=== PATIENT | male | born 1955 | race Two or more races ===

== ENCOUNTER 2018-02-07 09:18 | Inpatient (IN) | payer OTHER ==
[~2018-02-07] VITALS: Ht 175.3 cm; Wt 117.5 kg
[2018-02-07] VITALS (22 sets, daily range): BP systolic 120–183; BP diastolic 85–150
[2018-02-07] MEDS ORDERED: Racemic EPINEPHrine 2.25% 0.5ml HHN ONE (09:30)
[2018-02-07] MEDS ORDERED: Solu-MEDROL 125mg Inj IVP ONE (09:30)
[2018-02-07] MEDS ORDERED: DiphenhydrAMINE 50mg/ml Inj IVP ONE (09:30)
--- NOTE | 2018-02-07 09:30 | Emergency Room Report ---
History of Present Illness General Chief Complaint: General Complaint Source: Patient, Medical Record, EMS, Caregiver Present Illness HPI Patient presents with 40 minutes of swelling of his eyes and neck. He's never had this before. Paramedics transported the patient on oxygen. Pulse ox was low. He was able to speak with hoarseness. A 4X4 gauze was placed over the trach site. Paramedics report that the trach had been removed earlier, however , it was not clear when. They were told this was probably an allergic reaction. Trach was apparently placed during treatment of pneumonia and prior stroke. He is on medication at this time. He has a history of COPD and is on 2 L of action usually. The patient denies any pain. No prior h/o allergies or allergic reactions. Further history unavailable. Later after the CXR further history was available: Apparently there was some problem with the trach (#8 Portex). They do have bag valve masks at the [facility]. It is unclear whether positive pressure was given after the trach was manipulated (but this is suspected by me). The patient started having neck and eye swelling. They took the trach out and called paramedics. Allergies: Coded Allergies: No Known Allergies (Unverified , 02/07/18) Patient History Limited by: medical condition Past Medical History: see triage record, old chart reviewed, COPD, CVA/TIA Past Surgical History: other - trach, G tube Social History: Denies: smoking, alcohol use Social History Narrative [facility] . Reviewed Nursing Documentation: PMH: Agreed; PSxH: Agreed Nursing Documentation-PMH Hx Cardiac Problems: Yes - Afib, Hyperlipidemia Hx Hypertension: Yes Hx COPD: Yes - Hx Trache, Dysphagia Hx Gastrointestinal Problems: Yes - GERD, Left Upper Gtube Hx Cerebrovascular Accident: Yes - Intracranial Hemorrhage, Left Hemiplegia, Hemiparesis Review of Systems All Other Systems: limited Physical Exam Vital Signs Date Time Temp Pulse Resp B/P (MAP) Pulse Ox O2 Delivery O2 Flow Rate FiO2 02/07/18 09:12 98.1 104 20 209/155 96 Nasal Cannula 2.0 98.1 Sp02 EP Interpretation: reviewed, abnormal - interpreted as low by me General Appearance: alert, mild distress, Chronically Ill Eyes: bilateral eye PERRL, bilateral eye other - periorbital edema ENT: dry mucus membranes Neck: supple, other - massive swelling of neck and face Respiratory: decreased breath sounds, wheezing, expiration Cardiovascular #1: normal peripheral pulses, regular rate, rhythm, edema Cardiovascular #2: 2+ radial (R) Gastrointestinal: non tender, soft, no mass, other - G tube, decreased bowel sounds, overweight Musculoskeletal: digits/nails normal, normal range of motion Neurologic: alert, sensory intact, motor weakness - L sided Psychiatric: depressed affect Skin: normal color, no rash Procedures Critical Care Time Critical Care Time Total Critical Care Time: 120 min bedside evaluation and treatment excludes procedures (EKG, trach replacement). Reason for critical care: mediastinal emphysema, hypoxia, upper airway compromise Possible complications: hypotension, hypertension, CT, shock, arrhythmias, metabolic acidosis, end organ damage, respiratory failure. Interventions: trach replacement, calls for higher level of care and for consultants, repeat patient evaluation Course: Patient with neck, upper airway and facial swelling. Emergent treatment for possible allergic reaction. CXR with mediastinal emphysema. Airway deterioration and trach placed. Airway stabilized. Multiple calls for attempt transfer to higher level of care - presented and "accepted" for consultation [facility] Multiple calls to PMD and thoracic surgeon. CT chest reviewed. Planned admission to ICU. Discussion with SNF for preceding events. Consultations: nursing staff, EMS, RT, Justino, critical care seat pack inspector, thoracic surgeons (Martha Badillo), SNF for further history Performed by: Dr. Vasquez Tolerated well condition = critical Additional Procedure Procedure Narrative # 4 shiley passed through tracheostomy site. Initially, no air flow. Repositioned and air flow when trach close to neck. Secured by ERMD and RT. Minimal blood after replacement. Tolerated well. Medical Decision Making Diagnostic Impression: Primary Impression: Pneumomediastinum Additional Impressions: COPD (chronic obstructive pulmonary disease) Qualified Codes: J44.9 - Chronic obstructive pulmonary disease, unspecified Status post CVA ER Course The patient presents with severe swelling of his neck and face. Differential includes allergic reaction, angioedema from ERNST inhibitor's, other causes of facial angioedema, mediastinal air. He is afebrile and therefore infectious causes less likely. He's in no respiratory distress at this time however the swelling is quite pronounced. He states that the swelling is somewhat stabilized at the moment. We will have advanced airway materials at the bedside. He'll receive Solu-Medrol, Benadryl and Pepcid IV. There was some stridor and consideration of intubation or replacement of trach was emergent. CXR with pneumomediastinum and large amount of subcutaneous air. Crepitus noted now in neck and facial area. Trach replaced. Initially in false lumen. Incumbent not to give positive pressure. Works with close positioning on neck. Fenestrated trach used. EKG without injury. Labs with normal WBC, CMP (mild elevated glucose). Patient attempting to remove IV. Non-behavioral restraints placed. Calls to [facility] as patient will most likely need thorasic or ENT surgery. Case presented. They requested that Dr. Pierre be contacted to instruct transfer and admission. Calls to Dr. Pierre as this is his patient. He requested the patient be admitted to the student service at [facility]. Patient presented to Dr. Lainez at [facility] who stated she agreed that the patient needed thoracic surgical following. As the patient would be admitted to the student service, she would provide consultation. She felt surgery was not emergent at this time. She agreed that thoracic surgery might be necessary. Patient improved and resting. 100% NR mask placed to decrease SC air. Calls to [facility]. They now stated because the patient did not need emergent surgery, that this was not a transfer for higher level of care. They stated the patient would not be accepted because of insurance. They apparently had spoken to Dr. Pierre who was told of this and accepted their assessment. I again stated that the patient needed higher level of care that was not available at our hospital. [facility] wanted us to call the insurance and arrange for other transfer. This was done. [facility] refused to work to transfer the patient. Dr. Pierre was recontacted. He suggested we contact Dr. Haque. Calls to Dr. Haque. No answer. Calls to [facility]. They stated that because the surgery was not emergent (12-24 hours) that the transfer was not higher level of care. Dr. Pierre stated he discussed the patient with Dr. Haque and to admit to [facility]. Dr. Haque discussed the patient and requested CT to r/o pneumothorax amongst other recommendations. He stated that if the patient had an esophageal lesion, that thoracic surgery would be necessary. He request an esophagram (and was told this was not possible until the morning). CT without pneumothorax. Antibiotics begun. Patient signed out to Dr. Allen. Patient moving air better and able to speak without stridor (after 100% O2). CT without pneumothorax. Admit ICU Dr. Pierre. Calls to [facility] for further history. Suspect tracheal trauma sustained at [facility]. Then positive pressure ventilation caused pneumomediastinum and upper airway swelling. Consideration that if further trach dysfunction for placement of ET tube further beyond suspected injury. Alternatively, if upper airway swelling improved, may tolerate removal of trach. Laboratory Tests Test 02/07/18 09:30 White Blood Count 8.6 K/UL (4.8-10.8) Red Blood Count 4.57 M/UL (4.70-6.10) L Hemoglobin 13.5 G/DL (14.2-18.0) L Hematocrit 40.3 % (42.0-52.0) L Mean Corpuscular Volume 88 FL (80-99) Mean Corpuscular Hemoglobin 29.6 PG (27.0-31.0) Mean Corpuscular Hemoglobin Concent 33.6 G/DL (32.0-36.0) Red Cell Distribution Width 12.0 % (11.6-14.8) Platelet Count 271 K/UL (150-450) Mean Platelet Volume 7.0 FL (6.5-10.1) Neutrophils (%) (Auto) 79.1 % (45.0-75.0) H Lymphocytes (%) (Auto) 13.2 % (20.0-45.0) L Monocytes (%) (Auto) 5.5 % (1.0-10.0) Eosinophils (%) (Auto) 1.7 % (0.0-3.0) Basophils (%) (Auto) 0.6 % (0.0-2.0) Prothrombin Time 10.7 SEC (9.30-11.50) Prothrombin Time INR 1.0 (0.9-1.1) PTT 26 SEC (23-33) Sodium Level 138 MMOL/L (136-145) Potassium Level 3.6 MMOL/L (3.5-5.1) Chloride Level 99 MMOL/L (98-107) Carbon Dioxide Level 31 MMOL/L (21-32) Anion Gap 8 mmol/L (5-15) Blood Urea Nitrogen 17 mg/dL (7-18) Creatinine 1.1 MG/DL (0.55-1.30) Estimate Glomerular Filtration Rate > 60 mL/min (>60) Glucose Level 138 MG/DL (74-106) H Calcium Level 9.0 MG/DL (8.5-10.1) Total Bilirubin 0.9 MG/DL (0.2-1.0) Aspartate Amino Transferase (AST) 29 U/L (15-37) Alanine Aminotransferase (ALT) 31 U/L (12-78) Alkaline Phosphatase 174 U/L (46-116) H Total Creatine Kinase 69 U/L (26-308) Troponin I 0.005 ng/mL (0.000-0.056) Pro-B-Type Natriuretic Peptide 144 pg/mL (0-125) H Total Protein 8.4 G/DL (6.4-8.2) H Albumin 3.2 G/DL (3.4-5.0) L Globulin 5.2 g/dL Albumin/Globulin Ratio 0.6 (1.0-2.7) L EKG Diagnostic Results Rate: normal Rhythm: NSR ST Segments: no acute changes - LAD Rhythm Strip Diag. Results EP Interpretation: yes Rhythm: NSR, no PVC's, no ectopy Chest X-Ray Diagnostic Results Chest X-Ray Diagnostic Results : Chest X-Ray Ordered: Yes # of Views/Limited/Complete: 1 View Indication: Other EP Interpretation: Yes Interpretation: no consolidation, no effusion, other - pneumomediastinum and SQ air Impression: Other Electronically Signed by: Lul Vasquez MD Last Vital Signs Date Time Temp Pulse Resp B/P (MAP) Pulse Ox O2 Delivery O2 Flow Rate FiO2 02/07/18 16:00 98.6 89 20 153/111 100 Non-Rebreather 15.0 28 98.6 Status: improved Disposition: ADMITTED INPATIENT Condition: Critical Lul Vasquez M.D. Feb 07, 2018 09:30
[2018-02-07] MEDS ORDERED: METOCLOPRA10 MG/10 M GT (09:46)
[2018-02-07] MEDS ORDERED: ACETAMINOPHEN325 M1 GT (09:46)
[2018-02-07] MEDS ORDERED: PANTOPRAZOLE SO40 MG GT (09:46)
[2018-02-07] MEDS ORDERED: VITAMIN C500 M1 GT (09:46)
[2018-02-07] MEDS ORDERED: ATORVASTATIN CA40 MG GT (09:46)
[2018-02-07] MEDS ORDERED: FERROUS SULFAT325 MG GT (09:46)
[2018-02-07] MEDS ORDERED: MULTIVITAMINS1 EAC8 GT (09:46)
[2018-02-07] MEDS ORDERED: FERROUS SULFAT325 MG ORAL (09:46)
[2018-02-07] MEDS ORDERED: ADALAT20 MG GT (09:46)
[2018-02-07] MEDS ORDERED: ZINC SULFATE220 M1 ORAL (09:46)
[2018-02-07] MEDS ORDERED: AMIODARONE HCL400 M1 GT (09:46)
[2018-02-07] MEDS ORDERED: COLACE100 MG GT (09:46)
[2018-02-07] MEDS ORDERED: HYDRALAZINE HCL10 MG ORAL (09:46)
[2018-02-07] MEDS ORDERED: ALBUTEROL2.5 MG/3 M INH (09:48)
[2018-02-07 09:56] LABS: BASOPHILS % (AUTO) 0.6 % (0.0-2.0); EOSINOPHILS % (AUTO) 1.7 % (0.0-3.0); HEMATOCRIT 40.3 % (42.0-52.0); HEMOGLOBIN 13.5 G/DL (14.2-18.0); LYMPHOCYTES % (AUTO) 13.2 % (20.0-45.0); MEAN CORPUSCULAR VOLUME 88 FL (80-99); MONOCYTES % (AUTO) 5.5 % (1.0-10.0); NEUTROPHILS % (AUTO) 79.1 % (45.0-75.0); PLATELET COUNT 271 K/UL (150-450); RED BLOOD COUNT 4.57 M/UL (4.70-6.10); WHITE BLOOD COUNT 8.6 K/UL (4.8-10.8)
[2018-02-07 10:12] LABS: ANION GAP 8 mmol/L (5-15); BLOOD UREA NITROGEN 17 mg/dL (7-18); CARBON DIOXIDE 31 MMOL/L (21-32); CHLORIDE 99 MMOL/L (98-107); CREATININE 1.1 MG/DL (0.55-1.30); POTASSIUM 3.6 MMOL/L (3.5-5.1); SODIUM 138 MMOL/L (136-145)
--- NOTE | 2018-02-07 10:22 | Diagnostic Imaging Report ---
Indication: Dyspnea Comparison: None A single view chest radiograph was obtained. Findings: There is extensive subcutaneous emphysema involving the base of the neck, chest wall bilaterally. There is evidence of pneumomediastinum. There is no obvious pneumothorax. The heart is enlarged. Lung volumes are low. Evaluation of the lungs is limited given the extensive soft tissue air. Aorta is ectatic. There are no obvious rib fractures. IMPRESSION: Pneumomediastinum and extensive subcutaneous emphysema Cardiomegaly and atherosclerotic disease of aorta.
[2018-02-07 10:26] LABS: ALANINE AMINOTRANSFERASE 31 U/L (12-78); ALBUMIN 3.2 G/DL (3.4-5.0); ALBUMIN/GLOBULIN RATIO 0.6 (1.0-2.7); ALKALINE PHOSPHATASE 174 U/L (46-116); ASPARTATE AMINO TRANSFERASE 29 U/L (15-37); BILIRUBIN,TOTAL 0.9 MG/DL (0.2-1.0); CREATINE KINASE 69 U/L (26-308)
[2018-02-07] MEDS ORDERED: Piperacillin/Tazobactam 3.375 GM in NS 110 ML IVPB ONE (16:30)
--- NOTE | 2018-02-07 22:16 | Emergency Room Report ---
History of Present Illness General Chief Complaint: General Complaint Source: Patient, Medical Record, EMS, Caregiver Present Illness Allergies: Coded Allergies: No Known Allergies (Unverified , 02/07/18) Nursing Documentation-PMH Hx Cardiac Problems: Yes - Afib, Hyperlipidemia Hx Hypertension: Yes Hx COPD: Yes - Hx Trache, Dysphagia Hx Gastrointestinal Problems: Yes - GERD, Left Upper Gtube Hx Cerebrovascular Accident: Yes - Intracranial Hemorrhage, Left Hemiplegia, Hemiparesis Physical Exam Vital Signs Date Time Temp Pulse Resp B/P (MAP) Pulse Ox O2 Delivery O2 Flow Rate FiO2 02/07/18 09:12 98.1 104 20 209/155 96 Nasal Cannula 2.0 98.1 02/07/18 09:29 28 Medical Decision Making Diagnostic Impression: Primary Impression: Pneumomediastinum Additional Impressions: Status post CVA COPD (chronic obstructive pulmonary disease) Qualified Codes: J44.9 - Chronic obstructive pulmonary disease, unspecified ER Course Patient pending admission to ICU CT of chest shows no pneumothorax however does demonstrate that trach is not in place. it is just anterior and to the left. Using bougie I attempted to replace the trach Repeat chest x-ray does not show definitive evidence of trach is in place however there is good airflow and patient does not appear to be in distress. I consulted Dr. Ford. He replace trach at bedside using bougie. Chest x-ray shows trach does appear to be in place however is short. Does require longer trach He will order longer trach and will replace tomorrow Case discussed with Dr. Pierre Last Vital Signs Date Time Temp Pulse Resp B/P (MAP) Pulse Ox O2 Delivery O2 Flow Rate FiO2 02/07/18 21:54 98.7 98 24 120/85 98 Room Air 28 98.7 02/07/18 19:44 15.0 Status: improved Disposition: ADMITTED INPATIENT Condition: Critical Referrals: ARJUN PIERRE (PCP) Parth Allen MD Feb 07, 2018 22:16
[2018-02-07] MEDS ORDERED: Milk of Magnesia 30ml Ud GT PRN (23:00)
[2018-02-07] MEDS ORDERED: Acetaminophen 650mg/20.3ml GT PRN (23:00)
[2018-02-07] MEDS ORDERED: HydrALAZINE 10mg Tab GT PRN (23:30)
[2018-02-08] VITALS (24 sets, daily range): BP systolic 107–154; BP diastolic 78–107
[2018-02-08] MEDS: Piperacillin/Tazobactam 3.375 GM in NS 110 ML IVPB SCH ×4 (01:19→23:42)
[2018-02-08] MEDS: Metoclopramide 10mg/10ml Liq GT SCH ×3 (05:38→21:52)
[2018-02-08 06:39] LABS: HEMATOCRIT 35.9 % (42.0-52.0); HEMOGLOBIN 12.2 G/DL (14.2-18.0); MEAN CORPUSCULAR VOLUME 88 FL (80-99); PLATELET COUNT 180 K/UL (150-450); RED BLOOD COUNT 4.07 M/UL (4.70-6.10); RED CELL DISTRIBUTION WIDTH 11.9 % (11.6-14.8); WHITE BLOOD COUNT 10.1 K/UL (4.8-10.8)
[2018-02-08 06:44] LABS: ANION GAP 9 mmol/L (5-15); BLOOD UREA NITROGEN 21 mg/dL (7-18); CARBON DIOXIDE 29 MMOL/L (21-32); CHLORIDE 103 MMOL/L (98-107); CREATININE 1.1 MG/DL (0.55-1.30); POTASSIUM 3.9 MMOL/L (3.5-5.1); SODIUM 141 MMOL/L (136-145)
[2018-02-08] MEDS: Multivitamin w/Minerals tab ORAL SCH (09:00)
[2018-02-08] MEDS: Modafinil 100mg tab GT SCH (09:00)
[2018-02-08] MEDS: NIFEdipine 10mg cap ORAL SCH (09:00)
[2018-02-08] MEDS: Amantadine 100mg cap GT SCH ×2 (09:00→18:49)
[2018-02-08] MEDS: Pantoprazole Inj IVP SCH (09:48)
--- NOTE | 2018-02-08 10:08 | Diagnostic Imaging Report ---
Indication: Pneumomediastinum. Chest pain. Technique: Continuous helical transaxial imaging of the chest was obtained from the thoracic inlet to the upper abdomen after intravenous nonionic contrast administration. Coronal 2-D reformats were also obtained. Automatic Exposure Control was utilized. Total Dose length Product (DLP): 1102.[address] Dose Index Volume (CTDIvol): 28.94 mGy Comparison: none Findings: Tracheostomy catheter is not within the trachea. The catheter is just left of the trachea within soft tissues. This requires repositioning. There is extensive subcutaneous air within the chest wall and base of the neck. Pneumomediastinum is present. No pneumothorax seen. Basilar atelectasis demonstrated. The aorta is tortuous and mildly ectatic. There is a subcutaneous catheter in the anterior part of the chest wall extending down into the peritoneal cavity. 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 Gastrostomy tube is present. IMPRESSION: Malpositioned tracheostomy. This requires repositioning. Extensive pneumomediastinum and subcutaneous emphysema. Basilar atelectasis Atherosclerotic disease Gastrostomy Ventriculoperitoneal shunt Critical value communication. Findings in this report were conveyed via telephone with Dr. Allen by [facility] physician Dr. Willoughby at 17:54 02/07/[address] scanner at [facility] is accredited by the [employer] and the scans are performed using dose optimization techniques as appropriate to a performed exam including Automatic Exposure control.
--- NOTE | 2018-02-08 12:53 | Diagnostic Imaging Report ---
Indication: Tracheostomy placement Comparison: None A single view chest radiograph was obtained. Findings: Tracheostomy is noted. Recent CT done show the tracheostomy was not within the trachea and required repositioning. Not certain that this was done subsequent to the CT. Extensive subcutaneous emphysema newly centimeters again noted. Lung volumes are low. Cardiac mediastinal silhouette is stable. IMPRESSION: Tracheostomy now noted. Positioning is not confirmed on this study. See above. No change otherwise
--- NOTE | 2018-02-08 13:15 | Diagnostic Imaging Report ---
Indication: Dyspnea Comparison: 02/07/2019 A single view chest radiograph was obtained. Findings: Tracheostomy noted and projected over the area of the trachea. Subcutaneous emphysema again noted. Cardiac mediastinal silhouette is prominent but stable. IMPRESSION: No significant change. Tracheostomy tip projected over the trachea.
--- NOTE | 2018-02-08 13:17 | Diagnostic Imaging Report ---
Indication: Posttracheostomy Comparison: None Findings: Single lateral view of the neck performed. Single lateral nondiagnostic image noted. There is a tracheostomy tube at the tip location is not confirmed. IMPRESSION: Nondiagnostic exam. Note: On earlier CT the tracheostomy was not within the trachea.
--- NOTE | 2018-02-08 13:18 | Diagnostic Imaging Report ---
Indication: Tracheostomy revision Comparison: None A single view chest radiograph was obtained. Findings: The tip of the tracheostomy does project over the trachea. There is no change otherwise. Prominent cardiac mediastinal silhouette, pneumomediastinum and subcutaneous emphysema again noted. IMPRESSION: Tracheostomy tip projects over the trachea.
--- NOTE | 2018-02-08 14:50 | Critical Care Progress Note ---
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 PLAN care as is surgical follow up esophagram hope to start feeds if cleared Critical Care - Subjective Interval Events: stable subq emphysema better appreciate thoracic and general surgery I&O: Intake and Output 02/07/18 02/08/18 19:00 07:00 Intake Total 0 ml 910.0 ml Output Total 450 ml Balance 0 ml 460.0 ml Intake Oral 0 ml IV Total 910.0 ml Output Urine Total 450 ml # Voids 1 Critical Care - Objective Last 24 Hour Vital Signs Date Time Temp Pulse Resp B/P (MAP) Pulse Ox O2 Delivery O2 Flow Rate FiO2 02/08/18 12:57 T-piece 10.0 35 02/08/18 12:57 97 T-piece 10.0 35 02/08/18 12:00 98.2 83 16 129/89 96 Trach Collar 8.0 35 98.2 02/08/18 11:00 84 16 130/86 96 Trach Collar 8.0 35 02/08/18 10:00 90 16 137/95 95 Trach Collar 8.0 35 02/08/18 09:00 95 16 127/85 95 Trach Collar 8.0 35 02/08/18 09:00 90 129/93 02/08/18 08:00 90 02/08/18 08:00 98.3 87 17 129/93 95 Trach Collar 8.0 35 98.3 02/08/18 08:00 8.0 35 02/08/18 07:00 86 18 115/80 95 Trach Collar 8.0 35 02/08/18 06:55 97 T-piece 10.0 35 02/08/18 06:55 T-piece 10.0 35 02/08/18 06:00 86 16 114/78 97 Trach Collar 8.0 35 02/08/18 05:00 91 20 125/92 97 Trach Collar 8.0 35 02/08/18 04:00 8.0 35 02/08/18 04:00 98.0 91 19 126/87 97 Trach Collar 8.0 35 98.0 02/08/18 04:00 89 02/08/18 03:00 95 19 126/93 98 Trach Collar 8.0 35 02/08/18 02:00 98 18 125/84 97 Trach Collar 8.0 35 02/08/18 01:30 95 T-piece 8.0 35 02/08/18 01:30 T-piece 8.0 35 02/08/18 01:00 98 19 107/82 94 Trach Collar 8.0 35 02/08/18 00:00 103 02/08/18 00:00 97.9 102 24 124/107 93 Trach Collar 8.0 35 97.9 02/08/18 00:00 8.0 35 02/07/18 23:00 102 25 151/107 94 Trach Collar 8.0 35 02/07/18 22:00 98.5 94 21 144/96 96 Trach Collar 8.0 35 98.5 02/07/18 22:00 93 02/07/18 21:54 98.7 98 24 120/85 98 Room Air 28 98.7 02/07/18 21:16 98.7 104 24 120/85 98 Trach Collar 98.7 02/07/18 20:45 98.7 107 24 133/99 98 Trach Collar 98.7 02/07/18 19:44 98.7 103 24 127/100 98 Non-Rebreather 15.0 28 98.7 02/07/18 18:30 96 T-piece 8.0 30 02/07/18 18:30 98.7 98 27 135/116 98 Non-Rebreather 15.0 28 98.7 02/07/18 18:30 T-piece 8.0 30 02/07/18 18:00 98.0 86 20 142/95 100 Non-Rebreather 15.0 28 98.0 02/07/18 17:30 85 21 134/101 100 Non-Rebreather 15.0 28 02/07/18 17:00 98.2 89 20 133/104 100 Non-Rebreather 15.0 28 98.2 02/07/18 16:30 92 21 183/150 100 Non-Rebreather 15.0 28 02/07/18 16:00 98.6 89 20 153/111 100 Non-Rebreather 15.0 28 98.6 02/07/18 15:30 89 20 144/101 100 Non-Rebreather 15.0 28 02/07/18 15:00 98.1 89 22 140/112 100 Non-Rebreather 15.0 28 98.1 Labs: Labs Test 02/07/18 09:30 02/08/18 05:40 4/12/18 09:30 White Blood Count 8.6 K/UL (4.8-10.8) 10.1 K/UL (4.8-10.8) Red Blood Count 4.57 M/UL (4.70-6.10) 4.07 M/UL (4.70-6.10) Hemoglobin 13.5 G/DL (14.2-18.0) 12.2 G/DL (14.2-18.0) Hematocrit 40.3 % (42.0-52.0) 35.9 % (42.0-52.0) Mean Corpuscular Volume 88 FL (80-99) 88 FL (80-99) Mean Corpuscular Hemoglobin 29.6 PG (27.0-31.0) 29.9 PG (27.0-31.0) Mean Corpuscular Hemoglobin Concent 33.6 G/DL (32.0-36.0) 33.9 G/DL (32.0-36.0) Red Cell Distribution Width 12.0 % (11.6-14.8) 11.9 % (11.6-14.8) Platelet Count 271 K/UL (150-450) 180 K/UL (150-450) Mean Platelet Volume 7.0 FL (6.5-10.1) 6.2 FL (6.5-10.1) Neutrophils (%) (Auto) 79.1 % (45.0-75.0) % (45.0-75.0) Lymphocytes (%) (Auto) 13.2 % (20.0-45.0) % (20.0-45.0) Monocytes (%) (Auto) 5.5 % (1.0-10.0) % (1.0-10.0) Eosinophils (%) (Auto) 1.7 % (0.0-3.0) % (0.0-3.0) Basophils (%) (Auto) 0.6 % (0.0-2.0) % (0.0-2.0) Prothrombin Time 10.7 SEC (9.30-11.50) Prothromb Time International Ratio 1.0 (0.9-1.1) Activated Partial Thromboplast Time 26 SEC (23-33) Sodium Level 138 MMOL/L (136-145) 141 MMOL/L (136-145) Potassium Level 3.6 MMOL/L (3.5-5.1) 3.9 MMOL/L (3.5-5.1) Chloride Level 99 MMOL/L (98-107) 103 MMOL/L (98-107) Carbon Dioxide Level 31 MMOL/L (21-32) 29 MMOL/L (21-32) Anion Gap 8 mmol/L (5-15) 9 mmol/L (5-15) Blood Urea Nitrogen 17 mg/dL (7-18) 21 mg/dL (7-18) Creatinine 1.1 MG/DL (0.55-1.30) 1.1 MG/DL (0.55-1.30) Estimat Glomerular Filtration Rate > 60 mL/min (>60) > 60 mL/min (>60) Glucose Level 138 MG/DL (74-106) 112 MG/DL (74-106) Calcium Level 9.0 MG/DL (8.5-10.1) 9.0 MG/DL (8.5-10.1) Total Bilirubin 0.9 MG/DL (0.2-1.0) Aspartate Amino Transf (AST/SGOT) 29 U/L (15-37) Alanine Aminotransferase (ALT/SGPT) 31 U/L (12-78) Alkaline Phosphatase 174 U/L (46-116) Total Creatine Kinase 69 U/L (26-308) Troponin I 0.005 ng/mL (0.000-0.056) Pro-B-Type Natriuretic Peptide 144 pg/mL (0-125) Total Protein 8.4 G/DL (6.4-8.2) Albumin 3.2 G/DL (3.4-5.0) Globulin 5.2 g/dL Albumin/Globulin Ratio 0.6 (1.0-2.7) Differential Total Cells Counted 100 Neutrophils % (Manual) 88 % (45-75) Lymphocytes % (Manual) 7 % (20-45) Monocytes % (Manual) 5 % (1-10) Eosinophils % (Manual) 0 % (0-3) Basophils % (Manual) 0 % (0-2) Band Neutrophils 0 % (0-8) Platelet Estimate Adequate Platelet Morphology Normal HIV (1&2) Antibody Rapid Negative (NEGATIVE) Arterial Blood pH 7.466 (7.350-7.450) Arterial Blood Partial Pressure CO2 41.6 mmHg (35.0-45.0) Arterial Blood Partial Pressure O2 65.6 mmHg (75.0-100.0) Arterial Blood HCO3 29.3 mmol/L (22.0-26.0) Arterial Blood Oxygen Saturation 92.8 % (92.0-98.0) Arterial Blood Base Excess 5.1 Zaheer Test Positive Objective: WDWN NAD clear breath sounds bilaterally without rhonchi or wheeze [id number] without MRG NABS nontender no HSM no CC edema subq crepitus nonfocal Accucheck: 129 ARJUN HO Feb 08, 2018 14:50
--- NOTE | 2018-02-08 18:21 | Operative Note - PDOC ---
Operative Note Operative Note Date of Operation/Procedure: Feb 07, 2018 Pre-op Diagnosis: dislodged tracheostomy tube; subcutaneous emphysema. Procedure: replacement of tracheostomy tube using bougie Post-op Diagnosis: same as pre-op Surgeon: faiza Specimen: none Complications: none Condition: stable Estimated Blood Loss: none Drains: none Implant(s) used?: Yes - 4f shiley trach fen with cuff Indications for Procedure 63M dislodged tracheostomy tube with noted subcutaneous emphysema. initial trial replacement by ED physician unsuccessful as noted on CT. Surgery called to evaluate and assist with trach insertion urgently Description of Procedure patient made comfortable at bedside. trach site evaluated not lots of subcutaneous emphysema noted. crepitus all around anterior chest and neck. trach tract clean and good visualization to trachea noted. thickened tract and thick neck noted. patient had 4f trach prior. using boogie I was able to sucessfully insert new 4f trach. position identified with good airflow and seen on CXR with tip of trach in trachea. unfortunately thick neck in large male and will need longer XLT trach which will be ordered. leave trach in place for not to keep tract open until new trach arrives. patient tolerated well. suctioned post procedure. Johnathan Ford Feb 08, 2018 18:21
--- NOTE | 2018-02-08 19:45 | Consultation ---
DATE OF CONSULTATION: 02/08/2018 SURGEON: Collins Haque M.D., specialty in Thoracic Surgery. REFERRING PHYSICIAN: Jameel Pierre M.D. HISTORY OF PRESENT ILLNESS: This is a 62-year-old male who presented to the emergency room of [facility] with extensive subcutaneous emphysema. Per history, the patient's tracheostomy was removed and then reinserted with some difficulty. The patient was then noted to have immediate onset of subcutaneous emphysema. The patient is hemodynamically stable and Thoracic Surgery was consulted for further evaluation. PAST MEDICAL HISTORY: Notable for: 1. CVA. 2. COPD. PAST SURGICAL HISTORY: Notable for: 1. Tracheostomy. 2. G-tube placement. MEDICATIONS: Reviewed. ALLERGIES: The patient has no known drug allergies. FAMILY HISTORY: Noncontributory. SOCIAL HISTORY: Noncontributory. PHYSICAL EXAMINATION: VITAL SIGNS: He was noted to be afebrile. His vitals are within normal limits. CARDIAC: Regular rate and rhythm. No gallops or murmur. RESPIRATORY: Bilateral crackles are noted. The tracheostomy tube was repositioned. There was extensive subcutaneous emphysema extending to the neck and the face as well as down to the abdomen. ABDOMEN: Soft, nondistended, and nontender with normoactive bowel sounds. EXTREMITIES: No cyanosis, clubbing, or edema. LABORATORY AND DIAGNOSTIC DATA: Laboratory study performed on 02/08/2018, showed WBC of 10, hemoglobin 12.2, hematocrit 36, and platelet count of 180,000. Chemistries, 141, potassium 3.9, chloride 103, bicarbonate was 29, BUN is 21, creatinine is 1.1, and glucose is 60. Chest CT scan was performed on 02/07/2018 demonstrating no evidence of pneumothorax. There is extensive pneumomediastinum. In addition, there is radiographic evidence of malposition of tracheostomy tube outside the tracheal lumen. ASSESSMENT AND PLAN: This is a 62-year-old male who presented to the emergency room of [facility] with a malpositioned tracheostomy tube outside the tracheal lumen. The tracheostomy tube was then subsequently repositioned and placed into the tracheal lumen. The patient was evaluated at bedside. At the present time, there is no indication for any surgical intervention. The subcutaneous emphysema will subside over the course of next few days. I want to thank you for referring this patient to my attention. If there are any questions in regard to this patient's critical care, please do not hesitate to contact me. [place] M.D. DR: YUDITH JOB#: [id number] CC: MARYSE
[2018-02-08] MEDS ORDERED: Atorvastatin 80mg tab GT SCH (21:00)
[2018-02-09] VITALS (15 sets, daily range): BP systolic 118–160; BP diastolic 66–113
[2018-02-09] MEDS: Metoclopramide 10mg/10ml Liq GT SCH ×3 (05:37→22:05)
[2018-02-09] MEDS: Piperacillin/Tazobactam 3.375 GM in NS 110 ML IVPB SCH ×2 (08:22→16:25)
[2018-02-09] MEDS: Pantoprazole Inj IVP SCH (08:22)
[2018-02-09] MEDS: NIFEdipine 10mg cap ORAL SCH (08:23)
[2018-02-09] MEDS: Amantadine 100mg cap GT SCH ×2 (08:23→19:17)
[2018-02-09] MEDS: Multivitamin w/Minerals tab ORAL SCH (08:23)
[2018-02-09] MEDS: Modafinil 100mg tab GT SCH (08:23)
[2018-02-09 09:28] LABS: BASOPHILS % (AUTO) 0.6 % (0.0-2.0); EOSINOPHILS % (AUTO) 4.6 % (0.0-3.0); HEMATOCRIT 37.2 % (42.0-52.0); HEMOGLOBIN 12.4 G/DL (14.2-18.0); LYMPHOCYTES % (AUTO) 12.7 % (20.0-45.0); MEAN CORPUSCULAR VOLUME 88 FL (80-99); MONOCYTES % (AUTO) 7.5 % (1.0-10.0); NEUTROPHILS % (AUTO) 74.6 % (45.0-75.0); PLATELET COUNT 211 K/UL (150-450); RED BLOOD COUNT 4.21 M/UL (4.70-6.10); RED CELL DISTRIBUTION WIDTH 12.1 % (11.6-14.8); WHITE BLOOD COUNT 8.5 K/UL (4.8-10.8)
[2018-02-09 09:47] LABS: ANION GAP 10 mmol/L (5-15); BLOOD UREA NITROGEN 14 mg/dL (7-18); CALCIUM 8.5 MG/DL (8.5-10.1); CARBON DIOXIDE 27 MMOL/L (21-32); CHLORIDE 106 MMOL/L (98-107); CREATININE 0.8 MG/DL (0.55-1.30); POTASSIUM 3.2 MMOL/L (3.5-5.1); SODIUM 142 MMOL/L (136-145)
[2018-02-09] MEDS ORDERED: NIFEdipine 10mg cap ORAL SCH ×2 (14:15→22:00)
--- NOTE | 2018-02-09 14:21 | Critical Care Progress Note ---
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 shunt PLAN care as is surgical follow up feeds change trach dc planning soon Critical Care - Subjective Interval Events: care noted overall improved I&O: Intake and Output 02/08/18 02/09/18 19:00 07:00 Intake Total 940 ml 1230.0 ml Output Total 25 ml 860 ml Balance 915 ml 370.0 ml IV Total 700 ml 1110.0 ml Other 240 ml 120 ml Output Urine Total 25 ml 860 ml Critical Care - Objective Last 24 Hour Vital Signs Date Time Temp Pulse Resp B/P (MAP) Pulse Ox O2 Delivery O2 Flow Rate FiO2 02/09/18 13:59 T-piece 12.0 50 02/09/18 13:58 98 T-piece 12.0 50 02/09/18 12:00 98.5 91 20 131/92 96 T-piece 8.0 35 98.5 02/09/18 12:00 8.0 35 02/09/18 12:00 90 02/09/18 11:00 93 20 129/85 95 T-piece 8.0 35 02/09/18 10:00 92 20 134/76 94 T-piece 8.0 35 02/09/18 09:00 94 20 118/66 94 T-piece 8.0 35 02/09/18 08:23 73 158/113 02/09/18 08:00 79 02/09/18 08:00 98.3 88 16 158/113 97 T-piece 8.0 35 98.3 02/09/18 08:00 8.0 35 02/09/18 07:37 98 T-piece 10.0 35 02/09/18 07:37 T-piece 10.0 35 02/09/18 07:00 77 16 159/92 97 T-piece 8.0 35 02/09/18 06:00 78 16 160/101 97 T-piece 8.0 35 02/09/18 05:00 75 17 149/96 96 T-piece 8.0 35 02/09/18 04:00 98.9 83 22 154/102 97 T-piece 8.0 35 98.9 02/09/18 04:00 8.0 35 02/09/18 04:00 77 02/09/18 03:00 78 19 154/102 97 T-piece 8.0 35 02/09/18 02:00 78 19 151/96 96 T-piece 8.0 35 02/09/18 01:30 T-piece 10.0 35 02/09/18 01:30 95 T-piece 10.0 35 02/09/18 01:00 78 15 152/103 97 T-piece 8.0 35 02/09/18 00:00 85 02/09/18 00:00 8.0 35 02/09/18 00:00 98.7 81 17 152/98 98 T-piece 8.0 35 98.7 02/08/18 23:00 77 14 151/97 97 T-piece 8.0 35 02/08/18 22:00 82 19 152/100 96 T-piece 8.0 35 02/08/18 21:00 84 21 154/98 96 T-piece 8.0 35 02/08/18 20:00 8.0 35 02/08/18 20:00 83 02/08/18 20:00 89 20 115/97 99 T-piece 8.0 35 02/08/18 19:30 T-piece 10.0 35 02/08/18 19:30 94 T-piece 10.0 35 02/08/18 19:00 89 17 115/97 98 Trach Collar 8.0 35 02/08/18 18:00 95 15 153/92 98 Trach Collar 8.0 35 02/08/18 17:00 78 16 144/95 98 Trach Collar 8.0 35 02/08/18 16:00 8.0 35 02/08/18 16:00 98.5 79 16 144/95 97 Trach Collar 8.0 35 98.5 02/08/18 15:55 83 02/08/18 15:00 80 15 129/84 96 Trach Collar 8.0 35 Objective: WDWN NAD clear breath sounds bilaterally without rhonchi or wheeze [id number] without MRG NABS nontender no HSM no CC edema subq crepitus improved nonfocal Accucheck: 129 ARJUN HO Feb 09, 2018 14:21
--- NOTE | 2018-02-09 14:22 | History & Physical ---
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 PLAN care as is surgical follow up esophagram hope to start feeds if cleared Critical Care - Subjective Critical Care - Subjective Interval Events: stable subq emphysema better appreciate thoracic and general surgery I&O: Intake and Output 02/07/18 02/08/18 19:00 07:00 Intake Total 0 ml 910.0 ml Output Total 450 ml Balance 0 ml 460.0 ml Intake Oral 0 ml IV Total 910.0 ml Output Urine Total 450 ml # Voids 1 Critical Care - Objective Critical Care - Objective Last 24 Hour Vital Signs Date Time Temp Pulse Resp B/P (MAP) Pulse Ox O2 Delivery O2 Flow Rate FiO2 02/08/18 12:57 T-piece 10.0 35 02/08/18 12:57 97 T-piece 10.0 35 02/08/18 12:00 98.2 83 16 129/89 96 Trach Collar 8.0 35 98.2 02/08/18 11:00 84 16 130/86 96 Trach Collar 8.0 35 02/08/18 10:00 90 16 137/95 95 Trach Collar 8.0 35 02/08/18 09:00 95 16 127/85 95 Trach Collar 8.0 35 02/08/18 09:00 90 129/93 02/08/18 08:00 90 02/08/18 08:00 98.3 87 17 129/93 95 Trach Collar 8.0 35 98.3 02/08/18 08:00 8.0 35 02/08/18 07:00 86 18 115/80 95 Trach Collar 8.0 35 02/08/18 06:55 97 T-piece 10.0 35 02/08/18 06:55 T-piece 10.0 35 02/08/18 06:00 86 16 114/78 97 Trach Collar 8.0 35 02/08/18 05:00 91 20 125/92 97 Trach Collar 8.0 35 02/08/18 04:00 8.0 35 02/08/18 04:00 98.0 91 19 126/87 97 Trach Collar 8.0 35 98.0 02/08/18 04:00 89 02/08/18 03:00 95 19 126/93 98 Trach Collar 8.0 35 02/08/18 02:00 98 18 125/84 97 Trach Collar 8.0 35 02/08/18 01:30 95 T-piece 8.0 35 02/08/18 01:30 T-piece 8.0 35 02/08/18 01:00 98 19 107/82 94 Trach Collar 8.0 35 02/08/18 00:00 103 02/08/18 00:00 97.9 102 24 124/107 93 Trach Collar 8.0 35 97.9 02/08/18 00:00 8.0 35 02/07/18 23:00 102 25 151/107 94 Trach Collar 8.0 35 02/07/18 22:00 98.5 94 21 144/96 96 Trach Collar 8.0 35 98.5 02/07/18 22:00 93 02/07/18 21:54 98.7 98 24 120/85 98 Room Air 28 98.7 02/07/18 21:16 98.7 104 24 120/85 98 Trach Collar 98.7 02/07/18 20:45 98.7 107 24 133/99 98 Trach Collar 98.7 02/07/18 19:44 98.7 103 24 127/100 98 Non-Rebreather 15.0 28 98.7 02/07/18 18:30 96 T-piece 8.0 30 02/07/18 18:30 98.7 98 27 135/116 98 Non-Rebreather 15.0 28 98.7 02/07/18 18:30 T-piece 8.0 30 02/07/18 18:00 98.0 86 20 142/95 100 Non-Rebreather 15.0 28 98.0 02/07/18 17:30 85 21 134/101 100 Non-Rebreather 15.0 28 02/07/18 17:00 98.2 89 20 133/104 100 Non-Rebreather 15.0 28 98.2 02/07/18 16:30 92 21 183/150 100 Non-Rebreather 15.0 28 02/07/18 16:00 98.6 89 20 153/111 100 Non-Rebreather 15.0 28 98.6 02/07/18 15:30 89 20 144/101 100 Non-Rebreather 15.0 28 02/07/18 15:00 98.1 89 22 140/112 100 Non-Rebreather 15.0 28 98.1 Labs: Labs Test 02/07/18 09:30 02/08/18 05:40 02/08/18 09:30 White Blood Count 8.6 K/UL (4.8-10.8) 10.1 K/UL (4.8-10.8) Red Blood Count 4.57 M/UL (4.70-6.10) 4.07 M/UL (4.70-6.10) Hemoglobin 13.5 G/DL (14.2-18.0) 12.2 G/DL (14.2-18.0) Hematocrit 40.3 % (42.0-52.0) 35.9 % (42.0-52.0) Mean Corpuscular Volume 88 FL (80-99) 88 FL (80-99) Mean Corpuscular Hemoglobin 29.6 PG (27.0-31.0) 29.9 PG (27.0-31.0) Mean Corpuscular Hemoglobin Concent 33.6 G/DL (32.0-36.0) 33.9 G/DL (32.0-36.0) Red Cell Distribution Width 12.0 % (11.6-14.8) 11.9 % (11.6-14.8) Platelet Count 271 K/UL (150-450) 180 K/UL (150-450) Mean Platelet Volume 7.0 FL (6.5-10.1) 6.2 FL (6.5-10.1) Neutrophils (%) (Auto) 79.1 % (45.0-75.0) % (45.0-75.0) Lymphocytes (%) (Auto) 13.2 % (20.0-45.0) % (20.0-45.0) Monocytes (%) (Auto) 5.5 % (1.0-10.0) % (1.0-10.0) Eosinophils (%) (Auto) 1.7 % (0.0-3.0) % (0.0-3.0) Basophils (%) (Auto) 0.6 % (0.0-2.0) % (0.0-2.0) Prothrombin Time 10.7 SEC (9.30-11.50) Prothromb Time International Ratio 1.0 (0.9-1.1) Activated Partial Thromboplast Time 26 SEC (23-33) Sodium Level 138 MMOL/L (136-145) 141 MMOL/L (136-145) Potassium Level 3.6 MMOL/L (3.5-5.1) 3.9 MMOL/L (3.5-5.1) Chloride Level 99 MMOL/L (98-107) 103 MMOL/L (98-107) Carbon Dioxide Level 31 MMOL/L (21-32) 29 MMOL/L (21-32) Anion Gap 8 mmol/L (5-15) 9 mmol/L (5-15) Blood Urea Nitrogen 17 mg/dL (7-18) 21 mg/dL (7-18) Creatinine 1.1 MG/DL (0.55-1.30) 1.1 MG/DL (0.55-1.30) Estimat Glomerular Filtration Rate > 60 mL/min (>60) > 60 mL/min (>60) Glucose Level 138 MG/DL (74-106) 112 MG/DL (74-106) Calcium Level 9.0 MG/DL (8.5-10.1) 9.0 MG/DL (8.5-10.1) Total Bilirubin 0.9 MG/DL (0.2-1.0) Aspartate Amino Transf (AST/SGOT) 29 U/L (15-37) Alanine Aminotransferase (ALT/SGPT) 31 U/L (12-78) Alkaline Phosphatase 174 U/L (46-116) Total Creatine Kinase 69 U/L (26-308) Troponin I 0.005 ng/mL (0.000-0.056) Pro-B-Type Natriuretic Peptide 144 pg/mL (0-125) Total Protein 8.4 G/DL (6.4-8.2) Albumin 3.2 G/DL (3.4-5.0) Globulin 5.2 g/dL Albumin/Globulin Ratio 0.6 (1.0-2.7) Differential Total Cells Counted 100 Neutrophils % (Manual) 88 % (45-75) Lymphocytes % (Manual) 7 % (20-45) Monocytes % (Manual) 5 % (1-10) Eosinophils % (Manual) 0 % (0-3) Basophils % (Manual) 0 % (0-2) Band Neutrophils 0 % (0-8) Platelet Estimate Adequate Platelet Morphology Normal HIV (1&2) Antibody Rapid Negative (NEGATIVE) Arterial Blood pH 7.466 (7.350-7.450) Arterial Blood Partial Pressure CO2 41.6 mmHg (35.0-45.0) Arterial Blood Partial Pressure O2 65.6 mmHg (75.0-100.0) Arterial Blood HCO3 29.3 mmol/L (22.0-26.0) Arterial Blood Oxygen Saturation 92.8 % (92.0-98.0) Arterial Blood Base Excess 5.1 Zaheer Test Positive Objective: WDWN NAD clear breath sounds bilaterally without rhonchi or wheeze [id number] without MRG NABS nontender no HSM no CC edema subq crepitus nonfocal Accucheck: 129 ARJUN PIERRE Feb 08, 2018 14:50 ARJUN PIERRE Feb 09, 2018 14:22
[2018-02-09] MEDS ORDERED: Acetaminophen 650mg/20.3ml GT PRN (15:00)
[2018-02-09] MEDS ORDERED: HydrALAZINE 10mg Tab GT PRN (18:00)
--- NOTE | 2018-02-09 20:29 | Wound Care Consultation ---
Wound Assessment Wound Assessment #1: Wound Number: 1 Wound Present on Admission: Yes New Wound: No Status Change of Wound: No Wound Location Body Site: perineal area Wound Type: erosion Mark Test: Does not Mark Rashes: Aixa w/erosion Wound Thickness: Partial Thickness Percent of Wound [place]/Red: 100 Wound Drainage Amount: None Wound Drainage Odor: None/Absent Tissue Surrounding Wound: Erythemic Wound General Appearance: Reddened Wound Assessment #2: Wound Number: 2 Wound Present on Admission: Yes New Wound: No Status Change of Wound: No Wound Location Body Site Modif: mid Wound Location Body Site: other - Sacrococcygeal Wound Type: pressure ulcer Mark Test: Does not Mark Pressure Ulcer Stage: II Wound Thickness: Partial Thickness Wound Length: 3.5 Wound Width: 3.0 Wound Depth: less than 0.1 Percent of Wound [place]/Red: 100 Wound Drainage Description: Serosanguineous Wound Drainage Amount: Scant Wound Drainage Odor: None/Absent Tissue Surrounding Wound: Erythemic Wound General Appearance: Reddened Wound Comment #1 Aixa rash with erosion on perineal area #2 Sacrococcygeal stage II pressure ulcer Recommendation -Local wound care per protocol -Keep clean and dry -Turn and reposition -Offload both heels -Heel protector on both heels -Optimize nutrition -Low air loss mattress -Assess and f/u accordingly for any changes TYLER CALVO RN Feb 09, 2018 20:29
[2018-02-09] MEDS: Atorvastatin 80mg tab GT SCH (22:05)
[2018-02-10] VITALS: BP 142/91
[2018-02-10] MEDS: Piperacillin/Tazobactam 3.375 GM in NS 110 ML IVPB SCH ×3 (01:20→16:15)
[2018-02-10 04:00] VITALS: BP 158/87
[2018-02-10] MEDS: Metoclopramide 10mg/10ml Liq GT SCH ×3 (05:59→22:03)
[2018-02-10] MEDS: NIFEdipine 10mg cap ORAL SCH ×3 (06:00→22:03)
[2018-02-10] MEDS ORDERED: NIFEdipine 10mg cap ORAL SCH (06:00)
[2018-02-10 08:00] VITALS: BP 126/86
[2018-02-10] MEDS ORDERED: Milk of Magnesia 30ml Ud GT PRN (09:00)
[2018-02-10] MEDS: Amantadine 100mg cap GT SCH ×2 (09:28→18:14)
[2018-02-10] MEDS: Pantoprazole Inj IVP SCH (09:28)
[2018-02-10] MEDS: Modafinil 100mg tab GT SCH (09:28)
[2018-02-10] MEDS: Multivitamin w/Minerals tab ORAL SCH (09:28)
--- NOTE | 2018-02-10 11:05 | Critical Care Progress Note ---
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 PLAN care as is surgical follow up feeds change trach after dc check cxr if pneumomediastinum improved, will dc dc planning soon Critical Care - Subjective Interval Events: stable d/w surgery will need trach change when arrives I&O: Intake and Output 02/09/18 02/10/18 19:00 07:00 Intake Total 1440.0 ml 1790.0 ml Output Total 2000 ml 1850 ml Balance -560.0 ml -60.0 ml Free Water 500 ml IV Total 665.0 ml 1310.0 ml Tube Feeding 175 ml 420 ml Other 100 ml 60 ml Output Urine Total 2000 ml 1850 ml # Bowel Movements 2 Critical Care - Objective Last 24 Hour Vital Signs Date Time Temp Pulse Resp B/P (MAP) Pulse Ox O2 Delivery O2 Flow Rate FiO2 02/10/18 08:10 T-piece 10.0 40 02/10/18 08:10 96 T-piece 10.0 40 02/10/18 08:00 10.0 40 02/10/18 08:00 89 02/10/18 08:00 98.7 91 23 126/86 96 T-piece 10.0 40 98.7 02/10/18 06:00 80 158/87 02/10/18 04:00 8.0 35 02/10/18 04:00 98.4 80 22 158/87 95 T-piece 8.0 35 98.4 02/10/18 03:48 79 02/10/18 00:57 96 T-piece 10.0 35 02/10/18 00:57 T-piece 10.0 35 02/10/18 00:00 8.0 35 02/10/18 00:00 98.3 79 20 142/91 96 T-piece 8.0 35 98.3 02/09/18 23:37 79 02/09/18 21:04 98 T-piece 10.0 35 02/09/18 21:04 T-piece 10.0 35 02/09/18 20:00 98.4 85 20 142/96 98 T-piece 8.0 35 98.4 02/09/18 20:00 8.0 35 02/09/18 19:24 84 02/09/18 16:00 8.0 35 02/09/18 16:00 92 02/09/18 16:00 98.4 96 20 129/87 97 T-piece 8.0 35 98.4 02/09/18 14:28 96 02/09/18 13:59 T-piece 12.0 50 02/09/18 13:58 98 T-piece 12.0 50 02/09/18 12:00 98.5 91 20 131/92 96 T-piece 8.0 35 98.5 02/09/18 12:00 8.0 35 02/09/18 12:00 90 Objective: WDWN NAD clear breath sounds bilaterally without rhonchi or wheeze [id number] without MRG NABS nontender no HSM no CC edema subq crepitus improved nonfocal Micro: Microbiology Date/Time Source Procedure Growth Status 02/07/18 21:00 Nasal Nares MRSA Culture - Final Staphylococcus Aureus - Mrsa Complete 02/07/18 21:00 Rectum VRE Culture - Final Enterococcus Faecium - Vre Complete Accucheck: 129 ARJUN HO Feb 10, 2018 11:05
[2018-02-10 12:00] VITALS: BP 144/88
--- NOTE | 2018-02-10 12:08 | Diagnostic Imaging Report ---
Indication: Dyspnea Technique: XRAY Chest 1v Comparison: 02/08/2018 Findings: Tracheostomy tube unchanged. Heart size and mediastinal contours are stable. Subcutaneous emphysema persists although decreased in the regions of the bilateral chest james. Low lung volumes with questionable mild pulmonary congestion congestion. Impression: Decreasing but persistent subcutaneous emphysema. Question mild pulmonary vascular congestion/fluid overload, possibly exaggerated due to low lung volumes.
[2018-02-10 16:00] VITALS: BP 133/93
[2018-02-10] MEDS ORDERED: Tubing IV Secondary IV ONE ×2 (16:29→22:51)
[2018-02-10] MEDS ORDERED: NS 275ml ONE ×2 (16:29→22:51)
[2018-02-10 20:00] VITALS: BP 147/95
[2018-02-10] MEDS: Atorvastatin 80mg tab GT SCH (20:26)
[2018-02-11] VITALS: BP 128/86
[2018-02-11] MEDS: Piperacillin/Tazobactam 3.375 GM in NS 110 ML IVPB SCH (00:01)
[2018-02-11 04:00] VITALS: BP 132/93
[2018-02-11] MEDS: NIFEdipine 10mg cap ORAL SCH ×3 (06:21→21:25)
[2018-02-11] MEDS: Metoclopramide 10mg/10ml Liq GT SCH ×3 (06:21→21:24)
--- NOTE | 2018-02-11 06:38 | Critical Care Progress Note ---
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 PLAN care as is surgical follow up noted feeds change trach after dc once made available improved cxr dc to snf Critical Care - Subjective Interval Events: remains comfortable NAD emphysema improving I&O: Intake and Output 02/10/18 02/11/18 19:00 07:00 Intake Total 1956.458 ml 1646.667 ml Output Total 900 ml 1400 ml Balance 1056.458 ml 246.667 ml IV Total 1366.458 ml 1106.667 ml Tube Feeding 490 ml 450 ml Other 100 ml 90 ml Output Urine Total 900 ml 1400 ml # Voids 1 # Bowel Movements 1 2 Critical Care - Objective Last 24 Hour Vital Signs Date Time Temp Pulse Resp B/P (MAP) Pulse Ox O2 Delivery O2 Flow Rate FiO2 02/11/18 06:21 85 132/93 02/11/18 04:00 10.0 40 02/11/18 04:00 97.1 85 24 132/93 96 T-piece 10.0 40 97.1 02/11/18 03:36 87 02/11/18 01:52 95 T-piece 10.0 40 02/11/18 01:52 T-piece 10.0 40 02/11/18 00:00 98.5 89 20 128/86 95 T-piece 10.0 40 98.5 02/10/18 23:43 85 02/10/18 22:03 81 147/95 02/10/18 20:46 T-piece 10.0 40 02/10/18 20:46 95 T-piece 10.0 40 02/10/18 20:05 82 02/10/18 20:00 10.0 40 02/10/18 20:00 98.2 81 20 147/95 95 T-piece 10.0 40 98.2 02/10/18 16:00 81 02/10/18 16:00 98.3 83 23 133/93 95 T-piece 10.0 40 98.3 02/10/18 16:00 10.0 40 02/10/18 14:05 T-piece 10.0 40 02/10/18 14:05 96 T-piece 10.0 40 02/10/18 13:47 82 144/88 02/10/18 12:00 10.0 40 02/10/18 12:00 82 02/10/18 12:00 98.2 78 22 144/88 96 T-piece 10.0 40 98.2 02/10/18 08:10 T-piece 10.0 40 02/10/18 08:10 96 T-piece 10.0 40 02/10/18 08:00 10.0 40 02/10/18 08:00 89 02/10/18 08:00 98.7 91 23 126/86 96 T-piece 10.0 40 98.7 Labs: Labs Test 02/08/18 09:30 02/09/18 08:40 02/09/18 09:53 Arterial Blood pH 7.466 (7.350-7.450) 7.470 (7.350-7.450) Arterial Blood Partial Pressure CO2 41.6 mmHg (35.0-45.0) 38.8 mmHg (35.0-45.0) Arterial Blood Partial Pressure O2 65.6 mmHg (75.0-100.0) 60.2 mmHg (75.0-100.0) Arterial Blood HCO3 29.3 mmol/L (22.0-26.0) 27.7 mmol/L (22.0-26.0) Arterial Blood Oxygen Saturation 92.8 % (92.0-98.0) 91.7 % (92.0-98.0) Arterial Blood Base Excess 5.1 3.9 Zaheer Test Positive Positive White Blood Count 8.5 K/UL (4.8-10.8) Red Blood Count 4.21 M/UL (4.70-6.10) Hemoglobin 12.4 G/DL (14.2-18.0) Hematocrit 37.2 % (42.0-52.0) Mean Corpuscular Volume 88 FL (80-99) Mean Corpuscular Hemoglobin 29.5 PG (27.0-31.0) Mean Corpuscular Hemoglobin Concent 33.4 G/DL (32.0-36.0) Red Cell Distribution Width 12.1 % (11.6-14.8) Platelet Count 211 K/UL (150-450) Mean Platelet Volume 6.8 FL (6.5-10.1) Neutrophils (%) (Auto) 74.6 % (45.0-75.0) Lymphocytes (%) (Auto) 12.7 % (20.0-45.0) Monocytes (%) (Auto) 7.5 % (1.0-10.0) Eosinophils (%) (Auto) 4.6 % (0.0-3.0) Basophils (%) (Auto) 0.6 % (0.0-2.0) Sodium Level 142 MMOL/L (136-145) Potassium Level 3.2 MMOL/L (3.5-5.1) Chloride Level 106 MMOL/L (98-107) Carbon Dioxide Level 27 MMOL/L (21-32) Anion Gap 10 mmol/L (5-15) Blood Urea Nitrogen 14 mg/dL (7-18) Creatinine 0.8 MG/DL (0.55-1.30) Estimat Glomerular Filtration Rate > 60 mL/min (>60) Glucose Level 89 MG/DL (74-106) Calcium Level 8.5 MG/DL (8.5-10.1) Objective: WDWN NAD clear breath sounds bilaterally without rhonchi or wheeze [id number] without MRG NABS nontender no HSM no CC edema subq crepitus minimal nonfocal trach and gt in place Accucheck: 129 ARJUN HO Feb 11, 2018 06:38
[2018-02-11 08:00] VITALS: BP 128/84
[2018-02-11] MEDS: Pantoprazole Inj IVP SCH (09:18)
[2018-02-11] MEDS: Amantadine 100mg cap GT SCH ×2 (09:19→17:31)
[2018-02-11] MEDS: Modafinil 100mg tab GT SCH (09:19)
[2018-02-11] MEDS: Multivitamin w/Minerals tab ORAL SCH (09:19)
[2018-02-11 12:00] VITALS: BP 125/95
--- NOTE | 2018-02-11 12:44 | General Progress Note ---
Progress Note Progress Note Surgery: doing well. no acute events. awaiting delivery of xlt tracheostomy tube. can d/c and change tube as outpatient Johnathan Ford Feb 11, 2018 12:44
[2018-02-11 16:00] VITALS: BP 135/82
[2018-02-11 20:00] VITALS: BP 140/95
[2018-02-11] MEDS: Atorvastatin 80mg tab GT SCH (21:24)
[2018-02-12] VITALS: BP 125/92
--- NOTE | 2018-02-12 12:14 | Discharge Summary ---
Discharge Summary Hospital Course Date of Admission Feb 07, 2018 at 16:14 Date of Discharge Feb 12, 2018 at 00:25 Admitting Diagnosis r/o angioedema HPI Hernan Hannah is a 62 year old male who was admitted on Feb 07, 2018 at 16:14 for Angioedema that presented with 40 minutes of swelling of his eyes and neck. Paramedics report that the trach had been removed earlier, however, it was not clear when. They were told this was probably an allergic reaction. Trach was apparently placed during treatment of pneumonia and prior stroke. He is on medication at this time. He has a history of COPD and is on 2 L of action usually. No prior h/o allergies or allergic reactions. Further history unavailable. Later after the CXR further history was available: Apparently there was some problem with the trach (#8 Portex). They do have bag valve masks at the [facility]. It is unclear whether positive pressure was given after the trach was manipulated (but this is suspected by me). The patient started having neck and eye swelling. They took the trach out and called paramedics. Patient History Limited by: medical condition Past Medical History: see triage record, old chart reviewed, COPD, CVA/TIA Past Surgical History: other - trach, G tube Social History: Denies: smoking, alcohol use Social History Narrative [facility] . Reviewed Nursing Documentation: PMH: Agreed; PSxH: Agreed Nursing Documentation-PMH Hx Cardiac Problems: Yes - Afib, Hyperlipidemia Hx Hypertension: Yes Hx COPD: Yes - Hx Trache, Dysphagia Hx Gastrointestinal Problems: Yes - GERD, Left Upper Gtube Hx Cerebrovascular Accident: Yes - Intracranial Hemorrhage, Left Hemiplegia, Hemiparesis Consultations Thoracic Surgery >> Collins Haque MD Patient with a malpositioned tracheostomy tube outside the tracheal lumen. The tracheostomy tube was then subsequently repositioned and placed into the tracheal lumen. The patient was evaluated at bedside. At the present time, there is no indication for any surgical intervention. The subcutaneous emphysema will subside over the course of next few days. Procedures Procedure: CT Chest w Contrast Indication: Pneumomediastinum. Chest pain. Findings: Tracheostomy catheter is not within the trachea. The catheter is just left of the trachea within soft tissues. This requires repositioning. There is extensive subcutaneous air within the chest wall and base of the neck. Pneumomediastinum is present. No pneumothorax seen. Basilar atelectasis demonstrated. The aorta is tortuous and mildly ectatic. There is a subcutaneous catheter in the anterior part of the chest wall extending down into the peritoneal cavity. This may be a EXERCISE SPECIALIST shunt. Gastrostomy tube is present. IMPRESSION: Malpositioned tracheostomy. This requires repositioning. Extensive pneumomediastinum and subcutaneous emphysema. Basilar atelectasis Atherosclerotic disease Gastrostomy Ventriculoperitoneal shunt Hospital Course Discharge Course Patient admitted for angioedema around his eye and neck admitted found to have malpositioned tracheostomy as verified by chest CT. Thoracic surgery consulted and the tracheostomy tube was then subsequently repositioned and placed into the tracheal lumen. There was no indication for any surgical intervention. The subcutaneous emphysema to be observed and anticipated to subside over the course of next few days. The patient was observed, all imaging studies reviewed to show Decreasing but persistent subcutaneous emphysema.. G tube feedings started and tolerated. Plan to change tracheostomy as outpatient once made available. At this time, the patient was stable for discharge back to the SNF. Discharge Condition Upon Discharge: stable Discharge Disposition Patient was discharged to Acute Care Facility(02) Please refer to the nursing medical reconciliation medication list for home medications. Discharge Diagnoses: (1) Angio-edema (2) Tracheostomy complication (3) Gastrostomy tube dependent (4) Emphysema lung (5) Morbid obesity (6) S/P EXERCISE SPECIALIST shunt Discharge Instructions Discharge Instructions Special Instructions Note - I have been assigned to do the discharge summary for this patient and did not partake in any care. Norma Mohamud N.P. Feb 12, 2018 12:14
== END 2018-02-12 00:25 | DRG 143 ==
LOC: EDBD 09:18 → EDBEDREQ 09:27 → EMR 09:47 → ICU 16:14 → EDBEDREQ 16:15 → 2W 02-09 13:24
PROC: 0B21XFZ Change Tracheostomy Device in Trachea, External Approach (ICD-10-PCS; principal; 2018-02-07)
DX: J95.03 Malfunction of tracheostomy stoma (principal); Z43.1 Encounter for attention to gastrostomy; E66.01 Morbid (severe) obesity due to excess calories; R13.10 Dysphagia, unspecified; I48.91 Unspecified atrial fibrillation; T81.82XA Emphysema (subcutaneous) resulting from a procedure, initial encounter; Y83.3 Surgical operation with formation of external stoma as the cause of abnormal reaction of the patient, or of later complication, without mention of misadventure at the time of the procedure; T78.3XXA Angioneurotic edema, initial encounter; Z98.2 Presence of cerebrospinal fluid drainage device; J44.9 Chronic obstructive pulmonary disease, unspecified; E78.5 Hyperlipidemia, unspecified; Z86.73 Personal history of transient ischemic attack (TIA), and cerebral infarction without residual deficits
CPT/HCPCS: 36415; 36600; 70360; 71045; 71260; 80048; 80053; 82550; 82803; 82962; 83880; 84484; 85007; 85025; 85610; 85730; 86703; 86803; 87081; 87340; 87517; 93005; 94640; 94664; 94760; 99285; J8499

== ENCOUNTER 2019-11-21 07:07 | Inpatient (IN) | payer MEDICARE, OTHER ==
[2019-11-21] VITALS (39 sets, daily range): BP systolic 88–152; BP diastolic 46–105
[~2019-11-21] VITALS: Ht 188 cm; Wt 101.6 kg
[~2019-11-21 07:07] MED LIST: ACETAMINOPHEN325 M1 GT; ADALAT20 MG GT; ALBUTEROL2.5 MG/3 M INH; AMIODARONE HCL400 M1 GT; ATORVASTATIN CA40 MG GT; COLACE100 MG GT; FERROUS SULFAT325 MG GT; FERROUS SULFAT325 MG ORAL; HYDRALAZINE HCL10 MG GT; METOCLOPRA10 MG/10 M GT; MULTIVITAMINS1 EAC8 GT; PANTOPRAZOLE SO40 MG GT; VITAMIN C500 M1 GT; ZINC SULFATE220 M1 ORAL
--- NOTE | 2019-11-21 07:07 | NUR ---
Pt came from SNF due to vomiting. Received pt via BVM. Placed pt on same settings as SNF AC 14 600 50% +5. Will continue to monitor and titrate FiO2 as tolerated. Addendum: 11/21/19 at 0741 by SANTOS GREGORIO RT Amended: Links added.
--- NOTE | 2019-11-21 07:10 | NUR ---
HAND-OFF: Report given to RACHANA MCINTYRE.
--- NOTE | 2019-11-21 08:00 | NUR ---
ED Nurse Note:pt. waS biba FROM snf WITH C/O BROWNISH EMESIS this morning, pt. is A/Ox0, non verbal with GT feeding ,on ventilator with trach, blood urine and cultures were sent to labs, pt. placed on cardiac cath technologist for observation
[2019-11-21] MEDS ORDERED: METOPROLOL TART50 M1 GT (08:10)
[2019-11-21] MEDS ORDERED: FAMOTIDINE20 MG GT (08:10)
[2019-11-21] MEDS ORDERED: LEVETIRACE100 MG/1 M GT (08:10)
[2019-11-21] MEDS ORDERED: K LOR GT (08:10)
[2019-11-21] MEDS ORDERED: NORVASC10 MG GT (08:10)
[2019-11-21 08:13] LABS: HEMATOCRIT 36.6 % (42.0-52.0); HEMOGLOBIN 13.1 G/DL (14.2-18.0); MEAN CORPUSCULAR VOLUME 91 FL (80-99); PLATELET COUNT 242 K/UL (150-450); RED BLOOD COUNT 4.02 M/UL (4.70-6.10); RED CELL DISTRIBUTION WIDTH 10.7 % (11.6-14.8); WHITE BLOOD COUNT 19.5 K/UL (4.8-10.8)
[2019-11-21 08:41] LABS: ALANINE AMINOTRANSFERASE 21 U/L (12-78); ALBUMIN 3.1 G/DL (3.4-5.0); ALBUMIN/GLOBULIN RATIO 0.5 (1.0-2.7); ALKALINE PHOSPHATASE 111 U/L (46-116); ANION GAP 12 mmol/L (5-15); ASPARTATE AMINO TRANSFERASE 24 U/L (15-37); BILIRUBIN,TOTAL 1.7 MG/DL (0.2-1.0); BLOOD UREA NITROGEN 58 mg/dL (7-18); CALCIUM 10.5 MG/DL (8.5-10.1); CARBON DIOXIDE 22 MMOL/L (21-32); CHLORIDE 97 MMOL/L (98-107); CKMB < 0.5 NG/ML (0.0-3.6); CREATINE KINASE 32 U/L (26-308); CREATININE 2.8 MG/DL (0.55-1.30); SODIUM 131 MMOL/L (136-145)
[2019-11-21] MEDS ORDERED: Sodium Chloride 3,400 ML IVLG ONE (08:45)
[2019-11-21] MEDS ORDERED: Piperacillin/Tazobactam 3.375 GM in NS 110 ML IVPB ONE (08:45)
[2019-11-21 08:47] LABS: POTASSIUM 6.9 MMOL/L (3.5-5.1)
[2019-11-21 08:48] LABS: BILIRUBIN,DIRECT 0.4 MG/DL (0.0-0.3)
--- NOTE | 2019-11-21 08:59 | Emergency Room Report ---
History of Present Illness General Chief Complaint: Vomiting Source: EMS Present Illness HPI Patient presents to the ER with reports of vomiting Questionable fever Patient himself is nonverbal has tracheostomy and significant underlying medical conditions this does limit the history of present illness Unknown regarding diarrhea Patient has feeding tube in place We do not have any obvious temperature documented prior to arrival There was no reports of any new rash or change in medications Allergies: Coded Allergies: No Known Allergies (Unverified , 02/07/18) Patient History Limited by: medical condition Past Medical History: see triage record Reviewed Nursing Documentation: PMH: Agreed; PSxH: Agreed Nursing Documentation-PMH Hx Cardiac Problems: Yes - HDL JITENDRA LIPID Hx Hypertension: Yes Hx Asthma: No Hx COPD: Yes Hx Gastrointestinal Problems: Yes Hx Cerebrovascular Accident: Yes Hx Seizures: Yes Review of Systems All Other Systems: limited - Other than the ones mentioned in the history of present illness all others are reviewed however they do stay limited due to the patient's mental status Physical Exam Vital Signs Date Time Temp Pulse Resp B/P (MAP) Pulse Ox O2 Delivery O2 Flow Rate FiO2 11/21/19 07:05 115 20 115/79 (91) 98 Trach Collar 5.0 11/21/19 07:06 50 Sp02 EP Interpretation: reviewed, normal General Appearance: no apparent distress Head: normocephalic, atraumatic Eyes: bilateral eye PERRL ENT: dry mucus membranes Neck: supple, other - Tracheostomy in place no obvious crepitus Respiratory: no retraction, no accessory muscle use, crackles - Bilaterally Cardiovascular #1: regular rate, rhythm Gastrointestinal: other - Feeding tube in place patient's abdomen is soft,, some decreased bowel sounds are noted Musculoskeletal: other - Patient debilitated not moving extremities in the lower extremities patient is able to move the right arm Neurologic: responsive - To physical stimuli otherwise significantly decreased GCS Skin: no rash Lymphatic: no adenopathy Procedures Critical Care Time Critical Care Time 50 minutes for multiple re-evaluations findings that are concerning for possible life-threatening process not including any procedural time Medical Decision Making Diagnostic Impression: Primary Impression: Vomiting Additional Impressions: Bowel perforation Small bowel obstruction ER Course With the history exam and presentation, multiple differentials considered, including but not limited to appendicitis, gastritis, cholecystitis, diverticulitis Other differential such as bowel obstruction perforation entertained Patient CT imaging reports concerning findings also including small bowel obstruction And discussed possible perforation Surgery is contacted emergently patient's G-tube has been previously Opened and is to gravity and low suction Patient admitted for inpatient care in critical condition Labs Test 11/21/19 07:30 11/21/19 10:00 11/21/19 10:40 11/21/19 15:00 White Blood Count 19.5 K/UL (4.8-10.8) Red Blood Count 4.02 M/UL (4.70-6.10) Hemoglobin 13.1 G/DL (14.2-18.0) Hematocrit 36.6 % (42.0-52.0) Mean Corpuscular Volume 91 FL (80-99) Mean Corpuscular Hemoglobin 32.5 PG (27.0-31.0) Mean Corpuscular Hemoglobin Concent 35.7 G/DL (32.0-36.0) Red Cell Distribution Width 10.7 % (11.6-14.8) Platelet Count 242 K/UL (150-450) Mean Platelet Volume 6.7 FL (6.5-10.1) Neutrophils (%) (Auto) % (45.0-75.0) Lymphocytes (%) (Auto) % (20.0-45.0) Monocytes (%) (Auto) % (1.0-10.0) Eosinophils (%) (Auto) % (0.0-3.0) Basophils (%) (Auto) % (0.0-2.0) Differential Total Cells Counted 100 Neutrophils % (Manual) 82 % (45-75) Lymphocytes % (Manual) 6 % (20-45) Monocytes % (Manual) 10 % (1-10) Eosinophils % (Manual) 2 % (0-3) Basophils % (Manual) 0 % (0-2) Band Neutrophils 0 % (0-8) Platelet Estimate Adequate Platelet Morphology Normal Red Blood Cell Morphology Normal Urine Color Brown Urine Appearance Slightly cloudy Urine pH 5 (4.5-8.0) Urine Specific [place] 1.015 (1.005-1.035) Urine Protein 2+ (NEGATIVE) Urine Glucose (UA) 1+ (NEGATIVE) Urine Ketones 1+ (NEGATIVE) Urine Blood 1+ (NEGATIVE) Urine Nitrite Negative (NEGATIVE) Urine Bilirubin Negative (NEGATIVE) Urine Urobilinogen 1 MG/DL (0.0-1.0) Urine Leukocyte Esterase 1+ (NEGATIVE) Urine RBC 2-4 /HPF (0 - 0) Urine WBC 5-10 /HPF (0 - 0) Urine Squamous Epithelial Cells Occasional /LPF Urine Amorphous Sediment Moderate /LPF (NONE) Urine Bacteria Few /HPF (NONE) Sodium Level 131 MMOL/L (136-145) Potassium Level 5.1 MMOL/L (3.5-5.1) Chloride Level 97 MMOL/L (98-107) Carbon Dioxide Level 22 MMOL/L (21-32) Anion Gap 12 mmol/L (5-15) Blood Urea Nitrogen 58 mg/dL (7-18) Creatinine 2.8 MG/DL (0.55-1.30) Estimat Glomerular Filtration Rate 22.9 mL/min (>60) Glucose Level 122 MG/DL (74-106) Lactic Acid Level 3.40 mmol/L (0.4-2.0) 3.20 mmol/L (0.66-2.22) Calcium Level 10.5 MG/DL (8.5-10.1) Total Bilirubin 1.7 MG/DL (0.2-1.0) Direct Bilirubin 0.4 MG/DL (0.0-0.3) Aspartate Amino Transf (AST/SGOT) 24 U/L (15-37) Alanine Aminotransferase (ALT/SGPT) 21 U/L (12-78) Alkaline Phosphatase 111 U/L (46-116) Total Creatine Kinase 32 U/L (26-308) Creatine Kinase MB < 0.5 NG/ML (0.0-3.6) Creatine Kinase MB Relative Index 1.5 Troponin I 0.000 ng/mL (0.000-0.056) Pro-B-Type Natriuretic Peptide 100 pg/mL (0-125) Total Protein 8.9 G/DL (6.4-8.2) Albumin 3.1 G/DL (3.4-5.0) Globulin 5.8 g/dL Albumin/Globulin Ratio 0.5 (1.0-2.7) Lipase 104 U/L (73-393) Prothrombin Time 12.2 SEC (9.30-11.50) Prothromb Time International Ratio 1.2 (0.9-1.1) Activated Partial Thromboplast Time 28 SEC (23-33) Urine Random Sodium < 20 mmol/L (20-110) Urine Creatinine 215.6 MG/DL (30.0-125.0) Test 11/21/19 20:20 11/21/19 23:25 11/22/19 05:25 Lactic Acid Level 3.10 mmol/L (0.4-2.0) 1.90 mmol/L (0.66-2.22) White Blood Count 15.1 K/UL (4.8-10.8) Red Blood Count 3.04 M/UL (4.70-6.10) Hemoglobin 9.8 G/DL (14.2-18.0) Hematocrit 27.7 % (42.0-52.0) Mean Corpuscular Volume 91 FL (80-99) Mean Corpuscular Hemoglobin 32.3 PG (27.0-31.0) Mean Corpuscular Hemoglobin Concent 35.5 G/DL (32.0-36.0) Red Cell Distribution Width 10.9 % (11.6-14.8) Platelet Count 160 K/UL (150-450) Mean Platelet Volume 6.9 FL (6.5-10.1) Neutrophils (%) (Auto) % (45.0-75.0) Lymphocytes (%) (Auto) % (20.0-45.0) Monocytes (%) (Auto) % (1.0-10.0) Eosinophils (%) (Auto) % (0.0-3.0) Basophils (%) (Auto) % (0.0-2.0) Sodium Level 138 MMOL/L (136-145) Potassium Level 4.4 MMOL/L (3.5-5.1) Chloride Level 103 MMOL/L (98-107) Carbon Dioxide Level 24 MMOL/L (21-32) Anion Gap 11 mmol/L (5-15) Blood Urea Nitrogen 65 mg/dL (7-18) Creatinine 2.2 MG/DL (0.55-1.30) Estimat Glomerular Filtration Rate 30.2 mL/min (>60) Glucose Level 102 MG/DL (74-106) Calcium Level 9.0 MG/DL (8.5-10.1) Total Bilirubin 1.1 MG/DL (0.2-1.0) Direct Bilirubin 0.2 MG/DL (0.0-0.3) Aspartate Amino Transf (AST/SGOT) 19 U/L (15-37) Alanine Aminotransferase (ALT/SGPT) 17 U/L (12-78) Alkaline Phosphatase 74 U/L (46-116) Total Creatine Kinase 23 U/L (26-308) Total Protein 6.6 G/DL (6.4-8.2) Albumin 2.2 G/DL (3.4-5.0) Globulin 4.4 g/dL Albumin/Globulin Ratio 0.5 (1.0-2.7) Rhythm Strip Diag. Results EP Interpretation: yes Rate: 90 Rhythm: NSR, no PVC's, no ectopy Chest X-Ray Diagnostic Results Chest X-Ray Diagnostic Results : Chest X-Ray Ordered: Yes # of Views/Limited/Complete: 1 View Indication: Chest Pain EP Interpretation: Yes Interpretation: no effusion, no pneumothorax, other - Lateral atelectasis Impression: Other - Bilateral atelectasis Electronically Signed by: Paul Peterson DO CT/MRI/US Diagnostic Results CT/MRI/US Diagnostic Results : Impression CT abdomen pelvisImpression: Dilated stomach and small bowel, nondilated distal ileum, suspicious for distal small bowel obstruction. Gas anterior to the stomach. While possibly within an enteric structure, no enteric structures are seen in this area on prior chest CT of 02/07/2018, so this is concerning for free intraperitoneal gas an therefore for perforation of a hollow viscus. Evidence of rectal fecal impaction Nonobstructive bilateral intrarenal calculi Considerable bilateral pulmonary lower lobe parenchymal consolidation Trace left pleural fluid Possible bladder calculi Ventriculoperitoneal shunt Gastrostomy Other findings as noted, including degenerative spondylosis, renal cysts Last Vital Signs Date Time Temp Pulse Resp B/P (MAP) Pulse Ox O2 Delivery O2 Flow Rate FiO2 11/21/19 08:02 114 21 Mechanical Ventilator 5.0 50 11/21/19 08:02 98/74 98 Status: improved Disposition: ADMITTED INPATIENT Condition: Critical Referrals: Jameel Pierre MD (PCP) Paul Peterson DO Nov 21, 2019 08:59
[2019-11-21 09:06] LABS: APPEARANCE,URINE SLIGHTLY CLOUDY; BILIRUBIN, URINE NEGATIVE (NEGATIVE); COLOR,URINE BROWN; GLUCOSE, URINE (UA) 1+ (NEGATIVE); KETONES,URINE 1+ (NEGATIVE); LEUKOCYTE ESTERASE ,URINE 1+ (NEGATIVE); NITRITE,URINE NEGATIVE (NEGATIVE); PH,URINE 5 (4.5-8.0); PROTEIN,URINE 2+ (NEGATIVE); UROBILINOGEN,URINE 1 MG/DL (0.0-1.0)
[2019-11-21] MEDS ORDERED: Sodium Polystyrene Sulfonate 15gm Powder ORAL ONE (09:15)
--- NOTE | 2019-11-21 10:00 | NUR ---
ED Nurse Note:lactic reflax and potassium was sent to labs
[2019-11-21 11:35] LABS: INR 1.2 (0.9-1.1)
--- NOTE | 2019-11-21 12:32 | Diagnostic Imaging Report ---
Indication: Chest pain Technique: One view of the chest Comparison: For 2017 Findings: Suboptimal inspiration with crowding of bronchovascular markings bilaterally. There may be some atelectasis and/or consolidation in the bilateral infrahilar regions. There is tracheostomy. The heart size is normal. Previously demonstrated subcutaneous emphysema is no longer evident Impression: Hypoventilatory exam with possible basilar atelectasis. Minimal bilateral infrahilar consolidation also possible. Correlate with clinical findings. Other findings as noted
--- NOTE | 2019-11-21 12:32 | Diagnostic Imaging Report ---
Indication: Vomiting Technique: Spiral acquisitions obtained through the abdomen and pelvis. No oral contrast utilized, per emergency room physician request No IV contrast utilized, per referring physician request.. Multiplanar reconstructions were generated. Total dose length product 1556 mGycm. CTDIvol(s) 24 mGy. Dose reduction achieved using automated exposure control Comparison: None Findings: Lack of enteric contrast limits assessment of the GI tract. There is a gastrostomy in good position. The stomach is distended with fluid. The proximal small bowel is dilated and fluid-filled. Most of the small bowel is distended with fluid and/or gas, although the most distal ileum is normal in caliber. The transition point is difficult to determine but may be in the right lower quadrant at the level of the distal ileum. The most severe small bowel distention is proximal. The rectum is distended by feces, measures 9 cm in diameter. No significant rectal wall thickening or perirectal inflammation demonstrated. No evidence of colonic diverticulosis or diverticulitis. There is gas anterior to the stomach which is probably intraluminal within bowel, but cannot be definitively connected to any bowel structures so extra peritoneal gas cannot be completely excluded. There is a ventriculoperitoneal shunt catheter, tip of which terminates in the left paracolic gutter. No free intraperitoneal fluid is demonstrated. The appendix is normal. There is no evidence of diverticulosis or diverticulitis. Lack of IV contrast limits assessment of the solid organs. The liver, gallbladder, bile ducts, pancreas, spleen are all unremarkable. The kidneys demonstrate bilateral cysts as well as bilateral subcentimeter low-attenuation lesions which are too small to characterize. There are bilateral nonobstructive calyceal calculi, largest in the right lower pole measuring approximately 8 mm long axis dimension. No ureteral calculi, or hydronephrosis or hydroureter. The bladder is empty. High attenuation material within the bladder lumen may reflect small bladder calculi. There is considerable consolidation within both of the visualized pulmonary lower lobes. There may be trace pleural fluid on the left. The bones are unremarkable except for degenerative spondylosis changes Impression: Dilated stomach and small bowel, nondilated distal ileum, suspicious for distal small bowel obstruction. Gas anterior to the stomach. While possibly within an enteric structure, no enteric structures are seen in this area on prior chest CT of 02/07/2018, so this is concerning for free intraperitoneal gas an therefore for perforation of a hollow viscus. Evidence of rectal fecal impaction Nonobstructive bilateral intrarenal calculi Considerable bilateral pulmonary lower lobe parenchymal consolidation Trace left pleural fluid Possible bladder calculi Ventriculoperitoneal shunt Gastrostomy Other findings as noted, including degenerative spondylosis, renal cysts Critical value findings phoned to Dr. Peterson in the emergency room at the time of interpretation The CT scanner at [facility] is accredited by the [employer] and the scans are performed using protocols designed to limit radiation exposure to as low as reasonably achievable to attain images of sufficient resolution adequate for diagnostic evaluation.
--- NOTE | 2019-11-21 13:05 | NUR ---
ED Nurse Note:called report to ICU- given to austin Parker. will go up when bed is available
--- NOTE | 2019-11-21 14:00 | NUR ---
NURSE NOTES: Received new admission from ER, transferred via [facility]. Report was received from [place]. Pt has no belongings. Pt has trach to vent Shiley XLT 6.0 with AC14, Peep 5.0, VT600, FIO2 50% at 99% O2sat and bilateral diminished lung sounds with rhonchi. ST on rod drawer, HR at 114 with bounding peripheral pulses. Temp 98.1F axillary. Pt has left wrist #20G peripheral IV access, patent/intact, saline locked. GT in place and clamped. Abdomen is round, soft, tender to touch with hypoactive bowel sounds. Pt is incontinent of urine/BM. Skin is intact and has sacral erythema. Bed is locked, in lowest position, HOB at 30degrees, three side rails up. Will contact MD for admission orders.
--- NOTE | 2019-11-21 15:00 | NUR ---
NURSE NOTES: Pt was seen by Dr Nieves. Silva catheter 16F has been inserted per MD order. Pt had BM x1, formed, small, brown. Pt was cleaned. Sacral photo has been taken and photo uploaded, area covered with optifoam dressing. Per Dr Nieves's order, pt will be administered Digoxin 0.25 x3 total dose, Q15 min. Lasix 80mg IVP x1 was also given per MD order. NS is now infusing at 200ml/hour.
--- NOTE | 2019-11-21 15:24 | Nephrology Progress Note ---
Assessment/Plan Plan needs picc urgently, poor iv access, critical, unable to sign Objective Objective Last 24 Hour Vital Signs Date Time Temp Pulse Resp B/P (MAP) Pulse Ox O2 Delivery O2 Flow Rate FiO2 11/21/19 13:00 94 18 104/77 100 Mechanical Ventilator 5.0 50 11/21/19 12:36 103 18 50 11/21/19 11:58 94 17 104/77 100 Mechanical Ventilator 5.0 50 11/21/19 11:25 101 20 50 11/21/19 10:00 101 21 99/82 100 Mechanical Ventilator 5.0 50 11/21/19 08:36 120 23 50 11/21/19 08:02 114 21 Mechanical Ventilator 5.0 50 11/21/19 08:02 114 21 98/74 98 Mechanical Ventilator 5.0 50 11/21/19 07:06 96 21 50 11/21/19 07:05 115 20 115/79 (91) 98 Trach Collar 5.0 Laboratory Tests 11/21/19 07:30: White Blood Count 19.5H, Red Blood Count 4.02L, Hemoglobin 13.1L, Hematocrit 36.6L, Mean Corpuscular Volume 91, Mean Corpuscular Hemoglobin 32.5H, Mean Corpuscular Hemoglobin Concent 35.7, Red Cell Distribution Width 10.7L, Platelet Count 242, Mean Platelet Volume 6.7, Neutrophils (%) (Auto) , Lymphocytes (%) (Auto) , Monocytes (%) (Auto) , Eosinophils (%) (Auto) , Basophils (%) (Auto) , Differential Total Cells Counted 100, Neutrophils % ( Manual) 82H, Lymphocytes % (Manual) 6L, Monocytes % (Manual) 10, Eosinophils % ( Manual) 2, Basophils % (Manual) 0, Band Neutrophils 0, Platelet Estimate Adequate, Platelet Morphology Normal, Red Blood Cell Morphology Normal, Urine Color Brown, Urine Appearance Slightly cloudy, Urine pH 5, Urine Specific [place] 1.015, Urine Protein 2+H, Urine Glucose (UA) 1+H, Urine Ketones 1+H, Urine Blood 1+H, Urine Nitrite Negative, Urine Bilirubin Negative, Urine Urobilinogen 1H, Urine Leukocyte Esterase 1+H, Urine RBC 2-4H, Urine WBC 5-10H, Urine Squamous Epithelial Cells Occasional, Urine Amorphous Sediment ModerateH, Urine Bacteria Few, Sodium Level 131L, Potassium Level 5.1, Chloride Level 97L, Carbon Dioxide Level 22, Anion Gap 12, Blood Urea Nitrogen 58H, Creatinine 2.8H , Estimat Glomerular Filtration Rate 22.9, Glucose Level 122H, Lactic Acid Level 3.40H, Calcium Level 10.5H, Total Bilirubin 1.7H, Direct Bilirubin 0.4H, Aspartate Amino Transf (AST/SGOT) 24, Alanine Aminotransferase (ALT/SGPT) 21, Alkaline Phosphatase 111, Total Creatine Kinase 32, Creatine Kinase MB < 0.5, Creatine Kinase MB Relative Index 1.5, Troponin I 0.000, Pro-B-Type Natriuretic Peptide [Pending], Total Protein 8.9H, Albumin 3.1L, Globulin 5.8, Albumin/ Globulin Ratio 0.5L, Lipase 104 11/21/19 10:00: Lactic Acid Level 3.20H 11/21/19 10:40: Prothrombin Time 12.2H, Prothromb Time International Ratio 1.2H, Activated Partial Thromboplast Time 28 Height (Feet): 6 Height (Inches): 2.00 Weight (Pounds): 250 Taj Nieves MD Nov 21, 2019 15:24
[2019-11-21] MEDS: Digoxin 0.5mg/2ml Inj IVP SCH ×3 (15:27→17:17)
[2019-11-21] MEDS ORDERED: Amiodarone 900 MG in D5W 500ml 482 ML IV SCH (16:00)
--- NOTE | 2019-11-21 16:00 | NUR ---
NURSE NOTES: [facility] has been contacted for consent for PICC line placement. Per Dr Pierre, pt is to be placed on Amiodarone drip. Order also received for Levophed, and PICC placement. Currently awaiting for next of kin consent for line placement.
--- NOTE | 2019-11-21 16:04 | Consultation ---
History of Present Illness General Date patient seen: Nov 21, 2019 Chief Complaint: Vomiting Present Illness Allergies: Coded Allergies: No Known Allergies (Unverified , 02/07/18) Medication History Scheduled Amlodipine Besylate (Norvasc), 10 MG GT DAILY, (Reported) Atorvastatin Calcium* (Atorvastatin Calcium*), 40 MG GT BEDTIME, (Reported) Famotidine* (Pepcid 20mg tablet*), 20 MG GT TWICE A DAY, (Reported) Hydralazine Hcl* (Hydralazine Hcl*), 10 MG GT EVERY 6 HOURS, (Reported) Levetiracetam* (Levetiracetam*), 500 MG GT BID, (Reported) Metoprolol Tartrate* (Metoprolol Tartrate*), 50 MG GT EVERY 12 HOURS, (Reported) Potassium Chloride (Klor-Con), 30 MEQ GT DAILY, (Reported) Scheduled PRN Acetaminophen* (Acetaminophen 325MG Tablet*), 650 MG GT Q4H PRN for Fever/ Headache/Mild Pain, (Reported) Discontinued Medications Albuterol Sulfate* (Albuterol Sulfate Hhn*), 3 ML INH Q4H PRN for Shortness of Breath, (Reported) Discontinued Reason: Pt stopped taking med Amiodarone Hcl* (Amiodarone Hcl*), 400 MG GT EVERY 12 HOURS, (Reported) Discontinued Reason: Pt stopped taking med Ascorbic Acid* (Vitamin C*), 500 MG GT DAILY, (Reported) Discontinued Reason: Pt stopped taking med Docusate Sodium* (Colace*), 100 MG GT DAILY, (Reported) Discontinued Reason: Pt stopped taking med Ferrous Sulfate* (Ferrous Sulfate*), 325 MG ORAL DAILY, (Reported) Discontinued Reason: Pt stopped taking med Ferrous Sulfate* (Ferrous Sulfate*), 325 MG GT DAILY, (Reported) Discontinued Reason: Pt stopped taking med Metoclopramide Hcl* (Metoclopramide Hcl*), 10 MG GT EVERY 8 HOURS, (Reported) Discontinued Reason: Pt stopped taking med Multivitamin With Minerals (Multivitamins With Minerals*), 1 TAB GT DAILY, ( Reported) Discontinued Reason: Pt stopped taking med Nifedipine (Nifedipine*), 30 MG GT DAILY, (Reported) Discontinued Reason: Pt stopped taking med Pantoprazole* (Pantoprazole*), 40 MG GT DAILY, (Reported) Discontinued Reason: Pt stopped taking med Zinc Sulfate (Zinc Sulfate*), 220 MG ORAL DAILY, (Reported) Discontinued Reason: Pt stopped taking med Patient History Limited by: medical condition History Provided By: Medical Record, PMD Healthcare decision maker Resuscitation status Advanced Directive on File Past Medical/Surgical History Past Medical/Surgical History: (1) Sepsis (2) Angio-edema (3) Tracheostomy complication (4) Morbid obesity (5) Emphysema lung (6) Gastrostomy tube dependent (7) Vomiting Review of Systems ROS Narrative cannot obtain given medical condition Physical Exam General Appearance: mild distress Lines, tubes and drains: peripheral HEENT: normocephalic, atraumatic Neck: trach Respiratory/Chest: decreased breath sounds, on vent Abdomen: soft, no organomegaly, no mass, decreased bowel sounds, feeding tube Extremities: inflammation, slow capillary refill, other Skin Exam: warm/dry Neurologic: unresponsiveness, aphasia Last 24 Hour Vital Signs Date Time Temp Pulse Resp B/P (MAP) Pulse Ox O2 Delivery O2 Flow Rate FiO2 11/21/19 15:27 162 11/21/19 13:00 94 18 104/77 100 Mechanical Ventilator 5.0 50 11/21/19 12:36 103 18 50 11/21/19 11:58 94 17 104/77 100 Mechanical Ventilator 5.0 50 11/21/19 11:25 101 20 50 11/21/19 10:00 101 21 99/82 100 Mechanical Ventilator 5.0 50 11/21/19 08:36 120 23 50 11/21/19 08:02 114 21 Mechanical Ventilator 5.0 50 11/21/19 08:02 114 21 98/74 98 Mechanical Ventilator 5.0 50 11/21/19 07:06 96 21 50 11/21/19 07:05 115 20 115/79 (91) 98 Trach Collar 5.0 Laboratory Tests Test 11/21/19 07:30 11/21/19 10:00 11/21/19 10:40 White Blood Count 19.5 K/UL (4.8-10.8) H Red Blood Count 4.02 M/UL (4.70-6.10) L Hemoglobin 13.1 G/DL (14.2-18.0) L Hematocrit 36.6 % (42.0-52.0) L Mean Corpuscular Volume 91 FL (80-99) Mean Corpuscular Hemoglobin 32.5 PG (27.0-31.0) H Mean Corpuscular Hemoglobin Concent 35.7 G/DL (32.0-36.0) Red Cell Distribution Width 10.7 % (11.6-14.8) L Platelet Count 242 K/UL (150-450) Mean Platelet Volume 6.7 FL (6.5-10.1) Neutrophils (%) (Auto) % (45.0-75.0) Lymphocytes (%) (Auto) % (20.0-45.0) Monocytes (%) (Auto) % (1.0-10.0) Eosinophils (%) (Auto) % (0.0-3.0) Basophils (%) (Auto) % (0.0-2.0) Differential Total Cells Counted 100 Neutrophils % (Manual) 82 % (45-75) H Lymphocytes % (Manual) 6 % (20-45) L Monocytes % (Manual) 10 % (1-10) Eosinophils % (Manual) 2 % (0-3) Basophils % (Manual) 0 % (0-2) Band Neutrophils 0 % (0-8) Platelet Estimate Adequate Platelet Morphology Normal Red Blood Cell Morphology Normal Urine Color Brown Urine Appearance Slightly cloudy Urine pH 5 (4.5-8.0) Urine Specific [place] 1.015 (1.005-1.035) Urine Protein 2+ (NEGATIVE) H Urine Glucose (UA) 1+ (NEGATIVE) H Urine Ketones 1+ (NEGATIVE) H Urine Blood 1+ (NEGATIVE) H Urine Nitrite Negative (NEGATIVE) Urine Bilirubin Negative (NEGATIVE) Urine Urobilinogen 1 MG/DL (0.0-1.0) H Urine Leukocyte Esterase 1+ (NEGATIVE) H Urine RBC 2-4 /HPF (0 - 0) H Urine WBC 5-10 /HPF (0 - 0) H Urine Squamous Epithelial Cells Occasional /LPF Urine Amorphous Sediment Moderate /LPF (NONE) H Urine Bacteria Few /HPF (NONE) Sodium Level 131 MMOL/L (136-145) L Potassium Level 5.1 MMOL/L (3.5-5.1) Chloride Level 97 MMOL/L (98-107) L Carbon Dioxide Level 22 MMOL/L (21-32) Anion Gap 12 mmol/L (5-15) Blood Urea Nitrogen 58 mg/dL (7-18) H Creatinine 2.8 MG/DL (0.55-1.30) H Estimat Glomerular Filtration Rate 22.9 mL/min (>60) Glucose Level 122 MG/DL (74-106) H Lactic Acid Level 3.40 mmol/L (0.4-2.0) H 3.20 mmol/L (0.66-2.22) H Calcium Level 10.5 MG/DL (8.5-10.1) H Total Bilirubin 1.7 MG/DL (0.2-1.0) H Direct Bilirubin 0.4 MG/DL (0.0-0.3) H Aspartate Amino Transf (AST/SGOT) 24 U/L (15-37) Alanine Aminotransferase (ALT/SGPT) 21 U/L (12-78) Alkaline Phosphatase 111 U/L (46-116) Total Creatine Kinase 32 U/L (26-308) Creatine Kinase MB < 0.5 NG/ML (0.0-3.6) Creatine Kinase MB Relative Index 1.5 Troponin I 0.000 ng/mL (0.000-0.056) Pro-B-Type Natriuretic Peptide 100 pg/mL (0-125) Total Protein 8.9 G/DL (6.4-8.2) H Albumin 3.1 G/DL (3.4-5.0) L Globulin 5.8 g/dL Albumin/Globulin Ratio 0.5 (1.0-2.7) L Lipase 104 U/L (73-393) Prothrombin Time 12.2 SEC (9.30-11.50) H Prothromb Time International Ratio 1.2 (0.9-1.1) H Activated Partial Thromboplast Time 28 SEC (23-33) Height (Feet): 6 Height (Inches): 2.00 Weight (Pounds): 250 Medications Current Medications Medications (Trade) Dose Ordered Sig/Cande Route PRN Reason Start Time Stop Time Status Last Admin Dose Admin Acetaminophen (Tylenol) 650 mg Q4H PRN ORAL Mild Pain/Temp > 100.5 11/21/19 15:45 12/21/19 15:44 Al Hydroxide/Mg Hydroxide (Mylanta) 30 ml QIDPRN PRN ORAL HEARTBURN 11/21/19 15:45 12/21/19 15:44 Amiodarone HCl 900 mg/Dextrose 500 ml @ 0 mls/hr Q24H IV 11/21/19 16:00 11/22/19 15:59 Levetiracetam 100 ml @ 400 mls/hr Q12HR IVPB 11/21/19 21:00 12/21/19 20:59 Pantoprazole (Protonix) 40 mg DAILY ORAL 11/22/19 09:00 12/22/19 08:59 Piperacillin Sod/ Tazobactam Sod 3.375 gm/Sodium Chloride 110 ml @ 27.5 mls/hr Q8H IVPB 11/21/19 17:00 11/28/19 16:59 Sodium Chloride 1,000 ml @ 200 mls/hr Q5H IV 11/21/19 14:30 12/21/19 14:29 11/21/19 14:30 Vancomycin HCl (Vanco rx to dose) 1 ea DAILY PRN MISC Per rx protocol 11/21/19 15:45 12/21/19 15:44 Vancomycin HCl 1.75 gm/Dextrose 550 ml @ 275 mls/hr ONCE ONCE IVPB 11/21/19 21:00 11/21/19 22:59 Assessment/Plan Problem List: (1) Sepsis Assessment & Plan: 64M with multiple comorbidities identified to have leukocytosis, lactic acidosis, CT as below. Patient is trach on vent support with PEG on tube feeds debilitated unresponsive Abdominal examination does not show significant distention and do not elicit pain upon palpation. G-tube in place and looks okay CT examination identifies free air around the left upper quadrant around the G- tube site as well as what seems to be a MATERIAL HAULER shunt but contained within this area. No free air seen in the pelvis lower quadrants right upper quadrant underneath the liver And evaluate the patient's overall condition status is likely the G-tube and replaced potentially with some resistance prior causing injury around the G- tube insertion site with potential leakage possible infectious or inflammatory reaction would recommend medical management at this time given patient's current condition comorbidities MATERIAL HAULER shunt location G-tube location and location of free air and potential infectious inflammatory process identified if rushing to surgical intervention there is Strong concerns for potentially infecting MATERIAL HAULER shunt and having to remove or interrupt G-tube. If potentially localized infectious or inflammatory process may improve with medical management and inpatient who is debilitated sick and elderly would benefit from medical intervention versus aggressive surgical intervention if declines and does not respond to medical conservative management will discuss with f medical team and family considerations for surgical intervention npo iv fluids iv abx g tube to intermittent low wall suction AM KUB serial abd exams trend labs will follow with recs thank you Findings: Lack of enteric contrast limits assessment of the GI tract. There is a gastrostomy in good position. The stomach is distended with fluid. The proximal small bowel is dilated and fluid-filled. Most of the small bowel is distended with fluid and/or gas, although the most distal ileum is normal in caliber. The transition point is difficult to determine but may be in the right lower quadrant at the level of the distal ileum. The most severe small bowel distention is proximal. The rectum is distended by feces, measures 9 cm in diameter. No significant rectal wall thickening or perirectal inflammation demonstrated. No evidence of colonic diverticulosis or diverticulitis. There is gas anterior to the stomach which is probably intraluminal within bowel, but cannot be definitively connected to any bowel structures so extra peritoneal gas cannot be completely excluded. There is a ventriculoperitoneal shunt catheter, tip of which terminates in the left paracolic gutter. No free intraperitoneal fluid is demonstrated. The appendix is normal. There is no evidence of diverticulosis or diverticulitis. Lack of IV contrast limits assessment of the solid organs. The liver, gallbladder, bile ducts, pancreas, spleen are all unremarkable. The kidneys demonstrate bilateral cysts as well as bilateral subcentimeter low-attenuation lesions which are too small to characterize. There are bilateral nonobstructive calyceal calculi, largest in the right lower pole measuring approximately 8 mm long axis dimension. No ureteral calculi, or hydronephrosis or hydroureter. The bladder is empty. High attenuation material within the bladder lumen may reflect small bladder calculi. There is considerable consolidation within both of the visualized pulmonary lower lobes. There may be trace pleural fluid on the left. The bones are unremarkable except for degenerative spondylosis changes Impression: Dilated stomach and small bowel, nondilated distal ileum, suspicious for distal small bowel obstruction. Gas anterior to the stomach. While possibly within an enteric structure, no enteric structures are seen in this area on prior chest CT of 02/07/2018, so this is concerning for free intraperitoneal gas an therefore for perforation of a hollow viscus. Evidence of rectal fecal impaction Nonobstructive bilateral intrarenal calculi Considerable bilateral pulmonary lower lobe parenchymal consolidation Trace left pleural fluid Possible bladder calculi Ventriculoperitoneal shunt Gastrostomy Other findings as noted, including degenerative spondylosis, renal cysts ICD Codes: A41.9 - Sepsis, unspecified organism SNOMED: [id number] Johnathan Ford Nov 21, 2019 16:04
[2019-11-21] MEDS: Piperacillin/Tazobactam 3.375 GM in NS 110 ML IVPB SCH (16:44)
[2019-11-21] MEDS ORDERED: Digoxin 0.5mg/2ml Inj IVP SCH (18:00)
--- NOTE | 2019-11-21 18:00 | Consultation ---
DATE OF CONSULTATION: 11/21/2019 NEPHROLOGY CONSULTATION CONSULTING PHYSICIAN: Taj Nieves M.D. REFERRING PHYSICIAN: Jameel Pierre M.D. REASON FOR CONSULTATION: Hyperkalemia and azotemia. HISTORY OF PRESENT ILLNESS: The patient is a resident of an [facility], ventilator dependent with a tracheostomy. Unable to give a history. He presents with a potassium of 6.9, BUN 58, creatinine 2.8, and possible intestinal perforation. He is unable to give a history. Records are brief shows that he has hypertensive heart disease, epilepsy, obstructive hydrocephalus, gastroesophageal reflux, respiratory failure, hyperlipidemia, chronic kidney disease, protein-calorie malnutrition, nontraumatic intracerebral hemorrhage, contractures, communication deficit, Parkinson disease, left-sided hemiparesis, CVA, anemia, atrial fibrillation. MEDICATIONS: From the [facility] are reviewed on the transfer list include the following: Amlodipine, atorvastatin, famotidine, hydralazine, potassium, Keppra, metoprolol, and Tylenol. PAST HISTORY: Other than the above non obtainable. REVIEW OF SYSTEMS: Other than the above non obtainable. PHYSICAL EXAMINATION: GENERAL: The patient is seen in the ICU. VITAL SIGNS: Blood pressure 104/77, pulse ox 100% on the ventilator, heart rate 94. HEAD, EARS, EYES, NOSE, AND THROAT: Oral mucosa is dry. He has a blank stare. He does not follow with his eyes. NECK: Tracheostomy. LUNGS: I do not hear any rales or rhonchi. HEART: Rhythm is tachycardiac. I am unable to hear a murmur. ABDOMEN: Soft, mildly distended. Gastrostomy is in place. EXTREMITIES: Show trace edema. NEUROLOGIC: The patient is unresponsive and has a blank stare. IMPRESSION: 1. Elevated BUN and creatinine, likely acute kidney injury secondary to dehydration, possible sepsis, and bowel perforation. 2. Hyperkalemia. 3. Respiratory failure, ventilator dependent. 4. Possible bowel perforation. 5. Moderate malnutrition. PLAN: The patient will be given vigorous hydration and will be given treatment for hyperkalemia. His condition is guarded and critical. Detailed orders for the above are in the computer. Taj Nieves M.D. DR: SUSAN JOB#: [id number] CC:
--- NOTE | 2019-11-21 18:00 | NUR ---
NURSE NOTES: Pt was cleaned and repositioned. Amiodarone drip is currently on hold due to hypotension, SBP below 95. NS is infusing at 200ml/hour per Dr Nieves's order.
--- NOTE | 2019-11-21 19:30 | NUR ---
NURSE NOTES: Received report from Elena MCINTYRE. patient in bed obtunded, no moaning no facial grimaces. HOB elevated no n/v. trach to vent fi02 50% satting 100%. GT intact connected to low intermittent suction, abdomen soft and non-distended. Silva draining. patient IV line intact infusing NS at 200cc/hr. obtained Telephone consent for PICC insertion from Yannick Mauricio witnessed by Elena. Optifoam dressing intact for Sacral redness. ST on cardiac technologist HR 139. BP 103/65. Seizure and contact isolation maintained and observed. will continue to monitor patient.
--- NOTE | 2019-11-21 19:30 | NUR ---
HAND-OFF: Report given to Bhumi MCINTYRE. Endorsed plan of care.
[2019-11-21] MEDS ORDERED: Heparin1,000 units/500ml Premix(Conc:2 units/ml) IV PRN (19:45)
[2019-11-21] MEDS ORDERED: Lidocaine 1% Plain 30 ml INJ PRN (19:45)
[2019-11-21] MEDS: Dyna-Hex 2% Top Sol 2oz TOPIC SCH (20:00)
[2019-11-21] MEDS ORDERED: Vancomycin 1750mg/D5W 550ml IVPB ONE ×2 (21:00)
--- NOTE | 2019-11-21 21:00 | NUR ---
NURSE NOTES: Resumed Amiodarone drip at 1mg/min BP 107/50. patient in bed no s/s of acute distress noted. Silva draining. padded side rail, seizure precaution maintained and observed.
[2019-11-21] MEDS: levETIRAcetam 500mg/NS100ml 100 ML IVPB SCH (22:16)
--- NOTE | 2019-11-21 22:52 | General Progress Note ---
Assessment/Plan Assessment/Plan: Assessment - Sepsis - possible SBO/PSBO - ? free air around GT - GT appears appropriate - Resp failure / trach - Renal failure - lactic acidosis - rectal fecal loading Recommendations - NPO - GT decompression - IVF - Abx - follow lab / exam / imaging - PPI Subjective Allergies: Coded Allergies: No Known Allergies (Unverified , 02/07/18) Objective Last 24 Hour Vital Signs Date Time Temp Pulse Resp B/P (MAP) Pulse Ox O2 Delivery O2 Flow Rate FiO2 11/21/19 22:32 94 24 40 11/21/19 21:01 109 22 40 11/21/19 20:00 50 11/21/19 20:00 Mechanical Ventilator 11/21/19 19:01 143 11/21/19 19:01 139 25 45 11/21/19 18:00 143 38 91/62 100 Mechanical Ventilator 11/21/19 17:17 150 11/21/19 17:00 153 38 88/54 100 Mechanical Ventilator 11/21/19 16:36 156 21 50 11/21/19 16:30 156 39 97/76 99 Mechanical Ventilator 11/21/19 16:00 98.1 159 39 96/76 100 Mechanical Ventilator 11/21/19 16:00 162 11/21/19 15:40 163 21 50 11/21/19 15:30 161 35 89/69 100 Mechanical Ventilator 11/21/19 15:27 162 11/21/19 15:00 165 34 88/55 100 Mechanical Ventilator 11/21/19 14:30 165 28 113/78 100 Mechanical Ventilator 11/21/19 14:00 50 11/21/19 14:00 98.0 114 30 113/86 99 Mechanical Ventilator 11/21/19 14:00 114 11/21/19 14:00 Mechanical Ventilator 11/21/19 14:00 Mechanical Ventilator 11/21/19 13:00 94 18 104/77 100 Mechanical Ventilator 5.0 50 11/21/19 12:36 103 18 50 11/21/19 11:58 94 17 104/77 100 Mechanical Ventilator 5.0 50 11/21/19 11:25 101 20 50 11/21/19 10:00 101 21 99/82 100 Mechanical Ventilator 5.0 50 11/21/19 08:36 120 23 50 11/21/19 08:02 114 21 Mechanical Ventilator 5.0 50 11/21/19 08:02 114 21 98/74 98 Mechanical Ventilator 5.0 50 11/21/19 07:06 96 21 50 11/21/19 07:05 115 20 115/79 (91) 98 Trach Collar 5.0 Laboratory Tests 11/21/19 07:30: White Blood Count 19.5H, Red Blood Count 4.02L, Hemoglobin 13.1L, Hematocrit 36.6L, Mean Corpuscular Volume 91, Mean Corpuscular Hemoglobin 32.5H, Mean Corpuscular Hemoglobin Concent 35.7, Red Cell Distribution Width 10.7L, Platelet Count 242, Mean Platelet Volume 6.7, Neutrophils (%) (Auto) , Lymphocytes (%) (Auto) , Monocytes (%) (Auto) , Eosinophils (%) (Auto) , Basophils (%) (Auto) , Differential Total Cells Counted 100, Neutrophils % ( Manual) 82H, Lymphocytes % (Manual) 6L, Monocytes % (Manual) 10, Eosinophils % ( Manual) 2, Basophils % (Manual) 0, Band Neutrophils 0, Platelet Estimate Adequate, Platelet Morphology Normal, Red Blood Cell Morphology Normal, Urine Color Brown, Urine Appearance Slightly cloudy, Urine pH 5, Urine Specific [place] 1.015, Urine Protein 2+H, Urine Glucose (UA) 1+H, Urine Ketones 1+H, Urine Blood 1+H, Urine Nitrite Negative, Urine Bilirubin Negative, Urine Urobilinogen 1H, Urine Leukocyte Esterase 1+H, Urine RBC 2-4H, Urine WBC 5-10H, Urine Squamous Epithelial Cells Occasional, Urine Amorphous Sediment ModerateH, Urine Bacteria Few, Sodium Level 131L, Potassium Level 5.1, Chloride Level 97L, Carbon Dioxide Level 22, Anion Gap 12, Blood Urea Nitrogen 58H, Creatinine 2.8H , Estimat Glomerular Filtration Rate 22.9, Glucose Level 122H, Lactic Acid Level 3.40H, Calcium Level 10.5H, Total Bilirubin 1.7H, Direct Bilirubin 0.4H, Aspartate Amino Transf (AST/SGOT) 24, Alanine Aminotransferase (ALT/SGPT) 21, Alkaline Phosphatase 111, Total Creatine Kinase 32, Creatine Kinase MB < 0.5, Creatine Kinase MB Relative Index 1.5, Troponin I 0.000, Pro-B-Type Natriuretic Peptide 100, Total Protein 8.9H, Albumin 3.1L, Globulin 5.8, Albumin/Globulin Ratio 0.5L, Lipase 104 11/21/19 10:00: Lactic Acid Level 3.20H 11/21/19 10:40: Prothrombin Time 12.2H, Prothromb Time International Ratio 1.2H, Activated Partial Thromboplast Time 28 11/21/19 15:00: Urine Random Sodium < 20L, Urine Creatinine 215.6H 11/21/19 20:20: Lactic Acid Level 3.10H Height (Feet): 6 Height (Inches): 2.00 Weight (Pounds): 250 Mercedes Tsai MD Nov 21, 2019 22:52
--- NOTE | 2019-11-21 23:00 | NUR ---
NURSE NOTES: Repositioned patient in bed. oral care provided. GT intact no residual. comfort measure provided. frequent visual checks continued. Bed alarm on. call light within easy reach. will continue plan of care.
[2019-11-22] VITALS (94 sets, daily range): BP systolic 86–177; BP diastolic 46–87
[2019-11-22] MEDS: Piperacillin/Tazobactam 3.375 GM in NS 110 ML IVPB SCH ×3 (01:21→18:27)
--- NOTE | 2019-11-22 01:26 | NUR ---
NURSE NOTES: patient with Temp of 101.6 axillary cooling measure not effective. Tylenol via GT given. no residual. will continue to monitor patient.
--- NOTE | 2019-11-22 01:52 | NUR ---
NURSE NOTES: Rechecked Temp 100 axillary. HR sr on panel monitor HR 98
--- NOTE | 2019-11-22 04:00 | NUR ---
NURSE NOTES: Bed bath given tolerated well. with x1 small soft form brownish yellow BM kept clean and dry. no fever. Temp98.2 axillary. oral care provided. no n/v. GT intact no residual connected to low intermittent suction. HOB elevated. On Amiodarone drip at 0.5mg/min BP 122/64 HR 98 SR on engine monitor. frequent visual checks continued. will continue plan of care.
--- NOTE | 2019-11-22 06:00 | NUR ---
On Amiodarone drip at 0.5mg/min BP 114/55 HR 98 SR on campus monitor. frequent visual checks continued. will continue plan of care.
[2019-11-22 06:19] LABS: HEMATOCRIT 27.7 % (42.0-52.0); HEMOGLOBIN 9.8 G/DL (14.2-18.0); MEAN CORPUSCULAR VOLUME 91 FL (80-99); PLATELET COUNT 160 K/UL (150-450); RED BLOOD COUNT 3.04 M/UL (4.70-6.10); RED CELL DISTRIBUTION WIDTH 10.9 % (11.6-14.8); WHITE BLOOD COUNT 15.1 K/UL (4.8-10.8)
[2019-11-22] MEDS ORDERED: Lidocaine 1% Plain 30 ml INJ ONE (07:00)
[2019-11-22] MEDS ORDERED: Heparin1,000 units/500ml Premix(Conc:2 units/ml) ONE (07:00)
--- NOTE | 2019-11-22 07:15 | NUR ---
RESPIRATORY NOTE: Received pt on ordered vent settings. Pt airway is patent and secured. Suctioned pt prn. Vent alarms are on and audible. Vent is plugged into red outlet. Will monitor pt progress.
[2019-11-22 07:26] LABS: ALANINE AMINOTRANSFERASE 17 U/L (12-78); ALBUMIN 2.2 G/DL (3.4-5.0); ALBUMIN/GLOBULIN RATIO 0.5 (1.0-2.7); ALKALINE PHOSPHATASE 74 U/L (46-116); ANION GAP 11 mmol/L (5-15); ASPARTATE AMINO TRANSFERASE 19 U/L (15-37); BILIRUBIN,TOTAL 1.1 MG/DL (0.2-1.0); BLOOD UREA NITROGEN 65 mg/dL (7-18); CARBON DIOXIDE 24 MMOL/L (21-32); CHLORIDE 103 MMOL/L (98-107); CREATINE KINASE 23 U/L (26-308); CREATININE 2.2 MG/DL (0.55-1.30); POTASSIUM 4.4 MMOL/L (3.5-5.1); SODIUM 138 MMOL/L (136-145)
--- NOTE | 2019-11-22 07:30 | NUR ---
HAND-OFF: Report given to Louisa MCINTYRE.
--- NOTE | 2019-11-22 07:45 | NUR ---
NURSE NOTES: REPORT RECEIVED FROM FRANCISCO JAVIER HERNANDEZ
--- NOTE | 2019-11-22 08:00 | NUR ---
NURSE NOTES: Pt obtunded when received. Responsive to verbal and tactile stimuli.On trach/vent Wilma 6, AC 14 VT 600 FIO2 50 PEEP 5 and saturate at 100%. Abdomen round and distended, noted with low grade fever and cooling measure applied.Silva catheter in place draining yellowish urine with no apparent sediment.NPO at this time and on low intermittent GI suction, residual greenish.GT placement checked and intact, residual 20cc greenish in color. HOB elevated at 35 degree to prevent aspiration .Call light within easy reach, mouth care done and suctioned as tolerated. Turned and repositioned for comfort and skin management.Seen by wound nurse and dressing changed, DTI sacral area, awaiting P200 mattress. Will continue same care plan.
[2019-11-22 08:25] LABS: BILIRUBIN,DIRECT 0.2 MG/DL (0.0-0.3)
[2019-11-22] MEDS: levETIRAcetam 500mg/NS100ml 100 ML IVPB SCH ×2 (09:14→20:53)
--- NOTE | 2019-11-22 09:54 | Diagnostic Imaging Report ---
Indication: Abdominal pain Technique: Supine view of the abdomen Comparison: Fur Scraper image from CT scan dated 11/21/2019 Findings: Gas-filled distended small bowel loops are again noted, degree of distention appearing decreased from previous exam. Gas-filled upper limits of normal caliber: Again demonstrated. Again demonstrated is evidence of rectal fecal impaction. Again demonstrated are ventriculoperitoneal shunt tubing and into gastrostomy Impression: Decreased but persistent distention of small bowel with gas, may indicate some improvement in previously described small bowel obstruction Otherwise stable findings as described
--- NOTE | 2019-11-22 10:02 | NUR ---
NURSE NOTES: Patient remains obtunded with no acute distress.No significant change in condition at this time. Turned and repositioned for skin management and comfort.Mouth lubricant and glycerin swab applied.Kept clean dry and comfortable.Call light within easy reach. Will continue same care plan
--- NOTE | 2019-11-22 10:28 | NUR ---
RADIOLOGY DEPT., ABDOMEN X-RAY DONE.-P.DYE
--- NOTE | 2019-11-22 10:46 | Surgery Progress Note ---
Surgery Progress Note Subjective Additional Comments wbc improved lactic acid resolved exam unchanged picc today Objective Last 24 Hour Vital Signs Date Time Temp Pulse Resp B/P (MAP) Pulse Ox O2 Delivery O2 Flow Rate FiO2 11/22/19 09:28 92 16 40 11/22/19 07:15 93 16 119/63 (81) 100 11/22/19 07:15 96 21 40 11/22/19 07:00 94 19 117/64 (81) 100 11/22/19 06:45 93 21 114/65 (81) 100 11/22/19 06:30 92 19 11/22/19 06:30 92 25 122/62 (82) 88 11/22/19 06:15 93 22 114/55 (74) 99 11/22/19 06:00 92 20 115/63 (80) 99 11/22/19 05:45 92 21 112/59 (76) 98 11/22/19 05:30 88 15 111/54 (73) 99 11/22/19 05:15 89 16 104/56 (72) 99 11/22/19 05:00 88 17 103/53 (70) 100 11/22/19 04:45 92 15 101/57 (72) 100 11/22/19 04:37 98 18 40 11/22/19 04:30 94 23 111/57 (75) 92 11/22/19 04:15 99 21 122/64 (83) 100 11/22/19 04:00 50 11/22/19 04:00 98.2 92 14 98/56 (70) 100 11/22/19 04:00 Mechanical Ventilator 11/22/19 04:00 87 11/22/19 03:45 87 15 110/57 (74) 100 11/22/19 03:30 89 16 97/57 (70) 100 11/22/19 03:15 93 16 97/52 (67) 100 11/22/19 03:00 93 16 100/46 (64) 100 11/22/19 02:40 94 16 40 11/22/19 02:30 91 16 102/55 (71) 100 11/22/19 02:15 93 17 94/48 (63) 100 11/22/19 02:00 99 18 92/52 (65) 100 11/22/19 01:52 100.0 11/22/19 01:52 100.0 11/22/19 01:45 104 17 110/56 (74) 100 11/22/19 01:28 101.6 11/22/19 01:15 140 19 93/53 (66) 100 11/22/19 01:08 146 24 86/47 (60) 100 11/22/19 00:49 151 26 93/48 (63) 100 11/22/19 00:47 168 11/22/19 00:45 148 25 89/56 (67) 11/22/19 00:32 147 21 40 11/22/19 00:30 145 23 102/47 (65) 11/22/19 00:15 150 25 11/22/19 00:00 Mechanical Ventilator 11/22/19 00:00 147 11/22/19 00:00 99.5 150 29 177/74 (108) 86 11/21/19 23:45 157 31 152/105 (121) 91 11/21/19 23:30 134 20 128/74 (92) 99 11/21/19 23:19 130 21 114/76 (89) 100 11/21/19 22:32 94 24 40 11/21/19 22:15 95 21 101/59 (73) 100 11/21/19 22:00 99 17 102/58 (73) 100 11/21/19 21:45 101 19 97/50 (66) 100 11/21/19 21:30 105 16 95/46 (62) 100 11/21/19 21:15 108 18 100/66 (77) 99 11/21/19 21:01 109 22 40 11/21/19 21:00 109 18 107/50 (69) 100 11/21/19 20:45 110 18 93/47 (62) 100 11/21/19 20:30 115 17 91/51 (64) 100 11/21/19 20:25 119 21 93/57 (69) 100 11/21/19 20:20 120 30 97/59 (72) 100 11/21/19 20:15 119 25 99/71 (80) 100 11/21/19 20:10 139 21 105/66 (79) 100 11/21/19 20:05 139 22 106/53 (70) 99 11/21/19 20:00 139 11/21/19 20:00 50 11/21/19 20:00 98.0 140 23 113/66 (82) 100 11/21/19 20:00 Mechanical Ventilator 11/21/19 19:55 140 24 116/64 (81) 100 11/21/19 19:50 140 24 105/70 (82) 100 11/21/19 19:45 128/74 11/21/19 19:40 139 37 104/58 (73) 100 11/21/19 19:35 139 39 103/65 (78) 100 11/21/19 19:30 139 38 101/55 (70) 100 11/21/19 19:25 140 38 105/64 (78) 100 11/21/19 19:20 141 38 100/65 (77) 100 11/21/19 19:15 142 37 99/65 (76) 100 11/21/19 19:10 141 40 100/64 (76) 100 11/21/19 19:05 142 35 106/71 (83) 100 11/21/19 19:01 143 11/21/19 19:01 139 25 45 11/21/19 19:00 144 38 88/60 (69) 100 11/21/19 18:00 143 38 91/62 100 Mechanical Ventilator 11/21/19 17:17 150 11/21/19 17:00 153 38 88/54 100 Mechanical Ventilator 11/21/19 16:36 156 21 50 11/21/19 16:30 156 39 97/76 99 Mechanical Ventilator 11/21/19 16:00 98.1 159 39 96/76 100 Mechanical Ventilator 11/21/19 16:00 162 11/21/19 15:40 163 21 50 11/21/19 15:30 161 35 89/69 100 Mechanical Ventilator 11/21/19 15:27 162 11/21/19 15:00 165 34 88/55 100 Mechanical Ventilator 11/21/19 14:30 165 28 113/78 100 Mechanical Ventilator 11/21/19 14:00 50 11/21/19 14:00 98.0 114 30 113/86 99 Mechanical Ventilator 11/21/19 14:00 114 11/21/19 14:00 Mechanical Ventilator 11/21/19 14:00 Mechanical Ventilator 11/21/19 13:00 94 18 104/77 100 Mechanical Ventilator 5.0 50 11/21/19 12:36 103 18 50 11/21/19 11:58 94 17 104/77 100 Mechanical Ventilator 5.0 50 11/21/19 11:25 101 20 50 I&O Intake and Output 11/21/19 11/22/19 19:00 07:00 Intake Total 1090.83 ml 3530.78 ml Output Total 55 ml 1070 ml Balance 1035.83 ml 2460.78 ml Intake IV Total 1090.83 ml 3470.78 ml Other 60 ml Output Urine Total 55 ml 1070 ml # Voids 1 # Bowel Movements 2 2 Dressing: other Wound: other Drains: other Cardiovascular: RSR Respiratory: decreased breath sounds Abdomen: soft, non-tender, non-distended, decreased bowel sounds Extremities: no edema, no cyanosis Laboratory Tests Test 11/21/19 15:00 11/21/19 20:20 11/21/19 23:25 11/22/19 05:25 Urine Random Sodium < 20 mmol/L (20-110) L Urine Creatinine 215.6 MG/DL (30.0-125.0) H Lactic Acid Level 3.10 mmol/L (0.4-2.0) H 1.90 mmol/L (0.66-2.22) White Blood Count 15.1 K/UL (4.8-10.8) H Red Blood Count 3.04 M/UL (4.70-6.10) L Hemoglobin 9.8 G/DL (14.2-18.0) L Hematocrit 27.7 % (42.0-52.0) L Mean Corpuscular Volume 91 FL (80-99) Mean Corpuscular Hemoglobin 32.3 PG (27.0-31.0) H Mean Corpuscular Hemoglobin Concent 35.5 G/DL (32.0-36.0) Red Cell Distribution Width 10.9 % (11.6-14.8) L Platelet Count 160 K/UL (150-450) Mean Platelet Volume 6.9 FL (6.5-10.1) Neutrophils (%) (Auto) % (45.0-75.0) Lymphocytes (%) (Auto) % (20.0-45.0) Monocytes (%) (Auto) % (1.0-10.0) Eosinophils (%) (Auto) % (0.0-3.0) Basophils (%) (Auto) % (0.0-2.0) Differential Total Cells Counted 100 Neutrophils % (Manual) 78 % (45-75) H Lymphocytes % (Manual) 9 % (20-45) L Monocytes % (Manual) 4 % (1-10) Eosinophils % (Manual) 0 % (0-3) Basophils % (Manual) 0 % (0-2) Band Neutrophils 9 % (0-8) H Platelet Estimate Adequate Platelet Morphology Normal Red Blood Cell Morphology Normal Sodium Level 138 MMOL/L (136-145) Potassium Level 4.4 MMOL/L (3.5-5.1) Chloride Level 103 MMOL/L (98-107) Carbon Dioxide Level 24 MMOL/L (21-32) Anion Gap 11 mmol/L (5-15) Blood Urea Nitrogen 65 mg/dL (7-18) H Creatinine 2.2 MG/DL (0.55-1.30) H Estimat Glomerular Filtration Rate 30.2 mL/min (>60) Glucose Level 102 MG/DL (74-106) Calcium Level 9.0 MG/DL (8.5-10.1) Total Bilirubin 1.1 MG/DL (0.2-1.0) H Direct Bilirubin 0.2 MG/DL (0.0-0.3) Aspartate Amino Transf (AST/SGOT) 19 U/L (15-37) Alanine Aminotransferase (ALT/SGPT) 17 U/L (12-78) Alkaline Phosphatase 74 U/L (46-116) Total Creatine Kinase 23 U/L (26-308) L Total Protein 6.6 G/DL (6.4-8.2) Albumin 2.2 G/DL (3.4-5.0) L Globulin 4.4 g/dL Albumin/Globulin Ratio 0.5 (1.0-2.7) L Test 11/22/19 09:07 Arterial Blood pH 7.504 (7.350-7.450) Arterial Blood Partial Pressure CO2 29.9 mmHg (35.0-45.0) L Arterial Blood Partial Pressure O2 302.7 mmHg (75.0-100.0) H Arterial Blood HCO3 23.0 mmol/L (22.0-26.0) Arterial Blood Oxygen Saturation 99.1 % (95-100) Arterial Blood Base Excess 0.5 (-2-2) Zaheer Test Positive Plan Problems: (1) Sepsis Assessment & Plan: 64M with multiple comorbidities identified to have leukocytosis, lactic acidosis, CT as below. Patient is trach on vent support with PEG on tube feeds debilitated unresponsive Abdominal examination does not show significant distention and do not elicit pain upon palpation. G-tube in place and looks okay CT examination identifies free air around the left upper quadrant around the G- tube site as well as what seems to be a SHELL SORTER shunt but contained within this area. No free air seen in the pelvis lower quadrants right upper quadrant underneath the liver And evaluate the patient's overall condition status is likely the G-tube and replaced potentially with some resistance prior causing injury around the G- tube insertion site with potential leakage possible infectious or inflammatory reaction would recommend medical management at this time given patient's current condition comorbidities SHELL SORTER shunt location G-tube location and location of free air and potential infectious inflammatory process identified if rushing to surgical intervention there is Strong concerns for potentially infecting SHELL SORTER shunt and having to remove or interrupt G-tube. If potentially localized infectious or inflammatory process may improve with medical management and inpatient who is debilitated sick and elderly would benefit from medical intervention versus aggressive surgical intervention if declines and does not respond to medical conservative management will discuss with f medical team and family considerations for surgical intervention npo iv fluids iv abx g tube to intermittent low wall suction AM KUB serial abd exams trend labs will follow with recs thank you Findings: Lack of enteric contrast limits assessment of the GI tract. There is a gastrostomy in good position. The stomach is distended with fluid. The proximal small bowel is dilated and fluid-filled. Most of the small bowel is distended with fluid and/or gas, although the most distal ileum is normal in caliber. The transition point is difficult to determine but may be in the right lower quadrant at the level of the distal ileum. The most severe small bowel distention is proximal. The rectum is distended by feces, measures 9 cm in diameter. No significant rectal wall thickening or perirectal inflammation demonstrated. No evidence of colonic diverticulosis or diverticulitis. There is gas anterior to the stomach which is probably intraluminal within bowel, but cannot be definitively connected to any bowel structures so extra peritoneal gas cannot be completely excluded. There is a ventriculoperitoneal shunt catheter, tip of which terminates in the left paracolic gutter. No free intraperitoneal fluid is demonstrated. The appendix is normal. There is no evidence of diverticulosis or diverticulitis. Lack of IV contrast limits assessment of the solid organs. The liver, gallbladder, bile ducts, pancreas, spleen are all unremarkable. The kidneys demonstrate bilateral cysts as well as bilateral subcentimeter low-attenuation lesions which are too small to characterize. There are bilateral nonobstructive calyceal calculi, largest in the right lower pole measuring approximately 8 mm long axis dimension. No ureteral calculi, or hydronephrosis or hydroureter. The bladder is empty. High attenuation material within the bladder lumen may reflect small bladder calculi. There is considerable consolidation within both of the visualized pulmonary lower lobes. There may be trace pleural fluid on the left. The bones are unremarkable except for degenerative spondylosis changes Impression: Dilated stomach and small bowel, nondilated distal ileum, suspicious for distal small bowel obstruction. Gas anterior to the stomach. While possibly within an enteric structure, no enteric structures are seen in this area on prior chest CT of 02/07/2018, so this is concerning for free intraperitoneal gas an therefore for perforation of a hollow viscus. Evidence of rectal fecal impaction Nonobstructive bilateral intrarenal calculi Considerable bilateral pulmonary lower lobe parenchymal consolidation Trace left pleural fluid Possible bladder calculi Ventriculoperitoneal shunt Gastrostomy Other findings as noted, including degenerative spondylosis, renal cysts Johnathan Ford Nov 22, 2019 10:46
--- NOTE | 2019-11-22 10:51 | Diagnostic Imaging Report ---
Indications: Needs long-term IV access Technique: Procedure performed at bedside. Procedural timeout performed. Ultrasound confirms patent compressible right basilic vein. Total sterile technique, including sterile probe cover and sterile gel, sterile gloves, hand hygiene, hat, mask,, sterile gown, large sterile drape, and preparation with 2% chlorhexidine utilized. Local anesthesia with 1% lidocaine. Under real-time ultrasound guidance, puncture basilic vein using 21-gauge needle, passage 0.018 guidewire, exchange for 4 Bel[place]ian peel-away sheath. 4 Bel[place]ian Bard dual-lumen power PICC cut to 36 cm. It was inserted through the peel-away sheath. Peel-away sheath and guidewire removed. Catheter fixed to the skin. Both catheter ports aspirated and flushed. Patient tolerated procedure well, without immediate complication. Followup chest x-ray obtained, documents catheter tip position at the probable innominate venous confluence Impression: Successful bedside placement of right arm PICC under sonographic guidance, as described above.
--- NOTE | 2019-11-22 10:59 | CDS Physician Query ---
Clarification is required for compliance, coding accuracy, and to reflect severity of illness for this patient. Dear Dr. Nieves Date: 11.22.18 CDS: Miranda Valencia Malnutrition has been documented in this medical record. Albumin 2.2 In order to accurately code this and to reflect the appropriate severity of ilness, please clarify diagnosis. [ ] Mild Malnutrition [ ] Moderate Malnutrition [ ] Severe Malnutrition [ ] Unknown degree [ ] Other: [ ] Clinically Undetermined Present on Admission: [ ] Yes [ ] No [ ] Clinically Undetermined Physician signature Date Please also document in your Progress Notes and/or Discharge Summary and indicate if the condition was present on admission. defer to attending md SERRA
--- NOTE | 2019-11-22 11:57 | NUR ---
Social Work This SW met with patient who is currently in the ICU, unresponsive. This SW spoke with Friend, Yannick ([phone]) who explains he is the primary emergency contact for patient, patient has not been in contact with family for quite some time. Patient has had two strokes and unable to verbalize his own decision making. POL on file, requesting full code, full treatment. Patient is from [facility] and planning to return there upon discharge. SW to follow for further support as needed.
--- NOTE | 2019-11-22 12:24 | NUR ---
NURSE NOTES: Patient remains obtunded , responsive to tactile stimuli. Relayed to Dr Pierre gram positive cocci with clusters x 2 bottles and no ID at this time.Also request SCD orders for the patient.Awaiting call back.Turned and repositioned for comfort and skin management.HOB elevated to prevent aspiration.Remains on amiodarone drip and in and out Afib.No significant change in condition at this time.Call light within easy reach. Will continue same care plan
--- NOTE | 2019-11-22 14:11 | NUR ---
NURSE NOTES: Patient turned and repositioned for comfort and skin management .Mouth care done.HOB elevated to prevent aspiration.Call light within easy reach. No significant change in condition.Will continue same care plan.HOB elevated to prevent aspiration
--- NOTE | 2019-11-22 14:19 | NUR ---
ENVIRONMENTAL SUSTAINABILITY MANAGERCONFIGURATION MANAGEMENT ANALYST 64 YO MALE BIBA FROM [facility] CONV TO ER CC VOMITING SI: RESP FAILURE TRACH/VENT DEPENDENT,BOWEL PERFORATION T. 98.0 HR 115 RR 20 B/P 115/79 AC 16 TV 600 FIO2 50% PEEP 5 WBC 19.5 K 6.9 NA 131 BUN 58 CR 2.8 LACTID ACID 3.40 ABD/PELV CT= PENDING IS: IV BOLUS NS X 3 LITERS ZOSYN IV ZOFRAN IV KAYEXALATE GT ADMITTED TO ICU@ 1331 ICU STATUS DCP RETURN TO [facility]
--- NOTE | 2019-11-22 15:09 | Nephrology Progress Note ---
Assessment/Plan Assessment/Plan: A/P 1. Elevated BUN and creatinine acute kidney injury secondary to dehydration, sepsis Cr improved to 2.2 IVFs 2. Hyperkalemia - resolved 3. Respiratory failure, ventilator dependent. 4. Possible bowel perforation.- per Gen surgery - g tube to intermittent low wall suction AM KUB serial abd exams per surgery trend labs Subjective Date patient seen: Nov 22, 2019 Time patient seen: 15:05 ROS Limited/Unobtainable: Yes Allergies: Coded Allergies: No Known Allergies (Unverified , 02/07/18) Subjective Patient trached on the vent Objective Last 24 Hour Vital Signs Date Time Temp Pulse Resp B/P (MAP) Pulse Ox O2 Delivery O2 Flow Rate FiO2 11/22/19 14:45 113 15 108/63 (78) 100 11/22/19 14:30 117 15 93/69 (77) 100 11/22/19 14:15 117 15 94/59 (71) 100 11/22/19 14:00 116 16 93/71 (78) 100 11/22/19 13:45 122 19 131/69 (89) 100 11/22/19 13:30 124 21 134/87 (103) 100 11/22/19 13:15 120 23 110/72 (85) 100 11/22/19 13:00 124 24 117/76 (90) 100 11/22/19 12:45 117 17 91/68 (76) 100 11/22/19 12:30 121 15 111/70 (84) 100 11/22/19 12:15 99.8 122 21 112/77 (89) 100 11/22/19 12:00 122 11/22/19 12:00 50 11/22/19 12:00 Mechanical Ventilator 11/22/19 12:00 121 16 128/62 (84) 100 11/22/19 11:45 122 20 128/74 (92) 100 11/22/19 11:30 127 22 121/62 (81) 11/22/19 11:15 122 19 106/55 (72) 100 11/22/19 11:02 98 16 40 11/22/19 11:00 122 16 101/61 (74) 100 11/22/19 10:45 124 16 88/48 (61) 100 11/22/19 10:30 127 15 90/54 (66) 100 11/22/19 10:15 131 15 120/57 (78) 100 11/22/19 10:00 127 20 125/60 (81) 100 11/22/19 09:46 99.6 11/22/19 09:45 127 21 112/65 (81) 100 11/22/19 09:30 129 24 105/67 (80) 100 11/22/19 09:28 92 16 40 11/22/19 09:15 129 22 103/67 (79) 100 11/22/19 09:00 125 22 121/73 (89) 100 11/22/19 08:45 124 21 119/74 (89) 100 11/22/19 08:44 126 22 134/69 (90) 100 11/22/19 08:30 123 23 134/69 (90) 97 11/22/19 08:15 91 16 119/74 (89) 100 11/22/19 08:00 Mechanical Ventilator 11/22/19 08:00 103 11/22/19 08:00 50 11/22/19 08:00 93 24 121/73 (89) 98 11/22/19 07:45 94 18 117/64 (81) 100 11/22/19 07:30 99.1 92 18 119/63 (81) 100 11/22/19 07:15 93 16 119/63 (81) 100 11/22/19 07:15 96 21 40 11/22/19 07:00 94 19 117/64 (81) 100 11/22/19 06:45 93 21 114/65 (81) 100 11/22/19 06:30 92 19 11/22/19 06:30 92 25 122/62 (82) 88 11/22/19 06:15 93 22 114/55 (74) 99 11/22/19 06:00 92 20 115/63 (80) 99 11/22/19 05:45 92 21 112/59 (76) 98 11/22/19 05:30 88 15 111/54 (73) 99 11/22/19 05:15 89 16 104/56 (72) 99 11/22/19 05:00 88 17 103/53 (70) 100 11/22/19 04:45 92 15 101/57 (72) 100 11/22/19 04:37 98 18 40 11/22/19 04:30 94 23 111/57 (75) 92 11/22/19 04:15 99 21 122/64 (83) 100 11/22/19 04:00 50 11/22/19 04:00 98.2 92 14 98/56 (70) 100 11/22/19 04:00 Mechanical Ventilator 11/22/19 04:00 87 11/22/19 03:45 87 15 110/57 (74) 100 11/22/19 03:30 89 16 97/57 (70) 100 11/22/19 03:15 93 16 97/52 (67) 100 11/22/19 03:00 93 16 100/46 (64) 100 11/22/19 02:40 94 16 40 11/22/19 02:30 91 16 102/55 (71) 100 11/22/19 02:15 93 17 94/48 (63) 100 11/22/19 02:00 99 18 92/52 (65) 100 11/22/19 01:52 100.0 11/22/19 01:45 104 17 110/56 (74) 100 11/22/19 01:28 101.6 11/22/19 01:15 140 19 93/53 (66) 100 11/22/19 01:08 146 24 86/47 (60) 100 11/22/19 00:49 151 26 93/48 (63) 100 11/22/19 00:47 168 11/22/19 00:45 148 25 89/56 (67) 11/22/19 00:32 147 21 40 11/22/19 00:30 145 23 102/47 (65) 11/22/19 00:15 150 25 11/22/19 00:00 Mechanical Ventilator 11/22/19 00:00 147 11/22/19 00:00 99.5 150 29 177/74 (108) 86 11/21/19 23:45 157 31 152/105 (121) 91 11/21/19 23:30 134 20 128/74 (92) 99 11/21/19 23:19 130 21 114/76 (89) 100 11/21/19 22:32 94 24 40 11/21/19 22:15 95 21 101/59 (73) 100 11/21/19 22:00 99 17 102/58 (73) 100 11/21/19 21:45 101 19 97/50 (66) 100 11/21/19 21:30 105 16 95/46 (62) 100 11/21/19 21:15 108 18 100/66 (77) 99 11/21/19 21:01 109 22 40 11/21/19 21:00 109 18 107/50 (69) 100 11/21/19 20:45 110 18 93/47 (62) 100 11/21/19 20:30 115 17 91/51 (64) 100 11/21/19 20:25 119 21 93/57 (69) 100 11/21/19 20:20 120 30 97/59 (72) 100 11/21/19 20:15 119 25 99/71 (80) 100 11/21/19 20:10 139 21 105/66 (79) 100 11/21/19 20:05 139 22 106/53 (70) 99 11/21/19 20:00 139 11/21/19 20:00 50 11/21/19 20:00 98.0 140 23 113/66 (82) 100 11/21/19 20:00 Mechanical Ventilator 11/21/19 19:55 140 24 116/64 (81) 100 11/21/19 19:50 140 24 105/70 (82) 100 11/21/19 19:45 128/74 11/21/19 19:40 139 37 104/58 (73) 100 11/21/19 19:35 139 39 103/65 (78) 100 11/21/19 19:30 139 38 101/55 (70) 100 11/21/19 19:25 140 38 105/64 (78) 100 11/21/19 19:20 141 38 100/65 (77) 100 11/21/19 19:15 142 37 99/65 (76) 100 11/21/19 19:10 141 40 100/64 (76) 100 11/21/19 19:05 142 35 106/71 (83) 100 11/21/19 19:01 143 11/21/19 19:01 139 25 45 11/21/19 19:00 144 38 88/60 (69) 100 11/21/19 18:00 143 38 91/62 100 Mechanical Ventilator 11/21/19 17:17 150 11/21/19 17:00 153 38 88/54 100 Mechanical Ventilator 11/21/19 16:36 156 21 50 1/23/20 16:30 156 39 97/76 99 Mechanical Ventilator 11/21/19 16:00 98.1 159 39 96/76 100 Mechanical Ventilator 11/21/19 16:00 162 11/21/19 15:40 163 21 50 11/21/19 15:30 161 35 89/69 100 Mechanical Ventilator 11/21/19 15:27 162 Intake and Output 11/21/19 11/22/19 19:00 07:00 Intake Total 1090.83 ml 3530.78 ml Output Total 55 ml 1070 ml Balance 1035.83 ml 2460.78 ml Intake IV Total 1090.83 ml 3470.78 ml Other 60 ml Output Urine Total 55 ml 1070 ml # Voids 1 # Bowel Movements 2 2 Laboratory Tests 11/21/19 20:20: Lactic Acid Level 3.10H 11/21/19 23:25: Lactic Acid Level 1.90 11/22/19 05:25: White Blood Count 15.1H, Red Blood Count 3.04L, Hemoglobin 9.8L, Hematocrit 27.7L, Mean Corpuscular Volume 91, Mean Corpuscular Hemoglobin 32.3H, Mean Corpuscular Hemoglobin Concent 35.5, Red Cell Distribution Width 10.9L, Platelet Count 160, Mean Platelet Volume 6.9, Neutrophils (%) (Auto) , Lymphocytes (%) (Auto) , Monocytes (%) (Auto) , Eosinophils (%) (Auto) , Basophils (%) (Auto) , Differential Total Cells Counted 100, Neutrophils % ( Manual) 78H, Lymphocytes % (Manual) 9L, Monocytes % (Manual) 4, Eosinophils % ( Manual) 0, Basophils % (Manual) 0, Band Neutrophils 9H, Platelet Estimate Adequate, Platelet Morphology Normal, Red Blood Cell Morphology Normal, Sodium Level 138, Potassium Level 4.4, Chloride Level 103, Carbon Dioxide Level 24, Anion Gap 11, Blood Urea Nitrogen 65H, Creatinine 2.2H, Estimat Glomerular Filtration Rate 30.2, Glucose Level 102, Calcium Level 9.0, Total Bilirubin 1.1H , Direct Bilirubin 0.2, Aspartate Amino Transf (AST/SGOT) 19, Alanine Aminotransferase (ALT/SGPT) 17, Alkaline Phosphatase 74, Total Creatine Kinase 23L, Total Protein 6.6, Albumin 2.2L, Globulin 4.4, Albumin/Globulin Ratio 0.5L 11/22/19 09:07: Arterial Blood pH 7.504H, Arterial Blood Partial Pressure CO2 29.9L, Arterial Blood Partial Pressure O2 302.7H, Arterial Blood HCO3 23.0, Arterial Blood Oxygen Saturation 99.1, Arterial Blood Base Excess 0.5, Zaheer Test Positive Height (Feet): 6 Height (Inches): 2.00 Weight (Pounds): 199 General Appearance: lethargic EENT: normal ENT inspection Neck: normal alignment Cardiovascular: normal rate Respiratory/Chest: rhonchi - bilaterally Abdomen: non tender, soft Edema: no edema noted Arm (L), no edema noted Arm (R), no edema noted Leg (L), no edema noted Leg (R), no edema noted Pedal (L), no edema noted Pedal (R), no edema noted Generalized Narendra Chavez MD Nov 22, 2019 15:09
--- NOTE | 2019-11-22 16:00 | Consultation ---
DATE OF CONSULTATION: 11/22/2019 INFECTIOUS DISEASES CONSULTATION CONSULTING PHYSICIAN: Ilene Archuleta M.D. REFERRING PHYSICIAN: Jameel Pierre M.D. REASON FOR CONSULTATION: Pneumonia. HISTORY OF PRESENTING ILLNESS: This is a 64-year-old gentleman with history of respiratory failure, status post tracheostomy, who came in with renal failure, elevated potassium, and possible intestinal perforation. He has been seen by Surgery. An Infectious Diseases consultation has been obtained for possible peritonitis. PAST MEDICAL HISTORY: History of respiratory failure, status post tracheostomy. Rest of the history is unknown. SOCIAL HISTORY: Unknown. FAMILY HISTORY: Unknown. REVIEW OF SYSTEMS: Unable to obtain currently. CURRENT MEDICATIONS: As an inpatient, he is on Protonix, levetiracetam, chlorhexidine gluconate, lidocaine, norepinephrine, Zosyn, amiodarone, vancomycin, Tylenol, and Mylanta. ALLERGIES: No known drug allergies. PHYSICAL EXAMINATION: VITAL SIGNS: Temperature of 99.1, T-max of 100, pulse of 124, respiratory rate of 16, blood pressure 88/48, and O2 saturation of 100%. HEENT: Pupils equally reactive to light and accommodation. Mouth appears clean without thrush. NECK: Supple. No adenopathy. No JVD. Tracheostomy site is clean. CARDIOVASCULAR: Regular rate and rhythm. No murmurs. LUNGS: Clear to auscultation bilaterally. No crackles. No wheezes. ABDOMEN: Soft and nontender. G-tube site appears clean. EXTREMITIES: No cyanosis, no clubbing. Edema noted bilaterally. LABORATORY AND DIAGNOSTIC DATA: White count of 19.5 on 11/21/2019; 15.1 on 11/22/2019, hemoglobin 9.8, hematocrit 27.7, MCV 91, platelet count of 160 with neutrophils of 78%. Sodium 138, potassium 4.4, chloride 103, bicarb 24, BUN 65, creatinine 2.2, glucose of 102, calcium 9, total bilirubin 1.1. AST 19, ALT 17, alkaline phosphatase 74. Total protein 6.6. Albumin 2.2. Lipase of 104. UA showing wbc of 5 to 10 white cells. Chest x-ray showing bibasilar atelectasis. Minimal infrahilar consolidation noted. CT abdomen and pelvis showing distal small bowel obstruction, possible perforation as there is concern for free intraperitoneal gas. Nonobstructive bilateral intrarenal calculi. Considerable bilateral pulmonary lower lobe consolidation. Trace left-sided pleural effusion. Bladder calculi. COMPLIANCE ANALYST shunt. ASSESSMENT: This is a 64-year-old gentleman with history of respiratory failure, status post tracheostomy, who comes in and was found to have: 1. Possible pneumonia. 2. Small bowel obstruction. 3. Leukocytosis is improving. 4. Renal failure is improving. PLAN: 1. Continue IV vancomycin and Zosyn. 2. We will order urine cultures. 3. We will order sputum cultures. 4. Plan as per Surgery. I would like to thank Dr. Pierre for this consultation. Ilene Archuleta M.D. DR: FRANCO JOB#: [id number] CC: Jameel Pierre M.D.; Fax#: [phone]
--- NOTE | 2019-11-22 16:02 | NUR ---
NURSE NOTES: Patient remains on low intermittent suction.Obtunded and GT placement intact. HOB elevated to prevent aspiration.Call light within easy reach.Remains on P200, turned and repositioned for comfort and skin management. No significant change of condition, will continue same care plan
--- NOTE | 2019-11-22 16:47 | NUR ---
NURSE NOTES:WOUND CARE NOTES:Pt presented on admission with DTPI sacrum, Non-blanching erythema both heels. Pressure injury Sacrum has irregular borders and is maroon with an area that is purple at sacrococcygeal area.Marginal erythema noted along borders.Periwound is clean and pink(L)8ccm x (W)9cm. R heel is boggy with non-blanching erythema. Non-blanching erythema without induration ,fluctuance L heel. No other skin concerns noted. Tx.Plan:Apply Moisture Barrier Paste to Sacrum. Cover with Optifoam drsg. Change every 3 days and prn. Apply Cavilon Skin BArrier to both heels. Cover each heel with Optifoam drsg. Change every 7 days and prn APM/TOOTIE Mattress overlay. Reposition at least every 2hours or as tolerated. Off-load heels with pillow.
--- NOTE | 2019-11-22 17:52 | Critical Care Progress Note ---
Assessment/Plan Assessment/Plan abdominal distention free air ? due to recent GT change sepsis ARF COPD anoxia trach GT leukocytosis anemia PLAN gi and gs follow up NPO hydrate antibiotics monitor for change ICU care for now medications/laboratory data/nursing notes/ICU care reviewed in detail note reviewed and edited care discussed with RN and RT ICU time spent 36 minutes Critical Care - Subjective Interval Events: remains ill d/w consultants positive bcx ROS Limited/Unobtainable: Yes Condition: critical I&O: Intake and Output 11/21/19 11/22/19 19:00 07:00 Intake Total 1090.83 ml 3530.78 ml Output Total 55 ml 1070 ml Balance 1035.83 ml 2460.78 ml Intake IV Total 1090.83 ml 3470.78 ml Other 60 ml Output Urine Total 55 ml 1070 ml # Voids 1 # Bowel Movements 2 2 Critical Care - Objective Last 24 Hour Vital Signs Date Time Temp Pulse Resp B/P (MAP) Pulse Ox O2 Delivery O2 Flow Rate FiO2 11/22/19 17:19 94 16 40 11/22/19 15:22 92 16 40 11/22/19 15:15 117 19 119/69 (86) 100 11/22/19 15:00 112 107/66 (80) 11/22/19 14:45 113 15 108/63 (78) 100 11/22/19 14:30 117 15 93/69 (77) 100 11/22/19 14:15 117 15 94/59 (71) 100 11/22/19 14:00 116 16 93/71 (78) 100 11/22/19 13:45 122 19 131/69 (89) 100 11/22/19 13:30 124 21 134/87 (103) 100 11/22/19 13:20 92 16 40 11/22/19 13:15 120 23 110/72 (85) 100 11/22/19 13:00 124 24 117/76 (90) 100 11/22/19 12:45 117 17 91/68 (76) 100 11/22/19 12:30 121 15 111/70 (84) 100 11/22/19 12:15 99.8 122 21 112/77 (89) 100 11/22/19 12:00 122 11/22/19 12:00 50 11/22/19 12:00 Mechanical Ventilator 11/22/19 12:00 121 16 128/62 (84) 100 11/22/19 11:45 122 20 128/74 (92) 100 11/22/19 11:30 127 22 121/62 (81) 11/22/19 11:15 122 19 106/55 (72) 100 11/22/19 11:02 98 16 40 11/22/19 11:00 122 16 101/61 (74) 100 11/22/19 10:45 124 16 88/48 (61) 100 11/22/19 10:30 127 15 90/54 (66) 100 11/22/19 10:15 131 15 120/57 (78) 100 11/22/19 10:00 127 20 125/60 (81) 100 11/22/19 09:46 99.6 11/22/19 09:45 127 21 112/65 (81) 100 11/22/19 09:30 129 24 105/67 (80) 100 11/22/19 09:28 92 16 40 11/22/19 09:15 129 22 103/67 (79) 100 11/22/19 09:00 125 22 121/73 (89) 100 11/22/19 08:45 124 21 119/74 (89) 100 11/22/19 08:44 126 22 134/69 (90) 100 11/22/19 08:30 123 23 134/69 (90) 97 11/22/19 08:15 91 16 119/74 (89) 100 11/22/19 08:00 Mechanical Ventilator 11/22/19 08:00 103 11/22/19 08:00 50 11/22/19 08:00 93 24 121/73 (89) 98 11/22/19 07:45 94 18 117/64 (81) 100 11/22/19 07:30 99.1 92 18 119/63 (81) 100 11/22/19 07:15 93 16 119/63 (81) 100 11/22/19 07:15 96 21 40 11/22/19 07:00 94 19 117/64 (81) 100 11/22/19 06:45 93 21 114/65 (81) 100 11/22/19 06:30 92 19 11/22/19 06:30 92 25 122/62 (82) 88 11/22/19 06:15 93 22 114/55 (74) 99 11/22/19 06:00 92 20 115/63 (80) 99 11/22/19 05:45 92 21 112/59 (76) 98 11/22/19 05:30 88 15 111/54 (73) 99 11/22/19 05:15 89 16 104/56 (72) 99 11/22/19 05:00 88 17 103/53 (70) 100 11/22/19 04:45 92 15 101/57 (72) 100 11/22/19 04:37 98 18 40 11/22/19 04:30 94 23 111/57 (75) 92 11/22/19 04:15 99 21 122/64 (83) 100 11/22/19 04:00 50 11/22/19 04:00 98.2 92 14 98/56 (70) 100 11/22/19 04:00 Mechanical Ventilator 11/22/19 04:00 87 11/22/19 03:45 87 15 110/57 (74) 100 11/22/19 03:30 89 16 97/57 (70) 100 11/22/19 03:15 93 16 97/52 (67) 100 11/22/19 03:00 93 16 100/46 (64) 100 11/22/19 02:40 94 16 40 11/22/19 02:30 91 16 102/55 (71) 100 11/22/19 02:15 93 17 94/48 (63) 100 11/22/19 02:00 99 18 92/52 (65) 100 11/22/19 01:52 100.0 11/22/19 01:45 104 17 110/56 (74) 100 11/22/19 01:28 101.6 11/22/19 01:15 140 19 93/53 (66) 100 11/22/19 01:08 146 24 86/47 (60) 100 11/22/19 00:49 151 26 93/48 (63) 100 11/22/19 00:47 168 11/22/19 00:45 148 25 89/56 (67) 11/22/19 00:32 147 21 40 11/22/19 00:30 145 23 102/47 (65) 11/22/19 00:15 150 25 11/22/19 00:00 Mechanical Ventilator 1/24/20 00:00 147 11/22/19 00:00 99.5 150 29 177/74 (108) 86 11/21/19 23:45 157 31 152/105 (121) 91 11/21/19 23:30 134 20 128/74 (92) 99 11/21/19 23:19 130 21 114/76 (89) 100 11/21/19 22:32 94 24 40 11/21/19 22:15 95 21 101/59 (73) 100 11/21/19 22:00 99 17 102/58 (73) 100 11/21/19 21:45 101 19 97/50 (66) 100 11/21/19 21:30 105 16 95/46 (62) 100 11/21/19 21:15 108 18 100/66 (77) 99 11/21/19 21:01 109 22 40 11/21/19 21:00 109 18 107/50 (69) 100 11/21/19 20:45 110 18 93/47 (62) 100 11/21/19 20:30 115 17 91/51 (64) 100 11/21/19 20:25 119 21 93/57 (69) 100 11/21/19 20:20 120 30 97/59 (72) 100 11/21/19 20:15 119 25 99/71 (80) 100 11/21/19 20:10 139 21 105/66 (79) 100 11/21/19 20:05 139 22 106/53 (70) 99 11/21/19 20:00 139 11/21/19 20:00 50 11/21/19 20:00 98.0 140 23 113/66 (82) 100 11/21/19 20:00 Mechanical Ventilator 11/21/19 19:55 140 24 116/64 (81) 100 11/21/19 19:50 140 24 105/70 (82) 100 11/21/19 19:45 128/74 11/21/19 19:40 139 37 104/58 (73) 100 11/21/19 19:35 139 39 103/65 (78) 100 11/21/19 19:30 139 38 101/55 (70) 100 11/21/19 19:25 140 38 105/64 (78) 100 11/21/19 19:20 141 38 100/65 (77) 100 11/21/19 19:15 142 37 99/65 (76) 100 11/21/19 19:10 141 40 100/64 (76) 100 11/21/19 19:05 142 35 106/71 (83) 100 11/21/19 19:01 143 11/21/19 19:01 139 25 45 11/21/19 19:00 144 38 88/60 (69) 100 11/21/19 18:00 143 38 91/62 100 Mechanical Ventilator Labs: Labs Test 11/21/19 07:30 11/21/19 10:00 11/21/19 10:40 11/21/19 15:00 White Blood Count 19.5 K/UL (4.8-10.8) Red Blood Count 4.02 M/UL (4.70-6.10) Hemoglobin 13.1 G/DL (14.2-18.0) Hematocrit 36.6 % (42.0-52.0) Mean Corpuscular Volume 91 FL (80-99) Mean Corpuscular Hemoglobin 32.5 PG (27.0-31.0) Mean Corpuscular Hemoglobin Concent 35.7 G/DL (32.0-36.0) Red Cell Distribution Width 10.7 % (11.6-14.8) Platelet Count 242 K/UL (150-450) Mean Platelet Volume 6.7 FL (6.5-10.1) Neutrophils (%) (Auto) % (45.0-75.0) Lymphocytes (%) (Auto) % (20.0-45.0) Monocytes (%) (Auto) % (1.0-10.0) Eosinophils (%) (Auto) % (0.0-3.0) Basophils (%) (Auto) % (0.0-2.0) Differential Total Cells Counted 100 Neutrophils % (Manual) 82 % (45-75) Lymphocytes % (Manual) 6 % (20-45) Monocytes % (Manual) 10 % (1-10) Eosinophils % (Manual) 2 % (0-3) Basophils % (Manual) 0 % (0-2) Band Neutrophils 0 % (0-8) Platelet Estimate Adequate Platelet Morphology Normal Red Blood Cell Morphology Normal Urine Color Brown Urine Appearance Slightly cloudy Urine pH 5 (4.5-8.0) Urine Specific [place] 1.015 (1.005-1.035) Urine Protein 2+ (NEGATIVE) Urine Glucose (UA) 1+ (NEGATIVE) Urine Ketones 1+ (NEGATIVE) Urine Blood 1+ (NEGATIVE) Urine Nitrite Negative (NEGATIVE) Urine Bilirubin Negative (NEGATIVE) Urine Urobilinogen 1 MG/DL (0.0-1.0) Urine Leukocyte Esterase 1+ (NEGATIVE) Urine RBC 2-4 /HPF (0 - 0) Urine WBC 5-10 /HPF (0 - 0) Urine Squamous Epithelial Cells Occasional /LPF Urine Amorphous Sediment Moderate /LPF (NONE) Urine Bacteria Few /HPF (NONE) Sodium Level 131 MMOL/L (136-145) Potassium Level 5.1 MMOL/L (3.5-5.1) Chloride Level 97 MMOL/L (98-107) Carbon Dioxide Level 22 MMOL/L (21-32) Anion Gap 12 mmol/L (5-15) Blood Urea Nitrogen 58 mg/dL (7-18) Creatinine 2.8 MG/DL (0.55-1.30) Estimat Glomerular Filtration Rate 22.9 mL/min (>60) Glucose Level 122 MG/DL (74-106) Lactic Acid Level 3.40 mmol/L (0.4-2.0) 3.20 mmol/L (0.66-2.22) Calcium Level 10.5 MG/DL (8.5-10.1) Total Bilirubin 1.7 MG/DL (0.2-1.0) Direct Bilirubin 0.4 MG/DL (0.0-0.3) Aspartate Amino Transf (AST/SGOT) 24 U/L (15-37) Alanine Aminotransferase (ALT/SGPT) 21 U/L (12-78) Alkaline Phosphatase 111 U/L (46-116) Total Creatine Kinase 32 U/L (26-308) Creatine Kinase MB < 0.5 NG/ML (0.0-3.6) Creatine Kinase MB Relative Index 1.5 Troponin I 0.000 ng/mL (0.000-0.056) Pro-B-Type Natriuretic Peptide 100 pg/mL (0-125) Total Protein 8.9 G/DL (6.4-8.2) Albumin 3.1 G/DL (3.4-5.0) Globulin 5.8 g/dL Albumin/Globulin Ratio 0.5 (1.0-2.7) Lipase 104 U/L (73-393) Prothrombin Time 12.2 SEC (9.30-11.50) Prothromb Time International Ratio 1.2 (0.9-1.1) Activated Partial Thromboplast Time 28 SEC (23-33) Urine Random Sodium < 20 mmol/L (20-110) Urine Creatinine 215.6 MG/DL (30.0-125.0) Test 11/21/19 20:20 11/21/19 23:25 11/22/19 05:25 11/22/19 09:07 Lactic Acid Level 3.10 mmol/L (0.4-2.0) 1.90 mmol/L (0.66-2.22) White Blood Count 15.1 K/UL (4.8-10.8) Red Blood Count 3.04 M/UL (4.70-6.10) Hemoglobin 9.8 G/DL (14.2-18.0) Hematocrit 27.7 % (42.0-52.0) Mean Corpuscular Volume 91 FL (80-99) Mean Corpuscular Hemoglobin 32.3 PG (27.0-31.0) Mean Corpuscular Hemoglobin Concent 35.5 G/DL (32.0-36.0) Red Cell Distribution Width 10.9 % (11.6-14.8) Platelet Count 160 K/UL (150-450) Mean Platelet Volume 6.9 FL (6.5-10.1) Neutrophils (%) (Auto) % (45.0-75.0) Lymphocytes (%) (Auto) % (20.0-45.0) Monocytes (%) (Auto) % (1.0-10.0) Eosinophils (%) (Auto) % (0.0-3.0) Basophils (%) (Auto) % (0.0-2.0) Differential Total Cells Counted 100 Neutrophils % (Manual) 78 % (45-75) Lymphocytes % (Manual) 9 % (20-45) Monocytes % (Manual) 4 % (1-10) Eosinophils % (Manual) 0 % (0-3) Basophils % (Manual) 0 % (0-2) Band Neutrophils 9 % (0-8) Platelet Estimate Adequate Platelet Morphology Normal Red Blood Cell Morphology Normal Sodium Level 138 MMOL/L (136-145) Potassium Level 4.4 MMOL/L (3.5-5.1) Chloride Level 103 MMOL/L (98-107) Carbon Dioxide Level 24 MMOL/L (21-32) Anion Gap 11 mmol/L (5-15) Blood Urea Nitrogen 65 mg/dL (7-18) Creatinine 2.2 MG/DL (0.55-1.30) Estimat Glomerular Filtration Rate 30.2 mL/min (>60) Glucose Level 102 MG/DL (74-106) Calcium Level 9.0 MG/DL (8.5-10.1) Total Bilirubin 1.1 MG/DL (0.2-1.0) Direct Bilirubin 0.2 MG/DL (0.0-0.3) Aspartate Amino Transf (AST/SGOT) 19 U/L (15-37) Alanine Aminotransferase (ALT/SGPT) 17 U/L (12-78) Alkaline Phosphatase 74 U/L (46-116) Total Creatine Kinase 23 U/L (26-308) Total Protein 6.6 G/DL (6.4-8.2) Albumin 2.2 G/DL (3.4-5.0) Globulin 4.4 g/dL Albumin/Globulin Ratio 0.5 (1.0-2.7) Arterial Blood pH 7.504 (7.350-7.450) Arterial Blood Partial Pressure CO2 29.9 mmHg (35.0-45.0) Arterial Blood Partial Pressure O2 302.7 mmHg (75.0-100.0) Arterial Blood HCO3 23.0 mmol/L (22.0-26.0) Arterial Blood Oxygen Saturation 99.1 % (95-100) Arterial Blood Base Excess 0.5 (-2-2) Zaheer Test Positive Objective: WDWN NAD trach reduced breath sounds bilaterally without rhonchi or wheeze [id number] without MRG reduced BS nontender no HSM; Gt no CC some edema obtunded nonfocal Micro: Microbiology Date/Time Source Procedure Growth Status 11/21/19 07:40 Blood Blood Culture - Preliminary Resulted 11/21/19 07:30 Blood Blood Culture - Preliminary Resulted Jameel Pierre MD Nov 22, 2019 17:52
--- NOTE | 2019-11-22 18:25 | NUR ---
NURSE NOTES: Venous duplex done and negative.call central for SCD machine.ADls done, mouth care done and pt turned and repositioned for comfort and skin management.HOB elevated to prevent aspiration.Call light within easy reach.No significant change in condition.Will continue same care plan
--- NOTE | 2019-11-22 19:21 | NUR ---
HAND-OFF: Report given to FRANCISCO JAVIER Tripathi.
--- NOTE | 2019-11-22 19:30 | NUR ---
NURSE NOTES: Received report from Louisa MCINTYRE. patient in bed obtunded, no moaning no facial grimaces. HOB elevated no n/v. trach to vent fi02 50% satting 100%. GT intact connected to low intermittent suction, abdomen soft and non-distended. Silva draining. patient Right upper arm PICC line and IV line intact infusing NS at 200cc/hr. Temp 99.3 axillary. P200 mattress. Optifoam dressing intact for Sacral redness. Afib on equipment monitor phototypesetting HR 91. BP 134/76. Seizure and contact isolation maintained and observed. will continue to monitor patient.
--- NOTE | 2019-11-22 19:37 | General Progress Note ---
Assessment/Plan Assessment/Plan: Assessment - Sepsis - possible SBO/PSBO - ? free air around GT - GT appears appropriate - Resp failure / trach - Renal failure - lactic acidosis - rectal fecal loading Recommendations - NPO - GT decompression - green drainage - IVF - Abx - follow lab / exam / imaging - PPI - surgical f/u Subjective Allergies: Coded Allergies: No Known Allergies (Unverified , 02/07/18) Subjective Above noted seen in ICU non communicative Objective Last 24 Hour Vital Signs Date Time Temp Pulse Resp B/P (MAP) Pulse Ox O2 Delivery O2 Flow Rate FiO2 11/22/19 19:13 96 24 40 11/22/19 19:00 114 16 116/79 (91) 100 11/22/19 18:45 110 0 110/67 (81) 100 11/22/19 18:30 118 18 117/60 (79) 100 11/22/19 18:15 107 0 125/72 (89) 100 11/22/19 18:00 119 22 127/69 (88) 100 11/22/19 17:45 115 23 125/72 (89) 100 11/22/19 17:30 120 23 131/64 (86) 100 11/22/19 17:19 94 16 40 11/22/19 17:15 112 3 132/68 (89) 11/22/19 17:00 117 18 102/60 (74) 100 11/22/19 16:45 114 22 110/58 (75) 100 11/22/19 16:30 121/78 (92) 100 11/22/19 16:15 112 22 115/68 (84) 11/22/19 16:00 Mechanical Ventilator 11/22/19 16:00 115 11/22/19 16:00 97.6 112 17 102/58 (73) 88 11/22/19 16:00 50 11/22/19 15:45 110 22 100/70 (80) 91 11/22/19 15:30 112 15 120/46 (70) 11/22/19 15:22 92 16 40 11/22/19 15:15 117 19 119/69 (86) 100 11/22/19 15:00 112 107/66 (80) 11/22/19 14:45 113 15 108/63 (78) 100 11/22/19 14:30 117 15 93/69 (77) 100 11/22/19 14:15 117 15 94/59 (71) 100 11/22/19 14:00 116 16 93/71 (78) 100 11/22/19 13:45 122 19 131/69 (89) 100 11/22/19 13:30 124 21 134/87 (103) 100 11/22/19 13:20 92 16 40 11/22/19 13:15 120 23 110/72 (85) 100 11/22/19 13:00 124 24 117/76 (90) 100 11/22/19 12:45 117 17 91/68 (76) 100 11/22/19 12:30 121 15 111/70 (84) 100 11/22/19 12:15 99.8 122 21 112/77 (89) 100 11/22/19 12:00 122 11/22/19 12:00 50 11/22/19 12:00 Mechanical Ventilator 11/22/19 12:00 121 16 128/62 (84) 100 11/22/19 11:45 122 20 128/74 (92) 100 11/22/19 11:30 127 22 121/62 (81) 11/22/19 11:15 122 19 106/55 (72) 100 11/22/19 11:02 98 16 40 11/22/19 11:00 122 16 101/61 (74) 100 11/22/19 10:45 124 16 88/48 (61) 100 11/22/19 10:30 127 15 90/54 (66) 100 11/22/19 10:15 131 15 120/57 (78) 100 11/22/19 10:00 127 20 125/60 (81) 100 11/22/19 09:46 99.6 11/22/19 09:45 127 21 112/65 (81) 100 11/22/19 09:30 129 24 105/67 (80) 100 11/22/19 09:28 92 16 40 11/22/19 09:15 129 22 103/67 (79) 100 11/22/19 09:00 125 22 121/73 (89) 100 11/22/19 08:45 124 21 119/74 (89) 100 11/22/19 08:44 126 22 134/69 (90) 100 11/22/19 08:30 123 23 134/69 (90) 97 11/22/19 08:15 91 16 119/74 (89) 100 11/22/19 08:00 Mechanical Ventilator 11/22/19 08:00 103 11/22/19 08:00 50 11/22/19 08:00 93 24 121/73 (89) 98 11/22/19 07:45 94 18 117/64 (81) 100 11/22/19 07:30 99.1 92 18 119/63 (81) 100 11/22/19 07:15 93 16 119/63 (81) 100 11/22/19 07:15 96 21 40 11/22/19 07:00 94 19 117/64 (81) 100 11/22/19 06:45 93 21 114/65 (81) 100 11/22/19 06:30 92 19 11/22/19 06:30 92 25 122/62 (82) 88 11/22/19 06:15 93 22 114/55 (74) 99 11/22/19 06:00 92 20 115/63 (80) 99 11/22/19 05:45 92 21 112/59 (76) 98 11/22/19 05:30 88 15 111/54 (73) 99 11/22/19 05:15 89 16 104/56 (72) 99 11/22/19 05:00 88 17 103/53 (70) 100 11/22/19 04:45 92 15 101/57 (72) 100 11/22/19 04:37 98 18 40 11/22/19 04:30 94 23 111/57 (75) 92 11/22/19 04:15 99 21 122/64 (83) 100 11/22/19 04:00 50 11/22/19 04:00 98.2 92 14 98/56 (70) 100 11/22/19 04:00 Mechanical Ventilator 11/22/19 04:00 87 11/22/19 03:45 87 15 110/57 (74) 100 11/22/19 03:30 89 16 97/57 (70) 100 11/22/19 03:15 93 16 97/52 (67) 100 11/22/19 03:00 93 16 100/46 (64) 100 11/22/19 02:40 94 16 40 11/22/19 02:30 91 16 102/55 (71) 100 11/22/19 02:15 93 17 94/48 (63) 100 11/22/19 02:00 99 18 92/52 (65) 100 11/22/19 01:52 100.0 11/22/19 01:45 104 17 110/56 (74) 100 11/22/19 01:28 101.6 11/22/19 01:15 140 19 93/53 (66) 100 11/22/19 01:08 146 24 86/47 (60) 100 11/22/19 00:49 151 26 93/48 (63) 100 11/22/19 00:47 168 11/22/19 00:45 148 25 89/56 (67) 11/22/19 00:32 147 21 40 11/22/19 00:30 145 23 102/47 (65) 11/22/19 00:15 150 25 11/22/19 00:00 Mechanical Ventilator 11/22/19 00:00 147 11/22/19 00:00 99.5 150 29 177/74 (108) 86 11/21/19 23:45 157 31 152/105 (121) 91 11/21/19 23:30 134 20 128/74 (92) 99 11/21/19 23:19 130 21 114/76 (89) 100 11/21/19 22:32 94 24 40 11/21/19 22:15 95 21 101/59 (73) 100 11/21/19 22:00 99 17 102/58 (73) 100 11/21/19 21:45 101 19 97/50 (66) 100 11/21/19 21:30 105 16 95/46 (62) 100 11/21/19 21:15 108 18 100/66 (77) 99 11/21/19 21:01 109 22 40 11/21/19 21:00 109 18 107/50 (69) 100 11/21/19 20:45 110 18 93/47 (62) 100 11/21/19 20:30 115 17 91/51 (64) 100 11/21/19 20:25 119 21 93/57 (69) 100 11/21/19 20:20 120 30 97/59 (72) 100 11/21/19 20:15 119 25 99/71 (80) 100 11/21/19 20:10 139 21 105/66 (79) 100 11/21/19 20:05 139 22 106/53 (70) 99 11/21/19 20:00 139 11/21/19 20:00 50 11/21/19 20:00 98.0 140 23 113/66 (82) 100 11/21/19 20:00 Mechanical Ventilator 11/21/19 19:55 140 24 116/64 (81) 100 11/21/19 19:50 140 24 105/70 (82) 100 11/21/19 19:45 128/74 11/21/19 19:40 139 37 104/58 (73) 100 Intake and Output 11/21/19 11/22/19 19:00 07:00 Intake Total 1090.83 ml 3530.78 ml Output Total 55 ml 1070 ml Balance 1035.83 ml 2460.78 ml IV Total 1090.83 ml 3470.78 ml Other 60 ml Output Urine Total 55 ml 1070 ml # Voids 1 # Bowel Movements 2 2 Laboratory Tests 11/21/19 20:20: Lactic Acid Level 3.10H 11/21/19 23:25: Lactic Acid Level 1.90 11/22/19 05:25: White Blood Count 15.1H, Red Blood Count 3.04L, Hemoglobin 9.8L, Hematocrit 27.7L, Mean Corpuscular Volume 91, Mean Corpuscular Hemoglobin 32.3H, Mean Corpuscular Hemoglobin Concent 35.5, Red Cell Distribution Width 10.9L, Platelet Count 160, Mean Platelet Volume 6.9, Neutrophils (%) (Auto) , Lymphocytes (%) (Auto) , Monocytes (%) (Auto) , Eosinophils (%) (Auto) , Basophils (%) (Auto) , Differential Total Cells Counted 100, Neutrophils % ( Manual) 78H, Lymphocytes % (Manual) 9L, Monocytes % (Manual) 4, Eosinophils % ( Manual) 0, Basophils % (Manual) 0, Band Neutrophils 9H, Platelet Estimate Adequate, Platelet Morphology Normal, Red Blood Cell Morphology Normal, Sodium Level 138, Potassium Level 4.4, Chloride Level 103, Carbon Dioxide Level 24, Anion Gap 11, Blood Urea Nitrogen 65H, Creatinine 2.2H, Estimat Glomerular Filtration Rate 30.2, Glucose Level 102, Calcium Level 9.0, Total Bilirubin 1.1H , Direct Bilirubin 0.2, Aspartate Amino Transf (AST/SGOT) 19, Alanine Aminotransferase (ALT/SGPT) 17, Alkaline Phosphatase 74, Total Creatine Kinase 23L, Total Protein 6.6, Albumin 2.2L, Globulin 4.4, Albumin/Globulin Ratio 0.5L 11/22/19 09:07: Arterial Blood pH 7.504H, Arterial Blood Partial Pressure CO2 29.9L, Arterial Blood Partial Pressure O2 302.7H, Arterial Blood HCO3 23.0, Arterial Blood Oxygen Saturation 99.1, Arterial Blood Base Excess 0.5, Zaheer Test Positive Height (Feet): 6 Height (Inches): 2.00 Weight (Pounds): 199 Objective Chronically ill appearing NCAT (+) trach coarse BS RR abd soft flat (+) GT no edema Mercedes Tsai MD Nov 22, 2019 19:37
--- NOTE | 2019-11-22 20:43 | NUR ---
RESPIRATORY NOTE: Received pt. on current AC vent settings. Et tube secure and patent. Ambu bag at beside, vent plugged into red outlet. Will continue to monitor
[2019-11-22] MEDS: Dyna-Hex 2% Top Sol 2oz TOPIC SCH (20:44)
--- NOTE | 2019-11-22 21:30 | NUR ---
NURSE NOTES: patient in bed no s/s of acute distress noted. Silva draining. Repositioned patient in bed. padded side rail, seizure precaution maintained and observed.
--- NOTE | 2019-11-22 23:30 | NUR ---
NURSE NOTES: patient with episode of large BM, kept clean and dry. no s/s of acute distress noted. Silva draining. padded side rail, seizure precaution maintained and observed.
[2019-11-23] VITALS (41 sets, daily range): BP systolic 109–155; BP diastolic 59–80
--- NOTE | 2019-11-23 01:30 | NUR ---
NURSE NOTES: Patient in bed obtunded, no s/s of acute distress. No significant change in condition at this time. Turned and repositioned for skin management and comfort. Kept clean dry and comfortable.Call light within easy reach. Will continue plan of care.
[2019-11-23] MEDS: Piperacillin/Tazobactam 3.375 GM in NS 110 ML IVPB SCH ×3 (01:43→16:30)
--- NOTE | 2019-11-23 03:30 | NUR ---
NURSE NOTES: Bed bath given patient with episode of large soft Brownish BM, kept clean and dry. Repositioned in patient in bed, with pillow support. GT connected to low intermittent suction. seizure and contact isolation maintained and observed. no s/s of cardiac and acute distress noted. will continue plan of care.
--- NOTE | 2019-11-23 05:30 | NUR ---
NURSE NOTES: Patient in bed resting, no moaning no facial grimaces noted. no fever. no n/v. no fever. oral care and suctioned patient.will continue plan of care.
[2019-11-23 06:46] LABS: BASOPHILS % (AUTO) 1.2 % (0.0-2.0); EOSINOPHILS % (AUTO) 4.2 % (0.0-3.0); HEMOGLOBIN 8.1 G/DL (14.2-18.0); LYMPHOCYTES % (AUTO) 9.2 % (20.0-45.0); MEAN CORPUSCULAR VOLUME 92 FL (80-99); MONOCYTES % (AUTO) 5.3 % (1.0-10.0); NEUTROPHILS % (AUTO) 80.1 % (45.0-75.0); PLATELET COUNT 131 K/UL (150-450); RED BLOOD COUNT 2.49 M/UL (4.70-6.10); RED CELL DISTRIBUTION WIDTH 10.7 % (11.6-14.8); WHITE BLOOD COUNT 9.2 K/UL (4.8-10.8)
[2019-11-23 06:51] LABS: INR 1.1 (0.9-1.1)
[2019-11-23 06:58] LABS: ALANINE AMINOTRANSFERASE 18 U/L (12-78); ALBUMIN 1.8 G/DL (3.4-5.0); ALBUMIN/GLOBULIN RATIO 0.5 (1.0-2.7); ALKALINE PHOSPHATASE 61 U/L (46-116); ANION GAP 7 mmol/L (5-15); ASPARTATE AMINO TRANSFERASE 19 U/L (15-37); BILIRUBIN,TOTAL 0.8 MG/DL (0.2-1.0); BLOOD UREA NITROGEN 45 mg/dL (7-18); CALCIUM 8.2 MG/DL (8.5-10.1); CARBON DIOXIDE 25 MMOL/L (21-32); CHLORIDE 111 MMOL/L (98-107); CREATININE 1.2 MG/DL (0.55-1.30); POTASSIUM 3.6 MMOL/L (3.5-5.1); SODIUM 143 MMOL/L (136-145)
--- NOTE | 2019-11-23 07:05 | NUR ---
RESPIRATORY NOTE: PT RECEIVED STABLE ON CMV WITH CURRENT SETTINGS: AC/VC 14, 600, 55% +5. ALARMS ARE ON AND AUDIBLE. VENTILATOR CIRCUIT AND TUBBING AND SECURE AND OUT OF THE WAY. NO S/S OF RESPIRATORY DISTRESS NOTED AT THIS TIME. WILL CONTINUE TO CLOSELY MONITOR.
--- NOTE | 2019-11-23 07:15 | NUR ---
HAND-OFF: Report given to FRANCISCO JAVIER Beatty.
--- NOTE | 2019-11-23 07:16 | NUR ---
NURSE NOTES: Report received from FRANCISCO JAVIER Tripathi. Pt is awake and oriented to name only. Non-verbal and unable to follow commands. Sinus rhythm on monitor technician. Trach to vent. AC 14, TV 600, FiO2 50%, P 5. O2 sat 97-100%. G-tube in place connected to low intermittent suction, draining greenish emesis. Silva in place draining to gravity. ANGELLA PICC line patent and asymptomatic. NS is running at 200cc/hr. Left wrist G20 and right hand G20 patent and asymptomatic. Bed in lowest position. Side rails up x3. Will resume plan of care.
--- NOTE | 2019-11-23 08:18 | General Progress Note ---
Assessment/Plan Assessment/Plan: Assessment/Plan Assessment/Plan: Assessment - Sepsis - possible SBO/PSBO - ? free air around GT - GT appears appropriate - Resp failure / trach - Renal failure - lactic acidosis - rectal fecal loading Recommendations - NPO - GT decompression - green drainage>>> 300 cc over night - IVF - Abx - follow lab / exam / imaging - PPI - surgical f/u -had few BM -kub Subjective ROS Limited/Unobtainable: No Allergies: Coded Allergies: No Known Allergies (Unverified , 02/07/18) Objective Last 24 Hour Vital Signs Date Time Temp Pulse Resp B/P (MAP) Pulse Ox O2 Delivery O2 Flow Rate FiO2 11/23/19 07:16 77 22 123/77 (92) 100 11/23/19 07:15 78 24 100 11/23/19 07:00 75 9 121/61 (81) 100 11/23/19 06:45 77 1 120/64 (82) 100 11/23/19 06:30 75 12 11/23/19 06:30 80 24 132/69 (90) 100 11/23/19 06:15 82 26 125/68 (87) 100 11/23/19 06:00 78 12 114/62 (79) 100 11/23/19 05:45 79 25 122/80 (94) 99 11/23/19 05:30 77 20 131/65 (87) 100 11/23/19 05:15 81 22 129/71 (90) 100 11/23/19 05:09 75 14 40 11/23/19 05:00 76 14 111/60 (77) 100 11/23/19 04:45 77 14 120/59 (79) 100 11/23/19 04:30 81 12 126/64 (84) 100 11/23/19 04:00 99.2 80 16 123/61 (81) 100 11/23/19 04:00 78 11/23/19 04:00 Mechanical Ventilator 11/23/19 04:00 50 11/23/19 03:56 80 21 121/65 (83) 100 11/23/19 03:04 87 18 40 11/23/19 03:00 87 20 129/67 (87) 100 11/23/19 02:30 88 20 129/72 (91) 100 11/23/19 02:15 84 15 143/68 (93) 100 11/23/19 02:00 82 15 146/69 (94) 100 11/23/19 01:45 87 21 155/74 (101) 100 11/23/19 01:30 80 18 150/69 (96) 97 11/23/19 01:15 89 17 141/70 (93) 100 11/23/19 01:02 90 22 40 11/23/19 01:00 88 20 147/74 (98) 100 11/23/19 00:30 88 12 131/71 (91) 100 11/23/19 00:15 89 18 133/63 (86) 100 11/23/19 00:00 50 11/23/19 00:00 92 11/23/19 00:00 98.6 94 19 142/67 (92) 100 11/23/19 00:00 Mechanical Ventilator 11/22/19 23:45 99 20 155/69 (97) 100 11/22/19 23:30 94 22 157/78 (104) 100 11/22/19 23:15 88 21 40 11/22/19 23:15 91 21 133/86 (102) 100 11/22/19 23:00 90 21 134/72 (92) 100 11/22/19 22:45 83 12 121/67 (85) 100 11/22/19 22:30 90 22 136/65 (88) 100 11/22/19 22:15 90 20 128/67 (87) 100 11/22/19 22:00 84 21 117/61 (79) 100 11/22/19 21:30 92 21 139/71 (93) 100 11/22/19 21:15 88 12 129/65 (86) 100 11/22/19 21:15 99.1 11/22/19 21:00 91 19 139/67 (91) 100 11/22/19 20:59 93 23 40 11/22/19 20:45 88 12 121/56 (77) 100 11/22/19 20:30 90 12 123/60 (81) 100 11/22/19 20:15 96 16 126/64 (84) 100 11/22/19 20:00 99.1 93 23 140/68 (92) 100 11/22/19 20:00 92 11/22/19 20:00 50 11/22/19 20:00 Mechanical Ventilator 11/22/19 19:45 97 24 134/76 (95) 100 11/22/19 19:45 134/76 11/22/19 19:30 93 16 117/67 (84) 100 11/22/19 19:15 96 26 133/78 (96) 100 11/22/19 19:13 96 24 40 11/22/19 19:00 114 16 116/79 (91) 100 11/22/19 18:45 110 0 110/67 (81) 100 11/22/19 18:30 118 18 117/60 (79) 100 11/22/19 18:15 107 0 125/72 (89) 100 11/22/19 18:00 119 22 127/69 (88) 100 11/22/19 17:45 115 23 125/72 (89) 100 11/22/19 17:30 120 23 131/64 (86) 100 11/22/19 17:19 94 16 40 11/22/19 17:15 112 3 132/68 (89) 11/22/19 17:00 117 18 102/60 (74) 100 11/22/19 16:45 114 22 110/58 (75) 100 11/22/19 16:30 121/78 (92) 100 11/22/19 16:15 112 22 115/68 (84) 11/22/19 16:00 Mechanical Ventilator 11/22/19 16:00 115 11/22/19 16:00 97.6 112 17 102/58 (73) 88 11/22/19 16:00 50 11/22/19 15:45 110 22 100/70 (80) 91 11/22/19 15:30 112 15 120/46 (70) 11/22/19 15:22 92 16 40 11/22/19 15:15 117 19 119/69 (86) 100 11/22/19 15:00 112 107/66 (80) 11/22/19 14:45 113 15 108/63 (78) 100 11/22/19 14:30 117 15 93/69 (77) 100 11/22/19 14:15 117 15 94/59 (71) 100 11/22/19 14:00 116 16 93/71 (78) 100 11/22/19 13:45 122 19 131/69 (89) 100 11/22/19 13:30 124 21 134/87 (103) 100 11/22/19 13:20 92 16 40 11/22/19 13:15 120 23 110/72 (85) 100 11/22/19 13:00 124 24 117/76 (90) 100 11/22/19 12:45 117 17 91/68 (76) 100 11/22/19 12:30 121 15 111/70 (84) 100 11/22/19 12:15 99.8 122 21 112/77 (89) 100 11/22/19 12:00 122 11/22/19 12:00 50 11/22/19 12:00 Mechanical Ventilator 11/22/19 12:00 121 16 128/62 (84) 100 11/22/19 11:45 122 20 128/74 (92) 100 11/22/19 11:30 127 22 121/62 (81) 11/22/19 11:15 122 19 106/55 (72) 100 11/22/19 11:02 98 16 40 11/22/19 11:00 122 16 101/61 (74) 100 11/22/19 10:45 124 16 88/48 (61) 100 11/22/19 10:30 127 15 90/54 (66) 100 11/22/19 10:15 131 15 120/57 (78) 100 11/22/19 10:00 127 20 125/60 (81) 100 11/22/19 09:45 127 21 112/65 (81) 100 11/22/19 09:30 129 24 105/67 (80) 100 11/22/19 09:28 92 16 40 11/22/19 09:15 129 22 103/67 (79) 100 11/22/19 09:00 125 22 121/73 (89) 100 11/22/19 08:45 124 21 119/74 (89) 100 11/22/19 08:44 126 22 134/69 (90) 100 11/22/19 08:30 123 23 134/69 (90) 97 Intake and Output 11/22/19 11/23/19 18:59 06:59 Intake Total 2659.94 ml 2926.0 ml Output Total 2120 ml 1055 ml Balance 539.94 ml 1871.0 ml Intake Free Water 180 ml IV Total 2479.94 ml 2866.0 ml Other 60 ml Output Urine Total 920 ml 1055 ml Gastric Drainage Total 1200 ml # Bowel Movements 3 5 Laboratory Tests 11/22/19 09:07: Arterial Blood pH 7.504H, Arterial Blood Partial Pressure CO2 29.9L, Arterial Blood Partial Pressure O2 302.7H, Arterial Blood HCO3 23.0, Arterial Blood Oxygen Saturation 99.1, Arterial Blood Base Excess 0.5, Zaheer Test Positive 11/23/19 05:20: White Blood Count 9.2, Red Blood Count 2.49L, Hemoglobin 8.1L, Hematocrit 23.0L , Mean Corpuscular Volume 92, Mean Corpuscular Hemoglobin 32.7H, Mean Corpuscular Hemoglobin Concent 35.4, Red Cell Distribution Width 10.7L, Platelet Count 131L, Mean Platelet Volume 6.3L, Neutrophils (%) (Auto) 80.1H, Lymphocytes (%) (Auto) 9.2L, Monocytes (%) (Auto) 5.3, Eosinophils (%) (Auto) 4.2H, Basophils (%) (Auto) 1.2, Erythrocyte Sedimentation Rate 116H, Prothrombin Time 11.4, Prothromb Time International Ratio 1.1, Activated Partial Thromboplast Time 29, Sodium Level 143, Potassium Level 3.6, Chloride Level 111H, Carbon Dioxide Level 25, Anion Gap 7, Blood Urea Nitrogen 45H, Creatinine 1.2, Estimat Glomerular Filtration Rate > 60, Glucose Level 67L, Calcium Level 8.2L, Total Bilirubin 0.8, Aspartate Amino Transf (AST/SGOT) 19, Alanine Aminotransferase (ALT/SGPT) 18, Alkaline Phosphatase 61, C-Reactive Protein, Quantitative 19.2H, Total Protein 5.5L, Albumin 1.8L, Globulin 3.7, Albumin/Globulin Ratio 0.5L, Amylase Level 51, Lipase 115, Random Vancomycin Level 7.5 Height (Feet): 6 Height (Inches): 2.00 Weight (Pounds): 198 General Appearance: lethargic EENT: normal ENT inspection Neck: supple Cardiovascular: normal rate Respiratory/Chest: decreased breath sounds Abdomen: soft, hypoactive bowel sounds Extremities: non-tender Jan Esparza MD Nov 23, 2019 08:18
--- NOTE | 2019-11-23 08:18 | NUR ---
NURSE NOTES: Dr Esparza here to see the patient. Order for ABD X-ray entered by Dr Esparza. Will carry out the order.
[2019-11-23] MEDS: levETIRAcetam 500mg/NS100ml 100 ML IVPB SCH ×2 (08:44→20:07)
--- NOTE | 2019-11-23 09:32 | NUR ---
NURSE NOTES: Report received from FRANCISCO JAVIER Tripathi. Pt is awake and oriented to name only. Non-verbal and unable to follow commands. Sinus rhythm on air sampling and monitoring. Trach to vent. AC 14, TV 600, FiO2 50%, P 5. O2 sat 97-100%. G-tube in place connected to low intermittent suction, draining greenish emesis. Silva in place draining to gravity. ANGELLA PICC line patent and asymptomatic. NS is running at 200cc/hr. Left wrist G20 and right hand G20 patent and asymptomatic. Bed in lowest position. Side rails up x3. Will resume plan of care. Addendum: 11/23/19 at 0943 by CHRISTINA MÁRQUEZ RN RN wrong time
--- NOTE | 2019-11-23 09:54 | NUR ---
RD ASSESSMENT & RECOMMENDATIONS SEE CARE ACTIVITY FOR COMPLETE ASSESSMENT DAILY ESTIMATED NEEDS: Needs based on Critical Care, wound, [employer] TF/ 82.7kg abw 20-25 kcals/kg 1234-7549 total kcals 1.25-2 g protein/kg 103-165 g total protein 25-30 mL/kg 3669-9809 total fluid mLs NUTRITION DIAGNOSIS: Swallowing difficulty R/T respiratory status as evidenced by pt is trach/vent dep, PEG dep, NPO at this time, GT to LIS, possible SBO. CURRENT TF:NPO ENTERAL NUTRITION RECOMMENDATIONS: WHEN MEDICALLY APPROPRIATE -> Vital AF 1.2 @ 60ml/hr x 24 hrs to provide 1440ml, 1728kcal, 108g prot, 1168ml free water - WHEN MEDICALLY APPROPRIATE TO FEED -> initiate Vital AF 1.2 @ 20ml/hr x 6 hrs -> advance 10ml q 4-6 hrs as tolerated to goal rate. -> water flush per MD/ HOB over 30 degrees. ADDITIONAL RECOMMENDATIONS: 1) Per SNF: HT=5'11", TD=870oaf (as of 11/04/19) 2) Monitor NPO status, ability to feed ( w/ GT to LIS at this time) 3) Rec to add D5 to IVF while pt is NPO to prevent hypoglycemia (BG 65 this AM) 4) Wound healing: add Vit C 250mg QD and Jose 1pkt BID once able to feed .
[2019-11-23] MEDS: Vancomycin 1gm in D5W 275ml IVPB SCH ×2 (10:36→21:51)
--- NOTE | 2019-11-23 11:16 | NUR ---
NURSE NOTES: Abdominal Xray done at bedside. Turned and repositioned pt.
--- NOTE | 2019-11-23 11:36 | Diagnostic Imaging Report ---
EXAM: XR Abdomen, 1 View CLINICAL HISTORY: F/U TECHNIQUE: Frontal supine view of the abdomen/pelvis. COMPARISON: No relevant prior studies available. FINDINGS: Lower thorax: Accentuation of interstitial markings. Gastrointestinal tract: Gaseous distention in segments of the colon. Large amount of stool in the rectum. Bones/joints: No acute fracture. Other findings: 3 films imaging the abdomen. IMPRESSION: Gaseous distention in segments of the colon.
--- NOTE | 2019-11-23 12:18 | Surgery Progress Note ---
Surgery Progress Note Subjective Additional Comments afebrile labs improving leukocytosis resolved' KUB noted exam stable Objective Last 24 Hour Vital Signs Date Time Temp Pulse Resp B/P (MAP) Pulse Ox O2 Delivery O2 Flow Rate FiO2 11/23/19 12:00 98.2 74 14 109/64 (79) 100 11/23/19 12:00 50 11/23/19 12:00 Mechanical Ventilator 11/23/19 11:00 76 16 122/76 (91) 100 11/23/19 10:43 81 21 50 11/23/19 10:00 77 15 124/65 (84) 100 11/23/19 09:20 81 23 50 11/23/19 09:00 Mechanical Ventilator 11/23/19 09:00 83 23 138/62 (87) 100 11/23/19 08:00 50 11/23/19 08:00 98.1 77 19 127/66 (86) 100 11/23/19 07:54 79 11/23/19 07:16 77 22 123/77 (92) 100 11/23/19 07:15 78 24 100 11/23/19 07:05 75 16 50 11/23/19 07:00 75 9 121/61 (81) 100 11/23/19 06:45 77 1 120/64 (82) 100 11/23/19 06:30 75 12 11/23/19 06:30 80 24 132/69 (90) 100 11/23/19 06:15 82 26 125/68 (87) 100 11/23/19 06:00 78 12 114/62 (79) 100 11/23/19 05:45 79 25 122/80 (94) 99 11/23/19 05:30 77 20 131/65 (87) 100 11/23/19 05:15 81 22 129/71 (90) 100 11/23/19 05:09 75 14 40 11/23/19 05:00 76 14 111/60 (77) 100 11/23/19 04:45 77 14 120/59 (79) 100 11/23/19 04:30 81 12 126/64 (84) 100 11/23/19 04:00 99.2 80 16 123/61 (81) 100 11/23/19 04:00 78 11/23/19 04:00 Mechanical Ventilator 11/23/19 04:00 50 11/23/19 03:56 80 21 121/65 (83) 100 11/23/19 03:04 87 18 40 11/23/19 03:00 87 20 129/67 (87) 100 11/23/19 02:30 88 20 129/72 (91) 100 11/23/19 02:15 84 15 143/68 (93) 100 11/23/19 02:00 82 15 146/69 (94) 100 11/23/19 01:45 87 21 155/74 (101) 100 11/23/19 01:30 80 18 150/69 (96) 97 11/23/19 01:15 89 17 141/70 (93) 100 11/23/19 01:02 90 22 40 11/23/19 01:00 88 20 147/74 (98) 100 11/23/19 00:30 88 12 131/71 (91) 100 11/23/19 00:15 89 18 133/63 (86) 100 11/23/19 00:00 50 11/23/19 00:00 92 11/23/19 00:00 98.6 94 19 142/67 (92) 100 11/23/19 00:00 Mechanical Ventilator 11/22/19 23:45 99 20 155/69 (97) 100 11/22/19 23:30 94 22 157/78 (104) 100 11/22/19 23:15 88 21 40 11/22/19 23:15 91 21 133/86 (102) 100 11/22/19 23:00 90 21 134/72 (92) 100 11/22/19 22:45 83 12 121/67 (85) 100 11/22/19 22:30 90 22 136/65 (88) 100 11/22/19 22:15 90 20 128/67 (87) 100 11/22/19 22:00 84 21 117/61 (79) 100 11/22/19 21:30 92 21 139/71 (93) 100 11/22/19 21:15 88 12 129/65 (86) 100 11/22/19 21:15 99.1 11/22/19 21:00 91 19 139/67 (91) 100 11/22/19 20:59 93 23 40 11/22/19 20:45 88 12 121/56 (77) 100 1/24/20 20:30 90 12 123/60 (81) 100 11/22/19 20:15 96 16 126/64 (84) 100 11/22/19 20:00 99.1 93 23 140/68 (92) 100 11/22/19 20:00 92 11/22/19 20:00 50 11/22/19 20:00 Mechanical Ventilator 11/22/19 19:45 97 24 134/76 (95) 100 11/22/19 19:45 134/76 11/22/19 19:30 93 16 117/67 (84) 100 11/22/19 19:15 96 26 133/78 (96) 100 11/22/19 19:13 96 24 40 11/22/19 19:00 114 16 116/79 (91) 100 11/22/19 18:45 110 0 110/67 (81) 100 11/22/19 18:30 118 18 117/60 (79) 100 11/22/19 18:15 107 0 125/72 (89) 100 11/22/19 18:00 119 22 127/69 (88) 100 11/22/19 17:45 115 23 125/72 (89) 100 11/22/19 17:30 120 23 131/64 (86) 100 11/22/19 17:19 94 16 40 11/22/19 17:15 112 3 132/68 (89) 11/22/19 17:00 117 18 102/60 (74) 100 11/22/19 16:45 114 22 110/58 (75) 100 11/22/19 16:30 121/78 (92) 100 11/22/19 16:15 112 22 115/68 (84) 11/22/19 16:00 Mechanical Ventilator 11/22/19 16:00 115 11/22/19 16:00 97.6 112 17 102/58 (73) 88 11/22/19 16:00 50 11/22/19 15:45 110 22 100/70 (80) 91 11/22/19 15:30 112 15 120/46 (70) 11/22/19 15:22 92 16 40 11/22/19 15:15 117 19 119/69 (86) 100 11/22/19 15:00 112 107/66 (80) 11/22/19 14:45 113 15 108/63 (78) 100 11/22/19 14:30 117 15 93/69 (77) 100 11/22/19 14:15 117 15 94/59 (71) 100 11/22/19 14:00 116 16 93/71 (78) 100 11/22/19 13:45 122 19 131/69 (89) 100 11/22/19 13:30 124 21 134/87 (103) 100 11/22/19 13:20 92 16 40 11/22/19 13:15 120 23 110/72 (85) 100 11/22/19 13:00 124 24 117/76 (90) 100 11/22/19 12:45 117 17 91/68 (76) 100 11/22/19 12:30 121 15 111/70 (84) 100 I&O Intake and Output 11/22/19 11/23/19 18:59 06:59 Intake Total 2659.94 ml 2926.0 ml Output Total 2120 ml 1055 ml Balance 539.94 ml 1871.0 ml Intake Free Water 180 ml IV Total 2479.94 ml 2866.0 ml Other 60 ml Output Urine Total 920 ml 1055 ml Gastric Drainage Total 1200 ml # Bowel Movements 3 5 Dressing: other Wound: other Drains: other Cardiovascular: RSR Respiratory: decreased breath sounds Abdomen: soft, distended, other, decreased bowel sounds Extremities: no tenderness, no cyanosis Laboratory Tests Test 11/23/19 05:20 White Blood Count 9.2 K/UL (4.8-10.8) Red Blood Count 2.49 M/UL (4.70-6.10) L Hemoglobin 8.1 G/DL (14.2-18.0) L Hematocrit 23.0 % (42.0-52.0) L Mean Corpuscular Volume 92 FL (80-99) Mean Corpuscular Hemoglobin 32.7 PG (27.0-31.0) H Mean Corpuscular Hemoglobin Concent 35.4 G/DL (32.0-36.0) Red Cell Distribution Width 10.7 % (11.6-14.8) L Platelet Count 131 K/UL (150-450) L Mean Platelet Volume 6.3 FL (6.5-10.1) L Neutrophils (%) (Auto) 80.1 % (45.0-75.0) H Lymphocytes (%) (Auto) 9.2 % (20.0-45.0) L Monocytes (%) (Auto) 5.3 % (1.0-10.0) Eosinophils (%) (Auto) 4.2 % (0.0-3.0) H Basophils (%) (Auto) 1.2 % (0.0-2.0) Erythrocyte Sedimentation Rate 116 MM/HR (0-20) H Prothrombin Time 11.4 SEC (9.30-11.50) Prothromb Time International Ratio 1.1 (0.9-1.1) Activated Partial Thromboplast Time 29 SEC (23-33) Sodium Level 143 MMOL/L (136-145) Potassium Level 3.6 MMOL/L (3.5-5.1) Chloride Level 111 MMOL/L (98-107) H Carbon Dioxide Level 25 MMOL/L (21-32) Anion Gap 7 mmol/L (5-15) Blood Urea Nitrogen 45 mg/dL (7-18) H Creatinine 1.2 MG/DL (0.55-1.30) Estimat Glomerular Filtration Rate > 60 mL/min (>60) Glucose Level 67 MG/DL (74-106) L Calcium Level 8.2 MG/DL (8.5-10.1) L Total Bilirubin 0.8 MG/DL (0.2-1.0) Aspartate Amino Transf (AST/SGOT) 19 U/L (15-37) Alanine Aminotransferase (ALT/SGPT) 18 U/L (12-78) Alkaline Phosphatase 61 U/L (46-116) C-Reactive Protein, Quantitative 19.2 mg/dL (0.00-0.90) H Total Protein 5.5 G/DL (6.4-8.2) L Albumin 1.8 G/DL (3.4-5.0) L Globulin 3.7 g/dL Albumin/Globulin Ratio 0.5 (1.0-2.7) L Amylase Level 51 U/L (25-115) Lipase 115 U/L (73-393) Random Vancomycin Level 7.5 ug/mL Plan Problems: (1) Sepsis Assessment & Plan: 64M with multiple comorbidities identified to have leukocytosis, lactic acidosis, CT as below. Patient is trach on vent support with PEG on tube feeds debilitated unresponsive Abdominal examination does not show significant distention and do not elicit pain upon palpation. G-tube in place and looks okay CT examination identifies free air around the left upper quadrant around the G- tube site as well as what seems to be a [employer] shunt but contained within this area. No free air seen in the pelvis lower quadrants right upper quadrant underneath the liver And evaluate the patient's overall condition status is likely the G-tube and replaced potentially with some resistance prior causing injury around the G- tube insertion site with potential leakage possible infectious or inflammatory reaction would recommend medical management at this time given patient's current condition comorbidities [employer] shunt location G-tube location and location of free air and potential infectious inflammatory process identified if rushing to surgical intervention there is Strong concerns for potentially infecting [employer] shunt and having to remove or interrupt G-tube. If potentially localized infectious or inflammatory process may improve with medical management and inpatient who is debilitated sick and elderly would benefit from medical intervention versus aggressive surgical intervention if declines and does not respond to medical conservative management will discuss with f medical team and family considerations for surgical intervention npo iv fluids iv abx g tube to intermittent low wall suction AM KUB serial abd exams trend labs will follow with recs thank you Findings: Lack of enteric contrast limits assessment of the GI tract. There is a gastrostomy in good position. The stomach is distended with fluid. The proximal small bowel is dilated and fluid-filled. Most of the small bowel is distended with fluid and/or gas, although the most distal ileum is normal in caliber. The transition point is difficult to determine but may be in the right lower quadrant at the level of the distal ileum. The most severe small bowel distention is proximal. The rectum is distended by feces, measures 9 cm in diameter. No significant rectal wall thickening or perirectal inflammation demonstrated. No evidence of colonic diverticulosis or diverticulitis. There is gas anterior to the stomach which is probably intraluminal within bowel, but cannot be definitively connected to any bowel structures so extra peritoneal gas cannot be completely excluded. There is a ventriculoperitoneal shunt catheter, tip of which terminates in the left paracolic gutter. No free intraperitoneal fluid is demonstrated. The appendix is normal. There is no evidence of diverticulosis or diverticulitis. Lack of IV contrast limits assessment of the solid organs. The liver, gallbladder, bile ducts, pancreas, spleen are all unremarkable. The kidneys demonstrate bilateral cysts as well as bilateral subcentimeter low-attenuation lesions which are too small to characterize. There are bilateral nonobstructive calyceal calculi, largest in the right lower pole measuring approximately 8 mm long axis dimension. No ureteral calculi, or hydronephrosis or hydroureter. The bladder is empty. High attenuation material within the bladder lumen may reflect small bladder calculi. There is considerable consolidation within both of the visualized pulmonary lower lobes. There may be trace pleural fluid on the left. The bones are unremarkable except for degenerative spondylosis changes Impression: Dilated stomach and small bowel, nondilated distal ileum, suspicious for distal small bowel obstruction. Gas anterior to the stomach. While possibly within an enteric structure, no enteric structures are seen in this area on prior chest CT of 02/07/2018, so this is concerning for free intraperitoneal gas an therefore for perforation of a hollow viscus. Evidence of rectal fecal impaction Nonobstructive bilateral intrarenal calculi Considerable bilateral pulmonary lower lobe parenchymal consolidation Trace left pleural fluid Possible bladder calculi Ventriculoperitoneal shunt Gastrostomy Other findings as noted, including degenerative spondylosis, renal cysts Pt presented on admission with DTPI sacrum, Non-blanching erythema both heels. Pressure injury Sacrum has irregular borders and is maroon with an area that is purple at sacrococcygeal area.Marginal erythema noted along borders.Periwound is clean and pink(L)8ccm x (W)9cm. R heel is boggy with non-blanching erythema. Non-blanching erythema without induration ,fluctuance L heel. No other skin concerns noted. Tx.Plan: Apply Moisture Barrier Paste to Sacrum. Cover with Optifoam drsg. Change every 3 days and prn. Apply Cavilon Skin BArrier to both heels. Cover each heel with Optifoam drsg. Change every 7 days and prn APM/TOOTIE Mattress overlay. Reposition at least every 2hours or as tolerated. Off-load heels with pillow. Johnathan Ford Nov 23, 2019 12:18
--- NOTE | 2019-11-23 12:54 | Nephrology Progress Note ---
Assessment/Plan Assessment/Plan: A/P 1. Elevated BUN and creatinine acute kidney injury secondary to dehydration, sepsis resolved. 2. Hyperkalemia - resolved 3. Respiratory failure, ventilator dependent. 4. Possible bowel perforation.- per Gen surgery - g tube to intermittent low wall suction per gen surgery Subjective Date patient seen: Nov 23, 2019 Time patient seen: 12:52 ROS Limited/Unobtainable: Yes Allergies: Coded Allergies: No Known Allergies (Unverified , 02/07/18) Subjective Patient trached on the vent chronically Objective Last 24 Hour Vital Signs Date Time Temp Pulse Resp B/P (MAP) Pulse Ox O2 Delivery O2 Flow Rate FiO2 11/23/19 12:00 98.2 74 14 109/64 (79) 100 11/23/19 12:00 50 11/23/19 12:00 Mechanical Ventilator 11/23/19 11:00 76 16 122/76 (91) 100 11/23/19 10:43 81 21 50 11/23/19 10:00 77 15 124/65 (84) 100 11/23/19 09:20 81 23 50 11/23/19 09:00 Mechanical Ventilator 11/23/19 09:00 83 23 138/62 (87) 100 11/23/19 08:00 50 11/23/19 08:00 98.1 77 19 127/66 (86) 100 11/23/19 07:54 79 11/23/19 07:16 77 22 123/77 (92) 100 11/23/19 07:15 78 24 100 11/23/19 07:05 75 16 50 11/23/19 07:00 75 9 121/61 (81) 100 11/23/19 06:45 77 1 120/64 (82) 100 11/23/19 06:30 75 12 11/23/19 06:30 80 24 132/69 (90) 100 11/23/19 06:15 82 26 125/68 (87) 100 11/23/19 06:00 78 12 114/62 (79) 100 11/23/19 05:45 79 25 122/80 (94) 99 11/23/19 05:30 77 20 131/65 (87) 100 11/23/19 05:15 81 22 129/71 (90) 100 11/23/19 05:09 75 14 40 11/23/19 05:00 76 14 111/60 (77) 100 11/23/19 04:45 77 14 120/59 (79) 100 11/23/19 04:30 81 12 126/64 (84) 100 11/23/19 04:00 99.2 80 16 123/61 (81) 100 11/23/19 04:00 78 11/23/19 04:00 Mechanical Ventilator 11/23/19 04:00 50 11/23/19 03:56 80 21 121/65 (83) 100 11/23/19 03:04 87 18 40 11/23/19 03:00 87 20 129/67 (87) 100 11/23/19 02:30 88 20 129/72 (91) 100 11/23/19 02:15 84 15 143/68 (93) 100 11/23/19 02:00 82 15 146/69 (94) 100 11/23/19 01:45 87 21 155/74 (101) 100 11/23/19 01:30 80 18 150/69 (96) 97 11/23/19 01:15 89 17 141/70 (93) 100 11/23/19 01:02 90 22 40 11/23/19 01:00 88 20 147/74 (98) 100 11/23/19 00:30 88 12 131/71 (91) 100 11/23/19 00:15 89 18 133/63 (86) 100 11/23/19 00:00 50 11/23/19 00:00 92 11/23/19 00:00 98.6 94 19 142/67 (92) 100 11/23/19 00:00 Mechanical Ventilator 11/22/19 23:45 99 20 155/69 (97) 100 11/22/19 23:30 94 22 157/78 (104) 100 11/22/19 23:15 88 21 40 11/22/19 23:15 91 21 133/86 (102) 100 11/22/19 23:00 90 21 134/72 (92) 100 11/22/19 22:45 83 12 121/67 (85) 100 11/22/19 22:30 90 22 136/65 (88) 100 11/22/19 22:15 90 20 128/67 (87) 100 11/22/19 22:00 84 21 117/61 (79) 100 11/22/19 21:30 92 21 139/71 (93) 100 11/22/19 21:15 88 12 129/65 (86) 100 11/22/19 21:15 99.1 11/22/19 21:00 91 19 139/67 (91) 100 11/22/19 20:59 93 23 40 11/22/19 20:45 88 12 121/56 (77) 100 11/22/19 20:30 90 12 123/60 (81) 100 11/22/19 20:15 96 16 126/64 (84) 100 11/22/19 20:00 99.1 93 23 140/68 (92) 100 11/22/19 20:00 92 11/22/19 20:00 50 11/22/19 20:00 Mechanical Ventilator 11/22/19 19:45 97 24 134/76 (95) 100 11/22/19 19:45 134/76 11/22/19 19:30 93 16 117/67 (84) 100 11/22/19 19:15 96 26 133/78 (96) 100 11/22/19 19:13 96 24 40 11/22/19 19:00 114 16 116/79 (91) 100 11/22/19 18:45 110 0 110/67 (81) 100 11/22/19 18:30 118 18 117/60 (79) 100 11/22/19 18:15 107 0 125/72 (89) 100 11/22/19 18:00 119 22 127/69 (88) 100 11/22/19 17:45 115 23 125/72 (89) 100 11/22/19 17:30 120 23 131/64 (86) 100 11/22/19 17:19 94 16 40 11/22/19 17:15 112 3 132/68 (89) 11/22/19 17:00 117 18 102/60 (74) 100 11/22/19 16:45 114 22 110/58 (75) 100 11/22/19 16:30 121/78 (92) 100 11/22/19 16:15 112 22 115/68 (84) 11/22/19 16:00 Mechanical Ventilator 11/22/19 16:00 115 11/22/19 16:00 97.6 112 17 102/58 (73) 88 11/22/19 16:00 50 11/22/19 15:45 110 22 100/70 (80) 91 11/22/19 15:30 112 15 120/46 (70) 11/22/19 15:22 92 16 40 11/22/19 15:15 117 19 119/69 (86) 100 11/22/19 15:00 112 107/66 (80) 11/22/19 14:45 113 15 108/63 (78) 100 11/22/19 14:30 117 15 93/69 (77) 100 11/22/19 14:15 117 15 94/59 (71) 100 11/22/19 14:00 116 16 93/71 (78) 100 11/22/19 13:45 122 19 131/69 (89) 100 11/22/19 13:30 124 21 134/87 (103) 100 11/22/19 13:20 92 16 40 11/22/19 13:15 120 23 110/72 (85) 100 11/22/19 13:00 124 24 117/76 (90) 100 Intake and Output 11/22/19 11/23/19 19:00 07:00 Intake Total 2656.28 ml 2748.0 ml Output Total 2105 ml 1470 ml Balance 551.28 ml 1278.0 ml Intake Free Water 180 ml IV Total 2476.28 ml 2688.0 ml Other 60 ml Output Urine Total 905 ml 1170 ml Gastric Drainage Total 1200 ml 300 ml # Bowel Movements 4 4 Laboratory Tests 11/23/19 05:20: White Blood Count 9.2, Red Blood Count 2.49L, Hemoglobin 8.1L, Hematocrit 23.0L , Mean Corpuscular Volume 92, Mean Corpuscular Hemoglobin 32.7H, Mean Corpuscular Hemoglobin Concent 35.4, Red Cell Distribution Width 10.7L, Platelet Count 131L, Mean Platelet Volume 6.3L, Neutrophils (%) (Auto) 80.1H, Lymphocytes (%) (Auto) 9.2L, Monocytes (%) (Auto) 5.3, Eosinophils (%) (Auto) 4.2H, Basophils (%) (Auto) 1.2, Erythrocyte Sedimentation Rate 116H, Prothrombin Time 11.4, Prothromb Time International Ratio 1.1, Activated Partial Thromboplast Time 29, Sodium Level 143, Potassium Level 3.6, Chloride Level 111H, Carbon Dioxide Level 25, Anion Gap 7, Blood Urea Nitrogen 45H, Creatinine 1.2, Estimat Glomerular Filtration Rate > 60, Glucose Level 67L, Calcium Level 8.2L, Total Bilirubin 0.8, Aspartate Amino Transf (AST/SGOT) 19, Alanine Aminotransferase (ALT/SGPT) 18, Alkaline Phosphatase 61, C-Reactive Protein, Quantitative 19.2H, Total Protein 5.5L, Albumin 1.8L, Globulin 3.7, Albumin/Globulin Ratio 0.5L, Amylase Level 51, Lipase 115, Random Vancomycin Level 7.5 Height (Feet): 6 Height (Inches): 2.00 Weight (Pounds): 198 General Appearance: no apparent distress EENT: normal ENT inspection Neck: normal alignment Cardiovascular: normal rate Respiratory/Chest: rhonchi - bilaterally Abdomen: non tender, soft Edema: 1+ Arm (L), 1+ Arm (R), 1+ Leg (L), 1+ Leg (R), 1+ Pedal (L), 1+ Pedal ( R), 1+ Generalized Narendra Chavez MD Nov 23, 2019 12:54
[2019-11-23] MEDS ORDERED: NS 275ml ONE (13:43)
--- NOTE | 2019-11-23 14:05 | NUR ---
NURSE NOTES: Turned and repositioned pt. Pt is alert to name. Lethargic. G-tube is still connected to low intermittent suction, not draining much emesis. Afebrile. VSS. Will continue to monitor.
--- NOTE | 2019-11-23 15:12 | NUR ---
RESPIRATORY NOTE: Received pt on AC 14, 600VT, 50%, PEEP +5. Pt is trach-dependent w/ a cuffed, Shiley 6 XLT tube. Pt flat effect/obtunded. B/S sybil. rhonchi, sxn small to moderate amounts of thick/thin, connelly-brown secretions. Vent plugged into red outlet, ambubag at bedside. Pt in no apparent distress at this time. Will continue to monitor pt.
--- NOTE | 2019-11-23 16:25 | Pulmonolgy Critical Care Note ---
Critical Care - Asmt/Plan Assessment/Plan: Pulmonary Progress Note Assessment/Plan patient with chronic VDRF abdominal distention improved with gastric suction GT dysfunction recently sepsis ARF COPD anoxia trach GT leukocytosis anemia PLAN gi and gs follow up NPO hydrate antibiotics monitor for change ICU care for now medications/laboratory data/nursing notes/ICU care reviewed in detail note reviewed and edited care discussed with RN and RT ICU time spent 36 minutes Critical Care - Subjective Interval Events: remains ill d/w consultants positive bcx ROS Limited/Unobtainable: Yes Condition: critical Critical Care - Objective Vital Signs Noted Labs Noted Test 11/21/19 07:30 11/21/19 10:00 11/21/19 10:40 11/21/19 15:00 White Blood Count 19.5 K/UL (4.8-10.8) Red Blood Count 4.02 M/UL (4.70-6.10) Hemoglobin 13.1 G/DL (14.2-18.0) Hematocrit 36.6 % (42.0-52.0) Mean Corpuscular Volume 91 FL (80-99) Mean Corpuscular Hemoglobin 32.5 PG (27.0-31.0) Mean Corpuscular Hemoglobin Concent 35.7 G/DL (32.0-36.0) Red Cell Distribution Width 10.7 % (11.6-14.8) Platelet Count 242 K/UL (150-450) Mean Platelet Volume 6.7 FL (6.5-10.1) Neutrophils (%) (Auto) % (45.0-75.0) Lymphocytes (%) (Auto) % (20.0-45.0) Monocytes (%) (Auto) % (1.0-10.0) Eosinophils (%) (Auto) % (0.0-3.0) Basophils (%) (Auto) % (0.0-2.0) Differential Total Cells Counted 100 Neutrophils % (Manual) 82 % (45-75) Lymphocytes % (Manual) 6 % (20-45) Monocytes % (Manual) 10 % (1-10) Eosinophils % (Manual) 2 % (0-3) Basophils % (Manual) 0 % (0-2) Band Neutrophils 0 % (0-8) Platelet Estimate Adequate Platelet Morphology Normal Red Blood Cell Morphology Normal Urine Color Brown Urine Appearance Slightly cloudy Urine pH 5 (4.5-8.0) Urine Specific [place] 1.015 (1.005-1.035) Urine Protein 2+ (NEGATIVE) Urine Glucose (UA) 1+ (NEGATIVE) Urine Ketones 1+ (NEGATIVE) Urine Blood 1+ (NEGATIVE) Urine Nitrite Negative (NEGATIVE) Urine Bilirubin Negative (NEGATIVE) Urine Urobilinogen 1 MG/DL (0.0-1.0) Urine Leukocyte Esterase 1+ (NEGATIVE) Urine RBC 2-4 /HPF (0 - 0) Urine WBC 5-10 /HPF (0 - 0) Urine Squamous Epithelial Cells Occasional /LPF Urine Amorphous Sediment Moderate /LPF (NONE) Urine Bacteria Few /HPF (NONE) Sodium Level 131 MMOL/L (136-145) Potassium Level 5.1 MMOL/L (3.5-5.1) Chloride Level 97 MMOL/L (98-107) Carbon Dioxide Level 22 MMOL/L (21-32) Anion Gap 12 mmol/L (5-15) Blood Urea Nitrogen 58 mg/dL (7-18) Creatinine 2.8 MG/DL (0.55-1.30) Estimat Glomerular Filtration Rate 22.9 mL/min (>60) Glucose Level 122 MG/DL (74-106) Lactic Acid Level 3.40 mmol/L (0.4-2.0) 3.20 mmol/L (0.66-2.22) Calcium Level 10.5 MG/DL (8.5-10.1) Total Bilirubin 1.7 MG/DL (0.2-1.0) Direct Bilirubin 0.4 MG/DL (0.0-0.3) Aspartate Amino Transf (AST/SGOT) 24 U/L (15-37) Alanine Aminotransferase (ALT/SGPT) 21 U/L (12-78) Alkaline Phosphatase 111 U/L (46-116) Total Creatine Kinase 32 U/L (26-308) Creatine Kinase MB < 0.5 NG/ML (0.0-3.6) Creatine Kinase MB Relative Index 1.5 Troponin I 0.000 ng/mL (0.000-0.056) Pro-B-Type Natriuretic Peptide 100 pg/mL (0-125) Total Protein 8.9 G/DL (6.4-8.2) Albumin 3.1 G/DL (3.4-5.0) Globulin 5.8 g/dL Albumin/Globulin Ratio 0.5 (1.0-2.7) Lipase 104 U/L (73-393) Prothrombin Time 12.2 SEC (9.30-11.50) Prothromb Time International Ratio 1.2 (0.9-1.1) Activated Partial Thromboplast Time 28 SEC (23-33) Urine Random Sodium < 20 mmol/L (20-110) Urine Creatinine 215.6 MG/DL (30.0-125.0) Test 11/21/19 20:20 11/21/19 23:25 11/22/19 05:25 11/22/19 09:07 Lactic Acid Level 3.10 mmol/L (0.4-2.0) 1.90 mmol/L (0.66-2.22) White Blood Count 15.1 K/UL (4.8-10.8) Red Blood Count 3.04 M/UL (4.70-6.10) Hemoglobin 9.8 G/DL (14.2-18.0) Hematocrit 27.7 % (42.0-52.0) Mean Corpuscular Volume 91 FL (80-99) Mean Corpuscular Hemoglobin 32.3 PG (27.0-31.0) Mean Corpuscular Hemoglobin Concent 35.5 G/DL (32.0-36.0) Red Cell Distribution Width 10.9 % (11.6-14.8) Platelet Count 160 K/UL (150-450) Mean Platelet Volume 6.9 FL (6.5-10.1) Neutrophils (%) (Auto) % (45.0-75.0) Lymphocytes (%) (Auto) % (20.0-45.0) Monocytes (%) (Auto) % (1.0-10.0) Eosinophils (%) (Auto) % (0.0-3.0) Basophils (%) (Auto) % (0.0-2.0) Differential Total Cells Counted 100 Neutrophils % (Manual) 78 % (45-75) Lymphocytes % (Manual) 9 % (20-45) Monocytes % (Manual) 4 % (1-10) Eosinophils % (Manual) 0 % (0-3) Basophils % (Manual) 0 % (0-2) Band Neutrophils 9 % (0-8) Platelet Estimate Adequate Platelet Morphology Normal Red Blood Cell Morphology Normal Sodium Level 138 MMOL/L (136-145) Potassium Level 4.4 MMOL/L (3.5-5.1) Chloride Level 103 MMOL/L (98-107) Carbon Dioxide Level 24 MMOL/L (21-32) Anion Gap 11 mmol/L (5-15) Blood Urea Nitrogen 65 mg/dL (7-18) Creatinine 2.2 MG/DL (0.55-1.30) Estimat Glomerular Filtration Rate 30.2 mL/min (>60) Glucose Level 102 MG/DL (74-106) Calcium Level 9.0 MG/DL (8.5-10.1) Total Bilirubin 1.1 MG/DL (0.2-1.0) Direct Bilirubin 0.2 MG/DL (0.0-0.3) Aspartate Amino Transf (AST/SGOT) 19 U/L (15-37) Alanine Aminotransferase (ALT/SGPT) 17 U/L (12-78) Alkaline Phosphatase 74 U/L (46-116) Total Creatine Kinase 23 U/L (26-308) Total Protein 6.6 G/DL (6.4-8.2) Albumin 2.2 G/DL (3.4-5.0) Globulin 4.4 g/dL Albumin/Globulin Ratio 0.5 (1.0-2.7) Arterial Blood pH 7.504 (7.350-7.450) Arterial Blood Partial Pressure CO2 29.9 mmHg (35.0-45.0) Arterial Blood Partial Pressure O2 302.7 mmHg (75.0-100.0) Arterial Blood HCO3 23.0 mmol/L (22.0-26.0) Arterial Blood Oxygen Saturation 99.1 % (95-100) Arterial Blood Base Excess 0.5 (-2-2) Zaheer Test Positive Objective: WDWN NAD trach reduced breath sounds bilaterally without rhonchi or wheeze [id number] without MRG reduced BS nontender no HSM; Gt no CC some edema obtunded nonfocal Micro: Microbiology Date/Time Source Procedure Growth Status 11/21/19 07:40 Blood Blood Culture - Preliminary Resulted 11/21/19 07:30 Blood Blood Culture - Preliminary Resulted Critical Care - Objective Last 24 Hour Vital Signs Date Time Temp Pulse Resp B/P (MAP) Pulse Ox O2 Delivery O2 Flow Rate FiO2 11/23/19 16:00 74 1/25/20 16:00 98.4 77 15 129/68 (88) 100 11/23/19 16:00 Mechanical Ventilator 11/23/19 16:00 50 11/23/19 15:08 79 20 50 11/23/19 15:00 81 20 136/70 (92) 100 11/23/19 14:00 82 22 144/74 (97) 100 11/23/19 13:00 80 22 147/71 (96) 100 11/23/19 12:49 73 15 50 11/23/19 12:00 98.2 74 14 109/64 (79) 100 11/23/19 12:00 50 11/23/19 12:00 Mechanical Ventilator 11/23/19 11:33 73 11/23/19 11:00 76 16 122/76 (91) 100 11/23/19 10:43 81 21 50 11/23/19 10:00 77 15 124/65 (84) 100 11/23/19 09:20 81 23 50 11/23/19 09:00 Mechanical Ventilator 11/23/19 09:00 83 23 138/62 (87) 100 11/23/19 08:00 50 11/23/19 08:00 98.1 77 19 127/66 (86) 100 11/23/19 07:54 79 11/23/19 07:16 77 22 123/77 (92) 100 11/23/19 07:15 78 24 100 11/23/19 07:05 75 16 50 11/23/19 07:00 75 9 121/61 (81) 100 11/23/19 06:45 77 1 120/64 (82) 100 11/23/19 06:30 75 12 11/23/19 06:30 80 24 132/69 (90) 100 11/23/19 06:15 82 26 125/68 (87) 100 11/23/19 06:00 78 12 114/62 (79) 100 11/23/19 05:45 79 25 122/80 (94) 99 11/23/19 05:30 77 20 131/65 (87) 100 11/23/19 05:15 81 22 129/71 (90) 100 11/23/19 05:09 75 14 40 11/23/19 05:00 76 14 111/60 (77) 100 11/23/19 04:45 77 14 120/59 (79) 100 11/23/19 04:30 81 12 126/64 (84) 100 11/23/19 04:00 99.2 80 16 123/61 (81) 100 11/23/19 04:00 78 11/23/19 04:00 Mechanical Ventilator 11/23/19 04:00 50 11/23/19 03:56 80 21 121/65 (83) 100 11/23/19 03:04 87 18 40 11/23/19 03:00 87 20 129/67 (87) 100 11/23/19 02:30 88 20 129/72 (91) 100 11/23/19 02:15 84 15 143/68 (93) 100 11/23/19 02:00 82 15 146/69 (94) 100 11/23/19 01:45 87 21 155/74 (101) 100 11/23/19 01:30 80 18 150/69 (96) 97 11/23/19 01:15 89 17 141/70 (93) 100 11/23/19 01:02 90 22 40 11/23/19 01:00 88 20 147/74 (98) 100 11/23/19 00:30 88 12 131/71 (91) 100 11/23/19 00:15 89 18 133/63 (86) 100 11/23/19 00:00 50 11/23/19 00:00 92 11/23/19 00:00 98.6 94 19 142/67 (92) 100 11/23/19 00:00 Mechanical Ventilator 11/22/19 23:45 99 20 155/69 (97) 100 11/22/19 23:30 94 22 157/78 (104) 100 11/22/19 23:15 88 21 40 11/22/19 23:15 91 21 133/86 (102) 100 11/22/19 23:00 90 21 134/72 (92) 100 11/22/19 22:45 83 12 121/67 (85) 100 11/22/19 22:30 90 22 136/65 (88) 100 11/22/19 22:15 90 20 128/67 (87) 100 11/22/19 22:00 84 21 117/61 (79) 100 11/22/19 21:30 92 21 139/71 (93) 100 11/22/19 21:15 88 12 129/65 (86) 100 11/22/19 21:15 99.1 11/22/19 21:00 91 19 139/67 (91) 100 11/22/19 20:59 93 23 40 11/22/19 20:45 88 12 121/56 (77) 100 11/22/19 20:30 90 12 123/60 (81) 100 11/22/19 20:15 96 16 126/64 (84) 100 11/22/19 20:00 99.1 93 23 140/68 (92) 100 11/22/19 20:00 92 11/22/19 20:00 50 11/22/19 20:00 Mechanical Ventilator 11/22/19 19:45 97 24 134/76 (95) 100 11/22/19 19:45 134/76 11/22/19 19:30 93 16 117/67 (84) 100 11/22/19 19:15 96 26 133/78 (96) 100 11/22/19 19:13 96 24 40 11/22/19 19:00 114 16 116/79 (91) 100 11/22/19 18:45 110 0 110/67 (81) 100 11/22/19 18:30 118 18 117/60 (79) 100 11/22/19 18:15 107 0 125/72 (89) 100 11/22/19 18:00 119 22 127/69 (88) 100 11/22/19 17:45 115 23 125/72 (89) 100 11/22/19 17:30 120 23 131/64 (86) 100 11/22/19 17:19 94 16 40 11/22/19 17:15 112 3 132/68 (89) 11/22/19 17:00 117 18 102/60 (74) 100 11/22/19 16:45 114 22 110/58 (75) 100 11/22/19 16:30 121/78 (92) 100 Micro: Microbiology Date/Time Source Procedure Growth Status 11/21/19 07:40 Blood Blood Culture - Preliminary Staphylococcus Sp Coag Neg Resulted 11/21/19 07:30 Blood Blood Culture - Preliminary Staphylococcus Sp Coag Neg Resulted 11/22/19 15:00 Sputum Gram Stain - Final Resulted 11/22/19 15:00 Sputum Sputum Culture Pending Resulted 11/22/19 10:00 Urine,Clean Catch Urine Culture - Preliminary NO GROWTH Resulted Critical Care - Subjective ROS Limited/Unobtainable: No FI02: 50 Vent Support Breath Rate: 14 Vent Support Mode: AC Vent Tidal Volume: 600 Sputum Amount: Small PEEP: 5.0 PIP: 30 I&O: Intake and Output 11/22/19 11/23/19 19:00 07:00 Intake Total 2656.28 ml 2748.0 ml Output Total 2105 ml 1470 ml Balance 551.28 ml 1278.0 ml Intake Free Water 180 ml IV Total 2476.28 ml 2688.0 ml Other 60 ml Output Urine Total 905 ml 1170 ml Gastric Drainage Total 1200 ml 300 ml # Bowel Movements 4 4 Lul Rogers MD Nov 23, 2019 16:25
--- NOTE | 2019-11-23 17:00 | NUR ---
NURSE NOTES: Cleaned and repositioned pt. Oral care done. No acute distress noted. Pt is tolerating the current vent setting. Will continue to monitor.
--- NOTE | 2019-11-23 19:36 | NUR ---
HAND-OFF: Report given to FRANCISCO JAVIER Garcia.
--- NOTE | 2019-11-23 19:37 | NUR ---
NURSE NOTES: Received report from Hattie Rubio RN. Patient opens eyes spontaneously, withdraws to pain. Trache to vent Shiley 6.0 XLT. AC 14, 600, PEEP 5, 50%. GT to low intermittent suction. Right upper arm PICC, receiving NS 200ml/hr. Left wrist g20, right hand g20. Silva catheter draining to urimeter. SCDs in place. On P200 mattress. Seizure precautions implemented. Bed locked, low position. Bed alarm on.
[2019-11-23] MEDS: Dyna-Hex 2% Top Sol 2oz TOPIC SCH (20:06)
--- NOTE | 2019-11-23 21:11 | NUR ---
NURSE NOTES: Morning glucose was 67. Bedside blood sugar done, 54mtg/dl. D50 50ml given. Will recheck
--- NOTE | 2019-11-23 21:50 | NUR ---
NURSE NOTES: Blood sugar rechecked: 115mg/dl
[2019-11-24] VITALS (24 sets, daily range): BP systolic 124–155; BP diastolic 46–77
--- NOTE | 2019-11-24 | NUR ---
NURSE NOTES: Patient asleep. Afebrile. Sinus rhythm on the monitor
[2019-11-24] MEDS: Piperacillin/Tazobactam 3.375 GM in NS 110 ML IVPB SCH ×3 (00:43→17:40)
--- NOTE | 2019-11-24 02:00 | NUR ---
NURSE NOTES: Secretions suctioned
--- NOTE | 2019-11-24 04:00 | NUR ---
NURSE NOTES: Bed bath, oral care done.
[2019-11-24 04:52] LABS: HEMATOCRIT 22.3 % (42.0-52.0); HEMOGLOBIN 7.7 G/DL (14.2-18.0); MEAN CORPUSCULAR VOLUME 92 FL (80-99); PLATELET COUNT 122 K/UL (150-450); RED BLOOD COUNT 2.43 M/UL (4.70-6.10); RED CELL DISTRIBUTION WIDTH 10.9 % (11.6-14.8); WHITE BLOOD COUNT 6.1 K/UL (4.8-10.8)
[2019-11-24 05:11] LABS: ANION GAP 8 mmol/L (5-15); BLOOD UREA NITROGEN 22 mg/dL (7-18); CALCIUM 7.9 MG/DL (8.5-10.1); CARBON DIOXIDE 24 MMOL/L (21-32); CHLORIDE 113 MMOL/L (98-107); CREATININE 0.8 MG/DL (0.55-1.30); SODIUM 145 MMOL/L (136-145)
[2019-11-24 05:19] LABS: POTASSIUM 2.7 MMOL/L (3.5-5.1)
--- NOTE | 2019-11-24 07:15 | NUR ---
HAND-OFF: Dr. Esparza in the unit. Informed him that potassium is 2.7, as per him he will put in the order for coverage. Report given to Hattie burrell RN
--- NOTE | 2019-11-24 07:16 | NUR ---
NURSE NOTES: Report received from FRANCISCO JAVIER Garcia. Pt is awake and oriented to name only. Non-verbal and unable to follow commands. Flat affect. Sinus rhythm with PVCs on compliance monitor. Trach to vent. AC 14, TV 600, FiO2 50%, P 5. O2 sat 98-100%. G-tube in place connected to low intermittent suction, draining greenish emesis. Silva in place draining to gravity. ANGELLA PICC line patent and asymptomatic. NS is running at 200cc/hr. Left wrist G20 and right hand G20 patent and asymptomatic. Bed in lowest position. Side rails up x3. Will resume plan of care.
--- NOTE | 2019-11-24 07:28 | General Progress Note ---
Assessment/Plan Assessment/Plan: Assessment/Plan Assessment/Plan: Assessment - Sepsis - possible SBO/PSBO - ? free air around GT - GT appears appropriate - Resp failure / trach - Renal failure - lactic acidosis - rectal fecal loading Recommendations - NPO - GT decompression - green drainage - IVF - Abx - follow lab / exam / imaging - PPI - surgical f/u -had few BM -kub>>>> reviewed>>> manual disimpaction and one dose of enema Subjective ROS Limited/Unobtainable: No Allergies: Coded Allergies: No Known Allergies (Unverified , 02/07/18) Objective Last 24 Hour Vital Signs Date Time Temp Pulse Resp B/P (MAP) Pulse Ox O2 Delivery O2 Flow Rate FiO2 11/24/19 07:00 70 15 136/75 (95) 100 11/24/19 06:30 82 16 11/24/19 06:00 68 10 129/67 (87) 100 11/24/19 05:13 76 20 50 11/24/19 05:00 74 7 155/71 (99) 100 11/24/19 04:00 74 11/24/19 04:00 Mechanical Ventilator 11/24/19 04:00 99.3 73 23 148/74 (98) 100 11/24/19 04:00 50 11/24/19 03:00 73 21 138/74 (95) 100 11/24/19 02:55 71 16 50 11/24/19 02:00 65 20 127/69 (88) 100 11/24/19 01:00 65 13 127/72 (90) 100 11/24/19 00:49 70 20 50 11/24/19 00:00 50 11/24/19 00:00 Mechanical Ventilator 11/24/19 00:00 99.0 77 20 137/77 (97) 100 11/24/19 00:00 68 11/23/19 23:00 69 20 127/64 (85) 100 11/23/19 22:37 72 19 50 11/23/19 22:00 73 22 126/63 (84) 100 11/23/19 21:00 78 13 134/66 (88) 100 11/23/19 20:52 70 16 50 11/23/19 20:00 99.2 83 22 125/72 (89) 100 11/23/19 20:00 Mechanical Ventilator 11/23/19 20:00 50 11/23/19 20:00 84 11/23/19 19:45 130/66 11/23/19 19:00 71 15 124/64 (84) 100 11/23/19 19:00 75 17 50 11/23/19 18:00 80 17 144/70 (94) 100 11/23/19 17:04 84 25 50 11/23/19 17:00 74 14 125/61 (82) 100 11/23/19 16:00 74 11/23/19 16:00 98.4 77 15 129/68 (88) 100 11/23/19 16:00 Mechanical Ventilator 11/23/19 16:00 50 11/23/19 15:08 79 20 50 11/23/19 15:00 81 20 136/70 (92) 100 11/23/19 14:00 82 22 144/74 (97) 100 11/23/19 13:00 80 22 147/71 (96) 100 11/23/19 12:49 73 15 50 11/23/19 12:00 98.2 74 14 109/64 (79) 100 11/23/19 12:00 50 11/23/19 12:00 Mechanical Ventilator 11/23/19 11:33 73 11/23/19 11:00 76 16 122/76 (91) 100 11/23/19 10:43 81 21 50 11/23/19 10:00 77 15 124/65 (84) 100 11/23/19 09:20 81 23 50 11/23/19 09:00 Mechanical Ventilator 11/23/19 09:00 83 23 138/62 (87) 100 11/23/19 08:00 50 11/23/19 08:00 98.1 77 19 127/66 (86) 100 11/23/19 07:54 79 Intake and Output 11/23/19 11/24/19 19:00 07:00 Intake Total 2662.500 ml 2485.000 ml Output Total 1460 ml 1115 ml Balance 1202.500 ml 1370.000 ml IV Total 2612.500 ml 2485.000 ml Other 50 ml Output Urine Total 1390 ml 1065 ml Gastric Drainage Total 70 ml 50 ml Laboratory Tests 11/24/19 04:00: White Blood Count 6.1, Red Blood Count 2.43L, Hemoglobin 7.7L, Hematocrit 22.3L , Mean Corpuscular Volume 92, Mean Corpuscular Hemoglobin 31.9H, Mean Corpuscular Hemoglobin Concent 34.7, Red Cell Distribution Width 10.9L, Platelet Count 122L, Mean Platelet Volume 6.3L, Neutrophils (%) (Auto) , Lymphocytes (%) (Auto) , Monocytes (%) (Auto) , Eosinophils (%) (Auto) , Basophils (%) (Auto) , Neutrophils % (Manual) [Pending], Lymphocytes % (Manual) [Pending], Platelet Estimate [Pending], Platelet Morphology [Pending], Sodium Level 145, Potassium Level 2.7*L, Chloride Level 113H, Carbon Dioxide Level 24, Anion Gap 8, Blood Urea Nitrogen 22H, Creatinine 0.8, Estimat Glomerular Filtration Rate > 60, Glucose Level 70L, Calcium Level 7.9L Height (Feet): 6 Height (Inches): 2.00 Weight (Pounds): 205 General Appearance: lethargic EENT: normal ENT inspection Neck: supple Cardiovascular: normal rate Respiratory/Chest: decreased breath sounds Abdomen: normal bowel sounds, non tender, soft Extremities: non-tender Jan Esparza MD Nov 24, 2019 07:28
--- NOTE | 2019-11-24 07:30 | NUR ---
NURSE NOTES: Notified Dr Esparza regarding ABD x-ray result from yesterday and low potassium level. Orders entered by Dr Esparza. Will proceed the orders.
[2019-11-24] MEDS ORDERED: Fleet's Mineral Oil Enema RECTAL ONE (08:00)
[2019-11-24] MEDS: levETIRAcetam 500mg/NS100ml 100 ML IVPB SCH ×2 (08:25→20:49)
--- NOTE | 2019-11-24 09:00 | NUR ---
NURSE NOTES: Mineral oil enema given as ordered. Fecal disimpaction note done since pt was already having brown pasty BM. Will continue to monitor.
[2019-11-24] MEDS ORDERED: Vancomycin 1.25gm/NS Premix 275 ML IVPB SCH (10:00)
--- NOTE | 2019-11-24 11:09 | NUR ---
NURSE NOTES: Notified Dr Ford regarding ABD X-ray result from yesterday and low sugar level. Order to stop suction from G-tube and start tube feeding received, noted, and carried out.
--- NOTE | 2019-11-24 11:14 | Pulmonolgy Critical Care Note ---
Critical Care - Asmt/Plan Assessment/Plan: Pulmonary Progress Note Assessment/Plan patient with chronic VDRF abdominal distention improved with gastric suction GT dysfunction recently sepsis ARF COPD anoxia trach GT leukocytosis anemia PLAN gi and gs follow up NPO hydrate antibiotics monitor for change ICU care for now medications/laboratory data/nursing notes/ICU care reviewed in detail note reviewed and edited care discussed with RN and RT ICU time spent 36 minutes Critical Care - Subjective Interval Events: remains ill d/w consultants positive bcx ROS Limited/Unobtainable: Yes Condition: critical Critical Care - Objective Vital Signs Noted Labs Noted Test 11/21/19 07:30 11/21/19 10:00 11/21/19 10:40 11/21/19 15:00 White Blood Count 19.5 K/UL (4.8-10.8) Red Blood Count 4.02 M/UL (4.70-6.10) Hemoglobin 13.1 G/DL (14.2-18.0) Hematocrit 36.6 % (42.0-52.0) Mean Corpuscular Volume 91 FL (80-99) Mean Corpuscular Hemoglobin 32.5 PG (27.0-31.0) Mean Corpuscular Hemoglobin Concent 35.7 G/DL (32.0-36.0) Red Cell Distribution Width 10.7 % (11.6-14.8) Platelet Count 242 K/UL (150-450) Mean Platelet Volume 6.7 FL (6.5-10.1) Neutrophils (%) (Auto) % (45.0-75.0) Lymphocytes (%) (Auto) % (20.0-45.0) Monocytes (%) (Auto) % (1.0-10.0) Eosinophils (%) (Auto) % (0.0-3.0) Basophils (%) (Auto) % (0.0-2.0) Differential Total Cells Counted 100 Neutrophils % (Manual) 82 % (45-75) Lymphocytes % (Manual) 6 % (20-45) Monocytes % (Manual) 10 % (1-10) Eosinophils % (Manual) 2 % (0-3) Basophils % (Manual) 0 % (0-2) Band Neutrophils 0 % (0-8) Platelet Estimate Adequate Platelet Morphology Normal Red Blood Cell Morphology Normal Urine Color Brown Urine Appearance Slightly cloudy Urine pH 5 (4.5-8.0) Urine Specific Valentine 1.015 (1.005-1.035) Urine Protein 2+ (NEGATIVE) Urine Glucose (UA) 1+ (NEGATIVE) Urine Ketones 1+ (NEGATIVE) Urine Blood 1+ (NEGATIVE) Urine Nitrite Negative (NEGATIVE) Urine Bilirubin Negative (NEGATIVE) Urine Urobilinogen 1 MG/DL (0.0-1.0) Urine Leukocyte Esterase 1+ (NEGATIVE) Urine RBC 2-4 /HPF (0 - 0) Urine WBC 5-10 /HPF (0 - 0) Urine Squamous Epithelial Cells Occasional /LPF Urine Amorphous Sediment Moderate /LPF (NONE) Urine Bacteria Few /HPF (NONE) Sodium Level 131 MMOL/L (136-145) Potassium Level 5.1 MMOL/L (3.5-5.1) Chloride Level 97 MMOL/L (98-107) Carbon Dioxide Level 22 MMOL/L (21-32) Anion Gap 12 mmol/L (5-15) Blood Urea Nitrogen 58 mg/dL (7-18) Creatinine 2.8 MG/DL (0.55-1.30) Estimat Glomerular Filtration Rate 22.9 mL/min (>60) Glucose Level 122 MG/DL (74-106) Lactic Acid Level 3.40 mmol/L (0.4-2.0) 3.20 mmol/L (0.66-2.22) Calcium Level 10.5 MG/DL (8.5-10.1) Total Bilirubin 1.7 MG/DL (0.2-1.0) Direct Bilirubin 0.4 MG/DL (0.0-0.3) Aspartate Amino Transf (AST/SGOT) 24 U/L (15-37) Alanine Aminotransferase (ALT/SGPT) 21 U/L (12-78) Alkaline Phosphatase 111 U/L (46-116) Total Creatine Kinase 32 U/L (26-308) Creatine Kinase MB < 0.5 NG/ML (0.0-3.6) Creatine Kinase MB Relative Index 1.5 Troponin I 0.000 ng/mL (0.000-0.056) Pro-B-Type Natriuretic Peptide 100 pg/mL (0-125) Total Protein 8.9 G/DL (6.4-8.2) Albumin 3.1 G/DL (3.4-5.0) Globulin 5.8 g/dL Albumin/Globulin Ratio 0.5 (1.0-2.7) Lipase 104 U/L (73-393) Prothrombin Time 12.2 SEC (9.30-11.50) Prothromb Time International Ratio 1.2 (0.9-1.1) Activated Partial Thromboplast Time 28 SEC (23-33) Urine Random Sodium < 20 mmol/L (20-110) Urine Creatinine 215.6 MG/DL (30.0-125.0) Test 11/21/19 20:20 11/21/19 23:25 11/22/19 05:25 11/22/19 09:07 Lactic Acid Level 3.10 mmol/L (0.4-2.0) 1.90 mmol/L (0.66-2.22) White Blood Count 15.1 K/UL (4.8-10.8) Red Blood Count 3.04 M/UL (4.70-6.10) Hemoglobin 9.8 G/DL (14.2-18.0) Hematocrit 27.7 % (42.0-52.0) Mean Corpuscular Volume 91 FL (80-99) Mean Corpuscular Hemoglobin 32.3 PG (27.0-31.0) Mean Corpuscular Hemoglobin Concent 35.5 G/DL (32.0-36.0) Red Cell Distribution Width 10.9 % (11.6-14.8) Platelet Count 160 K/UL (150-450) Mean Platelet Volume 6.9 FL (6.5-10.1) Neutrophils (%) (Auto) % (45.0-75.0) Lymphocytes (%) (Auto) % (20.0-45.0) Monocytes (%) (Auto) % (1.0-10.0) Eosinophils (%) (Auto) % (0.0-3.0) Basophils (%) (Auto) % (0.0-2.0) Differential Total Cells Counted 100 Neutrophils % (Manual) 78 % (45-75) Lymphocytes % (Manual) 9 % (20-45) Monocytes % (Manual) 4 % (1-10) Eosinophils % (Manual) 0 % (0-3) Basophils % (Manual) 0 % (0-2) Band Neutrophils 9 % (0-8) Platelet Estimate Adequate Platelet Morphology Normal Red Blood Cell Morphology Normal Sodium Level 138 MMOL/L (136-145) Potassium Level 4.4 MMOL/L (3.5-5.1) Chloride Level 103 MMOL/L (98-107) Carbon Dioxide Level 24 MMOL/L (21-32) Anion Gap 11 mmol/L (5-15) Blood Urea Nitrogen 65 mg/dL (7-18) Creatinine 2.2 MG/DL (0.55-1.30) Estimat Glomerular Filtration Rate 30.2 mL/min (>60) Glucose Level 102 MG/DL (74-106) Calcium Level 9.0 MG/DL (8.5-10.1) Total Bilirubin 1.1 MG/DL (0.2-1.0) Direct Bilirubin 0.2 MG/DL (0.0-0.3) Aspartate Amino Transf (AST/SGOT) 19 U/L (15-37) Alanine Aminotransferase (ALT/SGPT) 17 U/L (12-78) Alkaline Phosphatase 74 U/L (46-116) Total Creatine Kinase 23 U/L (26-308) Total Protein 6.6 G/DL (6.4-8.2) Albumin 2.2 G/DL (3.4-5.0) Globulin 4.4 g/dL Albumin/Globulin Ratio 0.5 (1.0-2.7) Arterial Blood pH 7.504 (7.350-7.450) Arterial Blood Partial Pressure CO2 29.9 mmHg (35.0-45.0) Arterial Blood Partial Pressure O2 302.7 mmHg (75.0-100.0) Arterial Blood HCO3 23.0 mmol/L (22.0-26.0) Arterial Blood Oxygen Saturation 99.1 % (95-100) Arterial Blood Base Excess 0.5 (-2-2) Zaheer Test Positive Objective: WDWN NAD trach reduced breath sounds bilaterally without rhonchi or wheeze [id number] without MRG reduced BS nontender no HSM; Gt no CC some edema obtunded nonfocal Micro: Microbiology Date/Time Source Procedure Growth Status 11/21/19 07:40 Blood Blood Culture - Preliminary Resulted 11/21/19 07:30 Blood Blood Culture - Preliminary Resulted Critical Care - Objective Last 24 Hour Vital Signs Date Time Temp Pulse Resp B/P (MAP) Pulse Ox O2 Delivery O2 Flow Rate FiO2 11/24/19 10:00 71 17 142/73 (96) 100 11/24/19 09:27 74 16 50 11/24/19 09:00 74 11 141/74 (96) 100 11/24/19 08:00 98.1 73 11 145/70 (95) 100 11/24/19 08:00 50 11/24/19 08:00 Mechanical Ventilator 11/24/19 07:26 70 20 50 11/24/19 07:00 70 15 136/75 (95) 100 11/24/19 06:30 82 16 11/24/19 06:00 68 10 129/67 (87) 100 11/24/19 05:13 76 20 50 11/24/19 05:00 74 7 155/71 (99) 100 11/24/19 04:00 74 11/24/19 04:00 Mechanical Ventilator 11/24/19 04:00 99.3 73 23 148/74 (98) 100 11/24/19 04:00 50 11/24/19 03:00 73 21 138/74 (95) 100 11/24/19 02:55 71 16 50 11/24/19 02:00 65 20 127/69 (88) 100 11/24/19 01:00 65 13 127/72 (90) 100 11/24/19 00:49 70 20 50 11/24/19 00:00 50 11/24/19 00:00 Mechanical Ventilator 11/24/19 00:00 99.0 77 20 137/77 (97) 100 11/24/19 00:00 68 11/23/19 23:00 69 20 127/64 (85) 100 11/23/19 22:37 72 19 50 11/23/19 22:00 73 22 126/63 (84) 100 11/23/19 21:00 78 13 134/66 (88) 100 11/23/19 20:52 70 16 50 11/23/19 20:00 99.2 83 22 125/72 (89) 100 11/23/19 20:00 Mechanical Ventilator 11/23/19 20:00 50 11/23/19 20:00 84 11/23/19 19:45 130/66 11/23/19 19:00 71 15 124/64 (84) 100 11/23/19 19:00 75 17 50 1/25/20 18:00 80 17 144/70 (94) 100 11/23/19 17:04 84 25 50 11/23/19 17:00 74 14 125/61 (82) 100 11/23/19 16:00 74 11/23/19 16:00 98.4 77 15 129/68 (88) 100 11/23/19 16:00 Mechanical Ventilator 11/23/19 16:00 50 11/23/19 15:08 79 20 50 11/23/19 15:00 81 20 136/70 (92) 100 11/23/19 14:00 82 22 144/74 (97) 100 11/23/19 13:00 80 22 147/71 (96) 100 11/23/19 12:49 73 15 50 11/23/19 12:00 98.2 74 14 109/64 (79) 100 11/23/19 12:00 50 11/23/19 12:00 Mechanical Ventilator 11/23/19 11:33 73 Micro: Microbiology Date/Time Source Procedure Growth Status 11/22/19 15:00 Sputum Gram Stain - Final Resulted 11/22/19 15:00 Sputum Culture - Preliminary Gram Negative Vaibhav Resulted 11/22/19 10:00 Urine,Clean Catch Urine Culture - Preliminary NO GROWTH AFTER 24 HOURS Resulted Accucheck: 72 Critical Care - Subjective ROS Limited/Unobtainable: No FI02: 50 Vent Support Breath Rate: 14 Vent Support Mode: AC Vent Tidal Volume: 600 Sputum Amount: Moderate PEEP: 5.0 PIP: 27 I&O: Intake and Output 11/23/19 11/24/19 18:59 06:59 Intake Total 2497.500 ml 2885.000 ml Output Total 1890 ml 935 ml Balance 607.500 ml 1950.000 ml IV Total 2447.500 ml 2885.000 ml Other 50 ml Output Urine Total 1520 ml 935 ml Gastric Drainage Total 370 ml Lul Rogers MD Nov 24, 2019 11:14
--- NOTE | 2019-11-24 12:00 | NUR ---
NURSE NOTES: Fecal disimpaction done. Moderate amount of brown pasty BM noted. Pt tolerated well.
--- NOTE | 2019-11-24 12:07 | Surgery Progress Note ---
Surgery Progress Note Subjective Symptoms: improved Additional Comments min g tube output start tf labs noted exam stable Objective Last 24 Hour Vital Signs Date Time Temp Pulse Resp B/P (MAP) Pulse Ox O2 Delivery O2 Flow Rate FiO2 11/24/19 11:20 71 16 50 11/24/19 11:00 70 23 139/71 (93) 100 11/24/19 10:00 71 17 142/73 (96) 100 11/24/19 09:27 74 16 50 11/24/19 09:00 74 11 141/74 (96) 100 11/24/19 08:00 98.1 73 11 145/70 (95) 100 11/24/19 08:00 50 11/24/19 08:00 Mechanical Ventilator 11/24/19 07:26 70 20 50 11/24/19 07:00 70 15 136/75 (95) 100 11/24/19 06:30 82 16 11/24/19 06:00 68 10 129/67 (87) 100 11/24/19 05:13 76 20 50 11/24/19 05:00 74 7 155/71 (99) 100 11/24/19 04:00 74 11/24/19 04:00 Mechanical Ventilator 11/24/19 04:00 99.3 73 23 148/74 (98) 100 11/24/19 04:00 50 11/24/19 03:00 73 21 138/74 (95) 100 11/24/19 02:55 71 16 50 11/24/19 02:00 65 20 127/69 (88) 100 11/24/19 01:00 65 13 127/72 (90) 100 11/24/19 00:49 70 20 50 11/24/19 00:00 50 11/24/19 00:00 Mechanical Ventilator 11/24/19 00:00 99.0 77 20 137/77 (97) 100 11/24/19 00:00 68 11/23/19 23:00 69 20 127/64 (85) 100 11/23/19 22:37 72 19 50 11/23/19 22:00 73 22 126/63 (84) 100 11/23/19 21:00 78 13 134/66 (88) 100 11/23/19 20:52 70 16 50 11/23/19 20:00 99.2 83 22 125/72 (89) 100 11/23/19 20:00 Mechanical Ventilator 11/23/19 20:00 50 11/23/19 20:00 84 11/23/19 19:45 130/66 11/23/19 19:00 71 15 124/64 (84) 100 11/23/19 19:00 75 17 50 11/23/19 18:00 80 17 144/70 (94) 100 11/23/19 17:04 84 25 50 11/23/19 17:00 74 14 125/61 (82) 100 11/23/19 16:00 74 11/23/19 16:00 98.4 77 15 129/68 (88) 100 11/23/19 16:00 Mechanical Ventilator 11/23/19 16:00 50 11/23/19 15:08 79 20 50 11/23/19 15:00 81 20 136/70 (92) 100 11/23/19 14:00 82 22 144/74 (97) 100 11/23/19 13:00 80 22 147/71 (96) 100 11/23/19 12:49 73 15 50 I&O Intake and Output 11/23/19 11/24/19 19:00 07:00 Intake Total 2662.500 ml 2885.000 ml Output Total 1460 ml 1115 ml Balance 1202.500 ml 1770.000 ml IV Total 2612.500 ml 2885.000 ml Other 50 ml Output Urine Total 1390 ml 1065 ml Gastric Drainage Total 70 ml 50 ml Dressing: other Wound: other Drains: other Cardiovascular: RSR Respiratory: decreased breath sounds Abdomen: soft, present bowel sounds, other, non-distended Extremities: no tenderness, no cyanosis Laboratory Tests Test 11/24/19 04:00 11/24/19 09:00 White Blood Count 6.1 K/UL (4.8-10.8) Red Blood Count 2.43 M/UL (4.70-6.10) L Hemoglobin 7.7 G/DL (14.2-18.0) L Hematocrit 22.3 % (42.0-52.0) L Mean Corpuscular Volume 92 FL (80-99) Mean Corpuscular Hemoglobin 31.9 PG (27.0-31.0) H Mean Corpuscular Hemoglobin Concent 34.7 G/DL (32.0-36.0) Red Cell Distribution Width 10.9 % (11.6-14.8) L Platelet Count 122 K/UL (150-450) L Mean Platelet Volume 6.3 FL (6.5-10.1) L Neutrophils (%) (Auto) % (45.0-75.0) Lymphocytes (%) (Auto) % (20.0-45.0) Monocytes (%) (Auto) % (1.0-10.0) Eosinophils (%) (Auto) % (0.0-3.0) Basophils (%) (Auto) % (0.0-2.0) Differential Total Cells Counted 100 Neutrophils % (Manual) 73 % (45-75) Lymphocytes % (Manual) 22 % (20-45) Monocytes % (Manual) 2 % (1-10) Eosinophils % (Manual) 3 % (0-3) Basophils % (Manual) 0 % (0-2) Band Neutrophils 0 % (0-8) Platelet Estimate Decreased L Platelet Morphology Normal Hypochromasia 1+ Sodium Level 145 MMOL/L (136-145) Potassium Level 2.7 MMOL/L (3.5-5.1) *L Chloride Level 113 MMOL/L (98-107) H Carbon Dioxide Level 24 MMOL/L (21-32) Anion Gap 8 mmol/L (5-15) Blood Urea Nitrogen 22 mg/dL (7-18) H Creatinine 0.8 MG/DL (0.55-1.30) Estimat Glomerular Filtration Rate > 60 mL/min (>60) Glucose Level 70 MG/DL (74-106) L Calcium Level 7.9 MG/DL (8.5-10.1) L Vancomycin Level Trough 10.8 ug/mL (5.0-12.0) Plan Problems: (1) Sepsis Assessment & Plan: 64M with multiple comorbidities identified to have leukocytosis, lactic acidosis, CT as below. Patient is trach on vent support with PEG on tube feeds debilitated unresponsive Abdominal examination does not show significant distention and do not elicit pain upon palpation. G-tube in place and looks okay CT examination identifies free air around the left upper quadrant around the G- tube site as well as what seems to be a TIP TESTER shunt but contained within this area. No free air seen in the pelvis lower quadrants right upper quadrant underneath the liver And evaluate the patient's overall condition status is likely the G-tube and replaced potentially with some resistance prior causing injury around the G- tube insertion site with potential leakage possible infectious or inflammatory reaction would recommend medical management at this time given patient's current condition comorbidities TIP TESTER shunt location G-tube location and location of free air and potential infectious inflammatory process identified if rushing to surgical intervention there is Strong concerns for potentially infecting TIP TESTER shunt and having to remove or interrupt G-tube. If potentially localized infectious or inflammatory process may improve with medical management and inpatient who is debilitated sick and elderly would benefit from medical intervention versus aggressive surgical intervention if declines and does not respond to medical conservative management will discuss with f medical team and family considerations for surgical intervention start tube feeds at 10cc/hr iv fluids iv abx serial abd exams trend labs will follow with recs thank you Findings: Lack of enteric contrast limits assessment of the GI tract. There is a gastrostomy in good position. The stomach is distended with fluid. The proximal small bowel is dilated and fluid-filled. Most of the small bowel is distended with fluid and/or gas, although the most distal ileum is normal in caliber. The transition point is difficult to determine but may be in the right lower quadrant at the level of the distal ileum. The most severe small bowel distention is proximal. The rectum is distended by feces, measures 9 cm in diameter. No significant rectal wall thickening or perirectal inflammation demonstrated. No evidence of colonic diverticulosis or diverticulitis. There is gas anterior to the stomach which is probably intraluminal within bowel, but cannot be definitively connected to any bowel structures so extra peritoneal gas cannot be completely excluded. There is a ventriculoperitoneal shunt catheter, tip of which terminates in the left paracolic gutter. No free intraperitoneal fluid is demonstrated. The appendix is normal. There is no evidence of diverticulosis or diverticulitis. Lack of IV contrast limits assessment of the solid organs. The liver, gallbladder, bile ducts, pancreas, spleen are all unremarkable. The kidneys demonstrate bilateral cysts as well as bilateral subcentimeter low-attenuation lesions which are too small to characterize. There are bilateral nonobstructive calyceal calculi, largest in the right lower pole measuring approximately 8 mm long axis dimension. No ureteral calculi, or hydronephrosis or hydroureter. The bladder is empty. High attenuation material within the bladder lumen may reflect small bladder calculi. There is considerable consolidation within both of the visualized pulmonary lower lobes. There may be trace pleural fluid on the left. The bones are unremarkable except for degenerative spondylosis changes Impression: Dilated stomach and small bowel, nondilated distal ileum, suspicious for distal small bowel obstruction. Gas anterior to the stomach. While possibly within an enteric structure, no enteric structures are seen in this area on prior chest CT of 02/07/2018, so this is concerning for free intraperitoneal gas an therefore for perforation of a hollow viscus. Evidence of rectal fecal impaction Nonobstructive bilateral intrarenal calculi Considerable bilateral pulmonary lower lobe parenchymal consolidation Trace left pleural fluid Possible bladder calculi Ventriculoperitoneal shunt Gastrostomy Other findings as noted, including degenerative spondylosis, renal cysts Pt presented on admission with DTPI sacrum, Non-blanching erythema both heels. Pressure injury Sacrum has irregular borders and is maroon with an area that is purple at sacrococcygeal area.Marginal erythema noted along borders.Periwound is clean and pink(L)8ccm x (W)9cm. R heel is boggy with non-blanching erythema. Non-blanching erythema without induration ,fluctuance L heel. No other skin concerns noted. Tx.Plan: Apply Moisture Barrier Paste to Sacrum. Cover with Optifoam drsg. Change every 3 days and prn. Apply Cavilon Skin BArrier to both heels. Cover each heel with Optifoam drsg. Change every 7 days and prn APM/TOOTIE Mattress overlay. Reposition at least every 2hours or as tolerated. Off-load heels with pillow. Johnathan Ford Nov 24, 2019 12:07
--- NOTE | 2019-11-24 12:40 | NUR ---
NURSE NOTES: BS 61, D5 25ml given as per protocol since pt cannot tolerate it via G-tube. Addendum: 11/24/19 at 1243 by CHRISTINA MÁRQUEZ RN RN NURSE NOTES: BS 61, D5 25ml given as per protocol since pt cannot tolerate it via G-tube. Will recheck BS in 15 mins as per protocol.
--- NOTE | 2019-11-24 12:49 | Nephrology Progress Note ---
Assessment/Plan Assessment/Plan: A/P 1. GROVER- resolved. IVFs adjusted acute kidney injury secondary to dehydration, sepsis 2. Hypokalemia - being replaced 3. Respiratory failure, ventilator dependent. 4. Possible bowel perforation.- per Gen surgery - g tube to intermittent low wall suction per gen surgery Subjective Date patient seen: Nov 24, 2019 Time patient seen: 12:47 ROS Limited/Unobtainable: Yes Allergies: Coded Allergies: No Known Allergies (Unverified , 02/07/18) Subjective Patient remains trached on the vent Objective Last 24 Hour Vital Signs Date Time Temp Pulse Resp B/P (MAP) Pulse Ox O2 Delivery O2 Flow Rate FiO2 11/24/19 11:20 71 16 50 11/24/19 11:00 70 23 139/71 (93) 100 11/24/19 10:00 71 17 142/73 (96) 100 11/24/19 09:27 74 16 50 11/24/19 09:00 74 11 141/74 (96) 100 11/24/19 08:00 98.1 73 11 145/70 (95) 100 11/24/19 08:00 50 11/24/19 08:00 Mechanical Ventilator 11/24/19 07:26 70 20 50 11/24/19 07:00 70 15 136/75 (95) 100 11/24/19 06:30 82 16 11/24/19 06:00 68 10 129/67 (87) 100 11/24/19 05:13 76 20 50 11/24/19 05:00 74 7 155/71 (99) 100 11/24/19 04:00 74 11/24/19 04:00 Mechanical Ventilator 11/24/19 04:00 99.3 73 23 148/74 (98) 100 11/24/19 04:00 50 11/24/19 03:00 73 21 138/74 (95) 100 11/24/19 02:55 71 16 50 11/24/19 02:00 65 20 127/69 (88) 100 11/24/19 01:00 65 13 127/72 (90) 100 11/24/19 00:49 70 20 50 11/24/19 00:00 50 11/24/19 00:00 Mechanical Ventilator 11/24/19 00:00 99.0 77 20 137/77 (97) 100 11/24/19 00:00 68 11/23/19 23:00 69 20 127/64 (85) 100 11/23/19 22:37 72 19 50 11/23/19 22:00 73 22 126/63 (84) 100 11/23/19 21:00 78 13 134/66 (88) 100 11/23/19 20:52 70 16 50 11/23/19 20:00 99.2 83 22 125/72 (89) 100 11/23/19 20:00 Mechanical Ventilator 11/23/19 20:00 50 11/23/19 20:00 84 11/23/19 19:45 130/66 11/23/19 19:00 71 15 124/64 (84) 100 11/23/19 19:00 75 17 50 11/23/19 18:00 80 17 144/70 (94) 100 11/23/19 17:04 84 25 50 11/23/19 17:00 74 14 125/61 (82) 100 11/23/19 16:00 74 11/23/19 16:00 98.4 77 15 129/68 (88) 100 11/23/19 16:00 Mechanical Ventilator 11/23/19 16:00 50 11/23/19 15:08 79 20 50 11/23/19 15:00 81 20 136/70 (92) 100 11/23/19 14:00 82 22 144/74 (97) 100 11/23/19 13:00 80 22 147/71 (96) 100 11/23/19 12:49 73 15 50 Intake and Output 11/23/19 11/24/19 19:00 07:00 Intake Total 2662.500 ml 2885.000 ml Output Total 1460 ml 1115 ml Balance 1202.500 ml 1770.000 ml IV Total 2612.500 ml 2885.000 ml Other 50 ml Output Urine Total 1390 ml 1065 ml Gastric Drainage Total 70 ml 50 ml Laboratory Tests 11/24/19 04:00: White Blood Count 6.1, Red Blood Count 2.43L, Hemoglobin 7.7L, Hematocrit 22.3L , Mean Corpuscular Volume 92, Mean Corpuscular Hemoglobin 31.9H, Mean Corpuscular Hemoglobin Concent 34.7, Red Cell Distribution Width 10.9L, Platelet Count 122L, Mean Platelet Volume 6.3L, Neutrophils (%) (Auto) , Lymphocytes (%) (Auto) , Monocytes (%) (Auto) , Eosinophils (%) (Auto) , Basophils (%) (Auto) , Differential Total Cells Counted 100, Neutrophils % ( Manual) 73, Lymphocytes % (Manual) 22, Monocytes % (Manual) 2, Eosinophils % ( Manual) 3, Basophils % (Manual) 0, Band Neutrophils 0, Platelet Estimate DecreasedL, Platelet Morphology Normal, Hypochromasia 1+, Sodium Level 145, Potassium Level 2.7*L, Chloride Level 113H, Carbon Dioxide Level 24, Anion Gap 8 , Blood Urea Nitrogen 22H, Creatinine 0.8, Estimat Glomerular Filtration Rate > 60, Glucose Level 70L, Calcium Level 7.9L 11/24/19 09:00: Vancomycin Level Trough 10.8 Height (Feet): 6 Height (Inches): 2.00 Weight (Pounds): 205 General Appearance: no apparent distress EENT: normal ENT inspection Neck: normal alignment, supple Cardiovascular: regular rhythm Respiratory/Chest: rhonchi - bilaterally Abdomen: non tender, soft Edema: no edema noted Arm (L), no edema noted Arm (R), no edema noted Leg (L), no edema noted Leg (R), no edema noted Pedal (L), no edema noted Pedal (R), no edema noted Generalized Narendra Chavez MD Nov 24, 2019 12:49
[2019-11-24] MEDS: D5NS 1,000 ML IV SCH (12:57)
--- NOTE | 2019-11-24 12:57 | NUR ---
NURSE NOTES: Notified Dr Chavez regarding low blood sugar and IVF. Order for new IVF was entered by Dr Chavez. Will proceed the order.
--- NOTE | 2019-11-24 12:58 | Pulmonolgy Critical Care Note ---
Critical Care - Asmt/Plan Assessment/Plan: Pulmonary Progress Note Assessment/Plan patient with chronic VDRF abdominal distention improved with gastric suction GT dysfunction recently sepsis ARF COPD anoxia trach GT leukocytosis anemia PLAN gi and gs follow up NPO hydrate antibiotics monitor for change ICU care for now medications/laboratory data/nursing notes/ICU care reviewed in detail note reviewed and edited care discussed with RN and RT ICU time spent 36 minutes Critical Care - Subjective Interval Events: remains ill d/w consultants positive bcx ROS Limited/Unobtainable: Yes Condition: critical Critical Care - Objective Vital Signs Noted Labs Noted Objective: WDWN NAD trach reduced breath sounds bilaterally without rhonchi or wheeze [id number] without MRG reduced BS nontender no HSM; Gt no CC some edema obtunded nonfocal Micro: Microbiology Date/Time Source Procedure Growth Status 11/21/19 07:40 Blood Blood Culture - Preliminary Resulted 11/21/19 07:30 Blood Blood Culture - Preliminary Resulted Critical Care - Objective Last 24 Hour Vital Signs Date Time Temp Pulse Resp B/P (MAP) Pulse Ox O2 Delivery O2 Flow Rate FiO2 11/24/19 12:00 50 11/24/19 12:00 98.8 75 19 138/75 (96) 100 11/24/19 12:00 Mechanical Ventilator 11/24/19 11:20 71 16 50 11/24/19 11:00 70 23 139/71 (93) 100 11/24/19 10:00 71 17 142/73 (96) 100 11/24/19 09:27 74 16 50 11/24/19 09:00 74 11 141/74 (96) 100 11/24/19 08:00 98.1 73 11 145/70 (95) 100 11/24/19 08:00 50 11/24/19 08:00 Mechanical Ventilator 11/24/19 07:26 70 20 50 11/24/19 07:00 70 15 136/75 (95) 100 11/24/19 06:30 82 16 11/24/19 06:00 68 10 129/67 (87) 100 11/24/19 05:13 76 20 50 11/24/19 05:00 74 7 155/71 (99) 100 11/24/19 04:00 74 11/24/19 04:00 Mechanical Ventilator 11/24/19 04:00 99.3 73 23 148/74 (98) 100 1/26/20 04:00 50 11/24/19 03:00 73 21 138/74 (95) 100 11/24/19 02:55 71 16 50 11/24/19 02:00 65 20 127/69 (88) 100 11/24/19 01:00 65 13 127/72 (90) 100 11/24/19 00:49 70 20 50 11/24/19 00:00 50 11/24/19 00:00 Mechanical Ventilator 11/24/19 00:00 99.0 77 20 137/77 (97) 100 11/24/19 00:00 68 11/23/19 23:00 69 20 127/64 (85) 100 11/23/19 22:37 72 19 50 11/23/19 22:00 73 22 126/63 (84) 100 11/23/19 21:00 78 13 134/66 (88) 100 11/23/19 20:52 70 16 50 11/23/19 20:00 99.2 83 22 125/72 (89) 100 11/23/19 20:00 Mechanical Ventilator 11/23/19 20:00 50 11/23/19 20:00 84 11/23/19 19:45 130/66 11/23/19 19:00 71 15 124/64 (84) 100 11/23/19 19:00 75 17 50 11/23/19 18:00 80 17 144/70 (94) 100 11/23/19 17:04 84 25 50 11/23/19 17:00 74 14 125/61 (82) 100 11/23/19 16:00 74 11/23/19 16:00 98.4 77 15 129/68 (88) 100 11/23/19 16:00 Mechanical Ventilator 11/23/19 16:00 50 11/23/19 15:08 79 20 50 11/23/19 15:00 81 20 136/70 (92) 100 11/23/19 14:00 82 22 144/74 (97) 100 11/23/19 13:00 80 22 147/71 (96) 100 Micro: Microbiology Date/Time Source Procedure Growth Status 11/22/19 15:00 Sputum Gram Stain - Final Resulted 11/22/19 15:00 Sputum Culture - Preliminary Gram Negative Vaibhav Resulted 11/22/19 10:00 Urine,Clean Catch Urine Culture - Preliminary NO GROWTH AFTER 24 HOURS Resulted Accucheck: 61 Critical Care - Subjective ROS Limited/Unobtainable: No FI02: 50 Vent Support Breath Rate: 14 Vent Support Mode: AC Vent Tidal Volume: 600 Sputum Amount: Moderate PEEP: 5.0 PIP: 28 I&O: Intake and Output 11/23/19 11/24/19 19:00 07:00 Intake Total 2662.500 ml 2885.000 ml Output Total 1460 ml 1115 ml Balance 1202.500 ml 1770.000 ml IV Total 2612.500 ml 2885.000 ml Other 50 ml Output Urine Total 1390 ml 1065 ml Gastric Drainage Total 70 ml 50 ml Lul Rogers MD Nov 24, 2019 12:58
--- NOTE | 2019-11-24 13:00 | NUR ---
NURSE NOTES: BS 92. WNL. Will continue to monitor.
--- NOTE | 2019-11-24 13:13 | Infectious Diseases Prog Note ---
Assessment/Plan Assessment/Plan A; 1. Gram negative pneumonia. 2. Small bowel obstruction. 3. Leukocytosis is resolved. 4. Renal failure is improving. 5. Positive blood culture: contamination 6. Anemia 7. VDRF 8. Hypokalemia PLAN: 1. Discontinue IV vancomycin 2. Continue Zosyn. Subjective ROS Limited/Unobtainable: Yes Constitutional: Denies: fever Allergies: Coded Allergies: No Known Allergies (Unverified , 02/07/18) Objective Vital Signs Last 24 Hour Vital Signs Date Time Temp Pulse Resp B/P (MAP) Pulse Ox O2 Delivery O2 Flow Rate FiO2 11/24/19 12:00 50 11/24/19 12:00 98.8 75 19 138/75 (96) 100 11/24/19 12:00 Mechanical Ventilator 11/24/19 11:20 71 16 50 11/24/19 11:00 70 23 139/71 (93) 100 11/24/19 10:00 71 17 142/73 (96) 100 11/24/19 09:27 74 16 50 11/24/19 09:00 74 11 141/74 (96) 100 11/24/19 08:00 98.1 73 11 145/70 (95) 100 11/24/19 08:00 50 11/24/19 08:00 Mechanical Ventilator 11/24/19 07:26 70 20 50 11/24/19 07:00 70 15 136/75 (95) 100 11/24/19 06:30 82 16 11/24/19 06:00 68 10 129/67 (87) 100 11/24/19 05:13 76 20 50 11/24/19 05:00 74 7 155/71 (99) 100 11/24/19 04:00 74 11/24/19 04:00 Mechanical Ventilator 11/24/19 04:00 99.3 73 23 148/74 (98) 100 11/24/19 04:00 50 11/24/19 03:00 73 21 138/74 (95) 100 11/24/19 02:55 71 16 50 11/24/19 02:00 65 20 127/69 (88) 100 11/24/19 01:00 65 13 127/72 (90) 100 11/24/19 00:49 70 20 50 11/24/19 00:00 50 11/24/19 00:00 Mechanical Ventilator 11/24/19 00:00 99.0 77 20 137/77 (97) 100 11/24/19 00:00 68 11/23/19 23:00 69 20 127/64 (85) 100 11/23/19 22:37 72 19 50 11/23/19 22:00 73 22 126/63 (84) 100 11/23/19 21:00 78 13 134/66 (88) 100 11/23/19 20:52 70 16 50 11/23/19 20:00 99.2 83 22 125/72 (89) 100 11/23/19 20:00 Mechanical Ventilator 11/23/19 20:00 50 11/23/19 20:00 84 11/23/19 19:45 130/66 11/23/19 19:00 71 15 124/64 (84) 100 11/23/19 19:00 75 17 50 11/23/19 18:00 80 17 144/70 (94) 100 11/23/19 17:04 84 25 50 11/23/19 17:00 74 14 125/61 (82) 100 11/23/19 16:00 74 11/23/19 16:00 98.4 77 15 129/68 (88) 100 11/23/19 16:00 Mechanical Ventilator 11/23/19 16:00 50 11/23/19 15:08 79 20 50 11/23/19 15:00 81 20 136/70 (92) 100 11/23/19 14:00 82 22 144/74 (97) 100 Height (Feet): 6 Height (Inches): 2.00 Weight (Pounds): 205 HEENT: status post trach Respiratory/Chest: rhonchi - bilaterally, other - on ventilator Cardiovascular: normal rate, other - R arm PICC line Abdomen: other - GT in place Extremities: other - trace edema Neurologic/Psychiatric: unresponsiveness, aphasia Microbiology Date/Time Source Procedure Growth Status 11/22/19 15:00 Sputum Gram Stain - Final Resulted 11/22/19 15:00 Sputum Culture - Preliminary Gram Negative Vaibhav Resulted 11/22/19 10:00 Urine,Clean Catch Urine Culture - Preliminary NO GROWTH AFTER 24 HOURS Resulted Laboratory Tests Test 11/24/19 04:00 11/24/19 09:00 White Blood Count 6.1 K/UL (4.8-10.8) Red Blood Count 2.43 M/UL (4.70-6.10) L Hemoglobin 7.7 G/DL (14.2-18.0) L Hematocrit 22.3 % (42.0-52.0) L Mean Corpuscular Volume 92 FL (80-99) Mean Corpuscular Hemoglobin 31.9 PG (27.0-31.0) H Mean Corpuscular Hemoglobin Concent 34.7 G/DL (32.0-36.0) Red Cell Distribution Width 10.9 % (11.6-14.8) L Platelet Count 122 K/UL (150-450) L Mean Platelet Volume 6.3 FL (6.5-10.1) L Neutrophils (%) (Auto) % (45.0-75.0) Lymphocytes (%) (Auto) % (20.0-45.0) Monocytes (%) (Auto) % (1.0-10.0) Eosinophils (%) (Auto) % (0.0-3.0) Basophils (%) (Auto) % (0.0-2.0) Differential Total Cells Counted 100 Neutrophils % (Manual) 73 % (45-75) Lymphocytes % (Manual) 22 % (20-45) Monocytes % (Manual) 2 % (1-10) Eosinophils % (Manual) 3 % (0-3) Basophils % (Manual) 0 % (0-2) Band Neutrophils 0 % (0-8) Platelet Estimate Decreased L Platelet Morphology Normal Hypochromasia 1+ Sodium Level 145 MMOL/L (136-145) Potassium Level 2.7 MMOL/L (3.5-5.1) *L Chloride Level 113 MMOL/L (98-107) H Carbon Dioxide Level 24 MMOL/L (21-32) Anion Gap 8 mmol/L (5-15) Blood Urea Nitrogen 22 mg/dL (7-18) H Creatinine 0.8 MG/DL (0.55-1.30) Estimat Glomerular Filtration Rate > 60 mL/min (>60) Glucose Level 70 MG/DL (74-106) L Calcium Level 7.9 MG/DL (8.5-10.1) L Vancomycin Level Trough 10.8 ug/mL (5.0-12.0) Current Medications Medications (Trade) Dose Ordered Sig/Cande Route PRN Reason Start Time Stop Time Status Last Admin Dose Admin Acetaminophen (Tylenol) 650 mg Q4H PRN ORAL Mild Pain/Temp > 100.5 11/21/19 15:45 12/21/19 15:44 11/22/19 20:45 Al Hydroxide/Mg Hydroxide (Mylanta) 30 ml QIDPRN PRN ORAL HEARTBURN 11/21/19 15:45 12/21/19 15:44 Chlorhexidine Gluconate (Nadia-Hex 2%) 1 applic DAILY@2000 TOPIC 11/21/19 20:00 12/21/19 19:59 11/23/19 20:06 Dextrose (Dextrose 50%) 25 ml Q30M PRN IV Hypoglycemia 11/23/19 21:00 12/23/19 20:59 11/24/19 12:40 Dextrose (Dextrose 50%) 50 ml Q30M PRN IV Hypoglycemia 11/23/19 21:00 12/23/19 20:59 11/23/19 21:06 Dextrose/Sodium Chloride 1,000 ml @ 75 mls/hr [id number] IV 11/24/19 12:50 12/24/19 12:49 11/24/19 12:57 Levetiracetam 100 ml @ 400 mls/hr Q12HR IVPB 11/21/19 21:00 12/21/19 20:59 11/24/19 08:25 Norepinephrine Bitartrate 4 mg/ Dextrose 250 ml @ 0 mls/hr Q24H IV 11/21/19 19:45 12/21/19 19:44 Pantoprazole (Protonix) 40 mg DAILY ORAL 11/22/19 09:00 12/22/19 08:59 11/24/19 08:25 Piperacillin Sod/ Tazobactam Sod 3.375 gm/Sodium Chloride 110 ml @ 27.5 mls/hr Q8H IVPB 11/21/19 17:00 11/28/19 16:59 11/24/19 08:24 Vancomycin HCl (Vanco rx to dose) 1 ea DAILY PRN MISC Per rx protocol 11/21/19 15:45 12/21/19 15:44 Vancomycin/Sodium Chloride 275 ml @ 183.708 mls/hr Q12H IVPB 11/24/19 10:00 11/29/19 09:59 11/24/19 10:46 Carlos Manuel Shukla MD Nov 24, 2019 13:13
[2019-11-24] MEDS ORDERED: Tubing IV Secondary IV ONE (13:22)
--- NOTE | 2019-11-24 15:02 | NUR ---
NURSE NOTES: Turned and repositioned pt. VSS. No acute distress noted. Will continue to monitor.
--- NOTE | 2019-11-24 17:38 | NUR ---
NURSE NOTES: BS 92. No coverage. Continued tube feeding of Vital AF 1.2 at 100cc/hr since no residual noted. Cleaned and repositioned pt for no BM.
--- NOTE | 2019-11-24 19:30 | NUR ---
HAND-OFF: Report given to FRANCISCO JAVIER Mortensen.
--- NOTE | 2019-11-24 20:00 | NUR ---
NURSE NOTES: received report from concepción burrell rn pt orally intubated -vent o2 sat 100 o/o non verbal no movement left side hiss body reposition and suction no acute resp distress hr sr with pvc
[2019-11-24] MEDS: Dyna-Hex 2% Top Sol 2oz TOPIC SCH (20:49)
--- NOTE | 2019-11-24 22:00 | NUR ---
NURSE NOTES: reposition and suction urinary out put good
[2019-11-25] VITALS (24 sets, daily range): BP systolic 129–155; BP diastolic 66–86
--- NOTE | 2019-11-25 | NUR ---
NURSE NOTES: condition un change vs stable
[2019-11-25] MEDS: Piperacillin/Tazobactam 3.375 GM in NS 110 ML IVPB SCH ×3 (00:47→18:34)
[2019-11-25] MEDS: D5NS 1,000 ML IV SCH ×2 (02:00→18:33)
--- NOTE | 2019-11-25 02:00 | NUR ---
reposition and suction
--- NOTE | 2019-11-25 04:00 | NUR ---
NURSE NOTES: complete bed bath oral care back care done tolerating tube feeding no residual
[2019-11-25 05:52] LABS: HEMOGLOBIN 7.7 G/DL (14.2-18.0); MEAN CORPUSCULAR VOLUME 91 FL (80-99); PLATELET COUNT 118 K/UL (150-450); RED BLOOD COUNT 2.42 M/UL (4.70-6.10); RED CELL DISTRIBUTION WIDTH 10.8 % (11.6-14.8); WHITE BLOOD COUNT 5.6 K/UL (4.8-10.8)
--- NOTE | 2019-11-25 06:00 | NUR ---
NURSE NOTES: condition un change bs 114 no coverage
[2019-11-25 06:37] LABS: ANION GAP 7 mmol/L (5-15); BLOOD UREA NITROGEN 10 mg/dL (7-18); CALCIUM 7.5 MG/DL (8.5-10.1); CARBON DIOXIDE 27 MMOL/L (21-32); CHLORIDE 111 MMOL/L (98-107); CREATININE 0.7 MG/DL (0.55-1.30); SODIUM 144 MMOL/L (136-145)
[2019-11-25 06:39] LABS: POTASSIUM 2.5 MMOL/L (3.5-5.1)
--- NOTE | 2019-11-25 07:29 | Nephrology Progress Note ---
Assessment/Plan Assessment/Plan: A/P 1. GROVER- resolved. Will follow from a distance acute kidney injury secondary to dehydration, sepsis 2. Hypokalemia - being replaced prn 3. Respiratory failure, ventilator dependent. 4. Possible bowel perforation.- per Gen surgery - g tube to intermittent low wall suction per gen surgery Subjective Date patient seen: Nov 25, 2019 Time patient seen: 07:28 ROS Limited/Unobtainable: Yes Allergies: Coded Allergies: No Known Allergies (Unverified , 02/07/18) Subjective Patient remains trached Objective Last 24 Hour Vital Signs Date Time Temp Pulse Resp B/P (MAP) Pulse Ox O2 Delivery O2 Flow Rate FiO2 11/25/19 06:30 78 19 11/25/19 06:00 68 4 149/78 (101) 100 11/25/19 05:08 62 14 50 11/25/19 05:00 66 14 141/68 (92) 100 11/25/19 04:00 98.4 66 13 131/69 (89) 100 11/25/19 04:00 50 11/25/19 04:00 Mechanical Ventilator 11/25/19 04:00 Mechanical Ventilator 11/25/19 04:00 67 11/25/19 03:24 70 16 50 11/25/19 03:00 79 26 155/86 (109) 100 11/25/19 02:00 71 15 137/71 (93) 100 11/25/19 01:17 66 15 50 11/25/19 01:00 65 12 129/73 (91) 100 11/25/19 00:00 Mechanical Ventilator 11/25/19 00:00 79 11/25/19 00:00 98.0 68 15 132/66 (88) 100 11/25/19 00:00 50 11/24/19 23:14 64 14 50 11/24/19 23:00 65 14 126/69 (88) 100 11/24/19 22:00 66 14 124/46 (72) 100 11/24/19 21:22 74 19 50 11/24/19 21:00 74 14 143/75 (97) 100 11/24/19 20:00 98.6 72 10 146/68 (94) 100 11/24/19 20:00 80 11/24/19 20:00 Mechanical Ventilator 11/24/19 20:00 50 11/24/19 19:45 146/68 11/24/19 19:00 80 21 155/77 (103) 100 11/24/19 18:50 75 21 50 11/24/19 18:00 74 17 140/73 (95) 100 11/24/19 17:00 98.3 71 22 140/75 (96) 100 11/24/19 16:31 74 16 50 11/24/19 16:17 73 11/24/19 16:00 Mechanical Ventilator 11/24/19 16:00 66 16 135/69 (91) 100 11/24/19 16:00 50 11/24/19 15:00 69 14 144/70 (94) 100 11/24/19 14:40 72 16 50 11/24/19 14:00 70 16 146/71 (96) 100 11/24/19 13:17 74 20 50 11/24/19 13:00 75 19 140/71 (94) 100 11/24/19 12:00 50 11/24/19 12:00 98.8 75 19 138/75 (96) 100 11/24/19 12:00 Mechanical Ventilator 11/24/19 11:37 74 11/24/19 11:20 71 16 50 11/24/19 11:00 70 23 139/71 (93) 100 11/24/19 10:00 71 17 142/73 (96) 100 11/24/19 09:27 74 16 50 11/24/19 09:00 74 11 141/74 (96) 100 11/24/19 08:00 98.1 73 11 145/70 (95) 100 11/24/19 08:00 50 11/24/19 08:00 Mechanical Ventilator 11/24/19 07:50 75 Intake and Output 11/24/19 11/25/19 19:00 07:00 Intake Total 2007.500 ml 1145.0 ml Output Total 1560 ml 1010 ml Balance 447.500 ml 135.0 ml IV Total 1907.500 ml 1035.0 ml Tube Feeding 50 ml 110 ml Other 50 ml Output Urine Total 1560 ml 1010 ml # Bowel Movements 2 Laboratory Tests 11/24/19 09:00: Vancomycin Level Trough 10.8 11/25/19 04:00: White Blood Count 5.6, Red Blood Count 2.42L, Hemoglobin 7.7L, Hematocrit 22.0L , Mean Corpuscular Volume 91, Mean Corpuscular Hemoglobin 31.7H, Mean Corpuscular Hemoglobin Concent 34.8, Red Cell Distribution Width 10.8L, Platelet Count 118L, Mean Platelet Volume 6.1L, Neutrophils (%) (Auto) , Lymphocytes (%) (Auto) , Monocytes (%) (Auto) , Eosinophils (%) (Auto) , Basophils (%) (Auto) , Sodium Level 144, Potassium Level 2.5*L, Chloride Level 111H, Carbon Dioxide Level 27, Anion Gap 7, Blood Urea Nitrogen 10, Creatinine 0.7, Estimat Glomerular Filtration Rate > 60, Glucose Level 105, Calcium Level 7.5L Height (Feet): 6 Height (Inches): 2.00 Weight (Pounds): 210 General Appearance: no apparent distress EENT: normal ENT inspection Neck: normal alignment, supple Cardiovascular: normal rate Respiratory/Chest: rhonchi - bilaterally Abdomen: non tender, soft Edema: 1+ Arm (L), 1+ Arm (R), 1+ Leg (L), 1+ Leg (R), 1+ Pedal (L), 1+ Pedal ( R), 1+ Generalized Narendra Chavez MD Nov 25, 2019 07:29
--- NOTE | 2019-11-25 07:43 | NUR ---
HAND-OFF: Report given to flori nettles using sbar.
--- NOTE | 2019-11-25 08:00 | NUR ---
NURSE NOTES: Received change of shift report from Festus MCINTYRE. Pt opens eyes to voice/touch, withdraws to pain. Pt is on trach to vent, Shiley XLT 6.0 with vent settings AC14, VT600, Peep 5.0, FIO2 50% at 96% O2Sat. 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 Right upper arm double lumen PICC line with IV fluid D5NS at 75ml/hour. Pt also has left wrist #20G and right hand #20G peripheral IV access, saline locked, patent/intact. Pt has GT with feeding Vital AF 1.2 infusing at goal rate of 10ml/hour. Abdomen is large, round, soft, nontender to touch, with hypoactive bowel sounds. Silva catheter is in place, draining clear/yellow urine. Skin has sacral DTI, covered with optifoam dressing. Bilateral SCDs are on lower extremities for DVT prophylaxis. Pt is pressure releasing mattress with bilateral off/heels. Bed is locked, HOB at 30 degrees, three side rails up, bed in lowest position and call light placed within easy reach. Will continue to monitor pt.
--- NOTE | 2019-11-25 08:37 | Critical Care Progress Note ---
Assessment/Plan Assessment/Plan abdominal distention free air sepsis ARF COPD anoxia trach GT leukocytosis anemia +cultures PLAN gi and gs follow up NPO hydrate antibiotics monitor for change feeds ID clearance ICU care medications/laboratory data/nursing notes/ICU care reviewed in detail note reviewed and edited care discussed with RN and RT ICU time spent 36 minutes Critical Care - Subjective Interval Events: care noted surgery appreciated orders for TF noted cultures reviewed ROS Limited/Unobtainable: Yes Condition: critical EKG Rhythm: Sinus Rhythm Residuals: minimal Tube Feeding Tolerated: yes I&O: Intake and Output 11/24/19 11/25/19 19:00 07:00 Intake Total 2007.500 ml 1145.0 ml Output Total 1560 ml 1010 ml Balance 447.500 ml 135.0 ml IV Total 1907.500 ml 1035.0 ml Tube Feeding 50 ml 110 ml Other 50 ml Output Urine Total 1560 ml 1010 ml # Bowel Movements 2 Critical Care - Objective Last 24 Hour Vital Signs Date Time Temp Pulse Resp B/P (MAP) Pulse Ox O2 Delivery O2 Flow Rate FiO2 11/25/19 07:30 69 14 45 11/25/19 06:30 78 19 11/25/19 06:00 68 4 149/78 (101) 100 11/25/19 05:08 62 14 50 11/25/19 05:00 66 14 141/68 (92) 100 11/25/19 04:00 98.4 66 13 131/69 (89) 100 11/25/19 04:00 50 11/25/19 04:00 Mechanical Ventilator 11/25/19 04:00 Mechanical Ventilator 11/25/19 04:00 67 11/25/19 03:24 70 16 50 11/25/19 03:00 79 26 155/86 (109) 100 11/25/19 02:00 71 15 137/71 (93) 100 11/25/19 01:17 66 15 50 11/25/19 01:00 65 12 129/73 (91) 100 11/25/19 00:00 Mechanical Ventilator 11/25/19 00:00 79 11/25/19 00:00 98.0 68 15 132/66 (88) 100 11/25/19 00:00 50 11/24/19 23:14 64 14 50 11/24/19 23:00 65 14 126/69 (88) 100 11/24/19 22:00 66 14 124/46 (72) 100 11/24/19 21:22 74 19 50 11/24/19 21:00 74 14 143/75 (97) 100 11/24/19 20:00 98.6 72 10 146/68 (94) 100 11/24/19 20:00 80 11/24/19 20:00 Mechanical Ventilator 11/24/19 20:00 50 11/24/19 19:45 146/68 11/24/19 19:00 80 21 155/77 (103) 100 11/24/19 18:50 75 21 50 11/24/19 18:00 74 17 140/73 (95) 100 11/24/19 17:00 98.3 71 22 140/75 (96) 100 11/24/19 16:31 74 16 50 11/24/19 16:17 73 11/24/19 16:00 Mechanical Ventilator 11/24/19 16:00 66 16 135/69 (91) 100 11/24/19 16:00 50 11/24/19 15:00 69 14 144/70 (94) 100 11/24/19 14:40 72 16 50 11/24/19 14:00 70 16 146/71 (96) 100 11/24/19 13:17 74 20 50 11/24/19 13:00 75 19 140/71 (94) 100 11/24/19 12:00 50 11/24/19 12:00 98.8 75 19 138/75 (96) 100 11/24/19 12:00 Mechanical Ventilator 11/24/19 11:37 74 11/24/19 11:20 71 16 50 11/24/19 11:00 70 23 139/71 (93) 100 11/24/19 10:00 71 17 142/73 (96) 100 11/24/19 09:27 74 16 50 11/24/19 09:00 74 11 141/74 (96) 100 Labs: Labs Test 11/22/19 09:07 11/23/19 05:20 11/24/19 04:00 11/24/19 09:00 Arterial Blood pH 7.504 (7.350-7.450) Arterial Blood Partial Pressure CO2 29.9 mmHg (35.0-45.0) Arterial Blood Partial Pressure O2 302.7 mmHg (75.0-100.0) Arterial Blood HCO3 23.0 mmol/L (22.0-26.0) Arterial Blood Oxygen Saturation 99.1 % (95-100) Arterial Blood Base Excess 0.5 (-2-2) Zaheer Test Positive White Blood Count 9.2 K/UL (4.8-10.8) 6.1 K/UL (4.8-10.8) Red Blood Count 2.49 M/UL (4.70-6.10) 2.43 M/UL (4.70-6.10) Hemoglobin 8.1 G/DL (14.2-18.0) 7.7 G/DL (14.2-18.0) Hematocrit 23.0 % (42.0-52.0) 22.3 % (42.0-52.0) Mean Corpuscular Volume 92 FL (80-99) 92 FL (80-99) Mean Corpuscular Hemoglobin 32.7 PG (27.0-31.0) 31.9 PG (27.0-31.0) Mean Corpuscular Hemoglobin Concent 35.4 G/DL (32.0-36.0) 34.7 G/DL (32.0-36.0) Red Cell Distribution Width 10.7 % (11.6-14.8) 10.9 % (11.6-14.8) Platelet Count 131 K/UL (150-450) 122 K/UL (150-450) Mean Platelet Volume 6.3 FL (6.5-10.1) 6.3 FL (6.5-10.1) Neutrophils (%) (Auto) 80.1 % (45.0-75.0) % (45.0-75.0) Lymphocytes (%) (Auto) 9.2 % (20.0-45.0) % (20.0-45.0) Monocytes (%) (Auto) 5.3 % (1.0-10.0) % (1.0-10.0) Eosinophils (%) (Auto) 4.2 % (0.0-3.0) % (0.0-3.0) Basophils (%) (Auto) 1.2 % (0.0-2.0) % (0.0-2.0) Erythrocyte Sedimentation Rate 116 MM/HR (0-20) Prothrombin Time 11.4 SEC (9.30-11.50) Prothromb Time International Ratio 1.1 (0.9-1.1) Activated Partial Thromboplast Time 29 SEC (23-33) Sodium Level 143 MMOL/L (136-145) 145 MMOL/L (136-145) Potassium Level 3.6 MMOL/L (3.5-5.1) 2.7 MMOL/L (3.5-5.1) Chloride Level 111 MMOL/L (98-107) 113 MMOL/L (98-107) Carbon Dioxide Level 25 MMOL/L (21-32) 24 MMOL/L (21-32) Anion Gap 7 mmol/L (5-15) 8 mmol/L (5-15) Blood Urea Nitrogen 45 mg/dL (7-18) 22 mg/dL (7-18) Creatinine 1.2 MG/DL (0.55-1.30) 0.8 MG/DL (0.55-1.30) Estimat Glomerular Filtration Rate > 60 mL/min (>60) > 60 mL/min (>60) Glucose Level 67 MG/DL (74-106) 70 MG/DL (74-106) Calcium Level 8.2 MG/DL (8.5-10.1) 7.9 MG/DL (8.5-10.1) Total Bilirubin 0.8 MG/DL (0.2-1.0) Aspartate Amino Transf (AST/SGOT) 19 U/L (15-37) Alanine Aminotransferase (ALT/SGPT) 18 U/L (12-78) Alkaline Phosphatase 61 U/L (46-116) C-Reactive Protein, Quantitative 19.2 mg/dL (0.00-0.90) Total Protein 5.5 G/DL (6.4-8.2) Albumin 1.8 G/DL (3.4-5.0) Globulin 3.7 g/dL Albumin/Globulin Ratio 0.5 (1.0-2.7) Amylase Level 51 U/L (25-115) Lipase 115 U/L (73-393) Random Vancomycin Level 7.5 ug/mL Differential Total Cells Counted 100 Neutrophils % (Manual) 73 % (45-75) Lymphocytes % (Manual) 22 % (20-45) Monocytes % (Manual) 2 % (1-10) Eosinophils % (Manual) 3 % (0-3) Basophils % (Manual) 0 % (0-2) Band Neutrophils 0 % (0-8) Platelet Estimate Decreased Platelet Morphology Normal Hypochromasia 1+ Vancomycin Level Trough 10.8 ug/mL (5.0-12.0) Test 11/25/19 04:00 White Blood Count 5.6 K/UL (4.8-10.8) Red Blood Count 2.42 M/UL (4.70-6.10) Hemoglobin 7.7 G/DL (14.2-18.0) Hematocrit 22.0 % (42.0-52.0) Mean Corpuscular Volume 91 FL (80-99) Mean Corpuscular Hemoglobin 31.7 PG (27.0-31.0) Mean Corpuscular Hemoglobin Concent 34.8 G/DL (32.0-36.0) Red Cell Distribution Width 10.8 % (11.6-14.8) Platelet Count 118 K/UL (150-450) Mean Platelet Volume 6.1 FL (6.5-10.1) Neutrophils (%) (Auto) % (45.0-75.0) Lymphocytes (%) (Auto) % (20.0-45.0) Monocytes (%) (Auto) % (1.0-10.0) Eosinophils (%) (Auto) % (0.0-3.0) Basophils (%) (Auto) % (0.0-2.0) Sodium Level 144 MMOL/L (136-145) Potassium Level 2.5 MMOL/L (3.5-5.1) Chloride Level 111 MMOL/L (98-107) Carbon Dioxide Level 27 MMOL/L (21-32) Anion Gap 7 mmol/L (5-15) Blood Urea Nitrogen 10 mg/dL (7-18) Creatinine 0.7 MG/DL (0.55-1.30) Estimat Glomerular Filtration Rate > 60 mL/min (>60) Glucose Level 105 MG/DL (74-106) Calcium Level 7.5 MG/DL (8.5-10.1) Objective: WDWN NAD trach reduced breath sounds bilaterally without rhonchi or wheeze [id number] without MRG reduced BS nontender no HSM; Gt no CC some edema obtunded nonfocal Micro: Microbiology Date/Time Source Procedure Growth Status 11/22/19 15:00 Sputum Gram Stain - Final Resulted 11/22/19 15:00 Sputum Culture - Preliminary Gram Negative Avibhav Gram Negative Bacillus 2 Gram Negative Bacillus 3 Resulted 11/22/19 10:00 Urine,Clean Catch Urine Culture - Final NO GROWTH AFTER 48 HOURS Complete Accucheck: 114 Jameel Pierre MD Nov 25, 2019 08:37
[2019-11-25] MEDS: levETIRAcetam 500mg/NS100ml 100 ML IVPB SCH ×2 (08:57→20:15)
--- NOTE | 2019-11-25 10:00 | NUR ---
NURSE NOTES: AM meds were administered. K is being replaced with 40meq KCL for K=2.5 from this AM's lab results. RT at bedside. Oral care was done and pt suctioned, output of mi Addendum: 11/25/19 at 1137 by MAX EMERY RN CONTINUE FROM PREVIOUS NOTE: Oral care was done and pt suctioned, output of minimal amount of clear/white secretions. Pt was repositioned. Addendum: 11/25/19 at 1242 by MAX EMERY RN Suction set up at bedside was readjusted and now the output of tracheal secretions is thick/white in moderate amount.
--- NOTE | 2019-11-25 10:09 | Infectious Diseases Prog Note ---
Assessment/Plan Assessment/Plan A; 1. Gram negative pneumonia. 2. Small bowel obstruction. 3. Leukocytosis is resolved. 4. Renal failure is improving. 5. Positive blood culture: contamination 6. Anemia 7. VDRF 8. Hypokalemia PLAN: 1. Continue Zosyn. 2. Will f/u cultures Subjective ROS Limited/Unobtainable: Yes Constitutional: Denies: fever Allergies: Coded Allergies: No Known Allergies (Unverified , 02/07/18) Objective Vital Signs Last 24 Hour Vital Signs Date Time Temp Pulse Resp B/P (MAP) Pulse Ox O2 Delivery O2 Flow Rate FiO2 11/25/19 08:51 68 14 40 11/25/19 07:30 69 14 45 11/25/19 06:30 78 19 11/25/19 06:00 68 4 149/78 (101) 100 11/25/19 05:08 62 14 50 11/25/19 05:00 66 14 141/68 (92) 100 11/25/19 04:00 98.4 66 13 131/69 (89) 100 11/25/19 04:00 50 11/25/19 04:00 Mechanical Ventilator 11/25/19 04:00 Mechanical Ventilator 11/25/19 04:00 67 11/25/19 03:24 70 16 50 11/25/19 03:00 79 26 155/86 (109) 100 11/25/19 02:00 71 15 137/71 (93) 100 11/25/19 01:17 66 15 50 11/25/19 01:00 65 12 129/73 (91) 100 11/25/19 00:00 Mechanical Ventilator 11/25/19 00:00 79 11/25/19 00:00 98.0 68 15 132/66 (88) 100 11/25/19 00:00 50 11/24/19 23:14 64 14 50 11/24/19 23:00 65 14 126/69 (88) 100 11/24/19 22:00 66 14 124/46 (72) 100 11/24/19 21:22 74 19 50 11/24/19 21:00 74 14 143/75 (97) 100 11/24/19 20:00 98.6 72 10 146/68 (94) 100 11/24/19 20:00 80 11/24/19 20:00 Mechanical Ventilator 11/24/19 20:00 50 11/24/19 19:45 146/68 11/24/19 19:00 80 21 155/77 (103) 100 11/24/19 18:50 75 21 50 11/24/19 18:00 74 17 140/73 (95) 100 11/24/19 17:00 98.3 71 22 140/75 (96) 100 11/24/19 16:31 74 16 50 11/24/19 16:17 73 11/24/19 16:00 Mechanical Ventilator 11/24/19 16:00 66 16 135/69 (91) 100 11/24/19 16:00 50 11/24/19 15:00 69 14 144/70 (94) 100 11/24/19 14:40 72 16 50 11/24/19 14:00 70 16 146/71 (96) 100 11/24/19 13:17 74 20 50 11/24/19 13:00 75 19 140/71 (94) 100 11/24/19 12:00 50 11/24/19 12:00 98.8 75 19 138/75 (96) 100 11/24/19 12:00 Mechanical Ventilator 11/24/19 11:37 74 11/24/19 11:20 71 16 50 11/24/19 11:00 70 23 139/71 (93) 100 Height (Feet): 6 Height (Inches): 2.00 Weight (Pounds): 210 HEENT: status post trach Respiratory/Chest: rhonchi - bilaterally, other - on ventilator Cardiovascular: normal rate Abdomen: soft, non tender, other - GT feeding Extremities: other - mild edema Neurologic/Psychiatric: unresponsiveness, aphasia Microbiology Date/Time Source Procedure Growth Status 11/22/19 15:00 Sputum Gram Stain - Final Resulted 11/22/19 15:00 Sputum Culture - Preliminary Gram Negative Vaibhav Gram Negative Bacillus 2 Gram Negative Bacillus 3 Resulted Laboratory Tests Test 11/25/19 04:00 White Blood Count 5.6 K/UL (4.8-10.8) Red Blood Count 2.42 M/UL (4.70-6.10) L Hemoglobin 7.7 G/DL (14.2-18.0) L Hematocrit 22.0 % (42.0-52.0) L Mean Corpuscular Volume 91 FL (80-99) Mean Corpuscular Hemoglobin 31.7 PG (27.0-31.0) H Mean Corpuscular Hemoglobin Concent 34.8 G/DL (32.0-36.0) Red Cell Distribution Width 10.8 % (11.6-14.8) L Platelet Count 118 K/UL (150-450) L Mean Platelet Volume 6.1 FL (6.5-10.1) L Neutrophils (%) (Auto) % (45.0-75.0) Lymphocytes (%) (Auto) % (20.0-45.0) Monocytes (%) (Auto) % (1.0-10.0) Eosinophils (%) (Auto) % (0.0-3.0) Basophils (%) (Auto) % (0.0-2.0) Sodium Level 144 MMOL/L (136-145) Potassium Level 2.5 MMOL/L (3.5-5.1) *L Chloride Level 111 MMOL/L (98-107) H Carbon Dioxide Level 27 MMOL/L (21-32) Anion Gap 7 mmol/L (5-15) Blood Urea Nitrogen 10 mg/dL (7-18) Creatinine 0.7 MG/DL (0.55-1.30) Estimat Glomerular Filtration Rate > 60 mL/min (>60) Glucose Level 105 MG/DL (74-106) Calcium Level 7.5 MG/DL (8.5-10.1) L Current Medications Medications (Trade) Dose Ordered Sig/Cande Route PRN Reason Start Time Stop Time Status Last Admin Dose Admin Acetaminophen (Tylenol) 650 mg Q4H PRN ORAL Mild Pain/Temp > 100.5 11/21/19 15:45 12/21/19 15:44 11/22/19 20:45 Al Hydroxide/Mg Hydroxide (Mylanta) 30 ml QIDPRN PRN ORAL HEARTBURN 11/21/19 15:45 12/21/19 15:44 Chlorhexidine Gluconate (Nadia-Hex 2%) 1 applic DAILY@1999 TOPIC 11/21/19 20:00 12/21/19 19:59 11/24/19 20:49 Dextrose (Dextrose 50%) 25 ml Q30M PRN IV Hypoglycemia 11/23/19 21:00 12/23/19 20:59 11/24/19 12:40 Dextrose (Dextrose 50%) 50 ml Q30M PRN IV Hypoglycemia 11/23/19 21:00 12/23/19 20:59 11/23/19 21:06 Dextrose/Sodium Chloride 1,000 ml @ 75 mls/hr [id number] IV 11/24/19 12:50 12/24/19 12:49 11/25/19 02:00 Levetiracetam 100 ml @ 400 mls/hr Q12HR IVPB 11/21/19 21:00 12/21/19 20:59 11/25/19 08:57 Norepinephrine Bitartrate 4 mg/ Dextrose 250 ml @ 0 mls/hr Q24H IV 11/21/19 19:45 12/21/19 19:44 Pantoprazole (Protonix) 40 mg DAILY ORAL 11/22/19 09:00 12/22/19 08:59 11/25/19 08:56 Piperacillin Sod/ Tazobactam Sod 3.375 gm/Sodium Chloride 110 ml @ 27.5 mls/hr Q8H IVPB 11/21/19 17:00 11/28/19 16:59 11/25/19 08:57 Potassium Chloride 100 ml @ 50 mls/hr Q2H IVPB 11/25/19 08:00 11/25/19 11:59 11/25/19 08:57 Carlos Manuel Shukla MD Nov 25, 2019 10:09
--- NOTE | 2019-11-25 11:30 | NUR ---
NURSE NOTES: Pt was seen by Dr Tsai. Assisted MD with rectal exam. No new orders at this time. Pt is tolerating GT feed well with no noted residual or s/s of vomiting.
--- NOTE | 2019-11-25 13:28 | NUR ---
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 99.0 HR 65 RR 12 B/P 134/66 AC 14 TV 600 FIO2 40% PEEP 5 K 2.5 IS: IVF D5NS @ 75ML/HR ZOSYN IV ICU STATUS
--- NOTE | 2019-11-25 14:00 | NUR ---
NURSE NOTES: Cooling measures are in place for Temp of 99.6F axillary. Bilateral lower extremity SCDs are temporarily removed from pt. Temp is now trending down to 99.1F axillary.
--- NOTE | 2019-11-25 14:50 | Surgery Progress Note ---
Surgery Progress Note Subjective Additional Comments improving slowly exam stable more comfortable appearing Objective Last 24 Hour Vital Signs Date Time Temp Pulse Resp B/P (MAP) Pulse Ox O2 Delivery O2 Flow Rate FiO2 11/25/19 14:00 99.3 69 18 149/82 (104) 100 11/25/19 13:06 73 22 40 11/25/19 13:00 71 19 143/73 (96) 100 11/25/19 12:00 Mechanical Ventilator 11/25/19 12:00 82 18 141/69 (93) 100 11/25/19 12:00 74 11/25/19 12:00 50 11/25/19 11:00 76 19 135/86 (102) 99 11/25/19 10:55 69 22 40 11/25/19 10:00 70 20 147/69 (95) 100 11/25/19 09:00 72 14 141/67 (91) 100 11/25/19 08:51 68 14 40 11/25/19 08:00 50 11/25/19 08:00 Mechanical Ventilator 11/25/19 08:00 99.6 65 12 134/66 (88) 100 11/25/19 08:00 73 11/25/19 07:30 69 14 45 11/25/19 07:00 75 19 142/78 (99) 100 11/25/19 06:30 78 19 11/25/19 06:00 68 4 149/78 (101) 100 11/25/19 05:08 62 14 50 11/25/19 05:00 66 14 141/68 (92) 100 11/25/19 04:00 98.4 66 13 131/69 (89) 100 11/25/19 04:00 50 11/25/19 04:00 Mechanical Ventilator 11/25/19 04:00 Mechanical Ventilator 11/25/19 04:00 67 11/25/19 03:24 70 16 50 11/25/19 03:00 79 26 155/86 (109) 100 11/25/19 02:00 71 15 137/71 (93) 100 11/25/19 01:17 66 15 50 11/25/19 01:00 65 12 129/73 (91) 100 11/25/19 00:00 Mechanical Ventilator 11/25/19 00:00 79 11/25/19 00:00 98.0 68 15 132/66 (88) 100 11/25/19 00:00 50 11/24/19 23:14 64 14 50 11/24/19 23:00 65 14 126/69 (88) 100 11/24/19 22:00 66 14 124/46 (72) 100 11/24/19 21:22 74 19 50 11/24/19 21:00 74 14 143/75 (97) 100 11/24/19 20:00 98.6 72 10 146/68 (94) 100 11/24/19 20:00 80 11/24/19 20:00 Mechanical Ventilator 11/24/19 20:00 50 11/24/19 19:45 146/68 11/24/19 19:00 80 21 155/77 (103) 100 11/24/19 18:50 75 21 50 11/24/19 18:00 74 17 140/73 (95) 100 11/24/19 17:00 98.3 71 22 140/75 (96) 100 11/24/19 16:31 74 16 50 11/24/19 16:17 73 11/24/19 16:00 Mechanical Ventilator 11/24/19 16:00 66 16 135/69 (91) 100 11/24/19 16:00 50 11/24/19 15:00 69 14 144/70 (94) 100 I&O Intake and Output 11/24/19 11/25/19 18:59 06:59 Intake Total 2122.500 ml 1230.0 ml Output Total 1740 ml 1030 ml Balance 382.500 ml 200.0 ml IV Total 2032.500 ml 1110.0 ml Tube Feeding 40 ml 120 ml Other 50 ml Output Urine Total 1690 ml 1030 ml Gastric Drainage Total 50 ml # Bowel Movements 2 Dressing: other Wound: other Drains: other Cardiovascular: RSR Respiratory: decreased breath sounds Abdomen: soft, present bowel sounds, non-distended Extremities: no tenderness, no cyanosis Laboratory Tests Test 11/25/19 04:00 White Blood Count 5.6 K/UL (4.8-10.8) Red Blood Count 2.42 M/UL (4.70-6.10) L Hemoglobin 7.7 G/DL (14.2-18.0) L Hematocrit 22.0 % (42.0-52.0) L Mean Corpuscular Volume 91 FL (80-99) Mean Corpuscular Hemoglobin 31.7 PG (27.0-31.0) H Mean Corpuscular Hemoglobin Concent 34.8 G/DL (32.0-36.0) Red Cell Distribution Width 10.8 % (11.6-14.8) L Platelet Count 118 K/UL (150-450) L Mean Platelet Volume 6.1 FL (6.5-10.1) L Neutrophils (%) (Auto) % (45.0-75.0) Lymphocytes (%) (Auto) % (20.0-45.0) Monocytes (%) (Auto) % (1.0-10.0) Eosinophils (%) (Auto) % (0.0-3.0) Basophils (%) (Auto) % (0.0-2.0) Sodium Level 144 MMOL/L (136-145) Potassium Level 2.5 MMOL/L (3.5-5.1) *L Chloride Level 111 MMOL/L (98-107) H Carbon Dioxide Level 27 MMOL/L (21-32) Anion Gap 7 mmol/L (5-15) Blood Urea Nitrogen 10 mg/dL (7-18) Creatinine 0.7 MG/DL (0.55-1.30) Estimat Glomerular Filtration Rate > 60 mL/min (>60) Glucose Level 105 MG/DL (74-106) Calcium Level 7.5 MG/DL (8.5-10.1) L Plan Problems: (1) Sepsis Assessment & Plan: 64M with multiple comorbidities identified to have leukocytosis, lactic acidosis, CT as below. Patient is trach on vent support with PEG on tube feeds debilitated unresponsive Abdominal examination does not show significant distention and do not elicit pain upon palpation. G-tube in place and looks okay CT examination identifies free air around the left upper quadrant around the G- tube site as well as what seems to be a CHILD SUPPORT CASE OFFICER shunt but contained within this area. No free air seen in the pelvis lower quadrants right upper quadrant underneath the liver And evaluate the patient's overall condition status is likely the G-tube and replaced potentially with some resistance prior causing injury around the G- tube insertion site with potential leakage possible infectious or inflammatory reaction would recommend medical management at this time given patient's current condition comorbidities CHILD SUPPORT CASE OFFICER shunt location G-tube location and location of free air and potential infectious inflammatory process identified if rushing to surgical intervention there is Strong concerns for potentially infecting CHILD SUPPORT CASE OFFICER shunt and having to remove or interrupt G-tube. If potentially localized infectious or inflammatory process may improve with medical management and inpatient who is debilitated sick and elderly would benefit from medical intervention versus aggressive surgical intervention if declines and does not respond to medical conservative management will discuss with f medical team and family considerations for surgical intervention start tube feeds at 10cc/hr iv fluids iv abx serial abd exams trend labs will follow with recs thank you Findings: Lack of enteric contrast limits assessment of the GI tract. There is a gastrostomy in good position. The stomach is distended with fluid. The proximal small bowel is dilated and fluid-filled. Most of the small bowel is distended with fluid and/or gas, although the most distal ileum is normal in caliber. The transition point is difficult to determine but may be in the right lower quadrant at the level of the distal ileum. The most severe small bowel distention is proximal. The rectum is distended by feces, measures 9 cm in diameter. No significant rectal wall thickening or perirectal inflammation demonstrated. No evidence of colonic diverticulosis or diverticulitis. There is gas anterior to the stomach which is probably intraluminal within bowel, but cannot be definitively connected to any bowel structures so extra peritoneal gas cannot be completely excluded. There is a ventriculoperitoneal shunt catheter, tip of which terminates in the left paracolic gutter. No free intraperitoneal fluid is demonstrated. The appendix is normal. There is no evidence of diverticulosis or diverticulitis. Lack of IV contrast limits assessment of the solid organs. The liver, gallbladder, bile ducts, pancreas, spleen are all unremarkable. The kidneys demonstrate bilateral cysts as well as bilateral subcentimeter low-attenuation lesions which are too small to characterize. There are bilateral nonobstructive calyceal calculi, largest in the right lower pole measuring approximately 8 mm long axis dimension. No ureteral calculi, or hydronephrosis or hydroureter. The bladder is empty. High attenuation material within the bladder lumen may reflect small bladder calculi. There is considerable consolidation within both of the visualized pulmonary lower lobes. There may be trace pleural fluid on the left. The bones are unremarkable except for degenerative spondylosis changes Impression: Dilated stomach and small bowel, nondilated distal ileum, suspicious for distal small bowel obstruction. Gas anterior to the stomach. While possibly within an enteric structure, no enteric structures are seen in this area on prior chest CT of 02/07/2018, so this is concerning for free intraperitoneal gas an therefore for perforation of a hollow viscus. Evidence of rectal fecal impaction Nonobstructive bilateral intrarenal calculi Considerable bilateral pulmonary lower lobe parenchymal consolidation Trace left pleural fluid Possible bladder calculi Ventriculoperitoneal shunt Gastrostomy Other findings as noted, including degenerative spondylosis, renal cysts Pt presented on admission with DTPI sacrum, Non-blanching erythema both heels. Pressure injury Sacrum has irregular borders and is maroon with an area that is purple at sacrococcygeal area.Marginal erythema noted along borders.Periwound is clean and pink(L)8ccm x (W)9cm. R heel is boggy with non-blanching erythema. Non-blanching erythema without induration ,fluctuance L heel. No other skin concerns noted. Tx.Plan: Apply Moisture Barrier Paste to Sacrum. Cover with Optifoam drsg. Change every 3 days and prn. Apply Cavilon Skin BArrier to both heels. Cover each heel with Optifoam drsg. Change every 7 days and prn APM/TOOTIE Mattress overlay. Reposition at least every 2hours or as tolerated. Off-load heels with pillow. Johnathan Ford Nov 25, 2019 14:50
--- NOTE | 2019-11-25 16:00 | NUR ---
NURSE NOTES: VS remain stable. Pt is now afebrile, T 98.5F axillary. Pt was cleaned and repositioned, sacral dressing was changed. Oral care was done.
--- NOTE | 2019-11-25 18:00 | NUR ---
NURSE NOTES: Pt displays more physical movement on left side/upper extremity. Pt attempts to respond to verbal communication by moving his left upper extremity. Pt withdraws to pain, closes eyes shut when wiping the eyes. VS remain stable. NSR on ekg monitor tech.
--- NOTE | 2019-11-25 19:15 | NUR ---
HAND-OFF: Report given to Lisha MCINTYRE. Endorsed plan of care.
--- NOTE | 2019-11-25 19:16 | NUR ---
NURSE NOTES: Received patient from FRANCISCO JAVIER Parker. Will continue plan of care.
--- NOTE | 2019-11-25 20:00 | NUR ---
NURSE NOTES: Patient is awake and alert, non-verbal. Vital signs stable; BP:133/69, HR:67, RESP:15, O2:100%. Patient is trach Shiley 6 xlt to vent with settings of AC:14, TV:600, FiO2:40%, PEEP: 5. Shows no signs of pain or distress. GTube feeding running Vital AF @ 10ml/hr. Right upper arm PICC running D5NS @ 75ml/hr. Safety measures in place; bed low, locked and alarm is on. Will continue plan of care.
[2019-11-25] MEDS: Dyna-Hex 2% Top Sol 2oz TOPIC SCH (20:15)
--- NOTE | 2019-11-25 22:00 | NUR ---
NURSE NOTES: Patient is resting comfortably. Vital signs are stable. Suctioning provided. Patient tolerating feeding at the moment. Safety measures in place. Will continue plan of care.
--- NOTE | 2019-11-25 22:08 | General Progress Note ---
Assessment/Plan Assessment/Plan: Assessment - Sepsis - improving - possible SBO/PSBO - resolved - Resp failure / trach - Renal failure - rectal fecal loading Recommendations - TF per surgery - GT laxatives when OK with surgery - IVF - Abx - follow lab / exam / imaging - PPI Subjective Allergies: Coded Allergies: No Known Allergies (Unverified , 02/07/18) Subjective Above noted seen in ICU non communicative started on low dose TF d/w RN regarding fecal loading rectal exam performed - vault full, but stool too soft to disimpact Objective Last 24 Hour Vital Signs Date Time Temp Pulse Resp B/P (MAP) Pulse Ox O2 Delivery O2 Flow Rate FiO2 11/25/19 21:05 76 20 40 11/25/19 21:00 66 12 144/68 (93) 100 11/25/19 20:00 40 11/25/19 20:00 99.0 70 10 133/69 (90) 100 11/25/19 20:00 Mechanical Ventilator 11/25/19 19:27 147/77 11/25/19 19:01 78 15 40 11/25/19 19:00 76 147/77 (100) 100 11/25/19 18:00 80 146/77 (100) 99 11/25/19 17:00 124 21 40 11/25/19 17:00 68 144/69 (94) 100 11/25/19 16:00 Mechanical Ventilator 11/25/19 16:00 68 11/25/19 16:00 40 11/25/19 16:00 98.5 67 145/71 (95) 100 11/25/19 15:28 69 18 40 11/25/19 15:00 66 150/78 (102) 100 11/25/19 14:00 99.3 69 18 149/82 (104) 100 11/25/19 13:06 73 22 40 11/25/19 13:00 71 19 143/73 (96) 100 11/25/19 12:00 Mechanical Ventilator 11/25/19 12:00 82 18 141/69 (93) 100 11/25/19 12:00 74 11/25/19 12:00 50 11/25/19 11:00 76 19 135/86 (102) 99 11/25/19 10:55 69 22 40 11/25/19 10:00 70 20 147/69 (95) 100 11/25/19 09:00 72 14 141/67 (91) 100 11/25/19 08:51 68 14 40 11/25/19 08:00 50 11/25/19 08:00 Mechanical Ventilator 11/25/19 08:00 99.6 65 12 134/66 (88) 100 11/25/19 08:00 73 11/25/19 07:30 69 14 45 11/25/19 07:00 75 19 142/78 (99) 100 11/25/19 06:30 78 19 11/25/19 06:00 68 4 149/78 (101) 100 11/25/19 05:08 62 14 50 11/25/19 05:00 66 14 141/68 (92) 100 11/25/19 04:00 98.4 66 13 131/69 (89) 100 11/25/19 04:00 50 11/25/19 04:00 Mechanical Ventilator 11/25/19 04:00 Mechanical Ventilator 11/25/19 04:00 67 11/25/19 03:24 70 16 50 11/25/19 03:00 79 26 155/86 (109) 100 11/25/19 02:00 71 15 137/71 (93) 100 11/25/19 01:17 66 15 50 11/25/19 01:00 65 12 129/73 (91) 100 11/25/19 00:00 Mechanical Ventilator 11/25/19 00:00 79 11/25/19 00:00 98.0 68 15 132/66 (88) 100 11/25/19 00:00 50 11/24/19 23:14 64 14 50 11/24/19 23:00 65 14 126/69 (88) 100 Intake and Output 11/24/19 11/25/19 19:00 07:00 Intake Total 2007.500 ml 1155.0 ml Output Total 1560 ml 1070 ml Balance 447.500 ml 85.0 ml IV Total 1907.500 ml 1035.0 ml Tube Feeding 50 ml 120 ml Other 50 ml Output Urine Total 1560 ml 1070 ml # Bowel Movements 2 Laboratory Tests 11/25/19 04:00: White Blood Count 5.6, Red Blood Count 2.42L, Hemoglobin 7.7L, Hematocrit 22.0L , Mean Corpuscular Volume 91, Mean Corpuscular Hemoglobin 31.7H, Mean Corpuscular Hemoglobin Concent 34.8, Red Cell Distribution Width 10.8L, Platelet Count 118L, Mean Platelet Volume 6.1L, Neutrophils (%) (Auto) , Lymphocytes (%) (Auto) , Monocytes (%) (Auto) , Eosinophils (%) (Auto) , Basophils (%) (Auto) , Sodium Level 144, Potassium Level 2.5*L, Chloride Level 111H, Carbon Dioxide Level 27, Anion Gap 7, Blood Urea Nitrogen 10, Creatinine 0.7, Estimat Glomerular Filtration Rate > 60, Glucose Level 105, Calcium Level 7.5L Height (Feet): 6 Height (Inches): 2.00 Weight (Pounds): 210 Objective Chronically ill appearing NCAT (+) trach coarse BS RR abd soft flat (+) GT no edema Mercedes Tsai MD Nov 25, 2019 22:08
--- NOTE | 2019-11-25 23:45 | NUR ---
NURSE NOTES: Transferred patient to SDU 244-2. Patient is stable. Orders transferred. Report given to FRANCISCO JAVIER Torres
--- NOTE | 2019-11-25 23:50 | NUR ---
NURSE NOTES: Received pt from FRANCISCO JAVIER Husain. pt is observed in bed, nonverbal, able to follow some simple commands. no s/sx of pain noted at this time. trach to vent settings are as follows: Shiley: 6 XLT, AC: 14, TV: 600, FiO2: 40%, PEEP: 5. tolerating well, saturating at 99%, no s/sx of respiratory distress noted at this time. G-tube site is patent and intact, running Vital AF at 10 cc/hr. HOB elevated to 45 degrees, no residual noted. skin alterations noted, wound pic taken. ANGELLA PICC noted, patent and intact, running D5NS at 75 cc/hr. dressing dry and intact. LW 20 g and RH 20 g IV sites patent and intact, asymptomatic. bed in lowest position and locked, padded siderails up X3, call light within reach. will continue to monitor.
[2019-11-26] VITALS: BP 137/74
[2019-11-26] MEDS: D5NS 1,000 ML IV SCH ×2 (00:38→14:11)
[2019-11-26] MEDS: Piperacillin/Tazobactam 3.375 GM in NS 110 ML IVPB SCH ×2 (00:39→08:03)
--- NOTE | 2019-11-26 01:45 | NUR ---
NURSE NOTES: cardiac exercise physiologist showed conversion from NSR to junctional rhythm. EKG taken, refer to chart. will inform .
--- NOTE | 2019-11-26 02:29 | NUR ---
NURSE NOTES: left message for Dr. Pierre regarding pt's episode of junctional rhythm. VSS: BP: 144/89, HR: 77, RR: 16, sat: 99%, temp: 98.7. pt remains asymptomatic. will continue to monitor.
[2019-11-26 04:00] VITALS: BP 149/81
--- NOTE | 2019-11-26 07:30 | NUR ---
NURSE NOTES: Received pt from FRANCISCO JAVIER Torres. Pt is observed laying in bed, nonverbal, opens eyes spontaneously. Trach to vent settings: Shiley 6 XLT, AC: 14, TV: 600, FiO2: 40%, PEEP: 5, saturating at 99%, no s/sx of respiratory distress noted at this time. G-tube site is patent and intact, running Vital AF at 10 cc/hr. ANGELLA PICC noted, patent and intact, running D5NS @ 75 cc/hr. Wound dressing dry and intact. Left Wrist 20 g and Right Hand 20 g IV sites patent and intact, asymptomatic. Bed locked and in lowest position, padded siderails, maintained on seizure precautions, call light within reach. Will resume plan of care.
--- NOTE | 2019-11-26 07:54 | NUR ---
HAND-OFF: Report given to FRANCISCO JAVIER Walker. pt is in stable condition.
[2019-11-26 07:58] LABS: BASOPHILS % (AUTO) 0.8 % (0.0-2.0); HEMATOCRIT 24.2 % (42.0-52.0); HEMOGLOBIN 8.5 G/DL (14.2-18.0); MEAN CORPUSCULAR VOLUME 90 FL (80-99); MONOCYTES % (AUTO) 6.3 % (1.0-10.0); NEUTROPHILS % (AUTO) 77.9 % (45.0-75.0); PLATELET COUNT 148 K/UL (150-450); RED BLOOD COUNT 2.69 M/UL (4.70-6.10); RED CELL DISTRIBUTION WIDTH 11.1 % (11.6-14.8); WHITE BLOOD COUNT 8.1 K/UL (4.8-10.8)
[2019-11-26 08:00] VITALS: BP 137/89
[2019-11-26] MEDS: levETIRAcetam 500mg/NS100ml 100 ML IVPB SCH ×2 (08:03→21:06)
[2019-11-26 08:15] LABS: ANION GAP 6 mmol/L (5-15); BLOOD UREA NITROGEN 6 mg/dL (7-18); CALCIUM 7.4 MG/DL (8.5-10.1); CARBON DIOXIDE 29 MMOL/L (21-32); CHLORIDE 109 MMOL/L (98-107); CREATININE 0.7 MG/DL (0.55-1.30); SODIUM 141 MMOL/L (136-145)
[2019-11-26 08:18] LABS: POTASSIUM 2.5 MMOL/L (3.5-5.1)
--- NOTE | 2019-11-26 08:19 | Critical Care Progress Note ---
Assessment/Plan Assessment/Plan abdominal distention free air sepsis ARF COPD anoxia trach GT leukocytosis anemia +cultures PLAN gi and gs follow up NPO hydrate antibiotics monitor for change feeds ID clearance impression, plan, and exam edited and reviewed in detail care discussed with global regulatory affairs manager - Subjective Interval Events: moved to MARYBETH on vent EKG Rhythm: Sinus Rhythm I&O: Intake and Output 11/25/19 11/26/19 18:59 06:59 Intake Total 1640.0 ml 1277.500 ml Output Total 635 ml 840 ml Balance 1005.0 ml 437.500 ml Intake Free Water 60 ml 60 ml IV Total 1460.0 ml 1097.500 ml Tube Feeding 120 ml 120 ml Output Urine Total 635 ml 840 ml Critical Care - Objective Last 24 Hour Vital Signs Date Time Temp Pulse Resp B/P (MAP) Pulse Ox O2 Delivery O2 Flow Rate FiO2 11/26/19 07:28 89 16 40 11/26/19 05:11 79 20 40 11/26/19 04:00 40 11/26/19 04:00 99.1 78 14 149/81 (103) 100 11/26/19 04:00 Mechanical Ventilator 11/26/19 04:00 70 11/26/19 03:01 72 18 40 11/26/19 00:58 77 15 40 11/26/19 00:00 98.6 71 16 137/74 (95) 99 11/26/19 00:00 40 11/26/19 00:00 72 11/26/19 00:00 Mechanical Ventilator 11/25/19 23:00 74 16 145/76 (99) 100 11/25/19 22:43 71 18 40 11/25/19 22:00 63 13 130/69 (89) 100 11/25/19 21:05 76 20 40 11/25/19 21:00 66 12 144/68 (93) 100 11/25/19 20:00 40 11/25/19 20:00 99.0 70 10 133/69 (90) 100 11/25/19 20:00 Mechanical Ventilator 11/25/19 19:45 71 11/25/19 19:27 147/77 11/25/19 19:01 78 15 40 11/25/19 19:00 76 147/77 (100) 100 11/25/19 18:00 80 146/77 (100) 99 11/25/19 17:00 124 21 40 11/25/19 17:00 68 144/69 (94) 100 11/25/19 16:00 Mechanical Ventilator 11/25/19 16:00 68 11/25/19 16:00 40 11/25/19 16:00 98.5 67 145/71 (95) 100 11/25/19 15:28 69 18 40 11/25/19 15:00 66 150/78 (102) 100 11/25/19 14:00 99.3 69 18 149/82 (104) 100 11/25/19 13:06 73 22 40 11/25/19 13:00 71 19 143/73 (96) 100 11/25/19 12:00 Mechanical Ventilator 11/25/19 12:00 82 18 141/69 (93) 100 11/25/19 12:00 74 11/25/19 12:00 50 11/25/19 11:00 76 19 135/86 (102) 99 11/25/19 10:55 69 22 40 11/25/19 10:00 70 20 147/69 (95) 100 11/25/19 09:00 72 14 141/67 (91) 100 11/25/19 08:51 68 14 40 Labs: Labs Test 11/24/19 04:00 11/24/19 09:00 11/25/19 04:00 11/26/19 07:35 White Blood Count 6.1 K/UL (4.8-10.8) 5.6 K/UL (4.8-10.8) 8.1 K/UL (4.8-10.8) Red Blood Count 2.43 M/UL (4.70-6.10) 2.42 M/UL (4.70-6.10) 2.69 M/UL (4.70-6.10) Hemoglobin 7.7 G/DL (14.2-18.0) 7.7 G/DL (14.2-18.0) 8.5 G/DL (14.2-18.0) Hematocrit 22.3 % (42.0-52.0) 22.0 % (42.0-52.0) 24.2 % (42.0-52.0) Mean Corpuscular Volume 92 FL (80-99) 91 FL (80-99) 90 FL (80-99) Mean Corpuscular Hemoglobin 31.9 PG (27.0-31.0) 31.7 PG (27.0-31.0) 31.6 PG (27.0-31.0) Mean Corpuscular Hemoglobin Concent 34.7 G/DL (32.0-36.0) 34.8 G/DL (32.0-36.0) 35.1 G/DL (32.0-36.0) Red Cell Distribution Width 10.9 % (11.6-14.8) 10.8 % (11.6-14.8) 11.1 % (11.6-14.8) Platelet Count 122 K/UL (150-450) 118 K/UL (150-450) 148 K/UL (150-450) Mean Platelet Volume 6.3 FL (6.5-10.1) 6.1 FL (6.5-10.1) 5.9 FL (6.5-10.1) Neutrophils (%) (Auto) % (45.0-75.0) % (45.0-75.0) 77.9 % (45.0-75.0) Lymphocytes (%) (Auto) % (20.0-45.0) % (20.0-45.0) 14.0 % (20.0-45.0) Monocytes (%) (Auto) % (1.0-10.0) % (1.0-10.0) 6.3 % (1.0-10.0) Eosinophils (%) (Auto) % (0.0-3.0) % (0.0-3.0) 1.0 % (0.0-3.0) Basophils (%) (Auto) % (0.0-2.0) % (0.0-2.0) 0.8 % (0.0-2.0) Differential Total Cells Counted 100 Neutrophils % (Manual) 73 % (45-75) Lymphocytes % (Manual) 22 % (20-45) Monocytes % (Manual) 2 % (1-10) Eosinophils % (Manual) 3 % (0-3) Basophils % (Manual) 0 % (0-2) Band Neutrophils 0 % (0-8) Platelet Estimate Decreased Platelet Morphology Normal Hypochromasia 1+ Sodium Level 145 MMOL/L (136-145) 144 MMOL/L (136-145) 141 MMOL/L (136-145) Potassium Level 2.7 MMOL/L (3.5-5.1) 2.5 MMOL/L (3.5-5.1) 2.5 MMOL/L (3.5-5.1) Chloride Level 113 MMOL/L (98-107) 111 MMOL/L (98-107) 109 MMOL/L (98-107) Carbon Dioxide Level 24 MMOL/L (21-32) 27 MMOL/L (21-32) 29 MMOL/L (21-32) Anion Gap 8 mmol/L (5-15) 7 mmol/L (5-15) 6 mmol/L (5-15) Blood Urea Nitrogen 22 mg/dL (7-18) 10 mg/dL (7-18) 6 mg/dL (7-18) Creatinine 0.8 MG/DL (0.55-1.30) 0.7 MG/DL (0.55-1.30) 0.7 MG/DL (0.55-1.30) Estimat Glomerular Filtration Rate > 60 mL/min (>60) > 60 mL/min (>60) > 60 mL/min (>60) Glucose Level 70 MG/DL (74-106) 105 MG/DL (74-106) 118 MG/DL (74-106) Calcium Level 7.9 MG/DL (8.5-10.1) 7.5 MG/DL (8.5-10.1) 7.4 MG/DL (8.5-10.1) Vancomycin Level Trough 10.8 ug/mL (5.0-12.0) Magnesium Level 1.7 MG/DL (1.8-2.4) Objective: WDWN NAD trach reduced breath sounds bilaterally without rhonchi or wheeze [id number] without MRG reduced BS nontender no HSM; Gt no CC some edema obtunded nonfocal Accucheck: 109 Jameel Pierre MD Nov 26, 2019 08:19
--- NOTE | 2019-11-26 08:20 | NUR ---
NURSE NOTES: Received call from Leda in lab reporting Potassium of 2.5. Dr Pierre notified. New orders noted to replace potassium.
--- NOTE | 2019-11-26 08:30 | Consultation ---
DATE OF CONSULTATION: 11/21/2019 CHIEF COMPLAINT: I was asked to see this patient for evaluation of a gastrostomy tube issues. HISTORY OF PRESENT ILLNESS: The patient is an unfortunate 64-year-old white male, from a care home, who was brought into the hospital. The patient appears to be septic. He is a tracheostomy patient and is unable to provide history. Most of the information is only available from the chart. The patient has a gastrostomy tube on a long-term basis for feeding and now appears to have atypical gas pattern on the x-ray. There is an apparent collection next to the stomach, which appears to be possibly outside the stomach. There also appears to be partial small bowel obstruction with dilated bowel. The stool appears to be impacted in the colon. The patient was brought to the hospital due to some dark emesis was noted throughout. PAST MEDICAL HISTORY: Respiratory failure status post tracheostomy, dysphagia, status post gastrostomy, hypertension, epilepsy, heart disease, obstructive hydrocephalus, placing a shunt, gastroesophageal reflux disease, hyperlipidemia, chronic kidney disease, malnutrition, intracranial hemorrhage, contractures, had an obtunded exam due to Parkinson disease, he had recent stroke, anemia, and atrial fibrillation. FAMILY HISTORY: Unavailable and noncontributory. SOCIAL HISTORY: The patient lives in a care home and requires [id number] care. REVIEW OF SYSTEMS: Unobtainable. PHYSICAL EXAMINATION: GENERAL: Debilitated white man, seen in the emergency room. HEENT: Normocephalic and atraumatic. Sclerae are nonicteric. Dentition is poor. NECK: Supple. Tracheostomy is in place. CHEST: Revealed coarse breath sounds and rhonchi. CARDIOVASCULAR: Revealed a regular rate. ABDOMEN: Soft. There is a gastrostomy tube in place. Does appear not to have an acute abdomen for examination. EXTREMITIES: Revealed contractures. LABORATORY DATA: Noted. ASSESSMENT: This patient presents with sepsis with leukocytosis. Appears to be abnormal bowel gas pattern, but the exact pathology is unclear. The patient should be kept NPO and gastric compression should be done with suction. We will follow his laboratory parameters closely. Surgical consultation has already been obtained and proton pump inhibitors to be given. He is not a candidate for endoscopy at this time, nonetheles there is conservative management and followup. Overall prognosis appears poor. RECOMMENDATIONS: Per above discussion and per orders written in the chart Thank you for asking me to participate in care this patient. Mercedes Tsai M.D. DR: DENIS JOB#: [id number] CC: MARYSE
--- NOTE | 2019-11-26 10:39 | Infectious Diseases Prog Note ---
"Assessment/Plan Assessment/Plan antibiotics ; zosyn A 1. providencia | pseudomonas | stenotrophomonas pneumonia 2. leucocytosis resolved 3. respiratory failure 4. SBO 5. renal calculi 6. + blood culture with coag neg staph likely contaminated P 1. d/c zosyn 2. start cefepime, levoquin 3. will follow up cultures Subjective ROS Limited/Unobtainable: Yes Allergies: Coded Allergies: No Known Allergies (Unverified , 02/07/18) Objective Vital Signs Last 24 Hour Vital Signs Date Time Temp Pulse Resp B/P (MAP) Pulse Ox O2 Delivery O2 Flow Rate FiO2 11/26/19 09:28 78 22 40 11/26/19 08:00 Mechanical Ventilator 11/26/19 08:00 40 11/26/19 08:00 98.2 76 14 137/89 (105) 100 76 11/26/19 07:28 89 16 40 11/26/19 05:11 79 20 40 11/26/19 04:00 40 11/26/19 04:00 99.1 78 14 149/81 (103) 100 11/26/19 04:00 Mechanical Ventilator 11/26/19 04:00 70 11/26/19 03:01 72 18 40 11/26/19 00:58 77 15 40 11/26/19 00:00 98.6 71 16 137/74 (95) 99 11/26/19 00:00 40 11/26/19 00:00 72 11/26/19 00:00 Mechanical Ventilator 11/25/19 23:00 74 16 145/76 (99) 100 11/25/19 22:43 71 18 40 11/25/19 22:00 63 13 130/69 (89) 100 11/25/19 21:05 76 20 40 11/25/19 21:00 66 12 144/68 (93) 100 11/25/19 20:00 40 11/25/19 20:00 99.0 70 10 133/69 (90) 100 11/25/19 20:00 Mechanical Ventilator 11/25/19 19:45 71 11/25/19 19:27 147/77 11/25/19 19:01 78 15 40 11/25/19 19:00 76 147/77 (100) 100 11/25/19 18:00 80 146/77 (100) 99 11/25/19 17:00 124 21 40 11/25/19 17:00 68 144/69 (94) 100 11/25/19 16:00 Mechanical Ventilator 11/25/19 16:00 68 11/25/19 16:00 40 11/25/19 16:00 98.5 67 145/71 (95) 100 11/25/19 15:28 69 18 40 11/25/19 15:00 66 150/78 (102) 100 11/25/19 14:00 99.3 69 18 149/82 (104) 100 11/25/19 13:06 73 22 40 11/25/19 13:00 71 19 143/73 (96) 100 11/25/19 12:00 Mechanical Ventilator 11/25/19 12:00 82 18 141/69 (93) 100 11/25/19 12:00 74 11/25/19 12:00 50 11/25/19 11:00 76 19 135/86 (102) 99 11/25/19 10:55 69 22 40 Height (Feet): 6 Height (Inches): 2.00 Weight (Pounds): 202 HEENT: status post trach Respiratory/Chest: lungs clear Cardiovascular: normal rate, regular rhythm, no gallop/murmur Abdomen: soft, non tender, other - GT Extremities: other - + edema, right arm PICC Laboratory Tests Test 11/26/19 07:35 11/26/19 09:49 White Blood Count 8.1 K/UL (4.8-10.8) Red Blood Count 2.69 M/UL (4.70-6.10) L Hemoglobin 8.5 G/DL (14.2-18.0) L Hematocrit 24.2 % (42.0-52.0) L Mean Corpuscular Volume 90 FL (80-99) Mean Corpuscular Hemoglobin 31.6 PG (27.0-31.0) H Mean Corpuscular Hemoglobin Concent 35.1 G/DL (32.0-36.0) Red Cell Distribution Width 11.1 % (11.6-14.8) L Platelet Count 148 K/UL (150-450) L Mean Platelet Volume 5.9 FL (6.5-10.1) L Neutrophils (%) (Auto) 77.9 % (45.0-75.0) H Lymphocytes (%) (Auto) 14.0 % (20.0-45.0) L Monocytes (%) (Auto) 6.3 % (1.0-10.0) Eosinophils (%) (Auto) 1.0 % (0.0-3.0) Basophils (%) (Auto) 0.8 % (0.0-2.0) Sodium Level 141 MMOL/L (136-145) Potassium Level 2.5 MMOL/L (3.5-5.1) *L Chloride Level 109 MMOL/L (98-107) H Carbon Dioxide Level 29 MMOL/L (21-32) Anion Gap 6 mmol/L (5-15) Blood Urea Nitrogen 6 mg/dL (7-18) L Creatinine 0.7 MG/DL (0.55-1.30) Estimat Glomerular Filtration Rate > 60 mL/min (>60) Glucose Level 118 MG/DL (74-106) H Calcium Level 7.4 MG/DL (8.5-10.1) L Magnesium Level 1.7 MG/DL (1.8-2.4) L Arterial Blood pH 7.543 (7.350-7.450) Arterial Blood Partial Pressure CO2 31.8 mmHg (35.0-45.0) L Arterial Blood Partial Pressure O2 150.4 mmHg (75.0-100.0) H Arterial Blood HCO3 26.8 mmol/L (22.0-26.0) H Arterial Blood Oxygen Saturation 98.5 % (95-100) Arterial Blood Base Excess 4.3 (-2-2) H Zaheer Test Positive Current Medications Medications (Trade) Dose Ordered Sig/Cande Route PRN Reason Start Time Stop Time Status Last Admin Dose Admin Acetaminophen (Tylenol) 650 mg Q4H PRN ORAL Mild Pain/Temp > 100.5 11/26/19 00:30 12/21/19 00:29 Al Hydroxide/Mg Hydroxide (Mylanta) 30 ml QIDPRN PRN ORAL HEARTBURN 11/26/19 00:32 12/21/19 00:31 Chlorhexidine Gluconate (Nadia-Hex 2%) 1 applic DAILY@1999 TOPIC 11/26/19 20:00 12/21/19 19:59 Dextrose (Dextrose 50%) 25 ml Q30M PRN IV Hypoglycemia 11/26/19 00:30 12/23/19 20:59 Dextrose (Dextrose 50%) 50 ml Q30M PRN IV Hypoglycemia 11/26/19 00:30 12/23/19 20:59 Dextrose/Sodium Chloride 1,000 ml @ 75 mls/hr [id number] IV 11/26/19 01:00 12/24/19 00:59 11/26/19 00:38 Levetiracetam 100 ml @ 400 mls/hr Q12HR IVPB 11/26/19 09:00 12/21/19 20:59 11/26/19 08:03 Pantoprazole (Protonix) 40 mg DAILY ORAL 11/26/19 09:00 12/22/19 08:59 11/26/19 08:10 Piperacillin Sod/ Tazobactam Sod 3.375 gm/Sodium Chloride 110 ml @ 27.5 mls/hr Q8H IVPB 11/26/19 01:00 11/28/19 16:59 11/26/19 08:03 Potassium Chloride 100 ml @ 50 mls/hr Q2H IVPB 11/26/19 09:00 11/26/19 12:59 11/26/19 09:05 Potassium Chloride (K-Dur) 40 meq ONCE ORAL 11/26/19 09:00 11/26/19 11:00 11/26/19 09:06 Potassium Chloride (K-Dur) 40 meq ONCE ORAL 11/26/19 13:30 11/26/19 15:00 Ilene Archuleta MD Nov 26, 2019 10:39"
[2019-11-26] MEDS: Levofloxacin 500mg tab ORAL SCH (11:21)
[2019-11-26 12:00] VITALS: BP 133/88
[2019-11-26] MEDS: Cefepime HCl 2 GM in D5W 55 ML IVPB SCH (13:14)
--- NOTE | 2019-11-26 13:23 | Surgery Progress Note ---
Surgery Progress Note Subjective Symptoms: improved, voiding well Additional Comments overall improving abd exam stable doing better Objective Last 24 Hour Vital Signs Date Time Temp Pulse Resp B/P (MAP) Pulse Ox O2 Delivery O2 Flow Rate FiO2 11/26/19 12:00 40 11/26/19 12:00 Mechanical Ventilator 11/26/19 11:29 76 27 40 11/26/19 09:28 78 22 40 11/26/19 08:00 Mechanical Ventilator 11/26/19 08:00 40 11/26/19 08:00 98.2 76 14 137/89 (105) 100 76 11/26/19 08:00 70 11/26/19 07:28 89 16 40 11/26/19 05:11 79 20 40 11/26/19 04:00 40 11/26/19 04:00 99.1 78 14 149/81 (103) 100 11/26/19 04:00 Mechanical Ventilator 11/26/19 04:00 70 11/26/19 03:01 72 18 40 11/26/19 00:58 77 15 40 11/26/19 00:00 98.6 71 16 137/74 (95) 99 11/26/19 00:00 40 11/26/19 00:00 72 11/26/19 00:00 Mechanical Ventilator 11/25/19 23:00 74 16 145/76 (99) 100 11/25/19 22:43 71 18 40 11/25/19 22:00 63 13 130/69 (89) 100 11/25/19 21:05 76 20 40 11/25/19 21:00 66 12 144/68 (93) 100 11/25/19 20:00 40 11/25/19 20:00 99.0 70 10 133/69 (90) 100 11/25/19 20:00 Mechanical Ventilator 11/25/19 19:45 71 11/25/19 19:27 147/77 11/25/19 19:01 78 15 40 11/25/19 19:00 76 147/77 (100) 100 11/25/19 18:00 80 146/77 (100) 99 11/25/19 17:00 124 21 40 11/25/19 17:00 68 144/69 (94) 100 11/25/19 16:00 Mechanical Ventilator 11/25/19 16:00 68 1/27/20 16:00 40 11/25/19 16:00 98.5 67 145/71 (95) 100 11/25/19 15:28 69 18 40 11/25/19 15:00 66 150/78 (102) 100 11/25/19 14:00 99.3 69 18 149/82 (104) 100 I&O Intake and Output 11/25/19 11/26/19 18:59 06:59 Intake Total 1640.0 ml 1277.500 ml Output Total 635 ml 840 ml Balance 1005.0 ml 437.500 ml Intake Free Water 60 ml 60 ml IV Total 1460.0 ml 1097.500 ml Tube Feeding 120 ml 120 ml Output Urine Total 635 ml 840 ml Dressing: other Wound: other Drains: other Cardiovascular: RSR Respiratory: decreased breath sounds Abdomen: soft, present bowel sounds Extremities: no tenderness, no cyanosis Laboratory Tests Test 11/26/19 07:35 11/26/19 09:49 White Blood Count 8.1 K/UL (4.8-10.8) Red Blood Count 2.69 M/UL (4.70-6.10) L Hemoglobin 8.5 G/DL (14.2-18.0) L Hematocrit 24.2 % (42.0-52.0) L Mean Corpuscular Volume 90 FL (80-99) Mean Corpuscular Hemoglobin 31.6 PG (27.0-31.0) H Mean Corpuscular Hemoglobin Concent 35.1 G/DL (32.0-36.0) Red Cell Distribution Width 11.1 % (11.6-14.8) L Platelet Count 148 K/UL (150-450) L Mean Platelet Volume 5.9 FL (6.5-10.1) L Neutrophils (%) (Auto) 77.9 % (45.0-75.0) H Lymphocytes (%) (Auto) 14.0 % (20.0-45.0) L Monocytes (%) (Auto) 6.3 % (1.0-10.0) Eosinophils (%) (Auto) 1.0 % (0.0-3.0) Basophils (%) (Auto) 0.8 % (0.0-2.0) Sodium Level 141 MMOL/L (136-145) Potassium Level 2.5 MMOL/L (3.5-5.1) *L Chloride Level 109 MMOL/L (98-107) H Carbon Dioxide Level 29 MMOL/L (21-32) Anion Gap 6 mmol/L (5-15) Blood Urea Nitrogen 6 mg/dL (7-18) L Creatinine 0.7 MG/DL (0.55-1.30) Estimat Glomerular Filtration Rate > 60 mL/min (>60) Glucose Level 118 MG/DL (74-106) H Calcium Level 7.4 MG/DL (8.5-10.1) L Magnesium Level 1.7 MG/DL (1.8-2.4) L Arterial Blood pH 7.543 (7.350-7.450) Arterial Blood Partial Pressure CO2 31.8 mmHg (35.0-45.0) L Arterial Blood Partial Pressure O2 150.4 mmHg (75.0-100.0) H Arterial Blood HCO3 26.8 mmol/L (22.0-26.0) H Arterial Blood Oxygen Saturation 98.5 % (95-100) Arterial Blood Base Excess 4.3 (-2-2) H Zaheer Test Positive Plan Problems: (1) Sepsis Assessment & Plan: 64M with multiple comorbidities identified to have leukocytosis, lactic acidosis, CT as below. Patient is trach on vent support with PEG on tube feeds debilitated unresponsive Abdominal examination does not show significant distention and do not elicit pain upon palpation. G-tube in place and looks okay CT examination identifies free air around the left upper quadrant around the G- tube site as well as what seems to be a [employer] shunt but contained within this area. No free air seen in the pelvis lower quadrants right upper quadrant underneath the liver And evaluate the patient's overall condition status is likely the G-tube and replaced potentially with some resistance prior causing injury around the G- tube insertion site with potential leakage possible infectious or inflammatory reaction would recommend medical management at this time given patient's current condition comorbidities [employer] shunt location G-tube location and location of free air and potential infectious inflammatory process identified if rushing to surgical intervention there is Strong concerns for potentially infecting [employer] shunt and having to remove or interrupt G-tube. If potentially localized infectious or inflammatory process may improve with medical management and inpatient who is debilitated sick and elderly would benefit from medical intervention versus aggressive surgical intervention if declines and does not respond to medical conservative management will discuss with f medical team and family considerations for surgical intervention tube feeds as tolerated iv fluids iv abx improving serial abd exams likely findings based on malposition of g tube at some point with replacement. now stable trend labs will follow with recs thank you Findings: Lack of enteric contrast limits assessment of the GI tract. There is a gastrostomy in good position. The stomach is distended with fluid. The proximal small bowel is dilated and fluid-filled. Most of the small bowel is distended with fluid and/or gas, although the most distal ileum is normal in caliber. The transition point is difficult to determine but may be in the right lower quadrant at the level of the distal ileum. The most severe small bowel distention is proximal. The rectum is distended by feces, measures 9 cm in diameter. No significant rectal wall thickening or perirectal inflammation demonstrated. No evidence of colonic diverticulosis or diverticulitis. There is gas anterior to the stomach which is probably intraluminal within bowel, but cannot be definitively connected to any bowel structures so extra peritoneal gas cannot be completely excluded. There is a ventriculoperitoneal shunt catheter, tip of which terminates in the left paracolic gutter. No free intraperitoneal fluid is demonstrated. The appendix is normal. There is no evidence of diverticulosis or diverticulitis. Lack of IV contrast limits assessment of the solid organs. The liver, gallbladder, bile ducts, pancreas, spleen are all unremarkable. The kidneys demonstrate bilateral cysts as well as bilateral subcentimeter low-attenuation lesions which are too small to characterize. There are bilateral nonobstructive calyceal calculi, largest in the right lower pole measuring approximately 8 mm long axis dimension. No ureteral calculi, or hydronephrosis or hydroureter. The bladder is empty. High attenuation material within the bladder lumen may reflect small bladder calculi. There is considerable consolidation within both of the visualized pulmonary lower lobes. There may be trace pleural fluid on the left. The bones are unremarkable except for degenerative spondylosis changes Impression: Dilated stomach and small bowel, nondilated distal ileum, suspicious for distal small bowel obstruction. Gas anterior to the stomach. While possibly within an enteric structure, no enteric structures are seen in this area on prior chest CT of 02/07/2018, so this is concerning for free intraperitoneal gas an therefore for perforation of a hollow viscus. Evidence of rectal fecal impaction Nonobstructive bilateral intrarenal calculi Considerable bilateral pulmonary lower lobe parenchymal consolidation Trace left pleural fluid Possible bladder calculi Ventriculoperitoneal shunt Gastrostomy Other findings as noted, including degenerative spondylosis, renal cysts Pt presented on admission with DTPI sacrum, Non-blanching erythema both heels. Pressure injury Sacrum has irregular borders and is maroon with an area that is purple at sacrococcygeal area.Marginal erythema noted along borders.Periwound is clean and pink(L)8ccm x (W)9cm. R heel is boggy with non-blanching erythema. Non-blanching erythema without induration ,fluctuance L heel. No other skin concerns noted. Tx.Plan: Apply Moisture Barrier Paste to Sacrum. Cover with Optifoam drsg. Change every 3 days and prn. Apply Cavilon Skin BArrier to both heels. Cover each heel with Optifoam drsg. Change every 7 days and prn APM/TOOTIE Mattress overlay. Reposition at least every 2hours or as tolerated. Off-load heels with pillow. Johnathan Ford Nov 26, 2019 13:23
[2019-11-26 16:00] VITALS: BP 130/84
[2019-11-26] MEDS: Lactulose 20gm/30ml UDC NG SCH (17:11)
--- NOTE | 2019-11-26 19:28 | NUR ---
HAND-OFF: Report given to FRANCISCO JAVIER Mendosa.
--- NOTE | 2019-11-26 19:29 | NUR ---
NURSE NOTES: Received patient form FRANCISCO JAVIER Walker. Patient is aaox0 with open eyes, vss, with no acute distress. Patient is on track to vent AC 14, TV 600, Fio2 40%, PEEP of 5. Patient has a G-tube running prescribed feeding at goal. On night monitor, and lizarraga is patient and draining. IV sites right hand and left wrist patent with no signs of infection, PICC on right upper arm running D5NS at 75cc/hr. Bed at its lowest position, call light in reach, and x3 bed rails are up.
[2019-11-26 20:00] VITALS: BP 122/87
--- NOTE | 2019-11-26 21:02 | Nephrology Progress Note ---
Assessment/Plan Assessment/Plan: A/P 1. GROVER- resolved. C alled back for electrolyte disturbances 2. Hypokalemia - being replaced prn 3. Respiratory failure, ventilator dependent. 4. Possible bowel perforation.- per Gen surgery - g tube to intermittent low wall suction per gen surgery Subjective Date patient seen: Nov 26, 2019 Time patient seen: 21:01 ROS Limited/Unobtainable: Yes Allergies: Coded Allergies: No Known Allergies (Unverified , 02/07/18) Subjective Patient remains trached . Non communicative Objective Last 24 Hour Vital Signs Date Time Temp Pulse Resp B/P (MAP) Pulse Ox O2 Delivery O2 Flow Rate FiO2 11/26/19 20:00 Mechanical Ventilator 11/26/19 20:00 77 11/26/19 20:00 40 11/26/19 20:00 98.9 75 18 122/87 (99) 96 75 11/26/19 19:10 72 20 40 11/26/19 17:11 70 19 40 11/26/19 16:00 40 11/26/19 16:00 98.2 72 15 130/84 (99) 100 72 11/26/19 16:00 68 11/26/19 16:00 Mechanical Ventilator 11/26/19 15:11 71 19 40 11/26/19 13:29 65 19 40 11/26/19 12:00 98.2 78 14 133/88 (103) 100 78 11/26/19 12:00 40 11/26/19 12:00 74 11/26/19 12:00 Mechanical Ventilator 11/26/19 11:29 76 27 40 11/26/19 09:28 78 22 40 11/26/19 08:00 Mechanical Ventilator 11/26/19 08:00 40 11/26/19 08:00 98.2 76 14 137/89 (105) 100 76 11/26/19 08:00 70 11/26/19 07:28 89 16 40 11/26/19 05:11 79 20 40 11/26/19 04:00 40 11/26/19 04:00 99.1 78 14 149/81 (103) 100 11/26/19 04:00 Mechanical Ventilator 11/26/19 04:00 70 11/26/19 03:01 72 18 40 11/26/19 00:58 77 15 40 1/28/20 00:00 98.6 71 16 137/74 (95) 99 11/26/19 00:00 40 11/26/19 00:00 72 11/26/19 00:00 Mechanical Ventilator 11/25/19 23:00 74 16 145/76 (99) 100 11/25/19 22:43 71 18 40 11/25/19 22:00 63 13 130/69 (89) 100 11/25/19 21:05 76 20 40 Intake and Output 11/25/19 11/26/19 19:00 07:00 Intake Total 1772.5 ml 1220.000 ml Output Total 615 ml 800 ml Balance 1157.5 ml 420.000 ml Intake Free Water 90 ml 30 ml IV Total 1562.5 ml 1070.000 ml Tube Feeding 120 ml 120 ml Output Urine Total 615 ml 800 ml Laboratory Tests 11/26/19 07:35: White Blood Count 8.1, Red Blood Count 2.69L, Hemoglobin 8.5L, Hematocrit 24.2L , Mean Corpuscular Volume 90, Mean Corpuscular Hemoglobin 31.6H, Mean Corpuscular Hemoglobin Concent 35.1, Red Cell Distribution Width 11.1L, Platelet Count 148L, Mean Platelet Volume 5.9L, Neutrophils (%) (Auto) 77.9H, Lymphocytes (%) (Auto) 14.0L, Monocytes (%) (Auto) 6.3, Eosinophils (%) (Auto) 1.0, Basophils (%) (Auto) 0.8, Sodium Level 141, Potassium Level 2.5*L, Chloride Level 109H, Carbon Dioxide Level 29, Anion Gap 6, Blood Urea Nitrogen 6L, Creatinine 0.7, Estimat Glomerular Filtration Rate > 60, Glucose Level 118H , Calcium Level 7.4L, Magnesium Level 1.7L 11/26/19 09:49: Arterial Blood pH 7.543H, Arterial Blood Partial Pressure CO2 31.8L, Arterial Blood Partial Pressure O2 150.4H, Arterial Blood HCO3 26.8H, Arterial Blood Oxygen Saturation 98.5, Arterial Blood Base Excess 4.3H, Zaheer Test Positive Height (Feet): 6 Height (Inches): 2.00 Weight (Pounds): 202 General Appearance: no apparent distress EENT: normal ENT inspection Neck: normal alignment, supple Cardiovascular: normal rate, regular rhythm Respiratory/Chest: rhonchi - bilaterally Abdomen: non tender, soft Edema: 1+ Arm (L), 1+ Arm (R), 1+ Leg (L), 1+ Leg (R), 1+ Pedal (L), 1+ Pedal ( R), 1+ Generalized Narendra Chavez MD Nov 26, 2019 21:02
[2019-11-26] MEDS: Dyna-Hex 2% Top Sol 2oz TOPIC SCH (21:06)
[2019-11-27] VITALS: BP 132/74
[2019-11-27] MEDS: Cefepime HCl 2 GM in D5W 55 ML IVPB SCH ×3 (00:33→23:50)
[2019-11-27 04:00] VITALS: BP 148/89
[2019-11-27] MEDS: D5NS 1,000 ML IV SCH ×2 (04:44→16:40)
[2019-11-27 05:56] LABS: BASOPHILS % (AUTO) 0.4 % (0.0-2.0); EOSINOPHILS % (AUTO) 1.1 % (0.0-3.0); HEMOGLOBIN 8.6 G/DL (14.2-18.0); LYMPHOCYTES % (AUTO) 15.3 % (20.0-45.0); MEAN CORPUSCULAR VOLUME 91 FL (80-99); MONOCYTES % (AUTO) 4.8 % (1.0-10.0); NEUTROPHILS % (AUTO) 78.3 % (45.0-75.0); PLATELET COUNT 163 K/UL (150-450); RED BLOOD COUNT 2.75 M/UL (4.70-6.10); RED CELL DISTRIBUTION WIDTH 10.9 % (11.6-14.8); WHITE BLOOD COUNT 8.8 K/UL (4.8-10.8)
[2019-11-27 06:28] LABS: ANION GAP 6 mmol/L (5-15); BLOOD UREA NITROGEN 4 mg/dL (7-18); CALCIUM 7.6 MG/DL (8.5-10.1); CARBON DIOXIDE 29 MMOL/L (21-32); CHLORIDE 108 MMOL/L (98-107); CREATININE 0.7 MG/DL (0.55-1.30); POTASSIUM 3.1 MMOL/L (3.5-5.1); SODIUM 143 MMOL/L (136-145)
--- NOTE | 2019-11-27 07:15 | NUR ---
HAND-OFF: Report given to FRANCISCO JAVIER Pang.
--- NOTE | 2019-11-27 07:16 | NUR ---
NURSE NOTES: Received report from Deondre Ling RN. Observed patient in bed, nonverbal. On trach-vent with settings AC 14, TV 600, FiO2 40%, and PEEP 5, no respiratory distress noted, SpO2 97%. GT intact and patent with TF infusing at prescribed rate. HOB elevated. PICC line intact and patent, IV fluids infusing at prescribed rate. SCD noted on bilateral lower extremities noted. Safety precautions in place, bed locked, alarmed, and in lowest position, padded side rails up x2, and call light left within reach. Will continue to plan of care and will continue to monitor patient.
--- NOTE | 2019-11-27 07:37 | Nephrology Progress Note ---
Assessment/Plan Assessment/Plan: A/P 1. GROVER- resolved. 2. Hypokalemia - being replaced today 30 meq IV 3. Respiratory failure- trached/vent 4. Possible bowel perforation.- per Gen surgery - g tube per gen surgery Subjective Date patient seen: Nov 27, 2019 Time patient seen: 07:35 ROS Limited/Unobtainable: Yes Allergies: Coded Allergies: No Known Allergies (Unverified , 02/07/18) Subjective Patient remains chronically trached . Non communicative Objective Last 24 Hour Vital Signs Date Time Temp Pulse Resp B/P (MAP) Pulse Ox O2 Delivery O2 Flow Rate FiO2 11/27/19 04:41 81 19 40 11/27/19 04:00 78 11/27/19 04:00 40 11/27/19 04:00 98.8 77 24 148/89 (108) 99 77 11/27/19 04:00 Mechanical Ventilator 11/27/19 03:05 71 22 40 11/27/19 00:59 78 21 40 11/27/19 00:00 99.0 74 17 132/74 (93) 100 74 11/27/19 00:00 40 11/27/19 00:00 75 11/27/19 00:00 Mechanical Ventilator 11/26/19 23:05 78 19 40 11/26/19 21:08 65 19 40 11/26/19 20:00 Mechanical Ventilator 11/26/19 20:00 77 11/26/19 20:00 40 11/26/19 20:00 98.9 75 18 122/87 (99) 96 75 11/26/19 19:10 72 20 40 11/26/19 17:11 70 19 40 11/26/19 16:00 40 11/26/19 16:00 98.2 72 15 130/84 (99) 100 72 11/26/19 16:00 68 11/26/19 16:00 Mechanical Ventilator 11/26/19 15:11 71 19 40 11/26/19 13:29 65 19 40 11/26/19 12:00 98.2 78 14 133/88 (103) 100 78 11/26/19 12:00 40 11/26/19 12:00 74 11/26/19 12:00 Mechanical Ventilator 11/26/19 11:29 76 27 40 11/26/19 09:28 78 22 40 11/26/19 08:00 Mechanical Ventilator 11/26/19 08:00 40 11/26/19 08:00 98.2 76 14 137/89 (105) 100 76 11/26/19 08:00 70 Intake and Output 11/26/19 11/27/19 19:00 07:00 Intake Total 1645.0 ml Output Total 800 ml Balance 845.0 ml IV Total 1265.0 ml Tube Feeding 180 ml Other 200 ml Output Urine Total 800 ml # Bowel Movements 2 Laboratory Tests 11/26/19 09:49: Arterial Blood pH 7.543H, Arterial Blood Partial Pressure CO2 31.8L, Arterial Blood Partial Pressure O2 150.4H, Arterial Blood HCO3 26.8H, Arterial Blood Oxygen Saturation 98.5, Arterial Blood Base Excess 4.3H, Zaheer Test Positive 11/27/19 04:00: White Blood Count 8.8, Red Blood Count 2.75L, Hemoglobin 8.6L, Hematocrit 25.0L , Mean Corpuscular Volume 91, Mean Corpuscular Hemoglobin 31.4H, Mean Corpuscular Hemoglobin Concent 34.5, Red Cell Distribution Width 10.9L, Platelet Count 163, Mean Platelet Volume 6.3L, Neutrophils (%) (Auto) 78.3H, Lymphocytes (%) (Auto) 15.3L, Monocytes (%) (Auto) 4.8, Eosinophils (%) (Auto) 1.1, Basophils (%) (Auto) 0.4, Sodium Level 143, Potassium Level 3.1L, Chloride Level 108H, Carbon Dioxide Level 29, Anion Gap 6, Blood Urea Nitrogen 4L, Creatinine 0.7, Estimat Glomerular Filtration Rate > 60, Glucose Level 120H, Calcium Level 7.6L Height (Feet): 6 Height (Inches): 2.00 Weight (Pounds): 230 General Appearance: no apparent distress EENT: normal ENT inspection Neck: normal alignment, supple Cardiovascular: normal rate, regular rhythm Respiratory/Chest: normal breath sounds Abdomen: non tender, soft Edema: no edema noted Arm (L), no edema noted Arm (R), no edema noted Leg (L), no edema noted Leg (R), no edema noted Pedal (L), no edema noted Pedal (R), no edema noted Generalized Narendra Chavez MD Nov 27, 2019 07:37
[2019-11-27 08:00] VITALS: BP 129/96
[2019-11-27] MEDS: Lactulose 20gm/30ml UDC NG SCH ×3 (08:26→17:35)
[2019-11-27] MEDS: Levofloxacin 500mg tab ORAL SCH (08:26)
[2019-11-27] MEDS: levETIRAcetam 500mg/NS100ml 100 ML IVPB SCH ×2 (08:32→21:59)
[2019-11-27 12:00] VITALS: BP 129/89
--- NOTE | 2019-11-27 13:09 | Infectious Diseases Prog Note ---
Assessment/Plan Assessment/Plan A; 1. Providencia, Pseudomonas & Stenotrophomonas pneumonia. 2. Small bowel obstruction. 3. Leukocytosis is resolved. 4. Renal failure is improving. 5. Positive blood culture: contamination 6. Anemia 7. VDRF 8. Hypokalemia PLAN: 1. Continue Cefepime & Levaquin 2. Will f/u cultures Subjective ROS Limited/Unobtainable: Yes Constitutional: Denies: fever Allergies: Coded Allergies: No Known Allergies (Unverified , 02/07/18) Objective Vital Signs Last 24 Hour Vital Signs Date Time Temp Pulse Resp B/P (MAP) Pulse Ox O2 Delivery O2 Flow Rate FiO2 11/27/19 12:00 99.0 77 19 129/89 (102) 99 11/27/19 12:00 Mechanical Ventilator 11/27/19 12:00 40 11/27/19 11:00 72 15 40 11/27/19 09:00 82 15 40 11/27/19 08:00 40 11/27/19 08:00 98.7 95 19 129/96 (107) 98 11/27/19 08:00 Mechanical Ventilator 11/27/19 07:22 68 11/27/19 07:00 70 17 40 11/27/19 04:41 81 19 40 11/27/19 04:00 78 11/27/19 04:00 40 11/27/19 04:00 98.8 77 24 148/89 (108) 99 77 11/27/19 04:00 Mechanical Ventilator 11/27/19 03:05 71 22 40 11/27/19 00:59 78 21 40 11/27/19 00:00 99.0 74 17 132/74 (93) 100 74 11/27/19 00:00 40 11/27/19 00:00 75 11/27/19 00:00 Mechanical Ventilator 11/26/19 23:05 78 19 40 11/26/19 21:08 65 19 40 11/26/19 20:00 Mechanical Ventilator 11/26/19 20:00 77 11/26/19 20:00 40 11/26/19 20:00 98.9 75 18 122/87 (99) 96 75 11/26/19 19:10 72 20 40 11/26/19 17:11 70 19 40 11/26/19 16:00 40 11/26/19 16:00 98.2 72 15 130/84 (99) 100 72 11/26/19 16:00 68 11/26/19 16:00 Mechanical Ventilator 11/26/19 15:11 71 19 40 11/26/19 13:29 65 19 40 Height (Feet): 6 Height (Inches): 2.00 Weight (Pounds): 230 HEENT: status post trach Respiratory/Chest: other - few rhonchi on ventilator Cardiovascular: normal rate Abdomen: soft, non tender, other - Gt feeding Extremities: no edema Skin: other - onychomycosis Neurologic/Psychiatric: aphasia, other - Opens eyes Laboratory Tests Test 11/27/19 04:00 White Blood Count 8.8 K/UL (4.8-10.8) Red Blood Count 2.75 M/UL (4.70-6.10) L Hemoglobin 8.6 G/DL (14.2-18.0) L Hematocrit 25.0 % (42.0-52.0) L Mean Corpuscular Volume 91 FL (80-99) Mean Corpuscular Hemoglobin 31.4 PG (27.0-31.0) H Mean Corpuscular Hemoglobin Concent 34.5 G/DL (32.0-36.0) Red Cell Distribution Width 10.9 % (11.6-14.8) L Platelet Count 163 K/UL (150-450) Mean Platelet Volume 6.3 FL (6.5-10.1) L Neutrophils (%) (Auto) 78.3 % (45.0-75.0) H Lymphocytes (%) (Auto) 15.3 % (20.0-45.0) L Monocytes (%) (Auto) 4.8 % (1.0-10.0) Eosinophils (%) (Auto) 1.1 % (0.0-3.0) Basophils (%) (Auto) 0.4 % (0.0-2.0) Sodium Level 143 MMOL/L (136-145) Potassium Level 3.1 MMOL/L (3.5-5.1) L Chloride Level 108 MMOL/L (98-107) H Carbon Dioxide Level 29 MMOL/L (21-32) Anion Gap 6 mmol/L (5-15) Blood Urea Nitrogen 4 mg/dL (7-18) L Creatinine 0.7 MG/DL (0.55-1.30) Estimat Glomerular Filtration Rate > 60 mL/min (>60) Glucose Level 120 MG/DL (74-106) H Calcium Level 7.6 MG/DL (8.5-10.1) L Current Medications Medications (Trade) Dose Ordered Sig/Cande Route PRN Reason Start Time Stop Time Status Last Admin Dose Admin Acetaminophen (Tylenol) 650 mg Q4H PRN ORAL Mild Pain/Temp > 100.5 11/26/19 00:30 12/21/19 00:29 Al Hydroxide/Mg Hydroxide (Mylanta) 30 ml QIDPRN PRN ORAL HEARTBURN 11/26/19 00:32 12/21/19 00:31 Cefepime HCl 2 gm/ Dextrose 55 ml @ 110 mls/hr Q12H IVPB 11/26/19 12:00 12/03/19 11:59 11/27/19 11:56 Chlorhexidine Gluconate (Nadia-Hex 2%) 1 applic DAILY@2000 TOPIC 11/26/19 20:00 12/21/19 19:59 11/26/19 21:06 Dextrose (Dextrose 50%) 25 ml Q30M PRN IV Hypoglycemia 11/26/19 00:30 12/23/19 20:59 Dextrose (Dextrose 50%) 50 ml Q30M PRN IV Hypoglycemia 11/26/19 00:30 12/23/19 20:59 Dextrose/Sodium Chloride 1,000 ml @ 75 mls/hr [id number] IV 11/26/19 01:00 12/24/19 00:59 11/27/19 04:44 Lactulose (Cephulac) 30 gm THREE TIMES A DAY NG 11/26/19 18:00 12/26/19 17:59 11/27/19 12:23 Levetiracetam 100 ml @ 400 mls/hr Q12HR IVPB 11/26/19 09:00 12/21/19 20:59 11/27/19 08:32 Levofloxacin (Levaquin) 500 mg DAILY ORAL 11/26/19 10:45 12/03/19 10:44 11/27/19 08:26 Pantoprazole (Protonix) 40 mg DAILY ORAL 11/26/19 09:00 12/22/19 08:59 11/27/19 08:26 Carlos Manuel Shukla MD Nov 27, 2019 13:09
--- NOTE | 2019-11-27 14:01 | NUR ---
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 CURRENT TF:Vital AF 1.2 @ 30ml/hr x 24 hrs ENTERAL NUTRITION RECOMMENDATIONS: Vital AF 1.2 @ 60ml/hr x 24 hrs to provide 1440ml, 1728kcal, 108g prot, 1168ml free water * As medically appropriate, advance slowly as tolerated to 60ml/hr x24 hrs -> will provide 100% est kcal/prot needs * Water flush per MD/ HOB over 30 degrees. ADDITIONAL RECOMMENDATIONS: 1) Per SNF: HT=5'11", BT=[id number] (as of 11/04/19) 2) Monitor TF tolerance, ability to continue to increase TF -> see above TF rec 3) Monitor lytes, replete as needed (low K + mag) 4) Wound healing: add Vit C 250mg QD add Jose 1pkt BID via PEG (mix w/ 4oz water)
--- NOTE | 2019-11-27 14:16 | NUR ---
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 99.0 HR 77 RR 19 B/P 129/84 K 3.1 AC 14 TV 600 FIO2 40% PEEP 5 IS: CEFEPIME IV KEPPRA IVF D5NS @ 75ML/HR STEP DOWN STATUS
--- NOTE | 2019-11-27 14:55 | Surgery Progress Note ---
Surgery Progress Note Subjective Additional Comments labs improved exam stable no n/v/f/c tolerating feeds Objective Last 24 Hour Vital Signs Date Time Temp Pulse Resp B/P (MAP) Pulse Ox O2 Delivery O2 Flow Rate FiO2 11/27/19 12:06 78 11/27/19 12:00 99.0 77 19 129/89 (102) 99 11/27/19 12:00 Mechanical Ventilator 11/27/19 12:00 40 11/27/19 11:00 72 15 40 11/27/19 09:00 82 15 40 11/27/19 08:00 40 11/27/19 08:00 98.7 95 19 129/96 (107) 98 11/27/19 08:00 Mechanical Ventilator 11/27/19 07:22 68 11/27/19 07:00 70 17 40 11/27/19 04:41 81 19 40 11/27/19 04:00 78 11/27/19 04:00 40 11/27/19 04:00 98.8 77 24 148/89 (108) 99 77 11/27/19 04:00 Mechanical Ventilator 11/27/19 03:05 71 22 40 11/27/19 00:59 78 21 40 11/27/19 00:00 99.0 74 17 132/74 (93) 100 74 11/27/19 00:00 40 11/27/19 00:00 75 11/27/19 00:00 Mechanical Ventilator 11/26/19 23:05 78 19 40 11/26/19 21:08 65 19 40 11/26/19 20:00 Mechanical Ventilator 11/26/19 20:00 77 11/26/19 20:00 40 11/26/19 20:00 98.9 75 18 122/87 (99) 96 75 11/26/19 19:10 72 20 40 11/26/19 17:11 70 19 40 11/26/19 16:00 40 11/26/19 16:00 98.2 72 15 130/84 (99) 100 72 11/26/19 16:00 68 11/26/19 16:00 Mechanical Ventilator 11/26/19 15:11 71 19 40 I&O Intake and Output 11/26/19 11/27/19 19:00 07:00 Intake Total 1645.0 ml 200 ml Output Total 800 ml Balance 845.0 ml 200 ml IV Total 1265.0 ml 170 ml Tube Feeding 180 ml 30 ml Other 200 ml Output Urine Total 800 ml # Bowel Movements 2 Dressing: other Wound: other Drains: other Cardiovascular: RSR Respiratory: decreased breath sounds Abdomen: soft, present bowel sounds Extremities: no tenderness, no cyanosis Laboratory Tests Test 11/27/19 04:00 White Blood Count 8.8 K/UL (4.8-10.8) Red Blood Count 2.75 M/UL (4.70-6.10) L Hemoglobin 8.6 G/DL (14.2-18.0) L Hematocrit 25.0 % (42.0-52.0) L Mean Corpuscular Volume 91 FL (80-99) Mean Corpuscular Hemoglobin 31.4 PG (27.0-31.0) H Mean Corpuscular Hemoglobin Concent 34.5 G/DL (32.0-36.0) Red Cell Distribution Width 10.9 % (11.6-14.8) L Platelet Count 163 K/UL (150-450) Mean Platelet Volume 6.3 FL (6.5-10.1) L Neutrophils (%) (Auto) 78.3 % (45.0-75.0) H Lymphocytes (%) (Auto) 15.3 % (20.0-45.0) L Monocytes (%) (Auto) 4.8 % (1.0-10.0) Eosinophils (%) (Auto) 1.1 % (0.0-3.0) Basophils (%) (Auto) 0.4 % (0.0-2.0) Sodium Level 143 MMOL/L (136-145) Potassium Level 3.1 MMOL/L (3.5-5.1) L Chloride Level 108 MMOL/L (98-107) H Carbon Dioxide Level 29 MMOL/L (21-32) Anion Gap 6 mmol/L (5-15) Blood Urea Nitrogen 4 mg/dL (7-18) L Creatinine 0.7 MG/DL (0.55-1.30) Estimat Glomerular Filtration Rate > 60 mL/min (>60) Glucose Level 120 MG/DL (74-106) H Calcium Level 7.6 MG/DL (8.5-10.1) L Plan Problems: (1) Sepsis Assessment & Plan: 64M with multiple comorbidities identified to have leukocytosis, lactic acidosis, CT as below. Patient is trach on vent support with PEG on tube feeds debilitated unresponsive Abdominal examination does not show significant distention and do not elicit pain upon palpation. G-tube in place and looks okay CT examination identifies free air around the left upper quadrant around the G- tube site as well as what seems to be a FORK OPERATOR shunt but contained within this area. No free air seen in the pelvis lower quadrants right upper quadrant underneath the liver And evaluate the patient's overall condition status is likely the G-tube and replaced potentially with some resistance prior causing injury around the G- tube insertion site with potential leakage possible infectious or inflammatory reaction would recommend medical management at this time given patient's current condition comorbidities FORK OPERATOR shunt location G-tube location and location of free air and potential infectious inflammatory process identified if rushing to surgical intervention there is Strong concerns for potentially infecting FORK OPERATOR shunt and having to remove or interrupt G-tube. If potentially localized infectious or inflammatory process may improve with medical management and inpatient who is debilitated sick and elderly would benefit from medical intervention versus aggressive surgical intervention if declines and does not respond to medical conservative management will discuss with f medical team and family considerations for surgical intervention tube feeds as tolerated iv fluids iv abx improving serial abd exams likely findings based on malposition of g tube at some point with replacement. now stable trend labs will follow with recs thank you Findings: Lack of enteric contrast limits assessment of the GI tract. There is a gastrostomy in good position. The stomach is distended with fluid. The proximal small bowel is dilated and fluid-filled. Most of the small bowel is distended with fluid and/or gas, although the most distal ileum is normal in caliber. The transition point is difficult to determine but may be in the right lower quadrant at the level of the distal ileum. The most severe small bowel distention is proximal. The rectum is distended by feces, measures 9 cm in diameter. No significant rectal wall thickening or perirectal inflammation demonstrated. No evidence of colonic diverticulosis or diverticulitis. There is gas anterior to the stomach which is probably intraluminal within bowel, but cannot be definitively connected to any bowel structures so extra peritoneal gas cannot be completely excluded. There is a ventriculoperitoneal shunt catheter, tip of which terminates in the left paracolic gutter. No free intraperitoneal fluid is demonstrated. The appendix is normal. There is no evidence of diverticulosis or diverticulitis. Lack of IV contrast limits assessment of the solid organs. The liver, gallbladder, bile ducts, pancreas, spleen are all unremarkable. The kidneys demonstrate bilateral cysts as well as bilateral subcentimeter low-attenuation lesions which are too small to characterize. There are bilateral nonobstructive calyceal calculi, largest in the right lower pole measuring approximately 8 mm long axis dimension. No ureteral calculi, or hydronephrosis or hydroureter. The bladder is empty. High attenuation material within the bladder lumen may reflect small bladder calculi. There is considerable consolidation within both of the visualized pulmonary lower lobes. There may be trace pleural fluid on the left. The bones are unremarkable except for degenerative spondylosis changes Impression: Dilated stomach and small bowel, nondilated distal ileum, suspicious for distal small bowel obstruction. Gas anterior to the stomach. While possibly within an enteric structure, no enteric structures are seen in this area on prior chest CT of 02/07/2018, so this is concerning for free intraperitoneal gas an therefore for perforation of a hollow viscus. Evidence of rectal fecal impaction Nonobstructive bilateral intrarenal calculi Considerable bilateral pulmonary lower lobe parenchymal consolidation Trace left pleural fluid Possible bladder calculi Ventriculoperitoneal shunt Gastrostomy Other findings as noted, including degenerative spondylosis, renal cysts Pt presented on admission with DTPI sacrum, Non-blanching erythema both heels. Pressure injury Sacrum has irregular borders and is maroon with an area that is purple at sacrococcygeal area.Marginal erythema noted along borders.Periwound is clean and pink(L)8ccm x (W)9cm. R heel is boggy with non-blanching erythema. Non-blanching erythema without induration ,fluctuance L heel. No other skin concerns noted. Tx.Plan: Apply Moisture Barrier Paste to Sacrum. Cover with Optifoam drsg. Change every 3 days and prn. Apply Cavilon Skin BArrier to both heels. Cover each heel with Optifoam drsg. Change every 7 days and prn APM/TOOTIE Mattress overlay. Reposition at least every 2hours or as tolerated. Off-load heels with pillow. Johnathan Ford Nov 27, 2019 14:55
[2019-11-27 16:00] VITALS: BP 136/67
--- NOTE | 2019-11-27 17:34 | Critical Care Progress Note ---
Assessment/Plan Assessment/Plan abdominal distention free air sepsis ARF COPD anoxia trach GT leukocytosis anemia +cultures PLAN gi and gs follow up feeds antibiotics monitor for change ID clearance back to snf impression, plan, and exam edited and reviewed in detail care discussed with heavy forger helper - Subjective ROS Limited/Unobtainable: Yes Condition: critical EKG Rhythm: Sinus Rhythm I&O: Intake and Output 11/26/19 11/27/19 18:59 06:59 Intake Total 1625.0 ml 105 ml Output Total 800 ml Balance 825.0 ml 105 ml IV Total 1265.0 ml 75 ml Tube Feeding 160 ml 30 ml Other 200 ml Output Urine Total 800 ml # Bowel Movements 2 Critical Care - Objective Last 24 Hour Vital Signs Date Time Temp Pulse Resp B/P (MAP) Pulse Ox O2 Delivery O2 Flow Rate FiO2 11/27/19 17:00 81 20 40 11/27/19 16:00 Mechanical Ventilator 11/27/19 16:00 98.7 78 20 136/67 (90) 100 11/27/19 16:00 40 11/27/19 15:15 83 11/27/19 15:00 80 17 40 11/27/19 13:00 77 22 40 11/27/19 12:06 78 11/27/19 12:00 99.0 77 19 129/89 (102) 99 11/27/19 12:00 Mechanical Ventilator 11/27/19 12:00 40 11/27/19 11:00 72 15 40 11/27/19 09:00 82 15 40 11/27/19 08:00 40 11/27/19 08:00 98.7 95 19 129/96 (107) 98 11/27/19 08:00 Mechanical Ventilator 11/27/19 07:22 68 11/27/19 07:00 70 17 40 11/27/19 04:41 81 19 40 11/27/19 04:00 78 11/27/19 04:00 40 11/27/19 04:00 98.8 77 24 148/89 (108) 99 77 11/27/19 04:00 Mechanical Ventilator 11/27/19 03:05 71 22 40 11/27/19 00:59 78 21 40 11/27/19 00:00 99.0 74 17 132/74 (93) 100 74 11/27/19 00:00 40 11/27/19 00:00 75 11/27/19 00:00 Mechanical Ventilator 11/26/19 23:05 78 19 40 11/26/19 21:08 65 19 40 11/26/19 20:00 Mechanical Ventilator 11/26/19 20:00 77 11/26/19 20:00 40 11/26/19 20:00 98.9 75 18 122/87 (99) 96 75 11/26/19 19:10 72 20 40 Labs: Labs Test 11/25/19 04:00 11/26/19 07:35 11/26/19 09:49 11/27/19 04:00 White Blood Count 5.6 K/UL (4.8-10.8) 8.1 K/UL (4.8-10.8) 8.8 K/UL (4.8-10.8) Red Blood Count 2.42 M/UL (4.70-6.10) 2.69 M/UL (4.70-6.10) 2.75 M/UL (4.70-6.10) Hemoglobin 7.7 G/DL (14.2-18.0) 8.5 G/DL (14.2-18.0) 8.6 G/DL (14.2-18.0) Hematocrit 22.0 % (42.0-52.0) 24.2 % (42.0-52.0) 25.0 % (42.0-52.0) Mean Corpuscular Volume 91 FL (80-99) 90 FL (80-99) 91 FL (80-99) Mean Corpuscular Hemoglobin 31.7 PG (27.0-31.0) 31.6 PG (27.0-31.0) 31.4 PG (27.0-31.0) Mean Corpuscular Hemoglobin Concent 34.8 G/DL (32.0-36.0) 35.1 G/DL (32.0-36.0) 34.5 G/DL (32.0-36.0) Red Cell Distribution Width 10.8 % (11.6-14.8) 11.1 % (11.6-14.8) 10.9 % (11.6-14.8) Platelet Count 118 K/UL (150-450) 148 K/UL (150-450) 163 K/UL (150-450) Mean Platelet Volume 6.1 FL (6.5-10.1) 5.9 FL (6.5-10.1) 6.3 FL (6.5-10.1) Neutrophils (%) (Auto) % (45.0-75.0) 77.9 % (45.0-75.0) 78.3 % (45.0-75.0) Lymphocytes (%) (Auto) % (20.0-45.0) 14.0 % (20.0-45.0) 15.3 % (20.0-45.0) Monocytes (%) (Auto) % (1.0-10.0) 6.3 % (1.0-10.0) 4.8 % (1.0-10.0) Eosinophils (%) (Auto) % (0.0-3.0) 1.0 % (0.0-3.0) 1.1 % (0.0-3.0) Basophils (%) (Auto) % (0.0-2.0) 0.8 % (0.0-2.0) 0.4 % (0.0-2.0) Sodium Level 144 MMOL/L (136-145) 141 MMOL/L (136-145) 143 MMOL/L (136-145) Potassium Level 2.5 MMOL/L (3.5-5.1) 2.5 MMOL/L (3.5-5.1) 3.1 MMOL/L (3.5-5.1) Chloride Level 111 MMOL/L (98-107) 109 MMOL/L (98-107) 108 MMOL/L (98-107) Carbon Dioxide Level 27 MMOL/L (21-32) 29 MMOL/L (21-32) 29 MMOL/L (21-32) Anion Gap 7 mmol/L (5-15) 6 mmol/L (5-15) 6 mmol/L (5-15) Blood Urea Nitrogen 10 mg/dL (7-18) 6 mg/dL (7-18) 4 mg/dL (7-18) Creatinine 0.7 MG/DL (0.55-1.30) 0.7 MG/DL (0.55-1.30) 0.7 MG/DL (0.55-1.30) Estimat Glomerular Filtration Rate > 60 mL/min (>60) > 60 mL/min (>60) > 60 mL/min (>60) Glucose Level 105 MG/DL (74-106) 118 MG/DL (74-106) 120 MG/DL (74-106) Calcium Level 7.5 MG/DL (8.5-10.1) 7.4 MG/DL (8.5-10.1) 7.6 MG/DL (8.5-10.1) Magnesium Level 1.7 MG/DL (1.8-2.4) Arterial Blood pH 7.543 (7.350-7.450) Arterial Blood Partial Pressure CO2 31.8 mmHg (35.0-45.0) Arterial Blood Partial Pressure O2 150.4 mmHg (75.0-100.0) Arterial Blood HCO3 26.8 mmol/L (22.0-26.0) Arterial Blood Oxygen Saturation 98.5 % (95-100) Arterial Blood Base Excess 4.3 (-2-2) Zaheer Test Positive Objective: WDWN NAD trach reduced breath sounds bilaterally without rhonchi or wheeze [id number] without MRG reduced BS nontender no HSM; Gt no CC some edema obtunded nonfocal Accucheck: 98 Jameel Pierre MD Nov 27, 2019 17:34
--- NOTE | 2019-11-27 18:00 | NUR ---
NURSE NOTES: Bed bath, linen change, oral care, and pericare provided to patient. Patient tolerated well. Suctioned via trach, with thick, white, moderate amount of sputum. Repositioned patient. HOB elevated. Tolerating TF. Will continue to monitor.
--- NOTE | 2019-11-27 18:51 | General Progress Note ---
Assessment/Plan Assessment/Plan: Assessment - Sepsis - improved - possible SBO/PSBO - resolved - Resp failure / trach - Renal failure - rectal fecal loading --> (+)BM now Recommendations - advance TF per surgery - GT laxatives PRN - IVF - Abx - follow lab / exam / imaging - PPI Subjective Allergies: Coded Allergies: No Known Allergies (Unverified , 02/07/18) Subjective Above noted seen in MARYBETH d/w RN Objective Last 24 Hour Vital Signs Date Time Temp Pulse Resp B/P (MAP) Pulse Ox O2 Delivery O2 Flow Rate FiO2 11/27/19 18:45 129 14 40 11/27/19 17:00 81 20 40 11/27/19 16:00 Mechanical Ventilator 11/27/19 16:00 98.7 78 20 136/67 (90) 100 11/27/19 16:00 40 11/27/19 15:15 83 11/27/19 15:00 80 17 40 11/27/19 13:00 77 22 40 11/27/19 12:06 78 11/27/19 12:00 99.0 77 19 129/89 (102) 99 11/27/19 12:00 Mechanical Ventilator 11/27/19 12:00 40 11/27/19 11:00 72 15 40 11/27/19 09:00 82 15 40 11/27/19 08:00 40 11/27/19 08:00 98.7 95 19 129/96 (107) 98 11/27/19 08:00 Mechanical Ventilator 11/27/19 07:22 68 11/27/19 07:00 70 17 40 11/27/19 04:41 81 19 40 11/27/19 04:00 78 11/27/19 04:00 40 11/27/19 04:00 98.8 77 24 148/89 (108) 99 77 11/27/19 04:00 Mechanical Ventilator 11/27/19 03:05 71 22 40 11/27/19 00:59 78 21 40 11/27/19 00:00 99.0 74 17 132/74 (93) 100 74 11/27/19 00:00 40 11/27/19 00:00 75 11/27/19 00:00 Mechanical Ventilator 11/26/19 23:05 78 19 40 11/26/19 21:08 65 19 40 11/26/19 20:00 Mechanical Ventilator 11/26/19 20:00 77 11/26/19 20:00 40 11/26/19 20:00 98.9 75 18 122/87 (99) 96 75 11/26/19 19:10 72 20 40 Intake and Output 11/26/19 11/27/19 19:00 07:00 Intake Total 1645.0 ml 200 ml Output Total 800 ml Balance 845.0 ml 200 ml IV Total 1265.0 ml 170 ml Tube Feeding 180 ml 30 ml Other 200 ml Output Urine Total 800 ml # Bowel Movements 2 Laboratory Tests 11/27/19 04:00: White Blood Count 8.8, Red Blood Count 2.75L, Hemoglobin 8.6L, Hematocrit 25.0L , Mean Corpuscular Volume 91, Mean Corpuscular Hemoglobin 31.4H, Mean Corpuscular Hemoglobin Concent 34.5, Red Cell Distribution Width 10.9L, Platelet Count 163, Mean Platelet Volume 6.3L, Neutrophils (%) (Auto) 78.3H, Lymphocytes (%) (Auto) 15.3L, Monocytes (%) (Auto) 4.8, Eosinophils (%) (Auto) 1.1, Basophils (%) (Auto) 0.4, Sodium Level 143, Potassium Level 3.1L, Chloride Level 108H, Carbon Dioxide Level 29, Anion Gap 6, Blood Urea Nitrogen 4L, Creatinine 0.7, Estimat Glomerular Filtration Rate > 60, Glucose Level 120H, Calcium Level 7.6L Height (Feet): 6 Height (Inches): 2.00 Weight (Pounds): 230 Objective Chronically ill appearing NCAT (+) trach coarse BS RR abd soft flat (+) GT no edema Mercedes Tsai MD Nov 27, 2019 18:51
--- NOTE | 2019-11-27 19:23 | NUR ---
HAND-OFF: Report given to Saul Vazquez RN. Endorsed plan of care. Patient in stable condition.
--- NOTE | 2019-11-27 19:30 | NUR ---
NURSE NOTES: Received report from Poly Corral RN. Patient in bed, nonverbal. On trach-vent w/settings AC 14, TV 600, FiO2 40%, and PEEP 5. In no apparent distress. SpO2 at 97%. GT in place and tolerating Vital AF 1.2 at 30cc/hr. HOB elevated. PICC line intact and infusing well of D5NS at 30cc/hr. SR on athletic monitor. SCD to bilat. lower extremities noted. Bed alarm engaged and in lowest position with padded side rails. Call light left within reach. Will continue to POC
[2019-11-27] MEDS: Dyna-Hex 2% Top Sol 2oz TOPIC SCH (21:59)
--- NOTE | 2019-11-27 23:00 | NUR ---
NURSE NOTES: Received report from Maddie Hughes RN. Patient in bed, nonverbal. No -signs or symptoms of acute cardiac or respiratory distress noted, pt. is on On trach-vent w/settings AC 14, TV 600, FiO2 40%, and PEEP 5- no apparent distress. SpO2 at 98%. GT in place and tolerating Vital AF 1.2 at 30cc/hr- no residual noted, HOB elevated. bed in lowest position and call light within easy reach, bed engaged in position, PICC line intact and infusing well of D5NS at 75cc/hr. SR on vacuum metalizing supervisor. SCD to bilat. lower extremities noted. safety measures continued, Will continue with plan of care. Addendum: 11/28/19 at 0023 by VAMSI MILTON RN RN pt.also has left wrist 20G and Rt. hand 20G both IVs intact and patent.
--- NOTE | 2019-11-27 23:00 | NUR ---
HAND-OFF: Report given to FRANCISCO JAVIER Rowland.
--- NOTE | 2019-11-27 23:30 | NUR ---
NURSE NOTES: Side rails padded for seizure precautions- no seizure activity noted upon assessment.
[2019-11-28 00:18] VITALS: BP 123/84
[2019-11-28 04:00] VITALS: BP 121/86
[2019-11-28] MEDS: D5NS 1,000 ML IV SCH ×2 (04:58→18:13)
[2019-11-28] MEDS ORDERED: Tubing IV Secondary IV ONE (06:38)
[2019-11-28 08:00] VITALS: BP 139/73
[2019-11-28] MEDS: Lactulose 20gm/30ml UDC NG SCH ×3 (08:00→18:07)
[2019-11-28] MEDS: levETIRAcetam 500mg/NS100ml 100 ML IVPB SCH ×2 (08:00→20:22)
[2019-11-28] MEDS: Levofloxacin 500mg tab ORAL SCH (08:56)
--- NOTE | 2019-11-28 09:09 | Infectious Diseases Prog Note ---
Assessment/Plan Assessment/Plan A; 1. Providencia, Pseudomonas & Stenotrophomonas pneumonia. 2. Small bowel obstruction. 3. Leukocytosis is resolved. 4. Renal failure is improving. 5. Positive blood culture: contamination 6. Anemia 7. VDRF 8. Hypokalemia PLAN: 1. Continue Cefepime & Levaquin 2. Will f/u cultures Subjective ROS Limited/Unobtainable: Yes Constitutional: Denies: fever Allergies: Coded Allergies: No Known Allergies (Unverified , 02/07/18) Objective Vital Signs Last 24 Hour Vital Signs Date Time Temp Pulse Resp B/P (MAP) Pulse Ox O2 Delivery O2 Flow Rate FiO2 11/28/19 08:00 Mechanical Ventilator 11/28/19 08:00 40 11/28/19 08:00 98.4 94 18 139/73 (95) 99 11/28/19 07:24 76 14 40 11/28/19 04:30 72 14 40 11/28/19 04:00 98.4 80 18 121/86 (98) 100 11/28/19 04:00 40 11/28/19 04:00 Mechanical Ventilator 11/28/19 03:41 77 11/28/19 03:11 79 14 40 11/28/19 01:03 84 17 40 11/28/19 00:18 98.4 84 18 123/84 (97) 100 11/28/19 00:00 40 11/28/19 00:00 Mechanical Ventilator 11/27/19 23:23 77 11/27/19 22:51 80 17 40 11/27/19 21:03 76 16 40 11/27/19 20:00 40 11/27/19 20:00 Mechanical Ventilator 11/27/19 20:00 78 11/27/19 18:45 129 14 40 11/27/19 17:00 81 20 40 11/27/19 16:00 Mechanical Ventilator 11/27/19 16:00 98.7 78 20 136/67 (90) 100 11/27/19 16:00 40 11/27/19 15:15 83 11/27/19 15:00 80 17 40 11/27/19 13:00 77 22 40 11/27/19 12:06 78 11/27/19 12:00 99.0 77 19 129/89 (102) 99 11/27/19 12:00 Mechanical Ventilator 11/27/19 12:00 40 11/27/19 11:00 72 15 40 Height (Feet): 6 Height (Inches): 2.00 Weight (Pounds): 228 General Appearance: no acute distress HEENT: status post trach Respiratory/Chest: lungs clear, other - on ventilator Cardiovascular: normal rate Abdomen: soft, non tender, other - GT feeding Extremities: no edema Neurologic/Psychiatric: other - sleeping Current Medications Medications (Trade) Dose Ordered Sig/Cande Route PRN Reason Start Time Stop Time Status Last Admin Dose Admin Acetaminophen (Tylenol) 650 mg Q4H PRN ORAL Mild Pain/Temp > 100.5 11/26/19 00:30 12/21/19 00:29 Al Hydroxide/Mg Hydroxide (Mylanta) 30 ml QIDPRN PRN ORAL HEARTBURN 11/26/19 00:32 12/21/19 00:31 Cefepime HCl 2 gm/ Dextrose 55 ml @ 110 mls/hr Q12H IVPB 11/26/19 12:00 12/03/19 11:59 11/27/19 23:50 Chlorhexidine Gluconate (Nadia-Hex 2%) 1 applic DAILY@2000 TOPIC 11/26/19 20:00 12/21/19 19:59 11/27/19 21:59 Dextrose (Dextrose 50%) 25 ml Q30M PRN IV Hypoglycemia 11/26/19 00:30 12/23/19 20:59 Dextrose (Dextrose 50%) 50 ml Q30M PRN IV Hypoglycemia 11/26/19 00:30 12/23/19 20:59 Dextrose/Sodium Chloride 1,000 ml @ 75 mls/hr [id number] IV 11/26/19 01:00 12/24/19 00:59 11/28/19 04:58 Lactulose (Cephulac) 30 gm THREE TIMES A DAY NG 11/26/19 18:00 12/26/19 17:59 11/28/19 08:00 Levetiracetam 100 ml @ 400 mls/hr Q12HR IVPB 11/26/19 09:00 12/21/19 20:59 11/28/19 08:00 Levofloxacin (Levaquin) 500 mg DAILY ORAL 11/26/19 10:45 12/03/19 10:44 11/28/19 08:56 Pantoprazole (Protonix) 40 mg DAILY ORAL 11/26/19 09:00 12/22/19 08:59 11/28/19 08:01 Carlos Manuel Shukla MD Nov 28, 2019 09:09
--- NOTE | 2019-11-28 10:17 | Nephrology Progress Note ---
Assessment/Plan Assessment/Plan: A/P 1. GROVER- resolved. 2. Hypokalemia - replacing prn 3. Respiratory failure- trached/vent 4. Possible bowel perforation.- per Gen surgery - g tube OK for DC from renal point Subjective Date patient seen: Nov 28, 2019 Time patient seen: 10:16 ROS Limited/Unobtainable: Yes Allergies: Coded Allergies: No Known Allergies (Unverified , 02/07/18) Subjective Patient remains chronically trached/vent Objective Last 24 Hour Vital Signs Date Time Temp Pulse Resp B/P (MAP) Pulse Ox O2 Delivery O2 Flow Rate FiO2 11/28/19 09:30 75 14 40 11/28/19 08:00 Mechanical Ventilator 11/28/19 08:00 40 11/28/19 08:00 98.4 94 18 139/73 (95) 99 11/28/19 07:48 78 11/28/19 07:24 76 14 40 11/28/19 04:30 72 14 40 11/28/19 04:00 98.4 80 18 121/86 (98) 100 11/28/19 04:00 40 11/28/19 04:00 Mechanical Ventilator 11/28/19 03:41 77 11/28/19 03:11 79 14 40 11/28/19 01:03 84 17 40 11/28/19 00:18 98.4 84 18 123/84 (97) 100 11/28/19 00:00 40 11/28/19 00:00 Mechanical Ventilator 11/27/19 23:23 77 11/27/19 22:51 80 17 40 11/27/19 21:03 76 16 40 11/27/19 20:00 40 11/27/19 20:00 Mechanical Ventilator 11/27/19 20:00 78 11/27/19 18:45 129 14 40 11/27/19 17:00 81 20 40 11/27/19 16:00 Mechanical Ventilator 11/27/19 16:00 98.7 78 20 136/67 (90) 100 11/27/19 16:00 40 11/27/19 15:15 83 11/27/19 15:00 80 17 40 11/27/19 13:00 77 22 40 11/27/19 12:06 78 11/27/19 12:00 99.0 77 19 129/89 (102) 99 11/27/19 12:00 Mechanical Ventilator 11/27/19 12:00 40 11/27/19 11:00 72 15 40 Intake and Output 11/27/19 11/28/19 19:00 07:00 Intake Total 1740 ml 1408 ml Output Total 2000 ml 1000 ml Balance -260 ml 408 ml Intake Free Water 150 ml 50 ml IV Total 1230 ml 1088 ml Tube Feeding 360 ml 270 ml Output Urine Total 2000 ml 1000 ml # Bowel Movements 3 5 Height (Feet): 6 Height (Inches): 2.00 Weight (Pounds): 228 General Appearance: no apparent distress, alert EENT: normal ENT inspection Neck: normal alignment, supple Cardiovascular: normal rate, regular rhythm Respiratory/Chest: rhonchi - bilaterally Abdomen: non tender, soft Edema: 1+ Arm (L), 1+ Arm (R), 1+ Leg (L), 1+ Leg (R), 1+ Pedal (L), 1+ Pedal ( R), 1+ Generalized Narendra Chavez MD Nov 28, 2019 10:17
--- NOTE | 2019-11-28 11:02 | NUR ---
HAND-OFF: Report given to Parul RN, pt. remains stable and no signs of distress noted.
[2019-11-28] MEDS: Cefepime HCl 2 GM in D5W 55 ML IVPB SCH ×2 (11:38→23:05)
[2019-11-28 12:00] VITALS: BP 129/76
--- NOTE | 2019-11-28 12:34 | Surgery Progress Note ---
Surgery Progress Note Subjective Additional Comments no acute events exam stable improving labs noted Objective Last 24 Hour Vital Signs Date Time Temp Pulse Resp B/P (MAP) Pulse Ox O2 Delivery O2 Flow Rate FiO2 11/28/19 11:00 82 18 40 11/28/19 09:30 75 14 40 11/28/19 08:00 Mechanical Ventilator 11/28/19 08:00 40 11/28/19 08:00 98.4 94 18 139/73 (95) 99 11/28/19 07:48 78 11/28/19 07:24 76 14 40 11/28/19 04:30 72 14 40 11/28/19 04:00 98.4 80 18 121/86 (98) 100 11/28/19 04:00 40 11/28/19 04:00 Mechanical Ventilator 11/28/19 03:41 77 11/28/19 03:11 79 14 40 11/28/19 01:03 84 17 40 11/28/19 00:18 98.4 84 18 123/84 (97) 100 11/28/19 00:00 40 11/28/19 00:00 Mechanical Ventilator 11/27/19 23:23 77 11/27/19 22:51 80 17 40 11/27/19 21:03 76 16 40 11/27/19 20:00 40 11/27/19 20:00 Mechanical Ventilator 11/27/19 20:00 78 11/27/19 18:45 129 14 40 11/27/19 17:00 81 20 40 11/27/19 16:00 Mechanical Ventilator 11/27/19 16:00 98.7 78 20 136/67 (90) 100 11/27/19 16:00 40 11/27/19 15:15 83 11/27/19 15:00 80 17 40 11/27/19 13:00 77 22 40 I&O Intake and Output 11/27/19 11/28/19 19:00 07:00 Intake Total 1740 ml 1408 ml Output Total 2000 ml 1000 ml Balance -260 ml 408 ml Intake Free Water 150 ml 50 ml IV Total 1230 ml 1088 ml Tube Feeding 360 ml 270 ml Output Urine Total 2000 ml 1000 ml # Bowel Movements 3 5 Dressing: other Wound: other Drains: other Cardiovascular: RSR Respiratory: decreased breath sounds, other Abdomen: soft, non-tender, present bowel sounds Extremities: no tenderness, no cyanosis Plan Problems: (1) Sepsis Assessment & Plan: 64M with multiple comorbidities identified to have leukocytosis, lactic acidosis, CT as below. Patient is trach on vent support with PEG on tube feeds debilitated unresponsive Abdominal examination does not show significant distention and do not elicit pain upon palpation. G-tube in place and looks okay CT examination identifies free air around the left upper quadrant around the G- tube site as well as what seems to be a WASTEWATER DESIGN ENGINEER shunt but contained within this area. No free air seen in the pelvis lower quadrants right upper quadrant underneath the liver And evaluate the patient's overall condition status is likely the G-tube and replaced potentially with some resistance prior causing injury around the G- tube insertion site with potential leakage possible infectious or inflammatory reaction would recommend medical management at this time given patient's current condition comorbidities WASTEWATER DESIGN ENGINEER shunt location G-tube location and location of free air and potential infectious inflammatory process identified if rushing to surgical intervention there is Strong concerns for potentially infecting WASTEWATER DESIGN ENGINEER shunt and having to remove or interrupt G-tube. If potentially localized infectious or inflammatory process may improve with medical management and inpatient who is debilitated sick and elderly would benefit from medical intervention versus aggressive surgical intervention if declines and does not respond to medical conservative management will discuss with f medical team and family considerations for surgical intervention tube feeds as tolerated iv fluids iv abx improving serial abd exams likely findings based on malposition of g tube at some point with replacement. now stable trend labs will follow with recs thank you Findings: Lack of enteric contrast limits assessment of the GI tract. There is a gastrostomy in good position. The stomach is distended with fluid. The proximal small bowel is dilated and fluid-filled. Most of the small bowel is distended with fluid and/or gas, although the most distal ileum is normal in caliber. The transition point is difficult to determine but may be in the right lower quadrant at the level of the distal ileum. The most severe small bowel distention is proximal. The rectum is distended by feces, measures 9 cm in diameter. No significant rectal wall thickening or perirectal inflammation demonstrated. No evidence of colonic diverticulosis or diverticulitis. There is gas anterior to the stomach which is probably intraluminal within bowel, but cannot be definitively connected to any bowel structures so extra peritoneal gas cannot be completely excluded. There is a ventriculoperitoneal shunt catheter, tip of which terminates in the left paracolic gutter. No free intraperitoneal fluid is demonstrated. The appendix is normal. There is no evidence of diverticulosis or diverticulitis. Lack of IV contrast limits assessment of the solid organs. The liver, gallbladder, bile ducts, pancreas, spleen are all unremarkable. The kidneys demonstrate bilateral cysts as well as bilateral subcentimeter low-attenuation lesions which are too small to characterize. There are bilateral nonobstructive calyceal calculi, largest in the right lower pole measuring approximately 8 mm long axis dimension. No ureteral calculi, or hydronephrosis or hydroureter. The bladder is empty. High attenuation material within the bladder lumen may reflect small bladder calculi. There is considerable consolidation within both of the visualized pulmonary lower lobes. There may be trace pleural fluid on the left. The bones are unremarkable except for degenerative spondylosis changes Impression: Dilated stomach and small bowel, nondilated distal ileum, suspicious for distal small bowel obstruction. Gas anterior to the stomach. While possibly within an enteric structure, no enteric structures are seen in this area on prior chest CT of 02/07/2018, so this is concerning for free intraperitoneal gas an therefore for perforation of a hollow viscus. Evidence of rectal fecal impaction Nonobstructive bilateral intrarenal calculi Considerable bilateral pulmonary lower lobe parenchymal consolidation Trace left pleural fluid Possible bladder calculi Ventriculoperitoneal shunt Gastrostomy Other findings as noted, including degenerative spondylosis, renal cysts Pt presented on admission with DTPI sacrum, Non-blanching erythema both heels. Pressure injury Sacrum has irregular borders and is maroon with an area that is purple at sacrococcygeal area.Marginal erythema noted along borders.Periwound is clean and pink(L)8ccm x (W)9cm. R heel is boggy with non-blanching erythema. Non-blanching erythema without induration ,fluctuance L heel. No other skin concerns noted. Tx.Plan: Apply Moisture Barrier Paste to Sacrum. Cover with Optifoam drsg. Change every 3 days and prn. Apply Cavilon Skin BArrier to both heels. Cover each heel with Optifoam drsg. Change every 7 days and prn APM/TOOTIE Mattress overlay. Reposition at least every 2hours or as tolerated. Off-load heels with pillow. Johnathan Ford Nov 28, 2019 12:34
--- NOTE | 2019-11-28 13:46 | NUR ---
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 98.4 HR 94 RR 18 B/P 139/75 AC 14 TV 600 FIO2 40% PEEP 5 IS: KCL IV CEFEPIME IV KEPRA IV LEVAQUIN IV IVF D5NS @ 75ML/HR STEP DOWN STATUS
--- NOTE | 2019-11-28 15:40 | NUR ---
HAND-OFF: Report given to FRANCISCO JAVIER Tripathi,patient resting eyes close,on ventilator,PICC right upper ,IV fluid infusing,dressing dry intacy,with lizarraga catheter
[2019-11-28 16:00] VITALS: BP 124/92
--- NOTE | 2019-11-28 16:00 | General Progress Note ---
Assessment/Plan Assessment/Plan: abdominal distention free air sepsis ARF COPD anoxia trach GT leukocytosis anemia +cultures PLAN gi and gs follow up feeds antibiotics monitor for change ID clearance back to snf impression, plan, and exam edited and reviewed in detail care discussed with RN Subjective ROS Limited/Unobtainable: Yes Allergies: Coded Allergies: No Known Allergies (Unverified , 02/07/18) Objective Last 24 Hour Vital Signs Date Time Temp Pulse Resp B/P (MAP) Pulse Ox O2 Delivery O2 Flow Rate FiO2 11/28/19 14:44 74 18 40 11/28/19 13:02 81 18 40 11/28/19 11:00 82 18 40 11/28/19 09:30 75 14 40 11/28/19 08:00 Mechanical Ventilator 11/28/19 08:00 40 11/28/19 08:00 98.4 94 18 139/73 (95) 99 11/28/19 07:48 78 11/28/19 07:24 76 14 40 11/28/19 04:30 72 14 40 11/28/19 04:00 98.4 80 18 121/86 (98) 100 11/28/19 04:00 40 11/28/19 04:00 Mechanical Ventilator 11/28/19 03:41 77 11/28/19 03:11 79 14 40 11/28/19 01:03 84 17 40 11/28/19 00:18 98.4 84 18 123/84 (97) 100 11/28/19 00:00 40 11/28/19 00:00 Mechanical Ventilator 11/27/19 23:23 77 11/27/19 22:51 80 17 40 11/27/19 21:03 76 16 40 11/27/19 20:00 40 11/27/19 20:00 Mechanical Ventilator 11/27/19 20:00 78 11/27/19 18:45 129 14 40 11/27/19 17:00 81 20 40 11/27/19 16:00 Mechanical Ventilator 11/27/19 16:00 98.7 78 20 136/67 (90) 100 11/27/19 16:00 40 Intake and Output 11/27/19 11/28/19 19:00 07:00 Intake Total 1740 ml 1408 ml Output Total 2000 ml 1000 ml Balance -260 ml 408 ml Intake Free Water 150 ml 50 ml IV Total 1230 ml 1088 ml Tube Feeding 360 ml 270 ml Output Urine Total 2000 ml 1000 ml # Bowel Movements 3 5 Height (Feet): 6 Height (Inches): 2.00 Weight (Pounds): 228 Jameel Pierre MD Nov 28, 2019 16:00
--- NOTE | 2019-11-28 16:00 | NUR ---
NURSE NOTES: Received report from Parul Charge Nurse.Patient in bed with eyes open, no moaning no facial grimaces. Trach to vent no s/s of acute distress noted. No fever no n/v. Right upper arm intact infusing D5NS at 75cc/hr and KCL 20meq at 50cc/hr. patient with x1 large brownish soft BM, kept clean and dry. repositioned patient in bed. Silva draining. Gt intact infusing Vital AF at 30cc/hr. HOB elevated. oral care provided. bed alarm on. seizure and contact isolation maintained and observed. will continue plan of care.
--- NOTE | 2019-11-28 19:07 | NUR ---
HAND-OFF: Report given to Janett MCINTYRE.
--- NOTE | 2019-11-28 19:10 | NUR ---
NURSE NOTES: Received report from FRANCISCO JAVIER Tripathi. Patient in bed obtunded-nonverbal. No -signs or symptoms of acute cardiac or respiratory distress noted, pt. is on On trach-vent w/settings AC 14, TV 600, FiO2 40%, and PEEP 5- no apparent distress. SpO2 at 99%. GT in place and tolerating Vital AF 1.2 at 30cc/hr- no residual noted, side rails padded for seizure precautions- no seizure activity noted upon assessment, HOB elevated. bed in lowest position and call light within easy reach, bed engaged in position, PICC line intact and infusing well of D5NS at 75cc/hr. SR on engine monitor. SCD to bilateral lower extremities noted. safety measures continued, Will continue with plan of care.
--- NOTE | 2019-11-28 19:17 | General Progress Note ---
Assessment/Plan Assessment/Plan: Assessment - Sepsis - improved - possible SBO/PSBO - resolved - Resp failure / trach - Renal failure - rectal fecal loading --> (+)BM now Recommendations - advance TF - GT laxatives PRN - IVF - Abx - follow lab / exam / imaging - PPI Subjective Allergies: Coded Allergies: No Known Allergies (Unverified , 02/07/18) Subjective Above noted seen in MARYBETH d/w RN Objective Last 24 Hour Vital Signs Date Time Temp Pulse Resp B/P (MAP) Pulse Ox O2 Delivery O2 Flow Rate FiO2 11/28/19 18:43 77 17 40 11/28/19 17:16 74 19 40 11/28/19 16:00 Mechanical Ventilator 11/28/19 16:00 98.8 79 20 124/92 (103) 100 11/28/19 16:00 78 11/28/19 16:00 40 11/28/19 14:44 74 18 40 11/28/19 13:02 81 18 40 11/28/19 12:00 40 11/28/19 12:00 Mechanical Ventilator 11/28/19 12:00 98.9 77 18 129/76 (93) 100 11/28/19 11:42 77 11/28/19 11:00 82 18 40 11/28/19 09:30 75 14 40 11/28/19 08:00 Mechanical Ventilator 11/28/19 08:00 40 11/28/19 08:00 98.4 94 18 139/73 (95) 99 11/28/19 07:48 78 11/28/19 07:24 76 14 40 11/28/19 04:30 72 14 40 11/28/19 04:00 98.4 80 18 121/86 (98) 100 11/28/19 04:00 40 11/28/19 04:00 Mechanical Ventilator 11/28/19 03:41 77 11/28/19 03:11 79 14 40 11/28/19 01:03 84 17 40 11/28/19 00:18 98.4 84 18 123/84 (97) 100 11/28/19 00:00 40 11/28/19 00:00 Mechanical Ventilator 11/27/19 23:23 77 11/27/19 22:51 80 17 40 11/27/19 21:03 76 16 40 11/27/19 20:00 40 11/27/19 20:00 Mechanical Ventilator 11/27/19 20:00 78 Intake and Output 11/27/19 11/28/19 19:00 07:00 Intake Total 1740 ml 1408 ml Output Total 2000 ml 1000 ml Balance -260 ml 408 ml Intake Free Water 150 ml 50 ml IV Total 1230 ml 1088 ml Tube Feeding 360 ml 270 ml Output Urine Total 2000 ml 1000 ml # Bowel Movements 3 5 Height (Feet): 6 Height (Inches): 2.00 Weight (Pounds): 228 Objective Chronically ill appearing NCAT (+) trach coarse BS RR abd soft flat (+) GT no edema Mercedes Tsai MD Nov 28, 2019 19:17
[2019-11-28 20:00] VITALS: BP 120/80
[2019-11-28] MEDS: Dyna-Hex 2% Top Sol 2oz TOPIC SCH (20:22)
--- NOTE | 2019-11-28 20:30 | NUR ---
NURSE NOTES: cooling measures applied as pt. has a temp of 100.8 axillary -will administer Tylenol - pt. appears to be stable - will continue to monitor pt. and with plan of care.
--- NOTE | 2019-11-28 21:01 | NUR ---
NURSE NOTES: pts. temp appears to be trending down- cooling measures continued, Tylenol appears to be effective-will continue to monitor pt. and with plan of care.
[2019-11-29] VITALS: BP 128/84
[2019-11-29 04:00] VITALS: BP 125/87
[2019-11-29] MEDS: D5NS 1,000 ML IV SCH (04:41)
--- NOTE | 2019-11-29 06:54 | NUR ---
HAND-OFF: Report given to Poly RN, pt. remains stable and no signs of distress noted.
--- NOTE | 2019-11-29 06:55 | NUR ---
NURSE NOTES: Received report from FRANCISCO JAVIER Rowland. Observed patient in bed, asleep, opens eyes to verbal stimuli. On trach-vent with settings AC 14, TV 600, FiO2 40%, and PEEP 5. No respiratory distress noted. GT intact and patent with TF infusing at prescribed rate. HOB elevated. Right upper arm PICC line intact and patent, IV fluids infusing at prescribed rate. Silva catheter noted, draining to gravity. No s/s of pain/discomfort. Safety precautions in place; bed locked, alarmed, and in lowest position, padded side rails up x2, and call light left within reach. Will continue plan of care and will continue to monitor patient.
--- NOTE | 2019-11-29 07:38 | Nephrology Progress Note ---
Assessment/Plan Assessment/Plan: A/P 1. GROVER- resolved. 2. Hypokalemia - AM LABS PENDING 3. Respiratory failure- trached/vent 4. Possible bowel perforation.- per Gen surgery - g tube OK for DC from renal point Subjective Date patient seen: Nov 29, 2019 Time patient seen: 07:37 ROS Limited/Unobtainable: Yes Allergies: Coded Allergies: No Known Allergies (Unverified , 02/07/18) Subjective Patient chronically trached/vent Objective Last 24 Hour Vital Signs Date Time Temp Pulse Resp B/P (MAP) Pulse Ox O2 Delivery O2 Flow Rate FiO2 11/29/19 04:30 75 14 40 11/29/19 04:00 40 11/29/19 04:00 98.2 71 18 125/87 (100) 100 11/29/19 04:00 Mechanical Ventilator 11/29/19 03:37 70 11/29/19 03:02 71 14 40 11/29/19 01:02 88 19 40 11/29/19 00:00 40 11/29/19 00:00 97.9 74 20 128/84 (99) 95 11/29/19 00:00 Mechanical Ventilator 11/28/19 23:34 71 11/28/19 23:01 76 21 40 11/28/19 21:03 75 14 40 11/28/19 21:01 99.1 11/28/19 21:01 99.1 11/28/19 21:00 40 11/28/19 20:00 Mechanical Ventilator 11/28/19 20:00 40 11/28/19 20:00 99.8 71 18 120/80 (93) 100 11/28/19 19:43 74 11/28/19 18:43 77 17 40 11/28/19 17:16 74 19 40 11/28/19 16:00 Mechanical Ventilator 11/28/19 16:00 98.8 79 20 124/92 (103) 100 11/28/19 16:00 78 11/28/19 16:00 40 11/28/19 14:44 74 18 40 11/28/19 13:02 81 18 40 11/28/19 12:00 40 11/28/19 12:00 Mechanical Ventilator 11/28/19 12:00 98.9 77 18 129/76 (93) 100 11/28/19 11:42 77 11/28/19 11:00 82 18 40 11/28/19 09:30 75 14 40 11/28/19 08:00 Mechanical Ventilator 11/28/19 08:00 40 11/28/19 08:00 98.4 94 18 139/73 (95) 99 11/28/19 07:48 78 Intake and Output 11/28/19 11/29/19 19:00 07:00 Intake Total 1575 ml 1769 ml Output Total 1000 ml 850 ml Balance 575 ml 919 ml Intake Free Water 50 ml 50 ml IV Total 1315 ml 1359 ml Tube Feeding 210 ml 360 ml Output Urine Total 1000 ml 850 ml # Bowel Movements 4 5 Height (Feet): 6 Height (Inches): 2.00 Weight (Pounds): 224 General Appearance: no apparent distress EENT: normal ENT inspection Neck: normal alignment, supple Cardiovascular: normal rate, regular rhythm Respiratory/Chest: rhonchi - bilaterally Abdomen: non tender, soft Edema: no edema noted Arm (L), no edema noted Arm (R), no edema noted Leg (L), no edema noted Leg (R), no edema noted Pedal (L), no edema noted Pedal (R), no edema noted Generalized Narendra Chavez MD Nov 29, 2019 07:38
--- NOTE | 2019-11-29 07:45 | NUR ---
NURSE NOTES: Report received from food service worker Parul Wilcox RN.Pt resting quietly in bed asleep,noted no resp distress,with trach tube to vent ,on current ordered vent settings,tolerating well,no signs of pain or discomfort,S-R on the monitor,GTF Nepro at at 30 ml/hr,no residual noted,Silva cath draining yellow urine,incontinent of liquid diarrhea like stools in large amount,skin warm and dry IV site to CONCHITA PICC line intact with IVF D5NS at 75 ml,SR up x2 HOB elevated ,bed lock in lowest position,will continue with plans of care.
[2019-11-29 08:00] VITALS: BP 129/99
--- NOTE | 2019-11-29 08:29 | Critical Care Progress Note ---
Assessment/Plan Assessment/Plan abdominal distention free air sepsis ARF COPD anoxia trach GT leukocytosis anemia +cultures PLAN gi and gs follow up tolerating feeds antibiotics monitor for change complete antibiotics at [facility] impression, plan, and exam edited and reviewed in detail care discussed with assembly inspector helper - Subjective ROS Limited/Unobtainable: Yes Condition: improving EKG Rhythm: Sinus Rhythm Residuals: minimal Tube Feeding Tolerated: yes I&O: Intake and Output 11/28/19 11/29/19 19:00 07:00 Intake Total 1575 ml 1769 ml Output Total 1000 ml 850 ml Balance 575 ml 919 ml Intake Free Water 50 ml 50 ml IV Total 1315 ml 1359 ml Tube Feeding 210 ml 360 ml Output Urine Total 1000 ml 850 ml # Bowel Movements 4 5 Critical Care - Objective Last 24 Hour Vital Signs Date Time Temp Pulse Resp B/P (MAP) Pulse Ox O2 Delivery O2 Flow Rate FiO2 11/29/19 04:30 75 14 40 11/29/19 04:00 40 11/29/19 04:00 98.2 71 18 125/87 (100) 100 11/29/19 04:00 Mechanical Ventilator 11/29/19 03:37 70 11/29/19 03:02 71 14 40 11/29/19 01:02 88 19 40 11/29/19 00:00 40 11/29/19 00:00 97.9 74 20 128/84 (99) 95 11/29/19 00:00 Mechanical Ventilator 11/28/19 23:34 71 11/28/19 23:01 76 21 40 11/28/19 21:03 75 14 40 11/28/19 21:01 99.1 11/28/19 21:01 99.1 11/28/19 21:00 40 11/28/19 20:00 Mechanical Ventilator 11/28/19 20:00 40 11/28/19 20:00 99.8 71 18 120/80 (93) 100 11/28/19 19:43 74 11/28/19 18:43 77 17 40 11/28/19 17:16 74 19 40 11/28/19 16:00 Mechanical Ventilator 11/28/19 16:00 98.8 79 20 124/92 (103) 100 11/28/19 16:00 78 11/28/19 16:00 40 11/28/19 14:44 74 18 40 11/28/19 13:02 81 18 40 11/28/19 12:00 40 11/28/19 12:00 Mechanical Ventilator 11/28/19 12:00 98.9 77 18 129/76 (93) 100 11/28/19 11:42 77 11/28/19 11:00 82 18 40 11/28/19 09:30 75 14 40 Objective: WDWN NAD trach reduced breath sounds bilaterally without rhonchi or wheeze [id number] without MRG reduced BS nontender no HSM; Gt no CC some edema obtunded nonfocal Accucheck: 113 Jameel Pierre MD Nov 29, 2019 08:29
--- NOTE | 2019-11-29 08:45 | NUR ---
NURSE NOTES: Pt incontinent of Large diarrhea like stools,pt on Lactulose 30 cc /GT.
[2019-11-29] MEDS ORDERED: Lactulose 20gm/30ml UDC NG SCH (09:00)
[2019-11-29] MEDS: levETIRAcetam 500mg/NS100ml 100 ML IVPB SCH (09:16)
[2019-11-29] MEDS: Levofloxacin 500mg tab ORAL SCH (09:17)
--- NOTE | 2019-11-29 10:28 | Infectious Diseases Prog Note ---
"Assessment/Plan Assessment/Plan antibiotics ; cefepime, levoquin A 1. providencia | pseudomonas | stenotrophomonas pneumonia 2. leucocytosis resolved 3. respiratory failure 4. SBO 5. renal calculi 6. + blood culture with coag neg staph likely contaminated P 1. continue cefepime 1 more day 2. continue po levoquin 6 more days 3. will follow up cultures Subjective ROS Limited/Unobtainable: Yes Allergies: Coded Allergies: No Known Allergies (Unverified , 02/07/18) Objective Vital Signs Last 24 Hour Vital Signs Date Time Temp Pulse Resp B/P (MAP) Pulse Ox O2 Delivery O2 Flow Rate FiO2 11/29/19 09:16 77 15 40 11/29/19 07:20 76 18 40 11/29/19 04:30 75 14 40 11/29/19 04:00 40 11/29/19 04:00 98.2 71 18 125/87 (100) 100 11/29/19 04:00 Mechanical Ventilator 11/29/19 03:37 70 11/29/19 03:02 71 14 40 11/29/19 01:02 88 19 40 11/29/19 00:00 40 11/29/19 00:00 97.9 74 20 128/84 (99) 95 11/29/19 00:00 Mechanical Ventilator 11/28/19 23:34 71 11/28/19 23:01 76 21 40 11/28/19 21:03 75 14 40 11/28/19 21:01 99.1 11/28/19 21:01 99.1 11/28/19 21:00 40 11/28/19 20:00 Mechanical Ventilator 11/28/19 20:00 40 11/28/19 20:00 99.8 71 18 120/80 (93) 100 11/28/19 19:43 74 11/28/19 18:43 77 17 40 11/28/19 17:16 74 19 40 11/28/19 16:00 Mechanical Ventilator 11/28/19 16:00 98.8 79 20 124/92 (103) 100 11/28/19 16:00 78 11/28/19 16:00 40 11/28/19 14:44 74 18 40 11/28/19 13:02 81 18 40 11/28/19 12:00 40 11/28/19 12:00 Mechanical Ventilator 11/28/19 12:00 98.9 77 18 129/76 (93) 100 11/28/19 11:42 77 11/28/19 11:00 82 18 40 Height (Feet): 6 Height (Inches): 2.00 Weight (Pounds): 224 HEENT: status post trach Respiratory/Chest: lungs clear Cardiovascular: normal rate, regular rhythm, no gallop/murmur Abdomen: other - GT Extremities: other - + edema, right arm PICC Current Medications Medications (Trade) Dose Ordered Sig/Cande Route PRN Reason Start Time Stop Time Status Last Admin Dose Admin Acetaminophen (Tylenol) 650 mg Q4H PRN ORAL Mild Pain/Temp > 100.5 11/26/19 00:30 12/21/19 00:29 11/28/19 20:31 Al Hydroxide/Mg Hydroxide (Mylanta) 30 ml QIDPRN PRN ORAL HEARTBURN 11/26/19 00:32 12/21/19 00:31 Cefepime HCl 2 gm/ Dextrose 55 ml @ 110 mls/hr Q12H IVPB 11/26/19 12:00 12/03/19 11:59 11/28/19 23:05 Chlorhexidine Gluconate (Nadia-Hex 2%) 1 applic DAILY@2000 TOPIC 11/26/19 20:00 12/21/19 19:59 11/28/19 20:22 Dextrose (Dextrose 50%) 25 ml Q30M PRN IV Hypoglycemia 11/26/19 00:30 12/23/19 20:59 Dextrose (Dextrose 50%) 50 ml Q30M PRN IV Hypoglycemia 11/26/19 00:30 12/23/19 20:59 Dextrose/Sodium Chloride 1,000 ml @ 75 mls/hr [id number] IV 11/26/19 01:00 12/24/19 00:59 11/29/19 04:41 Lactulose (Cephulac) 30 gm DAILY NG 11/29/19 09:00 12/26/19 17:59 11/29/19 09:16 Levetiracetam 100 ml @ 400 mls/hr Q12HR IVPB 11/26/19 09:00 12/21/19 20:59 11/29/19 09:16 Levofloxacin (Levaquin) 500 mg DAILY ORAL 11/26/19 10:45 12/03/19 10:44 11/29/19 09:17 Pantoprazole (Protonix) 40 mg DAILY ORAL 11/26/19 09:00 12/22/19 08:59 11/29/19 09:17 Ilene Archuleta MD Nov 29, 2019 10:28"
--- NOTE | 2019-11-29 10:57 | NUR ---
*-*DISCHARGE PLANNING*-* PATIENT HAS BEEN REFERRED TO: [facility] P: [phone] F: [phone] REFERRAL HAS BEEN FAXED
[2019-11-29 12:00] VITALS: BP 130/70
--- NOTE | 2019-11-29 12:00 | NUR ---
NURSE NOTES: Oral care done,trachaerl /oral suctioning done,turned and repositioned .
[2019-11-29] MEDS: Cefepime HCl 2 GM in D5W 55 ML IVPB SCH (12:49)
--- NOTE | 2019-11-29 14:51 | Surgery Progress Note ---
Surgery Progress Note Subjective Additional Comments improving no n/v/f/c comfortable appearing Objective Last 24 Hour Vital Signs Date Time Temp Pulse Resp B/P (MAP) Pulse Ox O2 Delivery O2 Flow Rate FiO2 11/29/19 12:00 Mechanical Ventilator 11/29/19 12:00 40 11/29/19 12:00 75 11/29/19 12:00 97.5 80 18 130/70 (90) 98 11/29/19 11:00 76 15 40 11/29/19 09:16 77 15 40 11/29/19 08:01 Mechanical Ventilator 11/29/19 08:00 97.0 80 16 129/99 (109) 100 11/29/19 08:00 40 11/29/19 08:00 79 11/29/19 07:20 76 18 40 11/29/19 04:30 75 14 40 11/29/19 04:00 40 11/29/19 04:00 98.2 71 18 125/87 (100) 100 11/29/19 04:00 Mechanical Ventilator 11/29/19 03:37 70 11/29/19 03:02 71 14 40 11/29/19 01:02 88 19 40 11/29/19 00:00 40 11/29/19 00:00 97.9 74 20 128/84 (99) 95 11/29/19 00:00 Mechanical Ventilator 11/28/19 23:34 71 11/28/19 23:01 76 21 40 11/28/19 21:03 75 14 40 11/28/19 21:01 99.1 11/28/19 21:01 99.1 11/28/19 21:00 40 11/28/19 20:00 Mechanical Ventilator 11/28/19 20:00 40 11/28/19 20:00 99.8 71 18 120/80 (93) 100 11/28/19 19:43 74 11/28/19 18:43 77 17 40 11/28/19 17:16 74 19 40 11/28/19 16:00 Mechanical Ventilator 11/28/19 16:00 98.8 79 20 124/92 (103) 100 11/28/19 16:00 78 11/28/19 16:00 40 I&O Intake and Output 11/28/19 11/29/19 19:00 07:00 Intake Total 1575 ml 1769 ml Output Total 1000 ml 850 ml Balance 575 ml 919 ml Intake Free Water 50 ml 50 ml IV Total 1315 ml 1359 ml Tube Feeding 210 ml 360 ml Output Urine Total 1000 ml 850 ml # Bowel Movements 4 5 Dressing: other Wound: other Drains: other Cardiovascular: RSR Respiratory: decreased breath sounds Abdomen: soft, present bowel sounds Extremities: no tenderness, no cyanosis Plan Problems: (1) Sepsis Assessment & Plan: 64M with multiple comorbidities identified to have leukocytosis, lactic acidosis, CT as below. Patient is trach on vent support with PEG on tube feeds debilitated unresponsive Abdominal examination does not show significant distention and do not elicit pain upon palpation. G-tube in place and looks okay CT examination identifies free air around the left upper quadrant around the G- tube site as well as what seems to be a [employer] shunt but contained within this area. No free air seen in the pelvis lower quadrants right upper quadrant underneath the liver And evaluate the patient's overall condition status is likely the G-tube and replaced potentially with some resistance prior causing injury around the G- tube insertion site with potential leakage possible infectious or inflammatory reaction would recommend medical management at this time given patient's current condition comorbidities [employer] shunt location G-tube location and location of free air and potential infectious inflammatory process identified if rushing to surgical intervention there is Strong concerns for potentially infecting [employer] shunt and having to remove or interrupt G-tube. If potentially localized infectious or inflammatory process may improve with medical management and inpatient who is debilitated sick and elderly would benefit from medical intervention versus aggressive surgical intervention if declines and does not respond to medical conservative management will discuss with f medical team and family considerations for surgical intervention tube feeds as tolerated iv fluids iv abx improving serial abd exams likely findings based on malposition of g tube at some point with replacement. now stable trend labs will follow with recs thank you Findings: Lack of enteric contrast limits assessment of the GI tract. There is a gastrostomy in good position. The stomach is distended with fluid. The proximal small bowel is dilated and fluid-filled. Most of the small bowel is distended with fluid and/or gas, although the most distal ileum is normal in caliber. The transition point is difficult to determine but may be in the right lower quadrant at the level of the distal ileum. The most severe small bowel distention is proximal. The rectum is distended by feces, measures 9 cm in diameter. No significant rectal wall thickening or perirectal inflammation demonstrated. No evidence of colonic diverticulosis or diverticulitis. There is gas anterior to the stomach which is probably intraluminal within bowel, but cannot be definitively connected to any bowel structures so extra peritoneal gas cannot be completely excluded. There is a ventriculoperitoneal shunt catheter, tip of which terminates in the left paracolic gutter. No free intraperitoneal fluid is demonstrated. The appendix is normal. There is no evidence of diverticulosis or diverticulitis. Lack of IV contrast limits assessment of the solid organs. The liver, gallbladder, bile ducts, pancreas, spleen are all unremarkable. The kidneys demonstrate bilateral cysts as well as bilateral subcentimeter low-attenuation lesions which are too small to characterize. There are bilateral nonobstructive calyceal calculi, largest in the right lower pole measuring approximately 8 mm long axis dimension. No ureteral calculi, or hydronephrosis or hydroureter. The bladder is empty. High attenuation material within the bladder lumen may reflect small bladder calculi. There is considerable consolidation within both of the visualized pulmonary lower lobes. There may be trace pleural fluid on the left. The bones are unremarkable except for degenerative spondylosis changes Impression: Dilated stomach and small bowel, nondilated distal ileum, suspicious for distal small bowel obstruction. Gas anterior to the stomach. While possibly within an enteric structure, no enteric structures are seen in this area on prior chest CT of 02/07/2018, so this is concerning for free intraperitoneal gas an therefore for perforation of a hollow viscus. Evidence of rectal fecal impaction Nonobstructive bilateral intrarenal calculi Considerable bilateral pulmonary lower lobe parenchymal consolidation Trace left pleural fluid Possible bladder calculi Ventriculoperitoneal shunt Gastrostomy Other findings as noted, including degenerative spondylosis, renal cysts Pt presented on admission with DTPI sacrum, Non-blanching erythema both heels. Pressure injury Sacrum has irregular borders and is maroon with an area that is purple at sacrococcygeal area.Marginal erythema noted along borders.Periwound is clean and pink(L)8ccm x (W)9cm. R heel is boggy with non-blanching erythema. Non-blanching erythema without induration ,fluctuance L heel. No other skin concerns noted. Tx.Plan: Apply Moisture Barrier Paste to Sacrum. Cover with Optifoam drsg. Change every 3 days and prn. Apply Cavilon Skin BArrier to both heels. Cover each heel with Optifoam drsg. Change every 7 days and prn APM/TOOTIE Mattress overlay. Reposition at least every 2hours or as tolerated. Off-load heels with pillow. Johnathan Ford Nov 29, 2019 14:51
--- NOTE | 2019-11-29 15:35 | NUR ---
NURSE NOTES: Report called out to [facility],spoke with Joanne MCINTYRE,updated on pt's status,V/S and IV medications.Informed pt will be discharged with ANGELLA PICC line for the antibiotic.Silva cath discontinued and removed.Pt with no family listed as next of kin,called Danny Friend ,a friend to inform that pt will be discharged from [facility] to [facility],left the message on the answering machine.
--- NOTE | 2019-11-29 15:43 | General Progress Note ---
Assessment/Plan Assessment/Plan: Assessment - Sepsis - improved - possible SBO/PSBO - resolved - Resp failure / trach - Renal failure - rectal fecal loading --> (+)BM now Recommendations - advance TF - reduce laxatives - IVF - Abx - follow lab / exam / imaging - PPI Subjective Allergies: Coded Allergies: No Known Allergies (Unverified , 02/07/18) Subjective Above noted seen in MARYBETH d/w RN tolerating TF (++) BM Objective Last 24 Hour Vital Signs Date Time Temp Pulse Resp B/P (MAP) Pulse Ox O2 Delivery O2 Flow Rate FiO2 11/29/19 12:00 Mechanical Ventilator 11/29/19 12:00 40 11/29/19 12:00 75 11/29/19 12:00 97.5 80 18 130/70 (90) 98 11/29/19 11:00 76 15 40 11/29/19 09:16 77 15 40 11/29/19 08:01 Mechanical Ventilator 11/29/19 08:00 97.0 80 16 129/99 (109) 100 11/29/19 08:00 40 11/29/19 08:00 79 11/29/19 07:20 76 18 40 11/29/19 04:30 75 14 40 11/29/19 04:00 40 11/29/19 04:00 98.2 71 18 125/87 (100) 100 11/29/19 04:00 Mechanical Ventilator 11/29/19 03:37 70 11/29/19 03:02 71 14 40 11/29/19 01:02 88 19 40 11/29/19 00:00 40 11/29/19 00:00 97.9 74 20 128/84 (99) 95 11/29/19 00:00 Mechanical Ventilator 11/28/19 23:34 71 11/28/19 23:01 76 21 40 11/28/19 21:03 75 14 40 11/28/19 21:01 99.1 11/28/19 21:01 99.1 11/28/19 21:00 40 11/28/19 20:00 Mechanical Ventilator 11/28/19 20:00 40 11/28/19 20:00 99.8 71 18 120/80 (93) 100 11/28/19 19:43 74 11/28/19 18:43 77 17 40 11/28/19 17:16 74 19 40 11/28/19 16:00 Mechanical Ventilator 11/28/19 16:00 98.8 79 20 124/92 (103) 100 11/28/19 16:00 78 11/28/19 16:00 40 Intake and Output 11/28/19 11/29/19 19:00 07:00 Intake Total 1575 ml 1769 ml Output Total 1000 ml 850 ml Balance 575 ml 919 ml Intake Free Water 50 ml 50 ml IV Total 1315 ml 1359 ml Tube Feeding 210 ml 360 ml Output Urine Total 1000 ml 850 ml # Bowel Movements 4 5 Height (Feet): 6 Height (Inches): 2.00 Weight (Pounds): 224 Objective Chronically ill appearing NCAT (+) trach coarse BS RR abd soft flat (+) GT no edema Mercedes Tsai MD Nov 29, 2019 15:43
[2019-11-29 16:00] VITALS: BP 130/70
[2019-11-29] MEDS ORDERED: Sterile Water Irrig 1000ml IRRIG ONE (16:34)
[2019-11-29] MEDS ORDERED: Tubing IV Secondary IV ONE ×2 (16:34)
[2019-11-29] MEDS ORDERED: NS 275ml ONE (16:34)
[2019-11-29] MEDS ORDERED: D5NS 1000ml IV ONE ×2 (16:34)
--- NOTE | 2019-11-29 16:35 | NUR ---
NURSE NOTES: Pt discharged and out of the unit accompanied by ambulance personnel and Reg Resp therapist ,obtunded on portable ventilator ,no resp distress presented,stable.
[2019-11-29] MEDS ORDERED: levETIRAcetam 500mg/5ml Liquid NG SCH (21:00)
--- NOTE | 2019-12-01 14:00 | Discharge Summary ---
Discharge Summary Discharge Summary _ DATE OF ADMISSION: 11/21/2019 DATE OF DISCHARGE: 11/29/2019 DISCHARGED BY: Dr. Jo Pierre CONSULTANTS: Dr. Mercedes Chavez [facility] HOSPITAL COURSE: Patient is a 64-year-old male, who presented to ED with reports of vomiting. Patient is nonverbal and has a tracheostomy. He has feeding tube in place. Patient has history of hyperlipidemia, hypertension, and CVA. Upon evaluation at ED, WBC was elevated to 19. Hemoglobin and hematocrit were stable. Lactic acid was elevated to 3.4. Potassium was 6.9. BUN [address] of the abdomen and pelvis was suspicious for distal small bowel obstruction. G-tube was connected to low intermittent suction. Patient was admitted for evaluation of small bowel obstruction. Patient was placed on n.p.o. He had poor peripheral access. PICC line was inserted. He was given IV hydration. Surgical evaluation was done. Abdominal examination did not show significant distention. G-tube to low intermittent suction. Patient would need serial examination and imaging. Patient closely observed. Was started on conservative management. CTA showed free air. Possible due to recent G-tube change. Patient had hyperkalemia and azotemia. Potassium 6.9. He was given vigorous IV hydration. He was given Zosyn and IV vancomycin. Creatinine improved. Hyperkalemia resolved. G-tube had over 300 cc drainage. Patient also had bowel movement. KUB showed gaseous distention in the segments of the colon. There was large amount of stool in the rectum. He was given enema. Manual disimpaction attempted but rectal exam showed vault full but stool to soft to disimpact. Patient also had deep tissue pressure injury to the sacrum. He had nonblanching erythema to both heels. He was given local wound care. He was placed on overlay mattress with frequent repositioning and offloading. There was minimal drainage noted on the G-tube. He was started on tube feeding. He was given laxatives. Sputum culture showed growth of providentia, Pseudomonas and stenotrophomonas. He was given cefepime and Levaquin. Blood culture was positive for staph, possible contaminant. Urine culture did not isolate any growth. Patient was tolerating feeding well. He was having several bowel movement. Small bowel obstruction resolved. He was eventually discharged back to skilled nursing to continue 5 more days of antibiotics. FINAL DIAGNOSES: Sepsis Possible small bowel obstruction Providentia/Pseudomonas/sternal throat pulmonis pneumonia Acute kidney injury Rectal fecal loading COPD Anoxia Chronic respiratory failure on trach and vent Anemia Hypokalemia Deep tissue pressure injury on the sacrum and nonblanching erythema to both heels, present on admission DISPOSITION: DC to [facility]. I have been assigned to complete a discharge summary on this account, I was not involved with the patient's management.--JAY Hunt Jacqueline Robles NP Dec 01, 2019 14:00
== END 2019-11-29 16:35 | DRG 870 ==
LOC: EDBD 07:07 → EMR 08:00 → ICU 10:27 → EDBEDREQ 11:29 → 2W 11-25 23:46
DX: A41.9 Sepsis, unspecified organism (principal); J15.1 Pneumonia due to Pseudomonas; J15.6 Pneumonia due to other Gram-negative bacteria; J44.0 Chronic obstructive pulmonary disease with (acute) lower respiratory infection; N17.9 Acute kidney failure, unspecified; E87.2 Acidosis; K56.609 Unspecified intestinal obstruction, unspecified as to partial versus complete obstruction; J96.10 Chronic respiratory failure, unspecified whether with hypoxia or hypercapnia; J98.11 Atelectasis; I69.954 Hemiplegia and hemiparesis following unspecified cerebrovascular disease affecting left non-dominant side; E44.0 Moderate protein-calorie malnutrition; G91.1 Obstructive hydrocephalus; K56.49 Other impaction of intestine; I48.91 Unspecified atrial fibrillation; E87.5 Hyperkalemia; N28.1 Cyst of kidney, acquired; I13.10 Hypertensive heart and chronic kidney disease without heart failure, with stage 1 through stage 4 chronic kidney disease, or unspecified chronic kidney disease; E87.6 Hypokalemia; E86.0 Dehydration; D72.829 Elevated white blood cell count, unspecified; N20.0 Calculus of kidney; N21.0 Calculus in bladder; G40.909 Epilepsy, unspecified, not intractable, without status epilepticus; N18.9 Chronic kidney disease, unspecified; M47.9 Spondylosis, unspecified; K21.9 Gastro-esophageal reflux disease without esophagitis; D64.9 Anemia, unspecified; E78.5 Hyperlipidemia, unspecified; Z68.28 Body mass index [BMI] 28.0-28.9, adult; Z93.0 Tracheostomy status; Z93.1 Gastrostomy status; Z98.2 Presence of cerebrospinal fluid drainage device
CPT/HCPCS: 36415; 36569; 36600; 71045; 74018; 74176; 76937; 80048; 80053; 80202; 81003; 82150; 82248; 82550; 82553; 82570; 82803; 82962; 83605; 83690; 83735; 83880; 84132; 84300; 84484; 85007; 85025; 85610; 85651; 85730; 86140; 87040; 87070; 87086; 87181; 87205; 93005; 93970; 94002; 94003; 96365; 96375; 99285; J2405; J7030; J8499